=== PATIENT | male | born 1955 | race Caucasian/White ===

== ENCOUNTER → 2019-11-24 11:14 | Outpatient (BNVA) | payer OTHER, SELFPAY | PROVIDERS: Family Provider Internal Medicine; PCP Internal Medicine; Visit Provider Orthopaedic Surgery | DX: M79.642 Pain in left hand (principal) | CPT/HCPCS: 73130 ==

== ENCOUNTER 2020-01-13 08:49 | Day surgery (SDC) | payer OTHER, SELFPAY ==
[2020-01-12 14:37] VITALS: BMI 30.6
[2020-01-13] VITALS (7 sets, daily range): BP systolic 116–157; BP diastolic 68–107; PULSE 50–82; RESP 16–20; TEMP 36.4–36.7; O2SAT 92–99
--- NOTE | 2020-01-13 08:34 | W.PM.OPSUD ---
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
--- NOTE | 2020-01-13 09:10 | W.PM.OPSUD ---
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
[2020-01-13] MEDS: sodium chloride 0.9% 1,000 ML 30 ML IV (10:37)
--- NOTE | 2020-01-13 10:59 | ANES.PREANE2 ---
Pre-Anesthetic Assessment Pre-Anesthetic Assessment: Height/Weight: Height 1.83 m Weight 102.512 kg Temp Pulse Resp BP Pulse Ox 97.6 F 53 L 18 157/107 97 01/13/20 10:17 01/13/20 10:17 01/13/20 10:17 01/13/20 10:17 01/13/20 10:17 Preop Diagnosis: failed left thumb CMC joint ligament reconstruction Proposed Procedure: Operation Date: 12/10/19 08:10 Proposed Procedures p Left thumb ligament reconstruction and tendon interposition 91516 05073 S63.042S(Left) - Jason Schmitt DO Operation Date: 01/13/20 12:40 Proposed Procedures p left thumb ligament reconstruction and tendon interposition, 17563 33176 S63.042S(Left) - Jason Schmitt DO Last intake: Intake Last Liquid Date 01/12/20 Last Liquid Time 20:30 Last Solid Date 01/12/20 Last Solid Time 20:30 Social: Social History: No alcohol and No tobacco Exam: Pre-Anes Outpt Exam: alert, oriented x 3, clear to auscultation bilaterally and regular rate & rhythm Airway: Submandibular: WNL Cervical ROM: WNL MP: 2 Dentition: Other (teeth ok) History/ROS: No significant history except as noted Pulmonary: Pulmonary: Sleep apnea CV/HEM: CV/HEM: HTN : : None reported Hepatic: Hepatic: None reported GI: GI: None reported Metabolic: Metabolic: None reported Musc/skel: Musc/skel: OA/DJD Neuropsych: Neuropsych: None reported Anesthetic Plan: ASA status: 2 Anesthesia: Anesthesia Evaluation and General Risk of > 500 ml blood loss (7ml/kg in children): No Meds/Allergies Current Medications: Current Medications Generic Name Dose Route Start Last Admin Trade Name Freq PRN Reason Stop Dose Admin Sodium Chloride 1,000 mls @ 30 ml s/hr 01/13/20 10:15 01/13/20 10:37 Sodium Chloride 0.9% IV 01/14/20 10:14 30 mls/hr .Q24H TAMIA Administration PFSH Anesthesia PFSH: Social History Smoking and tobacco status: never smoked Alcohol intake: never Data Anesthesia Cardiac Studies: No Data to Display
[2020-01-13] MEDS: cefUROXime 1,500 MG in sodium chloride 0.9% (plus) 50 ML 100 MG IV (11:28)
[2020-01-13] MEDS: lidocaine 1% INJ 20 mL SUBCUT (13:16)
[2020-01-13] MEDS: neomycin-poly-bacitracin oint 28 gm 1 APPLIC TOPICAL (13:17)
--- NOTE | 2020-01-13 13:40 | P.OP_ITS ---
Operative Report Date of procedure: January 13, 2020 Pre-op Diagnosis: failed left thumb CMC joint ligament reconstruction Post-op diagnosis: same Post-op Findings: Extreme laxity of thumb metacarpal allowing it to piston proximally and distally. Displaced semitendinosus graft previously used into soft tissues dorsal radial aspect of left thumb. No evidence of infection Procedure Done: Left thumb carpometacarpal joint ligament reconstruction and tendon interposition using semitendinosus allograft tendon interposition and ligament reconstruction using autologous flexor carpi radialis tendon graft Implants: 4 x 10 mm Arthrex bio composite screw Specimens removed/disposition: displaced allograft resected and disposed of in OR Pathology: none sent Surgeon: Jason Schmitt Anesthesia: General Estimated blood loss (mL): 10 Tourniquet time (min): 95 Tourniquet time: 250 mmHg pressure Complications: no apparent complicationsrgery Findings: at conclusion of procedure ligament reconstruction secure with marked improved stability of thumb metacarpal Condition: stable Disposition: PACU Brief History: 64-year-old white male who previously undergone left thumb trapeziectomy with ligament reconstruction tendon interposition using internal brace developed proximal migration postoperatively of his thumb metacarpal with extreme instability of the thumb metacarpal. The thumb metacarpal base migrated to the distal pole of the scaphoid. The patient had pain with the soft tissue prominence is felt to be displaced interposition allograft. Due to his complaints of pain and radiographically failed when clinically failed surgical procedure we discussed treatment options. Patient was willing to proceed with revision ligament reconstruction tendon interposition of his left thumb.. Risks of surgery include aren't limited to potential recurrence of the failed stability of the thumb. Nerve/blood vessel/tendon injury, wound healing complications, blood clots, heart attack, stroke risk up to including . All questions were answered patient was agreeable to proceed with surgery. Procedure: Patient identified. Surgical site was signed. Surgical permit was signed. The patient received 1.5 g of Zinacef intravenously for surgical prophylaxis. The patient was taken to the operating room. His placed supine on the operating room table. He was placed under general anesthesia without difficulty. A tourniquet was placed but the upper aspect of left upper extremity. The left upper extremity was then sterilely prepped and draped usual fashion. A timeout was performed. The operative limb was exsanguinated using Esmarch bandage tourniquet inflated to 250 mmHg pressure. With a #15 blade we made an incision over the patient's previous area of surgery at the base of the left thumb metacarpal. Full-thickness skin flaps were made. We encountered the displaced semitendinosus interposition allograft. It was started the local soft tissues. Using careful dissection the interposition arthroplasty was dislodged from the soft tissues. We could identify the depths of the area of the trapezium ectomy. The flexor carpi radialis tendon was found to be intact. We then made a 8 cm incision overlying the flexor carpi radialis tendon. Full- thickness skin flaps were made the flexor carpi radialis tendon was dissected from the surrounding soft tissues. The tendon was then incised. Then using a right angle forceps were able to place this underneath the flexor carpi radialis tendon near the base of the index metacarpal and with traction were able to tendon into the surgical wound to the base of the thumb. We then take a guidewire and then drilled over this using a 4 mm cannulated drill going from the dorsum of the left thumb metacarpal to the base of the thumb metacarpal. We then passed a tendon through the thumb metacarpal and with traction on the thumb taken the basis of metacarpal to the area of the index finger metacarpal we inserted a 4 x 10 mm bio composite interference screw. Excess tendon was cut off. We then made an Hank knee and show the interposition allograft out of the semitendinosus tendon. It was now placed in the space between the distal pole of scaphoid and the proximal aspect of the thumb metacarpal. Joint capsule was closed with interrupted sutures of 4-0 FiberWire. We then sutured and amnion patch over the area of the capsular reconstruction to further reinforce this area and this patch was held in place using interrupted sutures of 4 of hardware. Incision was then closed in layers of the volar wrist and at the base of the thumb using 3-0 undyed Vicryl for nylon on skin. Surgical sites were injected with 10 mL of a one-to-one mixture 1% lidocaine half percent Marcaine. Antibiotic ointment was applied followed by sterile dressings and then a plaster thumb spica splint was applied. Tourniquet was deflated during application of dressings. The patient was aroused from general anesthesia. He was taken to recovery room. He tolerated surgery well. All counts are correct.
== END 2020-01-13 15:10 | disposition home or self-care (01) ==
PROVIDERS: Family Provider Internal Medicine; PCP Internal Medicine; Visit Provider Orthopaedic Surgery
PROC: (CPT 25447; principal; 2020-01-13 12:20)
DX: S63.04 Subluxation and dislocation of carpometacarpal joint of thumb (principal); X58.XXXS Exposure to other specified factors, sequela; G47.30 Sleep apnea, unspecified; I10 Essential (primary) hypertension; M19.90 Unspecified osteoarthritis, unspecified site
CPT/HCPCS: 25447; 12345; C1762; J0697; J1580; J2001; J2250; J2405; J2704; J3010; J3490; J7030

== ENCOUNTER 2020-02-24 15:08 | Outpatient (CLI) | payer OTHER, SELFPAY | END 2020-02-24 15:09 | disposition home or self-care (01) | LOC: SPT 15:10 | PROVIDERS: Family Provider Internal Medicine; PCP Internal Medicine; Visit Provider Orthopaedic Surgery | DX: Z46.89 Encounter for fitting and adjustment of other specified devices (principal); S63.042D Subluxation of carpometacarpal joint of left thumb, subsequent encounter; X58.XXXD Exposure to other specified factors, subsequent encounter | CPT/HCPCS: 97760; L3809 ==

== ENCOUNTER → 2020-03-30 10:37 | Outpatient (BNVA) | payer OTHER, SELFPAY | PROVIDERS: Family Provider Internal Medicine; PCP Internal Medicine; Visit Provider Orthopaedic Surgery | DX: S63.042D Subluxation of carpometacarpal joint of left thumb, subsequent encounter (principal); X58.XXXD Exposure to other specified factors, subsequent encounter | CPT/HCPCS: 73140 ==

== ENCOUNTER → 2020-06-22 14:48 | Outpatient (BNVA) | payer OTHER, SELFPAY | PROVIDERS: Family Provider Internal Medicine; PCP Internal Medicine; Visit Provider Specialist | DX: M17.0 Bilateral primary osteoarthritis of knee (principal) | CPT/HCPCS: 73560; 73565 ==

== ENCOUNTER 2020-08-21 14:26 | Emergency (ER) | payer OTHER, SELFPAY ==
[2020-08-21 14:56] VITALS: BP 150/93; PULSE 60; RESP 14; TEMP 36.5; O2SAT 96
[2020-08-21 15:01] VITALS: BMI 32.1
[2020-08-21 15:47] VITALS: BP 146/92; PULSE 64; RESP 16; TEMP 36.5; O2SAT 98
--- NOTE | 2020-08-21 15:47 | ED_ITS ---
HPI - Wound/Laceration General: Chief Complaint: Wound/Laceration Stated Complaint: FINGER INJURY Time Seen by Provider: 08/21/20 15:09 Source: patient Mode of arrival: ambulatory Limitations: no limitations History of Present Illness: HPI narrative: 64-year-old male patient presents to the emergency department with a laceration to the distal portion of the right index finger. Patient states he was digging around in his toolbox and cut it on something. Patient denies any numbness or tingling. Patient presents with bleeding controlled. Patient denies any other injury or trauma. Patient states his tetanus shot is up-to-date. This injury happened prior to arrival Associated symptoms: Denies chills or fever(s) Review of Systems Const: Denies: fever(s) or chills Card: Denies: chest pain Resp: Denies: dyspnea Skin/Breast: Reports: other (1.5 cm laceration to the distal portion of the right index finger); Denies: rash, pruritus or erythema Neuro: Denies: numbness in extremities or weakness in extremities Psych: Denies: suicidal ideation or homicidal ideation [facility] ED PFSH: Medical History Osteoarthritis of carpometacarpal (CMC) joint of left thumb Surgical History Hx of thumb surgery Social History Smoking and tobacco status: never smoked Alcohol intake: never Physical Exam Const: COMMON NORMALS: no acute distress, patient oriented x3, no limitations, healthy appearing, alert and well nourished Resp: COMMON NORMALS: normal respiratory effort Extremity: NARRATIVE EXTREMITY EXAM: Patient has a 1.5 cm linear laceration noted to the distal portion of the right index finger patient is neurovascularly intact distally. Bleeding is controlled. Tendon is intact there is no finger nail involvement Neuro: COMMON NORMALS: patient oriented x3 SENSORIUM/ORIENTATION: Yes alert Procedures Laceration Laceration 1: Site: hand (Right distal portion of index finger) Size (cm): 1.5 Description: linear Depth: simple, single layer Local Anesthetic: lidocaine 1% Pre-repair: wound explored and irrigated extensively Skin layer closed with: nylon Size (cm): 5-0 Number of sutures: 4 Technique: simple, interrupted Course Vital Signs: Vital signs: Vital Signs Temperature 97.7 F 08/21/20 14:56 Pulse Rate 60 08/21/20 14:56 Respiratory Rate 14 08/21/20 14:56 Blood Pressure 150/93 08/21/20 14:56 Pulse Oximetry 96 08/21/20 14:56 MDM - Wound/Laceration MDM Narrative: Medical decision making narrative: Patient is well-appearing nontoxic and in no acute distress. Patient's laceration did require sutures please see procedure note for details. Patient is neurovascularly intact distally this was a superficial laceration there is no tendon involvement patient has full range of motion. Patient's tetanus shot is up-to-date. Wound care instructions have been advised home care instructions have been reviewed patient is medically cleared and appropriate for discharge Discharge Plan Discharge Condition: Stable Prescriptions: No Action lisinopril 20 mg tablet 20 mg PO DAILY RF: 0 duloxetine [Cymbalta] 60 mg capsule,delayed release(DR/EC) 60 mg PO DAILY RF: 0 (DME) Thumb spica splint See Rx Instructions .Route .MEDSUPPLY Qty: 1 RF: 0 oxycodone-acetaminophen 5-325 mg tablet 1 tab PO Q4H PRN (Reason: pain) Qty: 40 RF: 0 Discharge Orders: Discharge Order (Routine); Ordered 08/21/20 Ordered By: Varsha Hammer Referrals: Ramon Oneil [Primary Care Provider] - Discharge Diet: Advance as tolerated Discharge Activity: Resume usual activity Activity Restrictions/Additional Instructions: Please return to the emergency department in 8 to 10 days for suture removal Please follow wound care instructions Please return to the emergency department with any signs of infection such as drainage fever increased pain to the area or any other concerning symptoms Coding Level of Care Code ED [employer] for Azar Bashir
== END 2020-08-21 15:56 | disposition home or self-care (01) ==
PROVIDERS: Emergency Provider Registered Nurse; PCP Internal Medicine
DX: S61.210A Laceration without foreign body of right index finger without damage to nail, initial encounter (principal); W26.9XXA Contact with unspecified sharp object(s), initial encounter
CPT/HCPCS: 12001; 12345; 99281; 99282

== ENCOUNTER 2020-09-11 13:31 | Outpatient (CLI) | payer OTHER, SELFPAY ==
--- NOTE | 2020-09-11 13:40 | US_ITS ---
WS: [id number] THYROID ULTRASOUND HISTORY: FOLLOW UP MULTINODULAR GOITER COMPARISON: 12/04/2015 Right lobe: 5.9 cm x 2.9 cm x 2.3 cm. Volume: 20.8 cm3. Moderately enlarged thyroid. There are multiple ill-defined nodules throughout the gland. Majority of these nodules are either isoechoic or hyperechoic to the adjacent strap muscles and thyroid. Very li ttle normal thyroid tissue is identified. There is no discrete nodule that stands out as being differ ent a more concerning the remaining nodules. Left lobe: 5.7 cm x 1.9 cm x 2.0 cm. Volume: 11.4 cm3. Enlarged thyroid double ill-defined nodules. There is a slightly thick wall cyst from the inferior po le but no nodule within the cyst. There is no mural nodular component. Cyst measures 1.0 x 1.4 x 1.3 cm. Isthmus: 1.0 cm. US/US thyroid 60618 IMPRESSION: Multinodular thyroid. Although there are multiple nodules none of the nodules s tand out as being more concerning than another. At this time there is no nodule for which biopsy will be recommended.
== END 2020-09-11 13:32 | disposition home or self-care (01) ==
LOC: RAD 13:34
PROVIDERS: PCP Family Medicine; Visit Provider Family Medicine
DX: E04.2 Nontoxic multinodular goiter (principal)
CPT/HCPCS: 76536

== ENCOUNTER → 2020-10-12 09:46 | Outpatient (BNVA) | payer OTHER, SELFPAY | PROVIDERS: PCP Family Medicine; Visit Provider Specialist | DX: Z11.59 Encounter for screening for other viral diseases (principal) | CPT/HCPCS: 87635 ==

== ENCOUNTER 2020-10-17 10:05 | Observation (INO) | payer OTHER, SELFPAY ==
[2020-10-06 10:53] VITALS: BMI 33.5
[2020-10-06 11:39] LABS: Add Urine Microscopic? NO
[2020-10-06 11:47] LABS: Basophils # 0.1 10^3/uL (0.0-0.1); Basophils % 1.3 %; Eosinophils # 0.3 10^3/uL (0.0-0.8); Hemoglobin 15.7 g/dL (11.7-16.6); Lymphocytes # 1.4 10^3/uL (0.8-4.8); Mean Corpuscular HGB Conc 33.4 g/dL (30.0-36.0); Mean Corpuscular Hemoglobin 31.4 pg (28.0-34.0); Mean Platelet Volume 9.9 fL (7.4-10.4); Monocytes # 0.7 10^3/uL (0.2-0.9); Monocytes % 11.6 %; Neutrophils # 3.66 10^3/uL (1.8-7.7); Neutrophils % 58.9 %; Nucleated Red Blood Cells % 0 %; Platelet Count 278 10^3/cmm (130-400); Red Cell Distribution Width 12.2 % (12.1-15.1); White Blood Count 6.2 10^3/uL (4.0-10.0)
[2020-10-06 11:52] LABS: Bilirubin Urine Neg (Negative); Blood Urine Neg (Negative); Glucose Urine UA Norm (Normal); Ketones Urine Negative (Negative); Leukocyte Esterase Urine Negative (Negative); Nitrate Urine Negative (Negative); Protein Urine Neg (Negative); Urine Appearance Clear (CLEAR); Urine Color Yellow (Yellow); Urobilinogen Urine Norm (Negative)
[2020-10-06 12:14] LABS: Alanine Aminotransferase 18 U/L (0-41); Albumin Level 4.1 g/dL (3.5-5.2); Alkaline Phosphatase 105 IU/L (40-130); Aspartate Amino Transferase 18 U/L (0-40); Blood Urea Nitrogen 17 mg/dL (8-23); Calcium 8.6 mg/dL (8.5-10.5); Carbon Dioxide 27 mmol/L (22-29); Chloride 104 mmol/L (98-107); Globulin 3.1 g/dL (1.3-4.6); Glomerular Filtration Rate 75.2 mL/min (90-130); Glucose 126 mg/dL (65-115); Osmolality Calculated 291 mOsm/kg (285-295); Sodium 139 mmol/L (136-145); Total Bilirubin 0.5 mg/dL (0.15-1.2); Total Protein 7.2 g/dL (6.6-8.7)
--- NOTE | 2020-10-06 13:07 | ANES.PREANE2 ---
Pre-Anesthetic Assessment Pre-Anesthetic Assessment: Height/Weight: Height 1.8 m Weight 108.862 kg Preop Diagnosis: DJD left knee Proposed Procedure: Operation Date: 10/17/20 10:35 Proposed Procedures p Left total knee arthropasty 18113 m17.0(Left) - Concepcion Ron MD Was Beta Amadeo taken within 24 hours: N/A Social: Social History: No alcohol and No tobacco Exam: Pre-Anes Outpt Exam: alert, oriented x 3, clear to auscultation bilaterally and regular rate & rhythm Airway: Submandibular: WNL Cervical ROM: WNL MP: 2 Dentition: Full Additional comments: Heavy willis CV/HEM: CV/HEM: HTN Musc/skel: Musc/skel: OA/DJD Anesthetic Plan: ASA status: 2 Anesthesia: Regional (specify below) Other: SAB with adductor canal blk Risk of > 500 ml blood loss (7ml/kg in children): No PFSH Anesthesia PFSH: Medical History Cardiac dysrhythmia Cervical disc disease Fibromyalgia Hypothyroidism Osteoarthritis of carpometacarpal (CMC) joint of left thumb Surgical History History of carpal tunnel release 2001 Hx of hernia repair Hx of spinal surgery Hx of thumb surgery Social History Smoking and tobacco status: never smoked Alcohol intake: never Data Anesthesia CBC & Chem 7: 10/06/20 10:35 10/06/20 10:35 Other Labs: Laboratory Results - last 48 hr 10/06/20 10/06/20 10/06/20 10:35 10:35 10:35 WBC 6.2 RBC 5.00 Hgb 15.7 Hct 47.0 MCV 94.0 MCH 31.4 MCHC 33.4 RDW 12.2 Plt Count 278 MPV 9.9 Neut % (Auto) 58.9 Lymph % (Auto) 23.0 [place] % (Auto) 11.6 Eos % (Auto) 5.0 Baso % (Auto) 1.3 Neut # (Auto) 3.66 Lymph # (Auto) 1.4 [place] # (Auto) 0.7 Eos # (Auto) 0.3 Baso # (Auto) 0.1 Nucleated RBC % (auto) 0 Nucleated RBCs # 0.0 Sodium 139 Potassium 4.0 Chloride 104 Carbon Dioxide 27 Anion Gap 12.0 BUN 17 Creatinine 1.0 GFR Calculation 75.2 L Glucose 126 H Calculated Osmolality 291 Calcium 8.6 Total Bilirubin 0.5 AST 18 ALT 18 Alkaline Phosphatase 105 Total Protein 7.2 Albumin 4.1 Globulin 3.1 Urine Color Yellow Urine Appearance Clear Urine pH 5.0 Ur Specific [place] 1.020 Urine Protein Neg Urine Glucose (UA) Norm Urine Ketones Negative Urine Blood Neg Urine Nitrate Negative Urine Bilirubin Neg Urine Urobilinogen Norm Ur Leukocyte Esterase Negative Cardiac Studies: No Data to Display
[2020-10-17] VITALS (21 sets, daily range): BP systolic 112–150; BP diastolic 71–95; PULSE 42–84; RESP 14–20; TEMP 36.3–37.1; O2SAT 90–96
[2020-10-17] MEDS: CELEcoxib 200 mg Capsule 400 MG PO (06:00)
[2020-10-17] MEDS: sodium chloride 0.9% 1,000 ML 30 ML IV (06:08)
[2020-10-17] MEDS: vancomycin 1,000 MG in sodium chloride 0.9% 250 ML 167 MG IV (06:25)
--- NOTE | 2020-10-17 06:55 | W.PM.OPSUD ---
Surgery/Procedure H&P Update DATE OF PROCEDURE: October 17, 2020 DATE H&P PERFORMED: 09/25/20 H&P UPDATE INFORMATION: I have reviewed H&P completed within last 30 days, I have examined patient prior to procedure, No changes to prior documentation and H&P is in [facility] EMR on date indicated PREOP DIAGNOSIS: DJD left knee PLANNED PROCEDURE: Operation Date: 10/17/20 07:00 Proposed Procedures p Left total knee arthropasty 82729 m17.0(Left) - Concepcion Ron MD Related Problem List Diagnoses (1) Primary osteoarthritis of left knee:
--- NOTE | 2020-10-17 07:09 | P.ANESUD_ITS ---
Pre-Anesthetic Update Pre-Anesthetic Assessment: Date of Surgery/Procedure: 10/17/20 Preop Mallika gnosis: DJD left knee Proposed Procedure: Operation Date: 10/17/20 07:00 Proposed Procedures p Left total knee arthropasty 26481 m17.0(Left) - Concepcion Ron MD Any changes to Pre-Anesthetic Assessment?: No Last Intake: Intake Last Liquid Date 10/16/20 Last Liquid Time 18:00 Last Solid Date 10/16/20 Last Solid Time 18:00 Last Intake: 00:00 Vitals: Temperature 97.3 F L 10/17/20 05:50 Temperature Source Temporal Artery S can 10/17/20 05:50 Pulse Rate 51 L 10/17/20 05:50 Pulse Rhythm 10/17/20 05:50 Pulse Strength 3+ Normal 10/17/20 05:50 Respiratory Rate 18 10/17/20 05:50 Blood Pressure 150/95 10/17/20 05:50 Blood Pressure Yudith n 113 10/17/20 05:50 Pulse Oximetry 96 10/17/20 05:50 Oxygen Delivery Me thod 10/17/20 05:50 Exam: Pre-Anes Outpt Exam: alert, oriented x 3, clear to auscultation bilaterally and regular rate & rhythm Cardiac Studies: No Data to Display
[2020-10-17] MEDS: ceFAZolin 1,000 mg SDV 1000 MG IRRIGATION (08:09)
[2020-10-17] MEDS: vancomycin 1,000 MG SDV 1000 MG XX (08:12)
--- NOTE | 2020-10-17 08:28 | ANES.PROC ---
Anesthesia Procedures Procedure/Date: 10/17/20 Nerve Block ^: Nerve Block 1: Main Anesthesia: spinal anesthesia block Time Out Performed: Yes Consent: requested by attending/covering physician, from patient, risks and benefits reviewed and patient agrees to proceed Nerve block location: adductor canal (left) Anesthesia monitors applied: pulse oximetry, EKG, BP cuff and oxygen Anesthetic Used: ropivicaine 0.5% Amount of anesthesia used (mL): 20 Ultrasound used to: recognize landmarks Nerve Stimulator Used?: No Interscalene/Femoral BLK: 4 stimuplex 21 g needle used for position and inplane approach Injection: neg aspiration of heme Patient Tolerated Procedure: well Complications: none
--- NOTE | 2020-10-17 09:50 | SUR.PHASEI ---
PT TO PACU SLEEPY WITH GOOD RESP EFFORT PT AWAKES TO VOICE, MURMERS YES AND NO APPROPRIATELY TO PAIN AND COLD QUESTIONS BUT QUICKLY BACK TO SLEEP , SPINAL LEVEL OF NORMAL SENSATION ASSESSED AT T-11 AREA, PT STILL UNABLE TO MOVE BILAT FEET OR LEGS, HOB FLAT , RAISED TO 10 DEGREES VSS. JAY TO DD WITH BLOOD COLORED URINE NOTED TO TUBING STATLOCK PLACED TO RT THIGH, BILAT FOOT PUMPS ON AND FIRST ICE TO LT KNEE DRESSING THAT IS D/I DISTAL LT FOOT PINK WARM WITH PULSE MARKED BILAT FOOT PUMPS ON 955 XRAY HERE PT AWAKES EASILY TO VOICE ORIENTED TO PLACE AND NAME
--- NOTE | 2020-10-17 09:56 | XR_ITS ---
WS: [id number] Exam: XR knee LT 1-2V [id number] Date/Time of Exam: 10/17/2020 10:00 AM Reason For Exam: Status post left total knee arthroplasty Comparison 06/22/2020. Total left knee prosthesis is in place in excellent position. Postoperative changes in the adjacent s oft tissues. Anterior surgical skin clips. XR/XR knee LT 1-2V [id number] IMPRESSION: 1. Total knee replacement in excellent position.
--- NOTE | 2020-10-17 09:59 | P.OP_ITS ---
Operative Report Date of procedure: October 17, 2020 Pre-op Diagnosis: DJD left knee Post-op diagnosis: same Post-op Findings: Severe degenerative osteoarthritis left knee Procedure Done: Left total knee arthroplasty Implants: The [place] total knee system with a size 6 triathlon beaded posterior stabilized femur left, a triathlon titanium tibial component size 6 beaded, a triathlon X3 posterior stabilized tibial bearing insert size 6 X 11 mm and a beaded triathlon titanium asymmetric patella size 35 x 10 mm Specimens removed/disposition: Bone, disposed of Pathology: none sent Surgeon: Concepcion Ron Sterilization Tech: [employer] OR technicians Anesthesia: MAC (With spinal) Estimated blood loss (mL): 5 Tourniquet time (min): 93 Tourniquet time: At 250 mmHg IV fluids (mL): 1,300 Urine output (mL): 150 Complications: None Findings: Severe degenerative osteoarthritis with slight varus deformity Condition: stable Disposition: PACU (Then floor for postoperative rehabilitation) Brief History: This 64-year-old man presented with complaints of severe left knee pain. He was unable to perform activities of daily living comfortably. He was unresponsive to conservative measures and wished to proceed with left total knee arthroplasty . Risks and complications were discussed with him. Consents were signed preoperatively and questions were answered. The patient wished to proceed understanding the above. Procedure: The patient was brought to the operating theater, and after undergoing adequate spinal anesthesia with MAC, ASA 2, the left lower extremity was prepped with Dura-Prep and draped in usual fashion following placement of a tourniquet high on the leg. The leg was then draped free. Following prepping and draping, the leg was exsanguinated, and the tourniquet was elevated to 250 mm Hg for a total tourniquet time of 93 minutes. Prior to elevation of the tourniquet, but following exposure of the site of surgery, a surgical pause was performed. At the time of the surgical pause, we confirmed the site and side of surgery. Additionally, we confirmed the appropriate and timely administration of preoperative antibiotics, vancomycin 1 g. and Transexemic acid 1 g. An additional dose of Transexemic acid 1 g was given at the conclusion of the procedure IV. The availability of equipment was confirmed, and the patient's identity was verbalized as well. Following the surgical pause, an incision was made centering over the patella continuing proximally and distally as necessary to allow access to the knee joint. Dissection continued through skin and soft tissues using a scalpel. Hemostasis was obtained using electrocautery. The skin incision was followed by a median parapatellar arthrotomy. The leg was extended and the patella was everted. Following this, the leg was returned to flexed position. The distal femur was exposed and a drill hole was made in this for placement of the distal femoral jig. The distal femoral jig was set at 5? of valgus. The distal femoral cutting block was then placed in appropriate position, and an wanda wing was used to confirm an appropriate amount of distal femur would be resected. The distal femoral resection was accomplished with 8 mm of bone being resected distally. After the distal femoral resection had been accomplished, the femur was measured and it measured a size 6. Medial lateral dimension also measured a size 6. A size 6 femoral cutting block was placed in position, and we were then able to accomplish the anterior, posterior and chamfer cuts. This jig was then removed and the notch guide was placed in position. With the notch guide in appropriate position, the notch was excised including resection of the anterior and posterior cruciate ligaments. This notch was to allow for the posterior stabilized femoral component. At this point, the femur was prepared and attention was directed to the proximal tibia. The posterior knee retractor was placed along with medial and lateral retractors. Further resection of the menisci was accomplished as we had better visualization. A complete meniscectomy was performed both medially and laterally with care being taken to protect the popliteus. Retractors were then placed so that the proximal tibia was well visualized. A drill hole was then made in the tibia for placement of the intramedullary guide. This guide was placed so that approximately 2 mm of bone would be resected from the deficient medial tibial plateau. The intramedullary guide was utilized supplemented with an extramedullary guide to assure appropriate alignment for the proximal tibial resection. The proximal tibial jig was then evaluated, pinned in position, and the proximal tibial resection was accomplished without difficulty. The jig was removed, and the proximal tibia was measured. It measured a size 6. We then attempted a trial reduction with a size 6 by 11 mm insert. The femoral component was placed in position for the trial reduction, and the knee was placed through range of motion. With this, there was excellent stability with excellent varus-valgus alignment with appropriate patellar tracking. Extension was noted to be full as well. This was felt to be the appropriate size insert. There was full extension and flexion without lift off and the rotation of the tibia was marked. Alignment was checked from the hip to the ankle, and this was noted to be appropriate as well. Attention was then directed to the patella. The patella was measured with a caliper. We resected sufficient patella to leave approximately 14 mm of patella remaining. Measurements of the patella then indicated that a size asymmetric 35 mm x 10 mm was the appropriate patellar size. We then placed the jig to drill for the 3 pegs of the press-fit patella, and these drill holes were made without incident. A trial patella was then placed, and the knee was placed through range of motion. The patella was noted to track nicely without evidence of subluxation. The femur was prepared for a press-fit femur by drilling 2 holes for the femoral pegs. All trial components were subsequently removed. The tibial tray was then pinned into position, and we broached the tibia for the stem of the tibial component. Subsequently, 4 drill holes were made for placement of the press-fit tibia. This was accomplished without difficulty. Care was taken to assure appropriate rotation of the tibia as well as appropriate position on the proximal tibia. The tibial tray was completely seated on the proximal tibia. Following broaching, the tibial guide was removed, and all surfaces were copiously irrigated. The surfaces were then dried and a bone plug was placed into the distal femur. Exparel was also injected at this point. The Tritanium tibia was impacted into position. The beaded femur was then impacted into position in a cementless fashion. The tibial insert was placed. The patella was pressed into position with a patellar clamp. The knee was irrigated with 20 mL of Betadine and 500 mL of normal saline, and this was allowed to remain in the knee for 3-4 minutes. The knee was then copiously irrigated and suctioned dry. Attention was then directed to closure. Closure was accomplished with 0 Vicryl in the fascial tissues. Following this, a 2-0 Monocryl was used in the subcutaneous tissues, and the skin was closed with skin day. A sterile dressing was then placed consisting of Exofin, telfa, 4x4's, ABD, sterile soft roll, and an Hank wrap. The patient was returned the Recovery Room in a satisfactory condition. X-rays were obtained there. The patient will be discharged to the floor for postoperative rehabilitation and pain management. Associated Problem List Diagnoses (1) Primary osteoarthritis of left knee:
--- NOTE | 2020-10-17 10:04 | SUR.PHASEI ---
PT AWAKES EASILY, ORIENTED PT URINE NOW MORE CLEAR BUT STILL RED SEE IV FLUIDS 300ML IN PACU TO CLEAR UP URINE. SPINAL LEVEL NOW AT T-12 PT HIWOT TO MOVE RT THIGH.
[2020-10-17] MEDS: oxyCODONE 5 mg IR Tab/Cap PO ×3 (11:40→22:00)
[2020-10-17] MEDS: chlorhexidine gluconate 0.12% Btl 473 mL 30 ML MUCOUS MEM ×3 (13:33→20:37)
[2020-10-17] MEDS: TRAMadol 50 mg Tablet PO ×2 (13:33→18:49)
--- NOTE | 2020-10-17 13:34 | ANE.PACU2 ---
Inpatient post-anesthesia follow up: Airway intact: Yes Vital signs: Temperature 97.4 F Pulse Rate 58 Respiratory Rate 17 Blood Pressure 150/92 Pulse Oximetry 94 Oxygen Delivery Me thod Room Air Oxygen Flow Rate Fraction of Inspir ed Oxygen Hydration adequate: Yes Nausea and vomiting: No Pain level: 1 Mental status: Baseline
[2020-10-17] MEDS: calcium carbonate 500 mg Chew Tablet 1000 MG PO (17:52)
[2020-10-17] MEDS: CELEcoxib 200 mg Capsule PO (17:52)
[2020-10-17] MEDS: iron polysaccharide complex 150 mg Capsule PO (17:53)
[2020-10-17] MEDS: sennosides-docusate Tablet 2 TAB PO (17:53)
--- NOTE | 2020-10-17 18:39 | PC.NURSE ---
SHIFT SUMMARY PATIENT HAS DONE WELL TODAY. PAIN WELL CONTROLLED. DID WELL WITH THERAPY. TOLERATING DIET. GOOD URINE OUTPUT IN THE JAY CATHETER. GOOD NEUROVASCULAR CHECKS. SURGICAL DRESSING IS C/D/I. FP AND TEDS IN PLACE. NO COMPLAINTS AT THIS TIME.
[2020-10-18] VITALS (8 sets, daily range): BP systolic 127–176; BP diastolic 78–95; PULSE 61–68; RESP 17–18; TEMP 35.9–37; O2SAT 92–95
[2020-10-18 03:04] LABS: Basophils # 0.1 10^3/uL (0.0-0.1); Basophils % 0.6 %; Eosinophils # 0.2 10^3/uL (0.0-0.8); Eosinophils % 1.6 %; Hematocrit 39.6 % (42.0-52.0); Lymphocytes % 9.8 %; Mean Corpuscular HGB Conc 32.8 g/dL (30.0-36.0); Mean Corpuscular Hemoglobin 31.4 pg (28.0-34.0); Mean Corpuscular Volume 95.7 fL (80-94); Mean Platelet Volume 9.9 fL (7.4-10.4); Monocytes # 1.1 10^3/uL (0.2-0.9); Monocytes % 11.4 %; Neutrophils # 7.55 10^3/uL (1.8-7.7); Neutrophils % 76.4 %; Nucleated Red Blood Cells % 0 %; Platelet Count 233 10^3/cmm (130-400); Red Blood Count 4.14 10^6/uL (4.1-5.3); Red Cell Distribution Width 12.2 % (12.1-15.1); White Blood Count 9.9 10^3/uL (4.0-10.0)
[2020-10-18 03:29] LABS: Anion Gap 11.2 (5-19); Blood Urea Nitrogen 17 mg/dL (8-23); Calcium 8.5 mg/dL (8.5-10.5); Carbon Dioxide 27 mmol/L (22-29); Chloride 102 mmol/L (98-107); Glomerular Filtration Rate 67.4 mL/min (90-130); Glucose 142 mg/dL (65-115); Osmolality Calculated 286 mOsm/kg (285-295); Potassium 4.2 mmol/L (3.5-5.1); Sodium 136 mmol/L (136-145)
[2020-10-18] MEDS: oxyCODONE 5 mg IR Tab/Cap PO ×3 (04:18→16:50)
[2020-10-18] MEDS: CELEcoxib 200 mg Capsule PO ×2 (05:51→16:51)
[2020-10-18] MEDS: vancomycin 1,000 MG in sodium chloride 0.9% 250 ML 250 MG IV (06:45)
[2020-10-18] MEDS: lisinopril 20 mg Tablet PO (07:58)
[2020-10-18] MEDS: iron polysaccharide complex 150 mg Capsule PO ×2 (07:59→16:51)
[2020-10-18] MEDS: sennosides-docusate Tablet 2 TAB PO ×2 (07:59→16:51)
[2020-10-18] MEDS: cholecalciferol (vitamin D3) 1,000 unit Tablet 1000 UNIT PO (07:59)
[2020-10-18] MEDS: chlorhexidine gluconate 0.12% Btl 473 mL 30 ML MUCOUS MEM ×4 (07:59→21:30)
[2020-10-18] MEDS: calcium carbonate 500 mg Chew Tablet 1000 MG PO ×2 (07:59→16:51)
[2020-10-18] MEDS: duloxetine 60 mg Capsule PO (07:59)
[2020-10-18] MEDS: multivitamin therapeutic Tablet 1 TAB PO (07:59)
[2020-10-18] MEDS: aspirin 325 mg EC Tablet PO (07:59)
[2020-10-18] MEDS: TRAMadol 50 mg Tablet PO ×2 (09:50→21:29)
--- NOTE | 2020-10-18 10:07 | PC.NURSE ---
AM NOTE PTS BED LOCKED OUT AT KNEES TO FLAT POSITION
--- NOTE | 2020-10-18 10:13 | PC.CHAP ---
Pastoral Care Encounter/Spiritual Assessment Type of Contact [] Declined residential roofer visit [] Patient/Family/Request visit [] Outpatient visit [] Follow-up visit [] Physician referral [] Code/Alert [x] Routine visit [] Staff referral [] Actively dying [] Patient sleeping [] Family support [] [] Out of room [] Palliative care [] [] Receiving care in room [] Pre-surgical visit [] Trauma [] Long length of stay [] ICU visit [] Other: Relational/Emotional Strength [x] Patient feels connected with others/family/visitors/staff [] Distress [] Loneliness/isolation [] Abandonment Spirituality of Patient [x] Person of Alice [] Attends Pentecostalism of their Alice [] Believes in Prayer [] Reads Bible or Mormonism materials [] There are Spiritual issues to be addressed Cigarette Inspector Interventions [x] Prayer [] Active listening [] Non-anxious presence [] Spiritual/emotional support [] Crisis/trauma care [] Spiritual counseling [] Bereavement support [] Provided bereavement packet [x] Provided Bible/devotional materials [] Provided toy/stuffed animal, coloring book to patient or family member [] Provided Communion [] Anointing/[place] [] Salvation [x] Completed spiritual assessment [] Other: Impact on Illness or Injury [] Angry [] Fearful [] Anxious [] Often cries [] Exhaustion [] Unable to work [] Unable to attend mandaen [] Unable to walk/stand [] Unable to read [] Unable to drive [] Unable to eat/drink [] Unable to sleep [] Unable to be with family [] Patient intubated [] Other: Summary patient up n walking feel ready to go home Time spent with patient 10 min
[2020-10-18] MEDS: acetaminophen 500 mg Tablet 1000 MG PO ×2 (13:07→21:28)
--- NOTE | 2020-10-18 15:43 | PM.PN ---
Subjective Subjective: Interval history: Priyanka is seen in the room. His dressing is removed. Although he is working with physical therapy and did very well on the stairs, he is still not independent in getting up and down from his bed. He will require further inpatient physical therapy to obtain a status which would allow him to safely function at home. Medications: Reviewed: Yes Vitals/I&O/Wt Last Vital Signs Temp 97.5 F L 10/18/20 15:17 Pulse 68 10/18/20 15:17 Resp 18 10/18/20 15:17 BP 176/95 10/18/20 15:17 Pulse Ox 95 10/18/20 15:17 10/18/20 10/18/20 10/18/20 06:59 14:59 22:59 Intake Total 580 / 580 Output Total 600 / 1755 100 / 100 Balance -600 / 1475 480 / 480 Physical Exam Const: COMMON NORMALS: no acute distress, average body habitus, patient oriented x3 and alert GENERAL APPEARANCE: cooperative and comfortable ORIENTATION/CONSCIOUSNESS: Yes awake HENMT: COMMON NORMALS: normocephalic and atraumatic HEAD & SCALP: normocephalic and atraumatic Eye: GENERAL EYE: appearance normal, both eyes and all related structures Chest: COMMONS NORMALS: normal inspection of the chest Resp: COMMON NORMALS: normal respiratory effort EFFORT & INSPECTION: Yes able to speak in complete sentences and Yes symmetric chest movement Extremity: LEFT LOWER EXTREMITY: Yes knee joint (Dressing is removed. The wound is benign. There is no drainage.) Left knee: Yes inspection (There is some bruising and slight swelling.), Yes palpation (Tender to palpation about the knee.), Yes ROM (Not evaluated.) and Yes neurovascular exam (Intact, no evidence of DVT.) Neuro: COMMON NORMALS: patient oriented x3 SENSORIUM/ORIENTATION: Yes alert Psych: COMMON NORMALS: mental status grossly normal APPEARANCE: Yes grossly normal ATTITUDE: Yes calm and Yes engaged ATTENTION/CONCENTRATION: Yes attention grossly intact Skin: COMMON NORMALS: no rashes or lesions noted GENERAL SKIN EXAM: no rashes or lesions noted Urinary Catheter Management^: Moon: Cath Placed During This Visit: yes Reason for Continuing Indwelling Catheter: Perioperative Use in Selected Surgeries Urinary Catheter Date of Insertion: 10/17/20 Urinary Catheter Time of Insertion: 07:40 Data : 10/18/20 02:18 10/18/20 02:18 A&P Assessment and plan (1) Primary osteoarthritis of right knee: Patient is doing well following left total knee arthroplasty, but he is having significant difficulty with independent activity. He did well on the stairs today, but he has not been able to get in and out of bed on his own. He will require further hospitalization for further physical therapy to allow him to function safely at home. Plan would be that he would be discharged home tomorrow. Status: Acute (2) History of total knee arthroplasty: Status: Acute Qualifiers: Laterality: left Qualified Code(s): Z96.652 - Presence of left artificial knee joint Attestations Medical Necessity Statement*: Patient requires ongoing inpatient physical therapy to allow a safe return to home. Coding Level of Care Code Acute Pest Control Operator for Azar Bashir Diagnoses Primary osteoarthritis of right knee M17.11 History of total knee arthroplasty Z96.652 Laterality: left
--- NOTE | 2020-10-18 18:34 | PC.NURSE ---
SHIFT NOTE UP THROUGHOUT SHIFT WITH PT - TOLERATED WELL - PER PT - PATIENT ABLE TO ACCOMPLISH GOING UP AND DOWN STEPS WITHOUT DIFFICULTY - DR WALLER PREVIOUSLY AT PTS SIDE FOR DRESSING CHANGE - ISLAND REMAINS C/D/I WITH SCATTERED AREAS OF BRUISING TO LEFT KNEE - BILATERAL FOOT PUMPS ON AND WORKING THROUGHOUT SHIFT WHEN IN BED - PAIN WELL CONTROLLED WITH PO PAIN MEDS
[2020-10-19] VITALS (7 sets, daily range): BP systolic 145–167; BP diastolic 81–95; PULSE 64–89; RESP 15–18; TEMP 36.6–37; O2SAT 93–96
[2020-10-19 05:30] LABS: Basophils # 0.1 10^3/uL (0.0-0.1); Basophils % 0.5 %; Eosinophils # 0.3 10^3/uL (0.0-0.8); Eosinophils % 2.6 %; Hemoglobin 12.8 g/dL (11.7-16.6); Lymphocytes # 1.2 10^3/uL (0.8-4.8); Lymphocytes % 11.3 %; Mean Corpuscular HGB Conc 32.8 g/dL (30.0-36.0); Mean Corpuscular Hemoglobin 31.1 pg (28.0-34.0); Mean Corpuscular Volume 94.7 fL (80-94); Monocytes # 1.7 10^3/uL (0.2-0.9); Monocytes % 15.3 %; Neutrophils # 7.68 10^3/uL (1.8-7.7); Neutrophils % 69.8 %; Nucleated Red Blood Cells % 0 %; Platelet Count 227 10^3/cmm (130-400); Red Blood Count 4.12 10^6/uL (4.1-5.3); Red Cell Distribution Width 12.2 % (12.1-15.1)
[2020-10-19] MEDS: CELEcoxib 200 mg Capsule PO (05:46)
[2020-10-19] MEDS: acetaminophen 500 mg Tablet 1000 MG PO ×2 (05:47→14:33)
[2020-10-19] MEDS: oxyCODONE 5 mg IR Tab/Cap PO (05:47)
[2020-10-19] MEDS: calcium carbonate 500 mg Chew Tablet 1000 MG PO (09:09)
[2020-10-19] MEDS: chlorhexidine gluconate 0.12% Btl 473 mL 30 ML MUCOUS MEM ×2 (09:09→14:33)
[2020-10-19] MEDS: cholecalciferol (vitamin D3) 1,000 unit Tablet 1000 UNIT PO (09:10)
[2020-10-19] MEDS: multivitamin therapeutic Tablet 1 TAB PO (09:10)
[2020-10-19] MEDS: iron polysaccharide complex 150 mg Capsule PO (09:10)
[2020-10-19] MEDS: aspirin 325 mg EC Tablet PO (09:10)
[2020-10-19] MEDS: lisinopril 20 mg Tablet PO (09:10)
[2020-10-19] MEDS: sennosides-docusate Tablet 2 TAB PO (09:10)
[2020-10-19] MEDS: duloxetine 60 mg Capsule PO (09:10)
--- NOTE | 2020-10-19 15:44 | PM.DCS ---
Discharge Providers Date of Admission: 10/17/20 10:05 Date of Discharge: October 19, 2020 Attending Provider at Admission: Concepcion Ron MD Attending Provider at Discharge: Concepcion Ron MD Primary Care Provider: Ashley Mac MD Diagnoses at Discharge Discharge Diagnosis (1) History of total knee arthroplasty: Status: Acute Permanent problem details: Left [place] total knee system with a size 6 triathlon beaded posterior stabilized femur left, a triathlon titanium tibial component size 6 beaded, a triathlon X3 posterior stabilized tibial bearing insert size 6 X 11 mm and a beaded triathlon titanium asymmetric patella size 35 x 10 mm Qualifiers: Laterality: left Qualified Code(s): Z96.652 - Presence of left artificial knee joint (2) Primary osteoarthritis of right knee: Status: Acute (3) Primary osteoarthritis of left knee: Status: Resolved Reason for Visit Reason for Visit: Left total knee arthropasty [id number] Hospital Course Hospital Course Patient was brought to the hospital on October 17, 2020 for same-day surgery. He underwent left total knee arthroplasty uneventfully. He tolerated this well. On the first postoperative day, the patient was requiring assistance with getting in and out of bed. He was able to ambulate, but he was not competent enough to be discharged to home. Physical therapy continue to work with him. His wound was benign. There was no evidence of DVT. There was no evidence of complication or wound drainage. Plans were made for the patient to stay 1 more day to work with physical therapy so that he had the ability to gain his confidence and be discharged safely to home. This was accomplished and the patient is discharged on the second postoperative day. Physical Exam Const: COMMON NORMALS: no acute distress, average body habitus, patient oriented x3 and alert GENERAL APPEARANCE: cooperative and comfortable ORIENTATION/CONSCIOUSNESS: Yes awake HENMT: COMMON NORMALS: normocephalic and atraumatic HEAD & SCALP: normocephalic and atraumatic Eye: GENERAL EYE: appearance normal, both eyes and all related structures Chest: COMMONS NORMALS: normal inspection of the chest Resp: COMMON NORMALS: normal respiratory effort EFFORT & INSPECTION: Yes able to speak in complete sentences and Yes symmetric chest movement Extremity: LEFT LOWER EXTREMITY: Yes knee joint Left knee: Yes inspection (There is no drainage or evidence of infection.), Yes palpation (Minimal tenderness.), Yes ROM (Not evaluated.) and Yes neurovascular exam (Intact with no evidence of DVT.) Neuro: COMMON NORMALS: patient oriented x3 SENSORIUM/ORIENTATION: Yes alert Psych: COMMON NORMALS: mental status grossly normal APPEARANCE: Yes grossly normal ATTITUDE: Yes calm and Yes engaged ATTENTION/CONCENTRATION: Yes attention grossly intact Skin: COMMON NORMALS: no rashes or lesions noted GENERAL SKIN EXAM: no rashes or lesions noted Urinary Catheter Management^: Moon: Cath Placed During This Visit: yes Reason for Continuing Indwelling Catheter: Perioperative Use in Selected Surgeries Urinary Catheter Date of Insertion: 10/17/20 Urinary Catheter Time of Insertion: 07:40 Discharge Data Data Completed and Pending: Completed Studies During Hospitalization Category Date Time Status XR knee LT 1-2V 7 [id number] Urgent Exams 10/17/20 09:56 Completed Pending at discharge Category Date Time Status Complete Blood Co unt w/Auto AM LABS Lab 10/20/20 04:00 Ordered Labs from last 24 hours 10/19/20 05:10 WBC 11.0 H RBC 4.12 Hgb 12.8 Hct 39.0 L MCV 94.7 H MCH 31.1 MCHC 32.8 RDW 12.2 Plt Count 227 MPV 10.0 Neut % (Auto) 69.8 Lymph % (Auto) 11.3 Lamar % (Auto) 15.3 Eos % (Auto) 2.6 Baso % (Auto) 0.5 Neut # (Auto) 7.68 Lymph # (Auto) 1.2 [place] # (Auto) 1.7 H Eos # (Auto) 0.3 Baso # (Auto) 0.1 Nucleated RBC % (a uto) 0 Nucleated RBCs # 0.0 Vitals: Last Vital Signs Temp 98.6 F 10/19/20 15:08 Pulse 89 10/19/20 15:08 Resp 17 10/19/20 15:08 BP 167/90 10/19/20 15:08 Pulse Ox 96 10/19/20 15:08 Discharge Plan Discharge Patient Disposition: Home Health Service Condition: Stable Prescriptions: New celecoxib 200 mg Capsule 200 mg PO Q12H Qty: 60 RF: 0 acetaminophen 500 mg Tablet 1,000 mg PO Q8H 15 Days Qty: 0 RF: 0 aspirin 325 mg Tablet,Delayed Release (Dr/Ec) 325 mg PO DAILY 30 Days Qty: 0 RF: 0 oxycodone 5 mg Tablet 5 mg PO Q4H PRN (Reason: Moderate Pain) Qty: 30 RF: 0 Continued lisinopril 20 mg tablet 20 mg PO DAILY RF: 0 duloxetine [Cymbalta] 60 mg capsule,delayed release(DR/EC) 60 mg PO DAILY RF: 0 (DME) Thumb spica splint See Rx Instructions .Route .MEDSUPPLY Qty: 1 RF: 0 vitamin E 200 unit Capsule 200 unit PO DAILY RF: 0 aspirin 81 mg Tablet 81 mg PO DAILY RF: 0 ascorbic acid (vitamin C) 1,000 mg Capsule, Extended Release 1 cap PO DAILY RF: 0 zinc 50 mg Capsule 50 mg PO DAILY RF: 0 cholecalciferol (vitamin D3) [Vitamin D3] 50 mcg (2,000 unit) Capsule 50 mcg PO DAILY RF: 0 Held oxycodone-acetaminophen 5-325 mg tablet 1 tab PO Q4H PRN (Reason: pain) Qty: 40 RF: 0 Hold Instructions: Resume on 10/27/20. Please use Oxycodone with separate Tylenol dosing until this date Discharge Orders: Discharge Order (Routine); Ordered 10/19/20 Ordered By: Concepcion Ron Other Ambulatory Orders: DME: Commode (Order) Location: None Selected Ordered By: Concepcion Ron DME: [employer] (Order) Location: None Selected Ordered By: Davina Roy DME: Shower Chair (Order) Location: None Selected Ordered By: Concepcion Ron DME: Shower Chair (Order) Location: None Selected Ordered By: Davina Roy Referrals: Concepcion Ron MD [Physician] - 10/30/20 9:15 am Discharge Diet: Advance as tolerated and Usual diet Discharge Activity: Resume usual activity, Increase activity as tolerated, Use walker/crutches as instructed and As per PT/OT instructions Patient Instructions: Oxycodone, Rapid Release (By mouth), Celecoxib (By mouth), Total Knee Replacement (DC) Activity Restrictions/Additional Instructions: Ice and elevation to left lower extremity. Maintain a clean dressing. Ambulate with physical therapy. Strengthening and range of motion as per PT. Discharge Attestations Time Spent in Discharge Care*: greater than 30 min Specific Discharge Activities: educating patient and documenting/other paperwork Quality Metrics Clinical Quality Measures During this hospital stay, did patient experience: None Coding Level of Care Code Acute Screen Printing Machine Operator Helper for Azar Fwd Diagnoses History of total knee arthroplasty Z96.652 Laterality: left Primary osteoarthritis of right knee M17.11 Primary osteoarthritis of left knee M17.12
--- NOTE | 2020-10-19 16:45 | PC.NURSE ---
discharge instructions given to patient voiced full understanding, iv dc'd cath intact bleeding controlled with 2x2 and coban. Patient to main entrance via wheelchair to private vehicle with zero difficulties.
== END 2020-10-19 16:45 | disposition home health service (06) ==
LOC: MEDSURG 10:05
PROVIDERS: Admitting Provider Specialist; PCP Family Medicine; Visit Provider Specialist
PROC: (CPT 27447; principal; 2020-10-17 07:00)
DX: M17.12 Unilateral primary osteoarthritis, left knee (principal); M17.11 Unilateral primary osteoarthritis, right knee; I10 Essential (primary) hypertension; M79.7 Fibromyalgia; E03.9 Hypothyroidism, unspecified
CPT/HCPCS: 27447; 12345; 36415; 51702; 64447; 73560; 80048; 80053; 81003; 85025; 96365; 97110; 97116; 97161; 97165; 97535; C1776; C9290; G0378; J0131; J0690; J2250; J2704; J2795; J3370; J3490; J7030; J7050

== ENCOUNTER → 2020-11-01 09:11 | Outpatient (BNVA) | payer OTHER, SELFPAY | PROVIDERS: PCP Family Medicine; Visit Provider Specialist | DX: Z96.652 Presence of left artificial knee joint (principal) | CPT/HCPCS: 73560; 73565 ==

== ENCOUNTER 2020-11-12 16:49 | Emergency (ER) | payer OTHER, SELFPAY ==
--- NOTE | 2020-11-12 16:51 | XRR_ITS ---
PROCEDURE INFORMATION: Exam: XR Left Knee Exam date and time: 11/12/2020 4:52 PM Age: 64 years old Clinical indication: Injury or trauma; Fall; Blunt trauma; Knee; Left TECHNIQUE: Imaging protocol: XR Left knee. Views: 3 views. COMPARISON: CR XR knees AP WB w LT lmt ORTH 11/01/2020 9:17 AM FINDINGS: Bones/joints: Status post total knee replacement. Distal femoral and proximal tibial components appear intact without obvious complication. Soft tissues: There is edema in the soft tissues surrounding the knee. XR/XR knee LT 3V* [id number] IMPRESSION: 1. There is edema in the soft tissues surrounding the knee. 2. Status post total knee replacement with no obvious complication.
[2020-11-12 16:54] VITALS: BP 168/99; PULSE 68; RESP 18; TEMP 36.6; O2SAT 97; BMI 32.8
--- NOTE | 2020-11-12 17:05 | XRR_ITS ---
PROCEDURE INFORMATION: Exam: XR Left Hip with Pelvis when Performed Exam date and time: 11/12/2020 5:06 PM Age: 64 years old Clinical indication: Injury or trauma; Fall; Blunt trauma (contusions or hematomas); Left; Hip; Additional info: Fall, left hip pain TECHNIQUE: Imaging protocol: XR Left hip with pelvis when performed. Views: 2 or 3 views. COMPARISON: CR XR knees AP WB w LT lmt ORTH 11/01/2020 9:17 AM FINDINGS: Bones/joints: There is a small benign bone island in the proximal femur. Tyox-[id number] narrowing of the left hip joint space. There are small marginal osteophytes across the left hip joint. Soft tissues: Unremarkable. XR/XR hip LT 2-3V wo/w pel* [id number] IMPRESSION: There are degenerative changes across the left hip joint. No evidence for acute fracture.
[2020-11-12] MEDS: oxyCODONE-APAP 5-325 mg Tablet 1 TAB PO (17:24)
[2020-11-12 17:27] VITALS: BP 139/88; PULSE 62; RESP 14; O2SAT 96
--- NOTE | 2020-11-12 17:38 | ED_ITS ---
HPI - Fall General: Chief Complaint: Fall Stated Complaint: L KNEE REPLACEMENT 10.17.20/FELL ON IT TODAY Time Seen by Provider: 11/12/20 16:58 History of Present Illness: HPI Narrative: Pleasant 64-year-old male patient presents to the emergency department with left hip pain and left knee pain status post fall. He reports slipped on the ice at noon today sustaining fall/injury to the left knee and left hip. He reports continued pain in the left knee, reports concern due to left knee replacement September 2020. He reports was able to stand but not apply full weight to the left hip or left knee due to pain. States took oxycodone for pain with slight improvement. States had ice on it at home. Comes to the ER to ensure left knee is okay. He is also requesting left hip x-ray. He denies further complaints such as head or neck pain. MD complaint: fall Onset (ago): hour(s) Fall from: standing Fall witnessed: no Place fall occurred: home Loss of consciousness: None Prolonged down time: no Symptoms prior to fall: none Context: tripped/slipped Location of injury - extremities: Left: knee Severity: moderate Quality: sharp and aching Associated symptoms-after fall: Reports no associated symptoms; Denies abdominal pain, chest pain, headache(s), hematuria or neck pain Review of Systems General: Reports: 10 or more systems reviewed and unremarkable except in HPI and below Const: Denies: fever(s), chills or diaphoresis Eyes: Denies: blurry vision or eye redness ENMT: Denies: throat pain, dental pain or disequilibrium Card: Denies: chest pain, palpitations or irregular heart rhythm Resp: Denies: dyspnea, productive cough, non-productive cough or wheezing GI: Denies: abdominal pain, nausea or vomiting : Denies: dysuria, change in urine stream or hematuria Musc: Reports: joint pain, joint swelling and joint stiffness; Denies: neck pain or back pain Skin/Breast: Denies: rash or pruritus Neuro: Denies: headache(s), weakness in extremities or behavioral changes Psych: Denies: anxiety or depression Tutu/Lymph: Denies: easy bruising PFSH ED PFSH: Medical History Cardiac dysrhythmia Cervical disc disease Fibromyalgia Hypothyroidism Osteoarthritis of carpometacarpal (CMC) joint of left thumb Surgical History History of carpal tunnel release 2001 Hx of hernia repair Hx of spinal surgery Hx of thumb surgery Social History Smoking and tobacco status: never smoked Alcohol intake: never Physical Exam Const: COMMON NORMALS: no acute distress, patient oriented x3, healthy appearing and alert GENERAL APPEARANCE: cooperative, comfortable and well hydrated HENMT: COMMON NORMALS: normocephalic, Normal external nose present and moist oral mucous membranes HEAD & SCALP: normocephalic NOSE: Normal external nose present Eye: COMMON NORMALS: Equal, round and reactive pupils present and EOMs intact bilaterally GENERAL EYE: appearance normal, both eyes and all related structures PUPIL: Yes Equal, round and reactive pupils present Neck/C-Spine: COMMON NORMALS: full ROM and no lymphadenopathy GENERAL: Yes normal visual inspection and Yes trachea midline CERVICAL SPINE: Yes cervical ROM normal Lymph: LYMPHATIC: no lymphadenopathy noted Chest: COMMONS NORMALS: normal inspection of the chest Resp: COMMON NORMALS: normal respiratory effort and clear to auscultation bilaterally AUSCULTATION: clear to auscultation bilaterally Cardio: COMMON NORMALS: regular rhythm, S1 normal heart sound present and S2 normal heart sound present RHYTHM: regular rhythm HEART SOUNDS: S1 normal heart sound present and S2 normal heart sound present GI: COMMON NORMALS: Soft to palpation and non-tender INSPECTION: Yes normal to inspection PALPATION: Yes Soft to palpation : COMMON NORMALS: Yes no CVA tenderness BLADDER/KIDNEY EXAM: Yes no CVA tenderness Back/Pelvis: COMMON NORMALS: no CVA tenderness and thoracic and lumbar spine normal to inspection Extremity: COMMON NORMALS: normal to inspection, capillary refill normal, no clubbing, cyanosis or edema, no calf tenderness and no pedal edema GENERAL: Yes normal exam except as noted LEFT LOWER EXTREMITY: Yes hip joint Left hip: Yes inspection (normal), Yes palpation (pain reproduced lateral), Yes ROM (full noted with pain, extension and with weight bearing) and Yes neurovascular exam (distally intact) and Yes knee joint Left knee: Yes inspection (central incision healed and intact without bleeding/slight erythema noted), Yes palpation (pain anterior), Yes ROM (full flexion/extension noted with pain) and Yes neurovascular exam (distally intact) Neuro: COMMON NORMALS: patient oriented x3 and no focal motor deficits SENSORIUM/ORIENTATION: Yes alert Psych: COMMON NORMALS: mental status grossly normal, Normal thought process present and cooperative APPEARANCE: Yes grossly normal ATTITUDE: Yes calm ACTIVITY/MOTOR BEHAVIOR: Yes appropriate eye contact THOUGHT PROCESS: Normal thought process present Skin: COMMON NORMALS: no rashes or lesions noted and turgor normal GENERAL SKIN EXAM: no rashes or lesions noted and turgor normal Course Vital Signs: Vital signs: Vital Signs Temperature 97.8 F 11/12/20 16:54 Pulse Rate 62 11/12/20 17:27 Respiratory Rate 14 11/12/20 17:27 Blood Pressure 139/88 11/12/20 17:27 Pulse Oximetry 96 11/12/20 17:27 MDM - Fall MDM Narrative: Medical decision making narrative: 64-year-old male patient presents to the emergency room with left hip pain and left knee pain status post fall today at noon. Experience left knee replacement September 2020. X-ray series of left knee and left hip/pelvis without acute abnormality/fracture a ppreciated, formal radiology interpretation pending. States has a walker at home he can utilize along with prescribed pain medication. Advised to continue follow-up with Dr. Reyes as scheduled. Discharge Plan Discharge Patient Disposition: Home Clinical Impression: Fall against object Contusion of knee, left Qualifiers: Encounter type: initial encounter Qualified Code(s): S80.02XA - Contusion of left knee, initial encounter Contusion of hip, left Qualifiers: Encounter type: initial encounter Qualified Code(s): S70.02XA - Contusion of left hip, initial encounter Condition: Stable Prescriptions: No Action lisinopril 20 mg tablet 20 mg PO DAILY RF: 0 duloxetine [Cymbalta] 60 mg capsule,delayed release(DR/EC) 60 mg PO DAILY RF: 0 (DME) Thumb spica splint See Rx Instructions .Route .MEDSUPPLY Qty: 1 RF: 0 oxycodone 5 mg tablet 5 mg PO Q4H PRN (Reason: Moderate Pain) 7 Days Qty: 30 RF: 0 oxycodone-acetaminophen 5-325 mg tablet 1 tab PO Q4H PRN (Reason: pain) Qty: 40 RF: 0 Hold Instructions: Resume on 10/27/20. Please use Oxycodone with separate Tylenol dosing until this date vitamin E 200 unit Capsule 200 unit PO DAILY RF: 0 aspirin 81 mg Tablet 81 mg PO DAILY RF: 0 ascorbic acid (vitamin C) 1,000 mg Capsule, Extended Release 1 cap PO DAILY RF: 0 zinc 50 mg Capsule 50 mg PO DAILY RF: 0 cholecalciferol (vitamin D3) [Vitamin D3] 50 mcg (2,000 unit) Capsule 50 mcg PO DAILY RF: 0 celecoxib 200 mg Capsule 200 mg PO Q12H Qty: 60 RF: 0 aspirin 325 mg Tablet,Delayed Release (Dr/Ec) 325 mg PO DAILY 30 Days Qty: 0 RF: 0 Discharge Orders: Discharge ED (Routine); Ordered 11/12/20 Ordered By: Gali Case Referrals: Ashley Mac MD [Primary Care Provider] - Discharge Diet: Usual diet Discharge Activity: Resume usual activity Patient Instructions: Contusion in Adults (ED), Knee Pain (ED), Opioid Safety Activity Restrictions/Additional Instructions: Continue follow-up with orthopedic specialty as scheduled Keep left knee elevated, keep ice applied to help with pain, never directly apply ice to the skin Continue prescribed medication as needed for pain Utilize walker at home to help with mobility Return to the emergency department if you develop concerning symptoms Coding Level of Care Code ED Grease Renderer for Azar Bashir Exam Comprehensive
[2020-11-12 18:05] VITALS: BP 126/90; PULSE 63; RESP 14; O2SAT 95
== END 2020-11-12 18:06 | disposition home or self-care (01) ==
PROVIDERS: Emergency Provider Nurse Practitioner Family; PCP Family Medicine
DX: S70.02XA Contusion of left hip, initial encounter (principal); S80.02XA Contusion of left knee, initial encounter; Z79.82 Long term (current) use of aspirin; W00.0XXA Fall on same level due to ice and snow, initial encounter
CPT/HCPCS: 73502; 73562; 99283

== ENCOUNTER → 2020-11-20 14:33 | Outpatient (BNVA) | payer OTHER, SELFPAY | PROVIDERS: PCP Family Medicine; Visit Provider Specialist | DX: M25.562 Pain in left knee (principal) | CPT/HCPCS: 73560; 73565; 87635 ==

== ENCOUNTER 2020-11-23 15:43 | Inpatient (IN) | payer OTHER, SELFPAY ==
[2020-11-22 15:37] VITALS: BMI 33.5
[2020-11-23] VITALS (19 sets, daily range): BP systolic 98–145; BP diastolic 51–80; PULSE 61–87; RESP 14–24; TEMP 36.6; O2SAT 90–98
--- NOTE | 2020-11-23 12:37 | P.HPUD_ITS ---
Surgery/Procedure H&P Update DATE OF PROCEDURE: November 23, 2020 DATE H&P PERFORMED: 11/20/20 H&P UPDATE INFORMATION: I have reviewed H&P completed within last 30 days, I have examined patient prior to procedure, No changes to prior documentation and H&P is in [facility] EMR on date indicated PREOP DIAGNOSIS: Left Knee quadriceps tear PLANNED PROCEDURE: Operation Date: 11/23/20 13:40 Proposed Procedures p left Tendon Repair Quadriceps [facility] PR[facility] 21780 S78.119A(Left) - Concepcion Ron MD Related Problem List Diagnoses (1) Quadriceps tendon rupture: Qualifiers: Encounter type: initial encounter Laterality: left Qualified Code(s): S76.112A - Strain of left quadriceps muscle, fascia and tendon, initial encounter
[2020-11-23] MEDS: CELEcoxib 200 mg Capsule 400 MG PO (12:55)
[2020-11-23] MEDS: sodium chloride 0.9% 1,000 ML 30 ML IV (12:58)
--- NOTE | 2020-11-23 13:03 | ANES.PREANE2 ---
Pre-Anesthetic Assessment Pre-Anesthetic Assessment: Height/Weight: Height 1.8 m Weight 108.862 kg Temp Pulse Resp BP Pulse Ox 97.8 F 63 18 145/80 96 11/23/20 13:01 11/23/20 13:01 11/23/20 13:01 11/23/20 13:01 11/23/20 13:01 Preop Diagnosis: Left Knee quadriceps tear Proposed Procedure: Operation Date: 11/23/20 13:40 Proposed Procedures p left Tendon Repair Quadriceps [facility] PR[facility] 33547 S78.119A(Left) - Concepcion Ron MD Familial anesthetic complications: None Was Beta Amadeo taken within 24 hours: N/A Last intake: Intake Last Liquid Date 11/22/20 Last Liquid Time 23:30 Last Solid Date 11/22/20 Last Solid Time 23:30 Social: Social History: No alcohol and No tobacco Exam: Pre-Anes Outpt Exam: alert, oriented x 3, clear to auscultation bilaterally and regular rate & rhythm Airway: Cervical ROM: WNL MP: 2 Dentition: Full Additional comments: willis CV/HEM: CV/HEM: HTN Anesthetic Plan: ASA status: 2 Anesthesia: General Risk of > 500 ml blood loss (7ml/kg in children): No Meds/Allergies Current Medications: Current Medications Generic Name Dose Route Start Last Admin Trade Name Freq PRN Reason Stop Dose Admin Sodium Chloride 1,000 mls @ 30 ml s/hr 11/23/20 13:00 11/23/20 12:58 Sodium Chloride 0.9% IV 11/24/20 12:59 30 mls/hr .Q24H TAMIA Administration PFSH Anesthesia PFSH: Medical History Cardiac dysrhythmia Cervical disc disease Fibromyalgia Hypothyroidism Osteoarthritis of carpometacarpal (CMC) joint of left thumb Surgical History History of carpal tunnel release 2001 Hx of hernia repair Hx of spinal surgery Hx of thumb surgery Social History Smoking and tobacco status: never smoked Alcohol intake: never Data Anesthesia Cardiac Studies: No Data to Display
[2020-11-23 13:08] LABS: Basophils # 0.1 10^3/uL (0.0-0.1); Basophils % 1.1 %; Eosinophils # 0.3 10^3/uL (0.0-0.8); Eosinophils % 4.4 %; Hematocrit 41.3 % (42.0-52.0); Hemoglobin 13.7 g/dL (11.7-16.6); Lymphocytes # 1.4 10^3/uL (0.8-4.8); Lymphocytes % 19.3 %; Mean Corpuscular HGB Conc 33.2 g/dL (30.0-36.0); Mean Corpuscular Hemoglobin 31.1 pg (28.0-34.0); Mean Corpuscular Volume 93.9 fL (80-94); Mean Platelet Volume 9.6 fL (7.4-10.4); Monocytes # 0.9 10^3/uL (0.2-0.9); Monocytes % 12.3 %; Neutrophils # 4.51 10^3/uL (1.8-7.7); Neutrophils % 62.6 %; Nucleated Red Blood Cells % 0 %; Platelet Count 303 10^3/cmm (130-400); Red Cell Distribution Width 12.8 % (12.1-15.1); White Blood Count 7.2 10^3/uL (4.0-10.0)
[2020-11-23] MEDS: vancomycin 1,000 MG in sodium chloride 0.9% 250 ML 250 MG IV (14:31)
--- NOTE | 2020-11-23 15:44 | ECG_ITS ---
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 Measurements Intervals [place] Rate: 73 P: 27 ME: 167 QRS: -11 QRSD: 98 T: 8 QT: 376 QTc: 415 Interpretive Statements SINUS RHYTHM POSSIBLE ANTERIOR MYOCARDIAL INFARCTION [30 ms Q WAVE IN V3/V4, OR R < 0.2 mV IN V4], OF INDETERMINATE AGE No previous ECG available for comparison Electronically Signed On 11-23-2020 21:47:55 SENIOR HARDWARE ENGINEER by Olivia Harrell M.D. [id number]
--- NOTE | 2020-11-23 15:44 | USCV_ITS ---
Kristen Youngblood Age: 64 Gender: M : 1955 Exam Date: 11/23/2020 16:33 Ordering Phys: Werner Naik MD Technologist: Marnie Jimenes [place] [facility] [place]ication: HYPOTENSION BP: 117 / 74 HR: 73 Rhythm: Sinus Technical Quality: Suboptimal MEASUREMENTS (Male / Female) Normal Values 2D ECHO LV Diastolic Diameter PLAX 4.4 cm 4.2 - 5.9 / 3.9 - 5.3 cm LV Systolic Diameter PLAX 2.9 cm LV Chamber Size 3.7 cm IVS Diastolic Thickness 1.3 cm 0.6 - 1.0 / 0.6 - 0.9 cm IVS Systolic Thickness 2.0 cm LVPW Diastolic Thickness 2.3 cm 0.6 - 1.0 / 0.6 - 0.9 cm LVPW Systolic Thickness 2.5 cm RV Chamber Size 3.3 cm LVOT Diameter 2.0 cm LV Ejection Fraction 2D Teich 63.0 % LV Ejection Fraction MOD 2C 13.1 % LV Ejection Fraction 2C AL 11.9 % LA Diameter 3.7 cm LA Width 3.2 cm LA Height 4.3 cm RA Width 2.9 cm RA Height 4.1 cm Aorta at Sinotubular Diameter 2.9 cm M-MODE LV Diastolic Diameter MM 5.9 cm 4.2 - 5.9 / 3.9 - 5.3 cm LV Systolic Diameter MM 3.9 cm LV Ejection Fraction MM Teich 62.0 % IVS Diastolic Thickness MM 0.9 cm 0.6 - 1.0 / 0.6 - 0.9 cm IVS Systolic Thickness MM 1.3 cm LVPW Diastolic Thickness MM 0.8 cm 0.6 - 1.0 / 0.6 - 0.9 cm LVPW Systolic Thickness MM 1.4 cm Aortic Annulus Diameter 3.2 cm LA Ao Ratio MM 1.4 MV E Point Septal Separation 0.7 cm DOPPLER AV Peak Velocity 157.0 cm/s LVOT Peak Velocity 117.0 cm/s AV Area Cont Eq vti 2.5 cm squared AV Area Cont Eq pk 2.4 cm squared MV Area PHT 3.5 cm squared Mitral E to A Ratio 0.7 MV E' Velocity 35.5 cm/s Mitral E to MV E' Ratio 6.4 Mitral E to LV E' Lateral Ratio 7.1 Mitral E to LV E' Septal Ratio 5.9 TR Peak Velocity 245.3 cm/s TR Peak Gradient 24.1 mmHg TV Peak E Velocity 53.0 cm/s Right Atrial Pressure 3.0 mmHg Pulmonary Artery Systolic Pressu 27.1 mmHg PV Peak Velocity 84.0 cm/s RV Acceleration Time 0.2 s RV Ejection Time 0.3 s RV AcT/ET 0.6 FINDINGS Left Ventricle Normal left ventricular size.LV systolic function is borderline normal with EF of 50%. No regional wall motion abnormalities are seen. Grade 1 diastolic dysfunction is seen. Right Ventricle Not well-visualized however grossly is mildly enlarged. Right Atrium Not well-visualized. Left Atrium The left atrium is normal in size. Mitral Valve Structurally normal mitral valve without significant stenosis or prolapse. There is no mitral regurgitation. Aortic Valve Grossly normal. No significant aortic stenosis. There is no aortic regurgitation. Tricuspid Valve Structurally normal tricuspid valve without significant stenosis or regurgitation. Insufficient TR jet to calculate RVSP. Pulmonic Valve Structurally normal pulmonic valve without significant stenosis. There is no pulmonic regurgitation. Pericardium Normal pericardium without effusion. Aorta Normal ascending aorta dimension. CONCLUSIONS This is a limited quality echocardiogram because of poor ultrasonic windows. Next borderline normal LV systolic function with EF of 50%. Grade 1 diastolic dysfunction is seen. RV is not well visualized however grossly is mildly enlarged. No significant valvular heart disease is seen. . Elan Fowler MD (Electronically Signed) Final Date: 23 November 2020 21:04 S
--- NOTE | 2020-11-23 15:44 | XR_ITS ---
WS: [id number] Portable AP upright chest, 11/23/2020, 1610 hours. Clinical Data: hypotension Comparison: PA and lateral chest, 06/13/2014. Findings: The patient has a poor inspiratory effort and the diaphragms are elevated. There is midlung atelectasis bilaterally which is minimal. The heart is enlarged. The aortic arch and descending aort a are tortuous. There is blunting of the left costophrenic angle which may be atelectasis. The pulmon cara vascularity is not remarkable. No nodules, masses or effusions are seen. There is an epidural sti mulator overlying the mid thoracic space. XR/XR chest 1V portable [id number] Impression: 1. Poor inspiratory effort. 2. Cardiomegaly and atherosclerosis.
--- NOTE | 2020-11-23 16:05 | PM.MISC ---
Miscellaneous Note Purpose of Documentation: of surgical procedure Note: This 64-year-old gentleman was scheduled for operative intervention to his left knee. The patient had a left total knee arthroplasty near the end of September of this year. He fell on the ice and hyperflexed his knee significantly. He had a rupture of the medial portion of the quadriceps tendon. He was seen in the office and evaluated in plans were made for surgical intervention to repair his ruptured quadriceps tendon. The patient came to the hospital where anesthesia was induced. The patient's leg was prepped in the normal fashion. The patient then had significant hypotension and the procedure was aborted. The situation was managed by the anesthesia team until the patient was stabilized and transferred to the intensive care unit where he will be admitted to the medical team. We will reschedule his surgery when he is deemed stable.
--- NOTE | 2020-11-23 16:31 | PM.MISC ---
Miscellaneous Note Purpose of Documentation: Event Note: Called to OR urgently for assitance. Patient's HR was 37 with wide complex morphology (lead II was only lead at that time) and what appeared to be ST elevation, Systolics < 60. Report given that patient tolerated induction w/ propofol well, but he became very red, diaphoretic, and hypotensive shortly after approximately 50 cc of vancomycin and rocuronium was administered. Vancomycin was stopped. Patient's CO2 was noted to decline slightly, with some increased airway pressure, ephedrine and phenylephrine boluses and gtt produced no response and sevo was decreased. Epi 100 mcg was given with little response. At that point several urgent interventions occurred. Sevo stopped, 5-lead EKG placed, IV obtained under US, Levo boluses were administered while levo drip was set up and ran at 12 mcg/min, L radial A line emergently placed under ultrasound, fluids kept wide open, Defibrillator pads were placed, cardiology consult urgently obtained d/t to suspicion for cardiac event, also methylprednisonole, famotidine, and benadryl given in case etiology was allergic reaction. Patient's BP settled out to 130s to 140s, started titrating levo down. 12-lead EKG was obtained and read by Dr. Fowler. no ischemic changes noted. Patient then reversed with sugamadex, placed on PSV, tolerated well. Patient started moving, trying to remove ETT. Patient successfully extubated in OR and marcos to ICU, stable and following commands, but on levo 12 mcg/min.
--- NOTE | 2020-11-23 16:47 | SUR.OPER ---
Patient was intubated and prepped, surgeon in room draping patient. 1515 - Patient became unstable, draping was stopped. Anesthesia Dr was called to the room, crash cart was retrieved and patient was connected. Cardiology was called and asked to come see patient in OR. 1524-patient was given reversal 1530- cardiology came to evaluate patient in OR, RT performed EKG in OR 1540 - patient was extubated, ICU bed was obtained 1555- patient was stablized, moved to bed and transferred to ICU on monitors 1604- final report was given to receiving nurse in ICU
--- NOTE | 2020-11-23 16:59 | SUR.OPER ---
Vancomycin was started in room, when patient began having difficulties Vanc was stopped.
--- NOTE | 2020-11-23 17:11 | XRR_ITS ---
PROCEDURE INFORMATION: Exam: XR Chest Exam date and time: 11/23/2020 5:13 PM Age: 64 years old Clinical indication: Other: Post code; Additional info: Pls remove pads for img TECHNIQUE: Imaging protocol: XR of the chest Views: 1 view. COMPARISON: CR XR chest 1V portable [id number] 11/23/2020 4:07 PM FINDINGS: Limitations: The study is made with less than full inspiration. Patient is rotated towards the left. Tubes, catheters and devices: There are electrodes overlying the midthoracic spine. Lungs: No focal infiltrate is identified. Pleural spaces: Unremarkable. No pleural effusion. No pneumothorax. Heart/Mediastinum: The heart is mildly enlarged. Bones/joints: Unremarkable. XR/XR chest 1V portable [id number] IMPRESSION: No acute infiltrate.
--- NOTE | 2020-11-23 17:44 | ECG_ITS ---
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 Measurements Intervals [place] Rate: 99 P: 58 CO: 152 QRS: -11 QRSD: 98 T: 31 QT: 364 QTc: 467 Interpretive Statements SINUS RHYTHM No previous ECG available for comparison Electronically Signed On 11-23-2020 22:07:02 GLOBAL ANALYTICS HEAD by Olivia Harrell M.D. [id number]
[2020-11-23 17:55] LABS: Basophils # 0.1 10^3/uL (0.0-0.1); Basophils % 0.4 %; Eosinophils # 0.1 10^3/uL (0.0-0.8); Eosinophils % 0.2 %; Hematocrit 48.2 % (42.0-52.0); Hemoglobin 15.8 g/dL (11.7-16.6); Lymphocytes % 3.8 %; Mean Corpuscular HGB Conc 32.8 g/dL (30.0-36.0); Mean Corpuscular Volume 94.5 fL (80-94); Mean Platelet Volume 9.5 fL (7.4-10.4); Monocytes # 2.4 10^3/uL (0.2-0.9); Monocytes % 8.6 %; Neutrophils # 23.77 10^3/uL (1.8-7.7); Nucleated Red Blood Cells % 0 %; Platelet Count 452 10^3/cmm (130-400); Red Cell Distribution Width 12.7 % (12.1-15.1); White Blood Count 27.6 10^3/uL (4.0-10.0)
[2020-11-23 18:17] LABS: Alanine Aminotransferase 12 U/L (0-41); Albumin Level 3.4 g/dL (3.5-5.2); Alkaline Phosphatase 103 IU/L (40-130); Anion Gap 14.8 (5-19); Aspartate Amino Transferase 16 U/L (0-40); Blood Urea Nitrogen 15 mg/dL (8-23); Carbon Dioxide 22 mmol/L (22-29); Chloride 105 mmol/L (98-107); Globulin 2.8 g/dL (1.3-4.6); Glomerular Filtration Rate 55.6 mL/min (90-130); Glucose 144 mg/dL (65-115); Osmolality Calculated 287 mOsm/kg (285-295); Potassium 4.8 mmol/L (3.5-5.1); Sodium 137 mmol/L (136-145); Total Bilirubin 0.5 mg/dL (0.15-1.2); Total Protein 6.2 g/dL (6.6-8.7)
[2020-11-23 19:00] LABS: Troponin(5th) Baseline 187 ng/L (0-15)
[2020-11-23] MEDS: enoxaparin 120 mg/0.8 mL Syringe 110 MG SUBCUT (19:28)
[2020-11-23] MEDS: famotidine 20 mg/2 mL INJ IVP (19:50)
[2020-11-23] MEDS: aspirin 325 mg Tablet PO (19:51)
[2020-11-23 19:56] LABS: Estmated Average Glucose 88; Hemoglobin A1C 4.7 % (4.0-6.0)
[2020-11-23] MEDS: atorvastatin 40 mg Tablet PO (20:05)
--- NOTE | 2020-11-23 20:05 | P.CONIM_ITS ---
Providers/Reason For Consult Consulting Physican/Specialty*: Elan Fowler MD/Cardiology Reason for Consult*: Bradycardia/hypotension Requesting Physcian: Werner Naik Attending Physician: Werner Naik Primary Care Provider: Ashley Mac MD History of Present Illness History of Present Illness 64-year-old gentleman with PMH of hypertension who recently underwent right TKA in September subsequently with a mechanical fall resulting in hyperflexion of the right knee with finding of rupture of the quadriceps tendon was being prepared for surgical repair at which point after induction of anesthesia suddenly became hypotensive, flushed, red in appearance, subsequently with noted bradycardia, appearance of change of QRS complex on alarm security or surveillance monitor with concern for either possible allergic reaction and anaphylactic shock vs myocardial infarction. Soon after induction and initiation of vancomycin he was noted red and flushed, diaphoretic. Vancomycin was promptly discontinued. He also had bradycardia. Desaturation. He was given Justin-Synephrine, ephedrine, epinephrine, and subsequently started on Levophed drip. Heart rates improved to 60s-70s. EKG was reviewed and did not show acute ischemia. Patient brought subsequently to ICU. He is still drowsy. Denies chest pain. Troponins went up with a significant delta. Review of Systems Narrative: He is somnolent, provides minimal review of systems. Const: Denies: fever(s) or chills ENMT: Denies: throat pain Card: Denies: chest pain, edema, pre-syncope or dyspnea on exertion Resp: Reports: dyspnea; Denies: productive cough, change in phlegm color or hemoptysis GI: Denies: abdominal pain, nausea, vomiting or diarrhea : Denies: flank pain or urinary frequency Musc: Reports: extremity pain (Right arm over bicep at the site of infiltrated IV); Denies: back pain, joint swelling or joint redness Skin/Breast: Denies: rash Neuro: Denies: headache(s), numbness in extremities, weakness in extremities, dizziness, confusion or seizure-like activity Endo: Denies: polyuria Tutu/Lymph: Denies: easy bleeding All/Imm: Denies: urticaria, throat swelling or tongue swelling Meds/Allergies Home Medications and Allergies Home Medications Medication Instructions Recorded Confirmed Last Taken Type duloxetine 60 mg capsule,delayed 60 mg PO DAILY 11/24/19 11/23/20 11/22/20 History release lisinopril 20 mg tablet 20 mg PO DAILY 11/24/19 11/23/20 11/23/20 History Thumb spica splint #1 ea 02/24/20 11/23/20 Unknown Rx ascorbic acid (vitamin C) 1 cap PO DAILY 10/06/20 11/23/20 11/22/20 History aspirin 81 mg PO DAILY 10/06/20 11/22/20 11/19/20 History cholecalciferol (vitamin D3) 50 mcg PO DAILY 10/06/20 11/23/20 11/22/20 History [Vitamin D3] vitamin E 200 unit PO DAILY 10/06/20 11/23/20 11/22/20 History zinc 50 mg PO DAILY 10/06/20 11/23/20 11/22/20 History celecoxib 200 mg PO Q12H #60 cap 10/19/20 11/23/20 11/22/20 Rx oxycodone 5 mg PO Q4H PRN 7 Days #40 tab 11/23/20 Unknown Rx Allergies Allergy/AdvReac Type Severity Reaction Status Date / Time rocuronium Allergy Severe ADR/ALGY-Hy Unverified 11/23/20 17:06 potension vancomycin Allergy Severe ADR/ALGY-Hy Unverified 11/23/20 17:07 potension latex Allergy Unknown Verified 11/20/20 14:24 bumble bee Allergy ALGY-Anaphy Uncoded 11/20/20 14:24 laxis Current Medications Current Medications Generic Name Dose Route Start Last Admin Trade Name Freq PRN Reason Stop Dose Admin Enoxaparin Sodium 110 mg 11/23/20 19:15 11/23/20 19:28 Enoxaparin 120 Mg/0.8 Ml Syringe SUBCUT 110 mg Q12H TAMIA Administration Famotidine 20 mg 11/23/20 19:30 11/23/20 19:50 Famotidine 20 Mg/2 Ml Inj IVP 20 mg Q12H TAMIA Administration PFSH Acute PFSH: Medical History Cardiac dysrhythmia Cervical disc disease Fibromyalgia Hypothyroidism Osteoarthritis of carpometacarpal (CMC) joint of left thumb Surgical History History of carpal tunnel release 2001 Hx of hernia repair Hx of spinal surgery Hx of thumb surgery Social History Smoking and tobacco status: never smoked Alcohol intake: never Vitals/I&O/Wt Last Vital Signs Temp 97.9 F 11/23/20 16:15 Pulse 71 11/23/20 18:00 Resp 24 H 11/23/20 18:00 BP 138/72 11/23/20 18:00 Pulse Ox 96 11/23/20 18:00 11/23/20 11/23/20 11/23/20 06:59 14:59 22:59 Intake Total 100 / 100 50 / 150 Balance 100 / 100 50 / 150 Weight last 48 hrs Weight 240 lb Physical Exam Const: COMMON NORMALS: no acute distress and patient oriented x3 GENERAL APPEARANCE: cooperative and lethargic NUTRITIONAL APPEARANCE: overweight ORIENTATION/CONSCIOUSNESS: Yes lethargic HENMT: COMMON NORMALS: oropharynx normal Neck/C-Spine: COMMON NORMALS: no JVD Resp: COMMON NORMALS: normal respiratory effort and clear to auscultation bilaterally AUSCULTATION: clear to auscultation bilaterally Cardio: COMMON NORMALS: no JVD, regular rhythm, S1 normal heart sound present, S2 normal heart sound present and No murmurs present (Cardio) RHYTHM: regular rhythm HEART SOUNDS: S1 normal heart sound present and S2 normal heart sound present GI: COMMON NORMALS: Normal to inspection, nondistended, normoactive bowel sounds present, Soft to palpation and non-tender PALPATION: Yes Soft to palpation Extremity: COMMON NORMALS: no joint enlargement and no pedal edema Neuro: COMMON NORMALS: patient oriented x3 and moves all extremities SENSORIUM/ORIENTATION: Yes lethargic OTHER: He is lethargic, but waking up from anesthesia. Pupils symmetrical. No difficulty tracking. Sensation symmetrical. No sensory neglect. No sensory levels. Skin: COMMON NORMALS: no rashes or lesions noted GENERAL SKIN EXAM: no rashes or lesions noted A&P Assessment and plan (1) NSTEMI (non-ST elevated myocardial infarction): Status: Acute (2) Hypotension: Status: Acute (3) Bradycardia: Status: Acute Patient became bradycardic and hypotensive right after induction of anesthesia and vancomycin infusion. Per anesthesia his QRS complexes widened while he was bradycardic but no strips available. EKG didnot have acute ischemic changes. He subsequently had troponin elevation with significant delta. No chest pain Order Echo Aspirin and anticoagulation Patient will need ischemic workup during the hospitalization. Renal function is not normal at this time. Tele monitoring Thank you for involving us with care of this patient. We will continue to follow. 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
[2020-11-23 20:48] LABS: Troponin 5 2HR 275.9 ng/L (0-15); Troponin 5 2HR Delta 88.9 ABS# (0-10)
--- NOTE | 2020-11-23 20:57 | P.HP_ITS ---
Providers/Chief Complaint Admitting Physician: Concepcion Ron MD Primary Care Provider: Ashley Mac MD Chief Complaint: LEFT QUADRICEPS TENDON REPAIR,MONCHO PROSTHETIC History of Present Illness 64-year-old gentleman who recently underwent right TKA in September subsequently with a mechanical fall resulting in hyperflexion of the right knee with finding of rupture of the quadriceps tendon was being prepared for surgical repair at which point after induction of anesthesia suddenly became hypotensive, flushed, red in appearance, subsequently with noted bradycardia, appearance of change of QRS complex on equipment monitor phototypesetting with concern for either possible allergic reaction and anaphylactic shock, as opposed to possible cardiogenic shock with myocardial infarction. It appears that shortly after initial induction with fentanyl, propofol, succinylcholine, started on anesthetic gas, appears to have sedation was not satisfactory, anesthetic gas flow rate was increased lately, and he also received a dose of rocuronium. Up until that point blood pressure appears reportedly was good. Shortly after he was also started on infusion of vancomycin and received about 50 mL of that. Additional IV access was going to be obtained, and shortly after returning to obtain a catheter blood pressure noted very low, as low as 50/20, he was noted red/flushed, diaphoretic. Vancomycin was promptly discontinued. He received a bolus of fluid initially in the IV over the right bicep, although the IV was found infiltrated. Also with noted bradycardia. Desaturation. Subsequently through the left wrist IV received a number of pushes of Justin-Synephrine, ephedrine, epinephrine, and subsequently started on Levophed drip. Left radial A-line was obtained. With concern for possible allergic reaction, with noted perhaps slightly increased resistance on manual bagging as if to indicate bronchospasm, with possible anaphylaxis secondary to recurrent pneumonia recommendation was given Decadron, Benadryl, famotidine. Initially he required 12 mcg Levophed infusion. Heart rates improved to 60s-70s. EKG was assessed by cardiology without convincing markers of acute ischemia at the time. As anesthesia wore off, he was becoming more awake, eventually was extubated and brought to the ICU. Review of Systems Narrative: He is somnolent, generally weak waking up from anesthesia, provides minimal review of systems. Const: Denies: fever(s) or chills ENMT: Denies: throat pain Card: Denies: chest pain, edema, pre-syncope or dyspnea on exertion Resp: Reports: dyspnea; Denies: productive cough, change in phlegm color or hemoptysis GI: Denies: abdominal pain, nausea, vomiting or diarrhea : Denies: flank pain or urinary frequency Musc: Reports: extremity pain (Right arm over bicep at the site of infiltrated IV); Denies: back pain, joint swelling or joint redness Skin/Breast: Denies: rash Neuro: Denies: headache(s), numbness in extremities, weakness in extremities, dizziness, confusion or seizure-like activity Endo: Denies: polyuria Tutu/Lymph: Denies: easy bleeding All/Imm: Denies: urticaria, throat swelling or tongue swelling Medications/Allergies Home Medications Medication Instructions Recorded Confirmed Last Taken Type duloxetine 60 mg capsule,delayed 60 mg PO DAILY 11/24/19 11/23/20 11/22/20 His tory release lisinopril 20 mg tablet 20 mg PO DAILY 11/24/19 11/23/20 11/23/20 History Thumb spica splint #1 ea 02/24/20 11/23/20 Unknown Rx ascorbic acid (vitamin C) 1 cap PO DAILY 10/06/20 11/23/20 11/22/20 History aspirin 81 mg PO DAILY 10/06/20 11/22/20 11/19/20 History cholecalciferol (vitamin D3) 50 mcg PO DAILY 10/06/20 11/23/20 11/22/20 History [Vitamin D3] vitamin E 200 unit PO DAILY 10/06/20 11/23/20 11/22/20 History zinc 50 mg PO DAILY 10/06/20 11/23/20 11/22/20 History celecoxib 200 mg PO Q12H #60 cap 10/19/20 11/23/20 11/22/20 Rx oxycodone 5 mg PO Q4H PRN 7 Days #40 tab 11/23/20 Unknown Rx Allergies Allergy/AdvReac Type Severity Reaction Status Date / Time rocuronium Allergy Severe ADR/ALGY-Hy Unverified 11/23/20 17:06 potension vancomycin Allergy Severe ADR/ALGY-Hy Unverified 11/23/20 17:07 potension latex Allergy Unknown Verified 11/20/20 14:24 bumble bee Allergy ALGY-Anaphy Uncoded 11/20/20 14:24 laxis PFSH Acute PFSH: Medical History Cardiac dysrhythmia Cervical disc disease Fibromyalgia Hypothyroidism Osteoarthritis of carpometacarpal (CMC) joint of left thumb Surgical History History of carpal tunnel release 2001 Hx of hernia repair Hx of spinal surgery Hx of thumb surgery Social History Smoking and tobacco status: never smoked Alcohol intake: never Vitals/I&O/Wt Last Vital Signs Temp 97.9 F 11/23/20 16:15 Pulse 71 11/23/20 18:00 Resp 24 H 11/23/20 18:00 BP 138/72 11/23/20 18:00 Pulse Ox 93 11/23/20 20:50 11/23/20 11/23/20 11/23/20 06:59 14:59 22:59 Intake Total 100 / 100 50 / 150 Balance 100 / 100 50 / 150 Weight last 48 hrs Weight 108.862 kg Physical Exam Const: COMMON NORMALS: no acute distress and patient oriented x3 GENERAL APPEARANCE: cooperative NUTRITIONAL APPEARANCE: overweight ORIENTATION/CONSCIOUSNESS: Yes lethargic HENMT: COMMON NORMALS: oropharynx normal Neck/C-Spine: COMMON NORMALS: no JVD Resp: COMMON NORMALS: normal respiratory effort and clear to auscultation bilaterally AUSCULTATION: clear to auscultation bilaterally Cardio: COMMON NORMALS: no JVD, regular rhythm, S1 normal heart sound present, S2 normal heart sound present and No murmurs present (Cardio) RHYTHM: regular rhythm HEART SOUNDS: S1 normal heart sound present and S2 normal heart sound present GI: COMMON NORMALS: Normal to inspection, nondistended, normoactive bowel sounds present, Soft to palpation and non-tender PALPATION: Yes Soft to palpation Extremity: COMMON NORMALS: no joint enlargement and no pedal edema OTHER: Distal right bicep swelling at the site of infiltrated IV. Neuro: COMMON NORMALS: patient oriented x3 and moves all extremities OTHER: He is lethargic, but waking up from anesthesia. Pupils symmetrical. No difficulty tracking. Sensation symmetrical. No sensory neglect. No sensory levels. Skin: COMMON NORMALS: no rashes or lesions noted GENERAL SKIN EXAM: no rashes or lesions noted Data : 11/23/20 17:45 11/23/20 17:45 A&P Assessment and plan (1) Hypotension: Transient severe hypotension down as low as 50/2 for 10-15 minutes after induction for anesthesia before surgery began. Etiology not entirely clear as discussed with his possibility of reaction to medication, possible anaphylactic shock following rocuronium versus at the beginning of vancomycin infusion. He did receive vancomycin during last admission, and so suspicion for this is rather less. He appears to also have received other induction medications apart from recurring, so this medication may be considered the culprit. For now both added as possible index drug. As also discussed with his alternatively possible NSTEMI. Did not appear to have acute ischemia on EKG reviewed shortly after the acute event, although initially with appearance of some possible QRS complex changes on the monitor, bradycardia. The same time was hypotensive as well. He does take celecoxib, appears also receive celecoxib today. Did not receive tranexamic acid today per report. His denies prior history of CAD or CHF. I understand he is not a smoker. Troponin subsequently noted elevated on troponin series, 187 with positive delta-275.9. He was started on aspirin, anticoagulation with Lovenox, statin. Beta-kelin held due to hypotension. Plavix added by cardiology. Hypotension so far has resolved. He weaned off Levophed. Echocardiogram obtained, appears to show perhaps low normal ejection fraction, although technically difficult study. Possibly grade 1 diastolic dysfunction. Further recommendations to come from cardiology depending on additional work-up and condition. He is currently waking up. Requiring 2 L nasal cannula. Chest x-ray is unremarkable. PE suspected less likely as he has had no symptoms preoperatively. No unilateral swelling, no hypoxia, shortness of breath, no tachycardia, no reported chest pain, no cough, hemoptysis or other symptoms. At this time empirically anticoagulated with Lovenox for NSTEMI as above. In case of any suspicious symptoms consider additional assessment if needed. Status: Acute (2) NSTEMI (non-ST elevated myocardial infarction): As above. Would discontinue celecoxib. Status: Acute (3) Medication reaction: Possible anaphylactic reaction. Unclear culprit. Possible reaction to rocuronium as he received other induction medications during prior surgery without issue. Possible reaction to vancomycin. On the other hand perhaps symptoms secondary to myocardial event and not related to an allergic reaction. Status: Acute (4) Acute kidney injury: Creatinine 1.3 at baseline appears running around 1-1.1 as discussed with his . Has been taking celecoxib. Also transiently severely hypotensive. Would discontinue NSAIDs. Status: Acute (5) Leukocytosis: Possibly stress related. Does not appear to be in sepsis. No signs of sepsis preoperatively. He is afebrile. For now we will monitor. In case of any reversible or worsening condition low threshold to initiate antibiotics. Status: Acute (6) Quadriceps tendon rupture: After mechanical fall with planned surgical repair today which had to be aborted. Status: Acute Qualifiers: Encounter type: initial encounter Laterality: left Qualified Code(s): S76.112A - Strain of left quadriceps muscle, fascia and tendon, initial encounter (7) History of total knee arthroplasty: In September Status: Acute Qualifiers: Laterality: left Qualified Code(s): Z96.652 - Presence of left artificial knee joint (8) Hypothyroidism: Elevated TSH, 8.1, check free T4, free T3. I do not see that he takes levothyroxine although has hypothyroidism listed. Status: Inactive Attestations Medical Necessity Statement*: Admission of over 2 midnights is going to be needed for assessment of management of episodes of severe hypotension, possible anaphylactic reaction, NSTEMI, acute kidney injury following induction of anesthesia for surgical procedure which had to be aborted. Critical Care Time: In addition to known critical issues 55 minutes critical care time spent on assessment management of episode of severe hypotension, etiology assessment, possible anaphylactic reaction, NSTEMI, with resultant acute kidney injury, hemodynamic assessment of volume status, adjustment of pressor support, interpretation of imaging. Case discussed with all consultants including orthopedics, anesthesia, cardiology, discussed with nursing staff. Discussed with his . 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
[2020-11-23] MEDS: clopidogrel 300 mg Tablet 600 MG PO (21:03)
[2020-11-23 21:40] LABS: Free T4 Free Thyroxine 0.94 ng/dL (0.82-1.77); T3 Free 3.7 PG/ML (2.0-4.4)
[2020-11-24] VITALS (24 sets, daily range): BP systolic 91–157; BP diastolic 47–88; PULSE 60–97; RESP 11–20; TEMP 36.6–37; O2SAT 89–100
[2020-11-24 01:52] LABS: Troponin T (5th) Once 137 ng/L (0-15)
[2020-11-24 03:57] LABS: Basophils % 0.2 %; Hemoglobin 13.6 g/dL (11.7-16.6); Lymphocytes # 0.7 10^3/uL (0.8-4.8); Lymphocytes % 4.4 %; Mean Corpuscular HGB Conc 32.4 g/dL (30.0-36.0); Mean Corpuscular Hemoglobin 31.3 pg (28.0-34.0); Mean Corpuscular Volume 96.8 fL (80-94); Mean Platelet Volume 9.7 fL (7.4-10.4); Monocytes # 0.3 10^3/uL (0.2-0.9); Monocytes % 2.2 %; Neutrophils # 13.99 10^3/uL (1.8-7.7); Neutrophils % 92.8 %; Nucleated Red Blood Cells % 0 %; Platelet Count 307 10^3/cmm (130-400); Red Blood Count 4.34 10^6/uL (4.1-5.3); Red Cell Distribution Width 12.9 % (12.1-15.1); White Blood Count 15.1 10^3/uL (4.0-10.0)
[2020-11-24 04:21] LABS: Chol HDL Ratio 4.75 mg/dL (1.0-5.00); Cholesterol 133 mg/dL (0-200); HDL Cholesterol 28 mg/dL (60-100); LDL Cholesterol Calculated 84 mg/dL (50-129); Triglycerides 104 mg/dL (0-150)
[2020-11-24 04:22] LABS: Alanine Aminotransferase 10 U/L (0-41); Albumin Level 3.3 g/dL (3.5-5.2); Alkaline Phosphatase 88 IU/L (40-130); Anion Gap 11.8 (5-19); Aspartate Amino Transferase 13 U/L (0-40); Blood Urea Nitrogen 23 mg/dL (8-23); Calcium 8.2 mg/dL (8.5-10.5); Carbon Dioxide 25 mmol/L (22-29); Chloride 104 mmol/L (98-107); Glomerular Filtration Rate 47.1 mL/min (90-130); Glucose 147 mg/dL (65-115); Osmolality Calculated 288 mOsm/kg (285-295); Potassium 4.8 mmol/L (3.5-5.1); Sodium 136 mmol/L (136-145); Total Bilirubin 0.5 mg/dL (0.15-1.2); Total Protein 6.3 g/dL (6.6-8.7)
[2020-11-24] MEDS: famotidine 20 mg/2 mL INJ IVP ×2 (06:35→18:29)
[2020-11-24] MEDS: enoxaparin 120 mg/0.8 mL Syringe 110 MG SUBCUT ×2 (06:35→18:29)
--- NOTE | 2020-11-24 07:55 | XR_ITS ---
WS: [id number] Portable AP upright chest, 11/24/2020 Clinical Data: hypoxia Comparison: Portable chest, 11/23/2020 Findings: No nodules, masses or effusions are seen. The heart is slightly enlarged. The pulmonary vas cularity is not increased. No pneumonia or pneumothorax is seen. The aortic arch and descending aorta are tortuous. Epidural stimulator leads are overlying the mid epidural thoracic space. There are mon itor leads on the chest wall. XR/XR chest 1V portable [id number] Impression: Atherosclerosis and cardiomegaly.
--- NOTE | 2020-11-24 09:04 | P.PN_ITS ---
Subjective Subjective: Interval history: He says that he is breathing all right this morning, he was wearing CPAP at night to sleep for sleep apnea. Asks to take CPAP off and position to nasal cannula. Denies chest pain. He is having little bit of discomfort in the left lower quadrant. Denies nausea or vomiting. No diarrhea. Pain/swelling over the right bicep resolving. Vitals/I&O/Wt Last Vital Signs Temp 98.5 F 11/24/20 07:00 Pulse 65 11/24/20 08:00 Resp 15 11/24/20 08:00 BP 117/57 11/24/20 08:00 Pulse Ox 93 11/24/20 08:00 11/23/20 11/24/20 11/24/20 22:59 06:59 14:59 Intake Total 50 / 150 Output Total 420 / 420 Balance 50 / 150 -420 / -270 Weight last 48 hrs Weight 108.862 kg Weight 108.862 kg Physical Exam Const: COMMON NORMALS: no acute distress and patient oriented x3 GENERAL APPEARANCE: cooperative and lethargic NUTRITIONAL APPEARANCE: overweight ORIENTATION/CONSCIOUSNESS: Yes lethargic HENMT: COMMON NORMALS: oropharynx normal Neck/C-Spine: COMMON NORMALS: no JVD Resp: COMMON NORMALS: normal respiratory effort and clear to auscultation bilaterally AUSCULTATION: clear to auscultation bilaterally Cardio: COMMON NORMALS: no JVD, regular rhythm, S1 normal heart sound present, S2 normal heart sound present and No murmurs present (Cardio) RHYTHM: regular rhythm HEART SOUNDS: S1 normal heart sound present and S2 normal heart sound present GI: COMMON NORMALS: Normal to inspection, nondistended, normoactive bowel sounds present, Soft to palpation and non-tender PALPATION: Yes Soft to palpation Extremity: COMMON NORMALS: no joint enlargement and no pedal edema OTHER: Distal right bicep swelling improving at the site of infiltrated IV. Neuro: COMMON NORMALS: patient oriented x3 and moves all extremities SENSORIUM/ORIENTATION: Yes lethargic OTHER: He is lethargic, but waking up from anesthesia. Pupils symmetrical. No difficulty tracking. Sensation symmetrical. No sensory neglect. No sensory levels. Skin: COMMON NORMALS: no rashes or lesions noted GENERAL SKIN EXAM: no rashes or lesions noted Data : 11/24/20 03:32 11/24/20 03:32 A&P Assessment and plan (1) Hypotension: Hypotension has improved. Weaned off pressor yesterday evening. Blood pressure on the soft side. This morning A-line reading very low blood pressures, although appears needed to be flushed, adjusted, subsequently systolic noted in low 100s. VQ scan to rule out PE. Discussed with him possible NSTEMI with rising troponin. Reviewed discussed with him possibilities of additional assessments. Would likely benefit from additional assessment for CAD, risk stratification with coronary angiography, although renal function at this time is not uncommon, worsening. Will watch his renal function, support his blood pressures. Once renal function is improving, consideration will be given to proceeding with coronary angiography. Transient severe hypotension down as low as 50/20 for 10-15 minutes after induction for anesthesia before surgery began 11/23. Etiology not entirely clear as discussed with him today, possibility of reaction to medication, possible anaphylactic shock following rocuronium versus at the beginning of vancomycin infusion. He did receive vancomycin during last admission, and so suspicion for this is rather less. He appears to also have received other induction medications apart from recurring, so this medication may be considered the culprit. For now both added as possible index drug. Supportive care. Status: Acute (2) NSTEMI (non-ST elevated myocardial infarction): As above. Would discontinue celecoxib. Status: Acute (3) Acute kidney injury: Worsening acute kidney injury. Concern also for concomitant fluid overload. For now hold off on additional fluid challenge. Will rule out PE as above. Subsequently cautious diuresis with albumin infusions. Monitor blood pressures in ICU still soft. Would avoid NSAIDs. Hold lisinopril. Status: Acute (4) Medication reaction: Possible anaphylactic reaction. Unclear culprit. Possible reaction to rocuronium as he received other induction medications during prior surgery without issue. Possible reaction to vancomycin. On the other hand perhaps symptoms secondary to myocardial event and not related to an allergic reaction. Status: Acute (5) Leukocytosis: Improving. Possibly stress related. Does not appear to be in sepsis. No signs of sepsis preoperatively. He is afebrile. For now we will monitor. In case of any reversible or worsening condition low threshold to initiate antibiotics. Status: Acute (6) Quadriceps tendon rupture: RLE. After mechanical fall with planned surgical repair today which had to be aborted 11/23. Will need to be reassessed by Ortho once acute medical issues stabilized. Status: Acute Qualifiers: Encounter type: initial encounter Laterality: left Qualified Code(s): S76.112A - Strain of left quadriceps muscle, fascia and tendon, initial en counter (7) History of total knee arthroplasty: In September Status: Acute Qualifiers: Laterality: left Qualified Code(s): Z96.652 - Presence of left artificial knee joint (8) Hypothyroidism: Discussed with him. He has history of hypothyroidism, but is not on any medications. So she previously had a thyroid ultrasound which was assessed. We checked free T3 and free T4, both are normal. Appears this is subclinical hypothyroidism at this stage. Continue to monitor, follow-up with PCP. Status: Inactive Attestations Medical Necessity Statement*: Continue admission for assessment management of hypotension, hypoxia, acute kidney injury, NSTEMI. Coding Level of Care Code Acute Inverform Machine Operator for g Fwd Exam Comprehensive Diagnoses Hypotension I95.9 NSTEMI (non-ST elevated myocardial infarction) I21.4 Acute kidney injury N17.9 Medication reaction T50.905A Leukocytosis D72.829 Quadriceps tendon rupture S76.112A Encounter type: initial encounter Laterality: left History of total knee arthroplasty Z96.652 Laterality: left Hypothyroidism E03.9
--- NOTE | 2020-11-24 09:15 | NM_ITS ---
WS: [id number] NUCLEAR MEDICINE VENTILATION/PERFUSION LUNG SCAN HISTORY: hypoxia, low BP COMPARISON: Chest radiograph 11/24/2020 TECHNIQUE: Ventilation: 31.8 mCi of Technetium 99 DTPA aerosol inhaled. Perfusion: 4.7 mCi of technetium 99m MAA IV. Heterogeneous ventilatory portion of the lung scan due to lung disease. Mild deposition of radionucli de centrally. There is also ingestion of some of the radionuclide into the stomach. Perfusion portion of the examination is near normal. There is slight blunting of the diaphragms which is matched. Due to patient's known hyperexpansion. NM/NM pul vent and perfus* 20025 IMPRESSION: Low probability pulmonary VQ scan.
[2020-11-24] MEDS: aspirin 325 mg Tablet PO (09:54)
--- NOTE | 2020-11-24 13:00 | PC.CHAP ---
Pastoral Care Encounter/Spiritual Assessment Type of Contact [] Declined missile pad mechanic visit [xx] Patient/Family/Request visit [] Outpatient visit [] Follow-up visit [] Physician referral [] Code/Alert [xx] Routine visit [] Staff referral [] Actively dying [] Patient sleeping [] Family support [] [] Out of room [] Palliative care [] [] Receiving care in room [] Pre-surgical visit [] Trauma [] Long length of stay [xx] ICU visit [xx] Other: Patient requested missile pad mechanic visit toyin. Relational/Emotional Strength [xx] Patient feels connected with others/family/visitors/staff [] Distress [] Loneliness/isolation [] Abandonment Spirituality of Patient [xx] Person of Alice [xx] Attends Denominational of their Alice [xx] Believes in Prayer [xx] Reads Bible or Samaritan materials [] There are Spiritual issues to be addressed Secret Code Expert Interventions [xx] Prayer [xx] Active listening [xx] Non-anxious presence [xx] Spiritual/emotional support [] Crisis/trauma care [xx] Spiritual counseling [] Bereavement support [] Provided bereavement packet [] Provided Bible/devotional materials [] Provided toy/stuffed animal, coloring book to patient or family member [] Provided Communion [] Anointing/[place] [] Salvation [xx] Completed spiritual assessment [] Other: Impact on Illness or Injury [] Angry [xx] Fearful [xx] Anxious [] Often cries [] Exhaustion [] Unable to work [] Unable to attend nondenominational [] Unable to walk/stand [] Unable to read [] Unable to drive [] Unable to eat/drink [] Unable to sleep [] Unable to be with family [] Patient intubated [] Other: Summary Patient state he received bad news from the Dr and is very concerned about his prognosis. He wanted prayer as soon as possible and a visit with a missile pad mechanic to give him encouragement and relieve his immediate fears. Secret Code Expert complied. Secret Code Expert visited with him and counseled him on spiritual needs. 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 His was to arrive soon and he wanted to be better composed when she did so she would not be so upset and fearful for him. Time spent with patient 15 minutes
[2020-11-24] MEDS: acetaminophen 325 mg Tablet 650 MG PO (15:00)
[2020-11-24] MEDS: FUROsemide 10 mg/mL SDV 4mL 40 MG IVP (18:28)
--- NOTE | 2020-11-24 19:23 | PM.PN ---
Subjective Subjective: Interval history: Patient is awake and alert. He has some shortness of breath. ECHO was of limited quality but grossly normal LV function and RV has mild dilation. VQ scan ordered. Vitals/I&O/Wt Last Vital Signs Temp 98.6 F 11/24/20 15:07 Pulse 97 11/24/20 16:00 Resp 19 H 11/24/20 16:00 BP 136/86 11/24/20 16:00 Pulse Ox 98 11/24/20 16:00 11/24/20 11/24/20 11/24/20 06:59 14:59 22:59 Intake Total 300 / 300 400 / 700 Output Total 420 / 420 300 / 300 400 / 700 Balance -420 / -270 0 / 0 0 / 0 Weight last 48 hrs Weight 240 lb Physical Exam Const: COMMON NORMALS: no acute distress and patient oriented x3 GENERAL APPEARANCE: cooperative and lethargic NUTRITIONAL APPEARANCE: overweight ORIENTATION/CONSCIOUSNESS: Yes lethargic HENMT: COMMON NORMALS: oropharynx normal Neck/C-Spine: COMMON NORMALS: no JVD Resp: COMMON NORMALS: normal respiratory effort and clear to auscultation bilaterally AUSCULTATION: clear to auscultation bilaterally Cardio: COMMON NORMALS: no JVD, regular rhythm, S1 normal heart sound present, S2 normal heart sound present and No murmurs present (Cardio) RHYTHM: regular rhythm HEART SOUNDS: S1 normal heart sound present and S2 normal heart sound present GI: COMMON NORMALS: Normal to inspection, nondistended, normoactive bowel sounds present, Soft to palpation and non-tender PALPATION: Yes Soft to palpation Extremity: COMMON NORMALS: no joint enlargement and no pedal edema Neuro: COMMON NORMALS: patient oriented x3 and moves all extremities SENSORIUM/ORIENTATION: Yes lethargic Skin: COMMON NORMALS: no rashes or lesions noted GENERAL SKIN EXAM: no rashes or lesions noted Data : 11/25/20 03:44 11/25/20 03:44 A&P Assessment and plan (1) NSTEMI (non-ST elevated myocardial infarction): Status: Acute (2) Hypotension: Status: Acute (3) Bradycardia: Status: Acute Patient became bradycardic and hypotensive right after induction of anesthesia and vancomycin infusion. Per anesthesia his QRS complexes widened while he was bradycardic but no strips available. EKG didnot have acute ischemic changes. He subsequently had troponin elevation with significant delta. No chest pain. Event likely allergic reaction to induction agents vs vancomycin but with rising troponins and trasnsient EKG changes that could not be printed but mentioned by anesthesia, can not rule out NSTEMI ECHO showed grossly normal LV function with mild dilation of RV. Will recommend VQ scan to rule out PE Aspirin, plavix and anticoagulation Patient will need ischemic workup during the hospitalization.Renal function worsening. Will likely proceed with coronary angiography on Friday, once renal function normalizes. Tele monitoring Thank you for involving us with care of this patient. We will continue to follow. Please call with questions Attestations Medical Necessity Statement*: Care expected to cross 2 midnights. Coding Level of Care Code Acute Child Care Counselor for Azar Bashir Diagnoses NSTEMI (non-ST elevated myocardial infarction) I21.4 Hypotension I95.9 Bradycardia R00.1
[2020-11-24] MEDS: atorvastatin 40 mg Tablet PO (19:45)
--- NOTE | 2020-11-24 19:45 | PC.NURSE ---
Lipitor given early per patient request.
[2020-11-25] VITALS (25 sets, daily range): BP systolic 148–165; BP diastolic 76–100; PULSE 49–77; RESP 13–33; TEMP 36.4–37.2; O2SAT 90–97
[2020-11-25 05:50] LABS: Basophils # 0.1 10^3/uL (0.0-0.1); Basophils % 0.5 %; Eosinophils # 0.1 10^3/uL (0.0-0.8); Eosinophils % 0.5 %; Hematocrit 38.7 % (42.0-52.0); Hemoglobin 12.4 g/dL (11.7-16.6); Lymphocytes # 2.5 10^3/uL (0.8-4.8); Lymphocytes % 19.2 %; Mean Corpuscular Hemoglobin 30.7 pg (28.0-34.0); Mean Corpuscular Volume 95.8 fL (80-94); Mean Platelet Volume 10.4 fL (7.4-10.4); Monocytes % 7.9 %; Neutrophils # 9.22 10^3/uL (1.8-7.7); Neutrophils % 71.6 %; Nucleated Red Blood Cells % 0 %; Platelet Count 280 10^3/cmm (130-400); Red Blood Count 4.04 10^6/uL (4.1-5.3); Red Cell Distribution Width 12.9 % (12.1-15.1); White Blood Count 12.9 10^3/uL (4.0-10.0)
[2020-11-25 06:18] LABS: Alanine Aminotransferase 11 U/L (0-41); Albumin Level 3.8 g/dL (3.5-5.2); Alkaline Phosphatase 90 IU/L (40-130); Anion Gap 14.6 (5-19); Aspartate Amino Transferase 13 U/L (0-40); Blood Urea Nitrogen 28 mg/dL (8-23); Calcium 8.4 mg/dL (8.5-10.5); Carbon Dioxide 27 mmol/L (22-29); Chloride 102 mmol/L (98-107); Glomerular Filtration Rate 55.6 mL/min (90-130); Glucose 95 mg/dL (65-115); Osmolality Calculated 295 mOsm/kg (285-295); Potassium 3.6 mmol/L (3.5-5.1); Sodium 140 mmol/L (136-145); Total Bilirubin 0.2 mg/dL (0.15-1.2); Total Protein 6.8 g/dL (6.6-8.7)
[2020-11-25] MEDS: famotidine 20 mg/2 mL INJ IVP (06:37)
[2020-11-25] MEDS: enoxaparin 120 mg/0.8 mL Syringe 110 MG SUBCUT ×2 (06:37→18:11)
[2020-11-25] MEDS: aspirin 325 mg Tablet PO (08:51)
--- NOTE | 2020-11-25 09:14 | P.PN_ITS ---
Subjective Subjective: Interval history: Reports he is feeling very well. Denies any chest pain pressure. Denies shortness of breath. Weaned off of oxygen this morning. Right arm swelling is resolving. He is getting some bruising from blood pressure cuff. Vitals/I&O/Wt Last Vital Signs Temp 98.3 F 11/25/20 07:00 Pulse 61 11/25/20 08:22 Resp 26 H 11/25/20 08:00 BP 165/98 11/25/20 08:00 Pulse Ox 94 11/25/20 08:22 11/24/20 11/25/20 11/25/20 22:59 06:59 14:59 Intake Total 750 / 1050 120 / 1170 400 / 400 Output Total 2650 / 2950 1250 / 4200 Balance -1900 / -1900 -1130 / -3030 400 / 400 Weight last 48 hrs Weight 112.173 kg Weight 108.862 kg Physical Exam Const: COMMON NORMALS: no acute distress, patient oriented x3 and alert GENERAL APPEARANCE: cooperative and comfortable NUTRITIONAL APPEARANCE: overweight ORIENTATION/CONSCIOUSNESS: Yes awake HENMT: COMMON NORMALS: oropharynx normal Neck/C-Spine: COMMON NORMALS: no JVD Resp: COMMON NORMALS: normal respiratory effort and clear to auscultation bilaterally AUSCULTATION: clear to auscultation bilaterally Cardio: COMMON NORMALS: no JVD, regular rhythm, S1 normal heart sound present, S2 normal heart sound present and No murmurs present (Cardio) RHYTHM: regular rhythm HEART SOUNDS: S1 normal heart sound present and S2 normal heart sound present GI: COMMON NORMALS: Normal to inspection, nondistended, normoactive bowel sounds present, Soft to palpation and non-tender PALPATION: Yes Soft to palpation Extremity: COMMON NORMALS: no joint enlargement and no pedal edema OTHER: Distal right bicep swelling resolving at the site of infiltrated IV. Neuro: COMMON NORMALS: patient oriented x3 and moves all extremities SENSORIUM/ORIENTATION: Yes alert Skin: COMMON NORMALS: no rashes or lesions noted GENERAL SKIN EXAM: no rashes or lesions noted Data : 11/25/20 03:44 11/25/20 03:44 A&P Assessment and plan (1) NSTEMI (non-ST elevated myocardial infarction): He is doing well. Denies any chest pain. Hypotension has resolved. Yesterday received albumin, Lasix, diuresed well. Hypoxia currently appears resolved. Renal function improving, creatinine down to 1.3. Appreciate cardiology recommendations with regards to additional assessment. Currently continues on Lovenox, aspirin, will add metoprolol now that blood pressure is better. Continue statin. Would discontinue celecoxib. Status: Acute (2) Hypotension: Resolved. Remove A-line. VQ scan to rule out PE. Transient severe hypotension down as low as 50/20 for 10-15 minutes after induction for anesthesia before surgery began 11/23. Etiology not entirely clear as discussed with him today, possibility of reaction to medication, possible anaphylactic shock following rocuronium versus at the beginning of vancomycin infusion. He did receive vancomycin during last admission, and so suspicion for this is rather less. He appears to also have received other induction medications apart from recurring, so this medication may be considered the culprit. For now both added as possible index drug. Supportive care. Status: Acute (3) Acute kidney injury: Stabilized, and appears to be improving. Secondary to transient hypotension. Would avoid NSAIDs. Will discontinue celecoxib. Hold lisinopril. Status: Acute (4) Medication reaction: Possible anaphylactic reaction. Unclear culprit. Possible reaction to rocuronium as he received other induction medications during prior surgery without issue. Possible reaction to vancomycin. On the other hand perhaps symptoms secondary to myocardial event and not related to an allergic reaction. Status: Acute (5) Leukocytosis: Improving. Possibly stress related. Does not appear to be in sepsis. No signs of sepsis preoperatively. He is afebrile. For now we will monitor. In case of any reversible or worsening condition low threshold to initiate antibiotics. Status: Acute (6) Quadriceps tendon rupture: RLE. After mechanical fall with planned surgical repair today which had to be aborted 11/23. Will need to be reassessed by Ortho once acute medical issues stabilized. Status: Acute Qualifiers: Encounter type: initial encounter Laterality: left Qualified Code(s): S76.112A - Strain of left quadriceps muscle, fascia and tendon, initial encounter (7) History of total knee arthroplasty: In September Status: Acute Qualifiers: Laterality: left Qualified Code(s): Z96.652 - Presence of left artificial knee joint (8) Hypothyroidism: Discussed with him. He has history of hypothyroidism, but is not on any medications. So she previously had a thyroid ultrasound which was assessed. We checked free T3 and free T4, both are normal. Appears this is subclinical hypothyroidism at this stage. Continue to monitor, follow-up with PCP. Status: Inactive Attestations Medical Necessity Statement*: Continue admission for cyst management following episode of severe hypotension, NSTEMI, acute kidney injury, fluid overload. Coding Level of Care Code Acute Operator Helper for Chg Fwd Diagnoses NSTEMI (non-ST elevated myocardial infarction) I21.4 Hypotension I95.9 Acute kidney injury N17.9 Medication reaction T50.905A Leukocytosis D72.829 Quadriceps tendon rupture S76.112A Encounter type: initial encounter Laterality: left History of total knee arthroplasty Z96.652 Laterality: left Hypothyroidism E03.9
[2020-11-25] MEDS: clopidogrel 300 mg Tablet PO (14:32)
--- NOTE | 2020-11-25 14:41 | P.PN_ITS ---
Subjective Subjective: Interval history: Stable denies any chest pain creatinine is improving however patient would like to go home he would not like to stay until Friday for the angiogram. I have discussed with the patient to see whether if creatinine improved by tomorrow we may will proceed with left heart cath tomorrow. Medications: Reviewed: Yes Vitals/I&O/Wt Last Vital Signs Temp 98.7 F 11/25/20 12:55 Pulse 58 L 11/25/20 12:00 Resp 23 H 11/25/20 12:00 BP 153/93 11/25/20 12:00 Pulse Ox 96 11/25/20 12:00 11/24/20 11/25/20 11/25/20 22:59 06:59 14:59 Intake Total 750 / 1050 120 / 1170 700 / 700 Output Total 2650 / 2950 1250 / 4200 1300 / 1300 Balance -1900 / -1900 -1130 / -3030 -600 / -600 Weight last 48 hrs Weight 247 lb 4.8 oz Weight 240 lb Physical Exam Narrative: EXAM NARRATIVE: GENERAL: Patient is alert, awake and oriented x3. NECK: No jugular vein distension. HEENT: No cyanosis. No icterus. No pallor. HEART: Regular S1 and S2. No murmur, rub or gallop. LUNGS: Clear to auscultate bilaterally. ABDOMEN: Soft, nontender and nondistended. Positive bowel sounds. No guarding, rebound or tenderness. CENTRAL NERVOUS SYSTEM: Grossly nonfocal. EXTREMITIES: Lower extremities without edema bilaterally. Data : 11/25/20 03:44 11/25/20 03:44 A&P Assessment and plan (1) NSTEMI (non-ST elevated myocardial infarction): Status: Acute (2) Hypotension: Status: Acute (3) Bradycardia: Status: Acute (4) Quadriceps tendon rupture: Status: Acute Qualifiers: Encounter type: initial encounter Laterality: left Qualified Code(s): S76.112A - Strain of left quadriceps muscle, fascia and tendon, initial encounter (5) Acute kidney injury: Status: Acute After induction of anesthesia patient had episode of hypotension and bradycardia subsequent cardiac markers elevated suggestive of non-ST elevation [place]. Echocard iogram showed normal ejection fraction, patient was suggestive for coronary work-up. He was scheduled to undergo left heart cath on Friday but patient would like to go home. Today creatinine is 1.3 I would like to improve creatinine lipid more and will proceed with left heart cath tomorrow.. I have explained all risk benefit and alternative for the procedure including urgent emergent bypass, arrhythmia, major minor bleed, CVA. Patient will like to proceed with it. Bradycardia has improved. Blood pressure is also stable. Attestations Medical Necessity Statement*: Will continue to stabilize renal function Coding Level of Care Code Established Pt Acute Licensed Journeyman Electrician for Chg Fwd Patient Type Established History Detailed Exam Detailed Medical Decision Making Moderate Complexity Diagnoses NSTEMI (non-ST elevated myocardial infarction) I21.4 Hypotension I95.9 Bradycardia R00.1 Quadriceps tendon rupture S76.112A Encounter type: initial encounter Laterality: left Acute kidney injury N17.9
--- NOTE | 2020-11-25 15:57 | PC.NURSE ---
PER DR. LAWRENCE, PLEASE START NS AT 100ML/HR AT 2300 THIS EVENING. LET FLUIDS RUN UNTIL 0730 WHEN IT IS TIME FOR THE BEDSPREAD CUTTER NS DOSE OF 50 ML/HR IS TO START AND THE CHANGE RATE
--- NOTE | 2020-11-25 16:22 | PC.NURSE ---
[address] Naik. Orders to DC art line and transfer patient to [facility]. [address] Alvarado. Discussed plan for cardiac cath. Orders to load with 300 mg Plavix. Reported patient on Loveonx, states that is okay. [address] Alvarado that per pharmacy patient had received Plavix 600 mg on 11/23 at 2103, is another loading dose indicated? Orders to give 300 mg Plavix now and 75 mg daily starting tomorrow.
[2020-11-25] MEDS: famotidine 20 mg Tablet PO (18:08)
[2020-11-25] MEDS: metoprolol tartrate 25 mg Tablet PO (20:33)
[2020-11-25] MEDS: atorvastatin 40 mg Tablet PO (20:33)
[2020-11-25] MEDS: sodium chloride 0.9% 1,000 ML 100 ML IV (22:46)
--- NOTE | 2020-11-25 22:48 | PC.NURSE ---
PT IS RESTING IN BED. PT DENIES PAIN AT THIS TIME. WILL CONTINUE TO MONITOR.
--- NOTE | 2020-11-25 23:48 | PC.NURSE ---
PT PULLED OUT IV. NEW 20G IN LEFT AC X1 STICK. GOOD BLOOD RETURN. PT TOLERATED WELL. WILL CONTINUE TO MONITOR.
[2020-11-26] VITALS (36 sets, daily range): BP systolic 121–164; BP diastolic 68–103; PULSE 45–63; RESP 12–23; TEMP 36.6–37; O2SAT 87–98
[2020-11-26 05:32] LABS: Basophils # 0.1 10^3/uL (0.0-0.1); Basophils % 1.2 %; Eosinophils # 0.3 10^3/uL (0.0-0.8); Eosinophils % 3.7 %; Hematocrit 41.8 % (42.0-52.0); Hemoglobin 13.5 g/dL (11.7-16.6); Lymphocytes # 1.8 10^3/uL (0.8-4.8); Lymphocytes % 25.1 %; Mean Corpuscular HGB Conc 32.3 g/dL (30.0-36.0); Mean Corpuscular Volume 96.1 fL (80-94); Monocytes # 0.9 10^3/uL (0.2-0.9); Monocytes % 12.3 %; Neutrophils # 4.19 10^3/uL (1.8-7.7); Neutrophils % 57.3 %; Nucleated Red Blood Cells % 0 %; Platelet Count 273 10^3/cmm (130-400); Red Blood Count 4.35 10^6/uL (4.1-5.3); Red Cell Distribution Width 12.8 % (12.1-15.1); White Blood Count 7.3 10^3/uL (4.0-10.0)
[2020-11-26 05:54] LABS: Alanine Aminotransferase 13 U/L (0-41); Albumin Level 3.7 g/dL (3.5-5.2); Alkaline Phosphatase 91 IU/L (40-130); Anion Gap 12.4 (5-19); Aspartate Amino Transferase 14 U/L (0-40); Blood Urea Nitrogen 20 mg/dL (8-23); Calcium 8.8 mg/dL (8.5-10.5); Carbon Dioxide 27 mmol/L (22-29); Chloride 104 mmol/L (98-107); Creatinine Clr Calc Pharmacy 71.5849; Globulin 3.1 g/dL (1.3-4.6); Glomerular Filtration Rate 55.6 mL/min (90-130); Glucose 89 mg/dL (65-115); Osmolality Calculated 290 mOsm/kg (285-295); Potassium 4.4 mmol/L (3.5-5.1); Sodium 139 mmol/L (136-145); Total Bilirubin 0.4 mg/dL (0.15-1.2); Total Protein 6.8 g/dL (6.6-8.7)
--- NOTE | 2020-11-26 05:55 | PC.NURSE ---
PT IS RESTING IN BED. PT DENIES PAIN AT THIS TIME. WILL CONTINUE TO MONITOR.
[2020-11-26] MEDS: famotidine 20 mg Tablet PO (05:59)
[2020-11-26] MEDS: enoxaparin 120 mg/0.8 mL Syringe 110 MG SUBCUT (05:59)
[2020-11-26] MEDS: metoprolol tartrate 25 mg Tablet PO (08:06)
[2020-11-26] MEDS: sodium chloride 0.9% 1,000 ML 50 ML IV (08:06)
[2020-11-26] MEDS: aspirin 325 mg Tablet PO (08:06)
[2020-11-26] MEDS: diphenhydrAMINE 50 mg Capsule PO (08:06)
[2020-11-26] MEDS: clopidogrel 75 mg Tablet PO (08:06)
--- NOTE | 2020-11-26 08:57 | P.PN_ITS ---
Subjective Subjective: Interval history: This morning he is doing well. Denies chest pain. Denies shortness of breath. Vitals/I&O/Wt Last Vital Signs Temp 97.8 F 11/26/20 07:26 Pulse 54 L 11/26/20 07:26 Resp 15 11/26/20 07:26 BP 162/99 11/26/20 07:26 Pulse Ox 94 11/26/20 07:26 11/25/20 11/26/20 11/26/20 22:59 06:59 14:59 Intake Total 240 / 940 Output Total 600 / 1900 700 / 2600 375 / 375 Balance -360 / -960 -700 / -1660 -375 / -375 Weight last 48 hrs Weight 107.456 kg Weight 112.173 kg Physical Exam Const: COMMON NORMALS: no acute distress, patient oriented x3 and alert GENERAL APPEARANCE: cooperative and comfortable NUTRITIONAL APPEARANCE: overweight ORIENTATION/CONSCIOUSNESS: Yes awake HENMT: COMMON NORMALS: oropharynx normal Neck/C-Spine: COMMON NORMALS: no JVD Resp: COMMON NORMALS: normal respiratory effort and clear to auscultation bilaterally AUSCULTATION: clear to auscultation bilaterally Cardio: COMMON NORMALS: no JVD, regular rhythm, S1 normal heart sound present, S2 normal heart sound present and No murmurs present (Cardio) RHYTHM: regular rhythm HEART SOUNDS: S1 normal heart sound present and S2 normal heart sound present GI: COMMON NORMALS: Normal to inspection, nondistended, normoactive bowel sounds present, Soft to palpation and non-tender PALPATION: Yes Soft to palpation Extremity: COMMON NORMALS: no joint enlargement and no pedal edema OTHER: Distal right bicep swelling resolving at the site of infiltrated IV. L knee healed TKA scar Neuro: COMMON NORMALS: patient oriented x3 and moves all extremities SENSORIUM/ORIENTATION: Yes alert Skin: COMMON NORMALS: no rashes or lesions noted GENERAL SKIN EXAM: no rashes or lesions noted Data : 11/26/20 04:34 11/26/20 04:34 A&P Assessment and plan (1) NSTEMI (non-ST elevated myocardial infarction): Plan for coronary angiography assessment today. We are having to discontinue his metoprolol as his heart rates have gradually trended down and now are in the 50s. On discussion with him, even the heart rates earlier were in the 60s and 70s, he says that at home this is not uncommon for him to be in the 50s. Thus would not continue metoprolol at this time. He is subjectively doing well. Denies any chest pain. Hypotension has resolved. Yesterday received albumin, Lasix, diuresed well. Hypoxia currently appears resolved. Renal function improving, creatinine down to 1.3. Appreciate cardiology recommendations with regards to additional assessment. Currently continues on Lovenox, aspirin, will add metoprolol now that blood pressure is better. Continue statin. Discontinue celecoxib on DC. Status: Acute (2) Hypotension: Resolved. Remove A-line. VQ scan low probability of PE. Transient severe hypotension down as low as 50/20 for 10-15 minutes after induction for anesthesia before surgery began 11/23. Etiology not entirely clear as discussed with him today, possibility of reaction to medication, possible anaphylactic shock following rocuronium versus at the beginning of vancomycin infusion. He did receive vancomycin during last admission, and so suspicion for this is rather less. He appears to also have received other induction medications apart from recurring, so this medication may be considered the culprit. For now both added as possible index drug. Status: Acute (3) Acute kidney injury: Creatinine has improved and currently stabilized at 1.3. Secondary to tra nsient hypotension. Would avoid NSAIDs. Discontinue celecoxib. Hold lisinopril. Status: Acute (4) Medication reaction: Possible anaphylactic reaction. Unclear culprit. Possible reaction to rocuronium as he received other induction medications during prior surgery without issue. Possible reaction to vancomycin. On the other hand perhaps symptoms secondary to myocardial event and not related to an allergic reaction. Status: Acute (5) Leukocytosis: Improving. Possibly stress related. Does not appear to be in sepsis. No signs of sepsis preoperatively. He is afebrile. For now we will monitor. In case of any reversible or worsening condition low threshold to initiate antibiotics. Status: Acute (6) Quadriceps tendon rupture: LLE. After mechanical fall with planned surgical repair today which had to be aborted 11/23. Will need to be reassessed by Ortho once acute medical issues stabilized. No special weightbearing recommendations per discussion with orthopedics. Follow-up with orthopedics after discharge. Status: Acute Qualifiers: Encounter type: initial encounter Laterality: left Qualified Code(s): S76.112A - Strain of left quadriceps muscle, fascia and tendon, initial encounter (7) History of total knee arthroplasty: In September Status: Acute Qualifiers: Laterality: left Qualified Code(s): Z96.652 - Presence of left artificial knee joint (8) Hypothyroidism: Discussed with him. He has history of hypothyroidism, but is not on any medications. So she previously had a thyroid ultrasound which was assessed. We checked free T3 and free T4, both are normal. Appears this is subclinical hypothyroidism at this stage. Continue to monitor, follow-up with PCP. Status: Inactive Attestations Medical Necessity Statement*: Continue admission for assessment management of non-STEMI. Coding Level of Care Code Acute Crusher Operator for Chg Fwd Exam Comprehensive Diagnoses NSTEMI (non-ST elevated myocardial infarction) I21.4 Hypotension I95.9 Acute kidney injury N17.9 Medication reaction T50.905A Leukocytosis D72.829 Quadriceps tendon rupture S76.112A Encounter type: initial encounter Laterality: left History of total knee arthroplasty Z96.652 Laterality: left Hypothyroidism E03.9
--- NOTE | 2020-11-26 09:17 | XACV_ITS ---
Exam Room: [facility] Ht: 180 cm Wt: 107 kg BSA: 2.35 m2 Gender: Male : 1955 Any Known Allergies: Other Exam Priority: Routine Indication(s): - NSTEMI Procedure(s): Procedure Description: Diagnostic procedure Procedure Description: Left Heart Catheterization Procedure Description: Coronary Angiography Diagnostic Cath Status: Urgent Diagnostic Findings * LM has 0% stenosis. * LAD has 0% stenosis. * CX has 0% stenosis. * mRCA: Moderate 60% stenosis, JORGE: 3 flow. * Coronary angiography shows right dominance. Conclusions 1. There is moderate coronary artery disease with one vessel disease. Recommendations * Continue current medical management and risk factor modification. Diagnostic RX Recommendation: medical therapy and/or counseling Pressures Phase:Rest AO : 126 / 74 ( 90 ) @ 4:35:00 AM 123 / 75 ( 97 ) @ 4:38:00 AM LV : 147 / -1 / @ 4:34:00 AM Clinical Evaluation EBL: 5mL-10mL Procedural Details Procedure Consent Obtained. Admit Source: In Patient. Current Diagnosis : NSTEMI. Pre-Procedure Time Out. Identified patient by full name and date of as verbalized by the patient/guarantor. Does the consent match the physician's order: Yes. Accurate & Complete Informed Consent: Yes. Inpatient/Outpatient History & Physical on Chart: Yes. If H&P is completed, is and addenduem needed: No; If yes, is the addendum complete: N/A. Visualize and Verify Site with Patient/Guarantor: N/A. Relevant Radiology Images available: N/A. The risks, benefits, and alternatives of sedation and/or procedure were discussed by physician. The patient agrees to continue. Procedure started. [facility] Clinical Fraility Score: 3: Managing Well. 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 Chest Pain Symptom Assessment: Atypical Angina. Cardiovascular Instability: N/A, if yes, Persistant Ischemic Symptoms; STABLE. Correct patient, site and procedure confirmed by cath team. Current diagnosis: NSTEMI. PERRLA. Strong, equal hand aquatic performer bilaterally. Lungs clear x 5 lobes. IV Site on Arrival: 20 gauge in the left anticubital. IV Fluids: 0.9% NaCl at KVO. 100 mL infused prior to floating labor gang supervisor. Pre Procedural Pulses: bilateral radial was 3+. Pre Procedural Pulses: bilateral dorsalis pedis was 3+. Pre Procedural Pulses: bilateral posterior tibial was 3+. Oxygen started at 3liters/min via nasal canula. right groin was prepped with chloroprep then draped in the usual sterile fashion. right radial was prepped with chloroprep then draped in the usual sterile fashion. Physician notified. Baseline sample Acquired. HR: 47 BPM. Physician arrived. Equipment: 6F - Radial. Cardiac Cath Pack. ACIST Manifold Kit Model BT 2000. Heparinized Saline (2 units/mL), 1000 mL bag. Physician scrubbed in. Immediate Pre-Procedure Time Out. Correct Patient: Yes; Correct Procedure: Yes; Correct Site: Yes; Correct Patient Position: Yes; Correct Supplies: Yes; Dried Flammable Prep: Yes; Blood Products Available: N/A;. Lidocaine 1% infiltrated to the right radial. Arterial access obtained. Patient had theraputic lovenox injections 12 hours apart. Last admin noted at 0600 11/26/20. A TR 6FR Radial TIG 4.0 110cm was advanced over the wire and used for left coronary angiography. EDP Sample taken: LV 147/-2,14; HR: 59 BPM; SpO2: 96%. Pullback taken: LV Off; AO Off; Mean: , Peak to Peak: , SEP: ; HR: 63 BPM; SpO2: 96%. Multiple views taken of left coronary artery. Catheter removed over the exchange wire. A CRD 5F JR4 Diagnostic Catheter was advanced over the wire and used for right coronary angiography. Multiple views taken of right coronary artery. Catheter redirected to the RCA. Catheter removed over the exchange wire. Physician review of films. Physician scrubbed out. A TR Band was successful obtaining hemostatsis at the Right Radial artery insertion site. TR band placed. Hemostasis obtained. Post Procedure: Pulses reassessed and unchanged. PERRLA. Strong, equal hand aquatic performer bilaterally. No VTE prophylaxis required. Medication's Wasted: Lidocaine 1% = 12 mL. Medication's Wasted: Nitro = 49.8 mg. Medication's Wasted: Heparin = 1000 units. Medication's Wasted: Fentanyl = 50 mcg. Total IV fluids: 75 mL. Fluoro: 4:07. Contrast type used: Omnipaque 300 mgI/mL, 500 mL bottle. Omnipaque 93 ml. Post-op diagnosis: Non Obstuctive Coronary Artery Disease. Complications: None. Estimated blood loss: 5mL-10mL. Procedure completed. Patient transferred by wheelchair to 1st floor. Access Site Site: Right Radial artery Sheath Size: 6 Fr Hemostasis Method: TR Band Hemostasis Success: Successful Procedure Medications Start: 10:20 AM Stop: 10:20 AM Medication: Versed 1 mg and Fentanyl 25 mcg Amount: 1 Route: I.V. Start: 10:28 AM Stop: 10:28 AM Medication: Versed Amount: 1 mg Route: I.V. Start: 10:33 AM Stop: 10:33 AM Medication: Nitrogylcerin Amount: 200 mcg Route: I.A. Start: 10:39 AM Stop: 10:39 AM Medication: Fentanyl Amount: 25 mcg Route: I.V. I, the attending physician, have reviewed and verified all procedure medications. Yes, all medications given per verbal order History/Risk Factors Hypertension: Yes Dyslipidemia: No Peripheral Arterial Disease (PAD): No Myocardial Infarction (CA): No Obesity: No Renal Disease: No Prior Interventions PCI: No CABG: No Valve Surgery: No Report Signatures Finalized by Ron Alvarado MD on 12/04/2020 06:57 PM
--- NOTE | 2020-11-26 10:21 | W.PM.OPSUD ---
Surgery/Procedure H&P Update DATE OF PROCEDURE: November 26, 2020 DATE H&P PERFORMED: 11/23/20 H&P UPDATE INFORMATION: I have reviewed H&P completed within last 30 days, I have examined patient prior to procedure and No changes to prior documentation PREOP DIAGNOSIS: Non-ST elevation HI PLANNED PROCEDURE: Operation Date: 11/23/20 13:40 Proposed Procedures p left Tendon Repair Quadriceps [facility] PROSTHETIC 37537 S78.119A(Left) - Concepcion Ron MD PATIENT REASSESSED PRIOR TO SEDATION, WITH NO CHANGE NOTED: Yes PHYSICAL EXAM: alert, oriented x 3 and clear to auscultation bilaterally AIRWAY EVAL/ANESTHESIA PLAN: ASA II, Risks, benefits & alternatives of sedation and/or procedure discussed and Patient agrees to continue as planned
[2020-11-26] MEDS: sodium chloride 0.9% 1,000 ML 100 ML IV (11:20)
--- NOTE | 2020-11-26 14:40 | PC.NURSE ---
Started deflating TR band at 1215, deflated per protocol, no adverse reactions. Total deflation at 1315. Site intact, no bleeding or hematoma. Band itself left on in order to remind pt not to move it, not inflated at all.
--- NOTE | 2020-11-26 16:59 | P.PN_ITS ---
Subjective Subjective: Interval history: Underwent left heart cath noted to have nonobstructive coronary artery disease with 20% mid RCA. Medications: Reviewed: Yes Vitals/I&O/Wt Last Vital Signs Temp 98.0 F 11/26/20 15:06 Pulse 49 L 11/26/20 15:06 Resp 15 11/26/20 15:06 BP 146/89 11/26/20 15:06 Pulse Ox 97 11/26/20 15:06 11/26/20 11/26/20 11/26/20 06:59 14:59 22:59 Intake Total 1521.667 / 1521.667 Output Total 700 / 2600 375 / 375 600 / 975 Balance -700 / -1660 1146.667 / 1146.667 -600 / 546.667 Weight last 48 hrs Weight 236 lb 14.4 oz Weight 247 lb 4.8 oz Physical Exam Narrative: EXAM NARRATIVE: ] GENERAL: Patient is alert, awake and oriented x3. NECK: No jugular vein distension. HEENT: No cyanosis. No icterus. No pallor. HEART: Regular S1 and S2. No murmur, rub or gallop. LUNGS: Clear to auscultate bilaterally. ABDOMEN: Soft, nontender and nondistended. Positive bowel sounds. No guarding, rebound or tenderness. CENTRAL NERVOUS SYSTEM: Grossly nonfocal. EXTREMITIES: Lower extremities without edema bilaterally. Const: COMMON NORMALS: alert Resp: COMMON NORMALS: clear to auscultation bilaterally AUSCULTATION: clear to auscultation bilaterally Neuro: SENSORIUM/ORIENTATION: Yes alert Data : 11/26/20 04:34 11/26/20 04:34 A&P Assessment and plan (1) NSTEMI (non-ST elevated myocardial infarction): Status: Acute (2) Hypotension: Status: Acute (3) Bradycardia: Status: Acute (4) Quadriceps tendon rupture: Status: Acute Qualifiers: Encounter type: initial encounter Laterality: left Qualified Code(s): S76.112A - Strain of left quadriceps muscle, fascia and tendon, initial encounter (5) Acute kidney injury: Status: Acute Patient underwent left heart cath noted to have nonobstructive coronary a rtery disease with 20% mid RCA otherwise no significant stenosis noted. Advised statin. Patient from a cardiovascular perspective can be discharged home. Discontinue Plavix continue aspirin and statin. Patient can follow-up with surgery after 5 to 7 days once Plavix will wear out of the system. Attestations Medical Necessity Statement*: From a cardiovascular perspective patient can be discharged home once complete bedrest Coding Level of Care Code Established Pt Acute Customs Compliance Director for Chg Fwd Patient Type Established History Expanded Problem Focused Exam Expanded Problem Focused Medical Decision Making Moderate Complexity Diagnoses NSTEMI (non-ST elevated myocardial infarction) I21.4 Hypotension I95.9 Bradycardia R00.1 Quadriceps tendon rupture S76.112A Encounter type: initial encounter Laterality: left Acute kidney injury N17.9
--- NOTE | 2020-11-26 17:24 | P.DS_ITS ---
Discharge Providers Date of Admission: 11/23/20 15:43 Date of Discharge: November 26, 2020 Attending Provider at Admission: Concepcion Ron MD Attending Provider at Discharge: Werner Naik Primary Care Provider: Ashley Mac MD Diagnoses at Discharge Discharge Diagnosis (1) NSTEMI (non-ST elevated myocardial infarction): Status: Acute (2) Hypotension: Status: Acute (3) Bradycardia: Status: Acute (4) Quadriceps tendon rupture: Status: Acute Permanent problem details: As per orthopedics. Qualifiers: Encounter type: initial encounter Laterality: left Qualified Code(s): S76.112A - Strain of left quadriceps muscle, fascia and tendon, initial encounter (5) Acute kidney injury: Status: Acute Permanent problem details: Improving. Continue monitor. May will give IV fluid in the night Reason for Visit Reason for Visit: LEFT QUADRICEPS TENDON REPAIR,MONCHO PROSTHETIC Hospital Course Hospital Course Very pleasant 64-year-old gentleman, with history of left TKA in September, subsequent with history of mechanical fall on ice and left quadriceps tendon injury was scheduled for elective repair on 11/23 which initially progressed uneventfully until after induction with anesthesia. Initially normotensive after induction, without issues, subsequently sometime after receiving either rocuronium, or initiation of vancomycin appears was noted severely hypotensive, bradycardic, flushed/red, sweating, with decreasing end-tidal CO2. Blood pressure was stabilized, bradycardia resolved, he successfully extubated, woke up, and eventually weaned off Levophed drip, with noted troponin elevation and suspected non-STEMI, and acute kidney injury following the hypotensive episode. Due to change in QRS, bradycardia, during episode NSTEMI was also on differential. After resuscitation noted transiently fluid overloaded and hypoxic which resolved with Lasix challenge. Renal function improved with creatinine decreasing from 1.5-1.3. Condition overall improved, he was feeling much better, remained awake and alert, neurologically intact. With possible NSTEMI, renal injury celecoxib discontinued. Would not continue to discharge. He was additionally assessed by TTE with finding of probably low normal ejection fraction, 50%, grade 1 diastolic dysfunction, no significant valvular heart disease. PE noted to be low probability on VQ scan. 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 His metoprolol was discontinued due to noted bradycardia, and on discussion he states that at home his heart rates not infrequently run in the 50s. At this time beta-kelin is not continued. He is asked to monitor his heart rates, blood pressures. For now lisinopril is held until renal function returns to baseline. His TSH was noted elevated at 8.1, but with normal T4 and T3, likely in subclinical hypothyroidism. Discussed all these concerns with him with request to follow-up with his primary provider. He will follow up with orthopedics in office in 5-7 days (to allow Plavix to wear out) for consideration of rescheduling of any procedure in relation to the quadricep tendon rupture. He will maintain strictest fall precautions. Please see cardiology and other subspecialist notes, full diagnostic studies for details. Do not hesitate to return with questions. Physical Exam Const: COMMON NORMALS: no acute distress, patient oriented x3 and alert GENERAL APPEARANCE: cooperative and comfortable NUTRITIONAL APPEARANCE: overweight ORIENTATION/CONSCIOUSNESS: Yes awake OTHER: He is awake, alert, in good spirits. He request to return home. He is feeling well. HENMT: COMMON NORMALS: oropharynx normal Neck/C-Spine: COMMON NORMALS: no JVD Resp: COMMON NORMALS: normal respiratory effort and clear to auscultation bilaterally AUSCULTATION: clear to auscultation bilaterally Cardio: COMMON NORMALS: no JVD, regular rhythm, S1 normal heart sound present, S2 normal heart sound present and No murmurs present (Cardio) RHYTHM: regular rhythm HEART SOUNDS: S1 normal heart sound present and S2 normal heart sound present GI: COMMON NORMALS: Normal to inspection, nondistended, normoactive bowel sounds present, Soft to palpation and non-tender PALPATION: Yes Soft to palpation Extremity: COMMON NORMALS: no joint enlargement and no pedal edema OTHER: Distal right bicep swelling resolving at the site of infiltrated IV. L knee healed TKA scar Neuro: COMMON NORMALS: patient oriented x3 and moves all extremities SENSORIUM/ORIENTATION: Yes alert Skin: COMMON NORMALS: no rashes or lesions noted GENERAL SKIN EXAM: no rashes or lesions noted Discharge Data Data Completed and Pending: Completed Studies During Hospitalization Category Date Time Status XR chest 1V starr ble [id number] Routine Exams 11/23/20 15:44 Completed XR chest 1V starr ble [id number] Routine Exams 11/24/20 07:55 Completed XR chest 1V starr ble [id number] Stat Exams 11/23/20 17:11 Completed NM pul vent and p erfus* [id number] Urgen t Nuc Med 11/24/20 09:15 Completed CV echo complete* [id number] Stat Ultrasound 11/23/20 15:44 Completed Pending at discharge Category Date Time 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 Timed Lab 11/23/20 21:44 Uncollected Labs from last 24 hours 11/26/20 11/26/20 04:34 04:34 WBC 7.3 RBC 4.35 Hgb 13.5 Hct 41.8 L MCV 96.1 H MCH 31.0 MCHC 32.3 RDW 12.8 Plt Count 273 MPV 10.0 Neut % (Auto) 57.3 Lymph % (Auto) 25.1 [place] % (Auto) 12.3 Eos % (Auto) 3.7 Baso % (Auto) 1.2 Neut # (Auto) 4.19 Lymph # (Auto) 1.8 [place] # (Auto) 0.9 Eos # (Auto) 0.3 Baso # (Auto) 0.1 Nucleated RBC % (a uto) 0 Nucleated RBCs # 0.0 Sodium 139 Potassium 4.4 Chloride 104 Carbon Dioxide 27 Anion Gap 12.4 BUN 20 Creatinine 1.3 H GFR Calculation 55.6 L Glucose 89 Calculated Osmolal ity 290 Calcium 8.8 Total Bilirubin 0.4 AST 14 ALT 13 Alkaline Phosphata se 91 Total Protein 6.8 Albumin 3.7 Globulin 3.1 Vitals: Last Vital Signs Temp 98.0 F 11/26/20 15:06 Pulse 49 L 11/26/20 15:06 Resp 15 11/26/20 15:06 BP 146/89 11/26/20 15:06 Pulse Ox 97 11/26/20 15:06 Discharge Plan Discharge Patient Disposition: Home Condition: Stable Prescriptions: New atorvastatin 40 mg Tablet 40 mg PO BEDTIME Qty: 30 RF: 0 Continued duloxetine [Cymbalta] 60 mg capsule,delayed release(DR/EC) 60 mg PO DAILY RF: 0 (DME) Thumb spica splint See Rx Instructions .Route .MEDSUPPLY Qty: 1 RF: 0 vitamin E 200 unit Capsule 200 unit PO DAILY RF: 0 aspirin 81 mg Tablet 81 mg PO DAILY RF: 0 Hold Instructions: Resume on 12/21/20. ascorbic acid (vitamin C) 1,000 mg Capsule, Extended Release 1 cap PO DAILY RF: 0 zinc 50 mg Capsule 50 mg PO DAILY RF: 0 cholecalciferol (vitamin D3) [Vitamin D3] 50 mcg (2,000 unit) Capsule 50 mcg PO DAILY RF: 0 oxycodone 5 mg tablet 5 mg PO Q4H PRN (Reason: Moderate Pain) 7 Days Qty: 40 RF: 0 Held lisinopril 20 mg tablet 20 mg PO DAILY RF: 0 Hold Instructions: Resume on 12/03/20. Discontinued celecoxib 200 mg Capsule 200 mg PO Q12H Qty: 60 RF: 0 Discharge Orders: Discharge Order (Routine); Ordered 11/26/20 Ordered By: Werner Naik Referrals: Elan Fowler M.D [Physician] - 1 month ([facility] will contact you to schedule an follow-up appointment in 1 month. If you haven't heard from them by Friday. Please call ) Ashley Mac MD [Primary Care Provider] - 4-7 days (Please call the [facility] clinic to schedule an follow-up appointment in 4 to 7 days. ) Katrin Bar FNP [Nurse Practitioner] - 1 week ([facility] contact [facility] to schedule an follow-up appointment in 1 week. If you haven't heard from them by Friday. Please call ) Discharge Diet: Cardiac Discharge Activity: As per PT/OT instructions Patient Instructions: Post Angiogram Home Care Instructions Activity Restrictions/Additional Instructions: Please follow-up with your primary care doctor in office. Monitor blood pressures at home twice daily, write down values to bring to your appointment. If you notice very low blood pressures, or very low heart rates, that are persistent at 40 bpm or below, or if you feel dizzy, lightheaded, faint, or d evelop other concerning symptoms like chest pain, seek medical attention without delay. Please discuss with your primary care doctor regarding low blood pressure and possible medication reaction that you have had during initiation of anesthesia. Possibly due to rocuronium or possibly antibiotic vancomycin. Follow-up with Dr. Ron in office to discuss further plans regarding quadricep tendon repair. Please have your primary care doctor follow-up renal function to make sure acute kidney injury is resolving. Please hold your lisinopril for now until your renal function is found stable and you follow-up with your primary care doctor. Please have your primary care doctor follow-up thyroid functions for monitoring of subclinical hypothyroidism. Please discontinue celecoxib as this medication may elevate risk of heart attack, stroke, risk kidney injury, and other complications. Avoid other NSAIDs. Avoid using your cane on the right side for 2 days, or lifting more than 3 pounds for 2 days to allow for access site in the right radial artery to heal. If he noticed a pulsatile mass, significant swelling, pain, any numbness or blue discoloration of your hand, seek medical attention without delay. 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
== END 2020-11-26 18:30 | disposition home or self-care (01) | DRG 281 ==
LOC: ICU 15:45 → CSU 11-25 15:14
PROVIDERS: Internal Medicine Cardiovascular Disease; Admitting Provider Specialist; PCP Family Medicine; Visit Provider Internal Medicine
PROC: 4A023N7 Measurement of Cardiac Sampling and Pressure, Left Heart, Percutaneous Approach (ICD-10-PCS; principal; 2020-11-26 10:00)
DX: I21.4 Non-ST elevation (NSTEMI) myocardial infarction (principal); T88.2XXA Shock due to anesthesia, initial encounter; N17.9 Acute kidney failure, unspecified; I95.2 Hypotension due to drugs; S76.112A Strain of left quadriceps muscle, fascia and tendon, initial encounter; W00.0XXA Fall on same level due to ice and snow, initial encounter; Z96.652 Presence of left artificial knee joint; I25.10 Atherosclerotic heart disease of native coronary artery without angina pectoris; T48.1X5A Adverse effect of skeletal muscle relaxants [neuromuscular blocking agents], initial encounter; Y92.234 Operating room of hospital as the place of occurrence of the external cause; I10 Essential (primary) hypertension; R00.1 Bradycardia, unspecified; M79.7 Fibromyalgia; E03.9 Hypothyroidism, unspecified; Z79.891 Long term (current) use of opiate analgesic; Z79.82 Long term (current) use of aspirin
CPT/HCPCS: 36415; 71045; 78014; 80053; 80061; 83036; 84439; 84443; 84481; 84484; 85025; 93005; 93306; 93452; 94660; 94664; 96372; A9540; A9567; C1769; C1887; C1894; J0131; J0171; J0330; J1200; J1644; J1650; J1940; J2250; J2370; J2704; J3010; J3490; J7030; P9047; Q0163; Q9967

== ENCOUNTER → 2020-12-04 09:42 | Outpatient (BNVA) | payer OTHER, SELFPAY | PROVIDERS: PCP Family Medicine; Visit Provider Nurse Practitioner Family | DX: I10 Essential (primary) hypertension (principal) | CPT/HCPCS: 80048; 87635 ==

== ENCOUNTER 2020-12-07 15:12 | Observation (INO) | payer OTHER, SELFPAY ==
[2020-12-07] VITALS (12 sets, daily range): BP systolic 92–143; BP diastolic 59–85; PULSE 55–67; RESP 12–18; TEMP 36.2–36.8; O2SAT 95–100; BMI 32.8
--- NOTE | 2020-12-07 12:24 | ANES.PREANE2 ---
Pre-Anesthetic Assessment Pre-Anesthetic Assessment: Height/Weight: Height 1.8 m Weight 106.594 kg Temp Pulse Resp BP Pulse Ox 98.3 F 58 L 16 122/82 96 12/07/20 12:05 12/07/20 12:05 12/07/20 12:05 12/07/20 12:05 12/07/20 12:05 Preop Diagnosis: Left quadriceps tendon rupture Proposed Procedure: Operation Date: 12/07/20 13:00 Proposed Procedures p Tendon Repair Quadriceps frank prosthetic 44643 S78.199A(Left) - Concepcion Ron MD Was Beta Amadeo taken within 24 hours: N/A Was Clonidine taken within 24 hours: N/A Last intake: Intake Last Liquid Date 12/06/20 Last Liquid Time 18:00 Last Solid Date 12/06/20 Last Solid Time 18:00 Social: Social History: No alcohol and No tobacco Exam: Pre-Anes Outpt Exam: alert, oriented x 3, clear to auscultation bilaterally and regular rate & rhythm Airway: Submandibular: WNL Cervical ROM: WNL MP: 2 Dentition: Full CV/HEM: CV/HEM: HTN Metabolic: Metabolic: Morbid obesity Anesthetic Plan: ASA status: 2 Other: SAB Risk of > 500 ml blood loss (7ml/kg in children): No PFSH Anesthesia PFSH: Medical History Cardiac dysrhythmia Cervical disc disease Fibromyalgia Hypothyroidism Osteoarthritis of carpometacarpal (CMC) joint of left thumb Surgical History History of carpal tunnel release 2001 History of total knee arthroplasty Left Falls Of Rough total knee system with a size 6 triathlon beaded posterior stabilized femur left, a triathlon titanium tibial component size 6 beaded, a triathlon X3 posterior stabilized tibial bearing insert size 6 X 11 mm and a beaded triathlon titanium asymmetric patella size 35 x 10 mm Hx of hernia repair Hx of spinal surgery Hx of thumb surgery Social History Smoking and tobacco status: never smoked Alcohol intake: never Data Anesthesia Cardiac Studies: No Data to Display
--- NOTE | 2020-12-07 13:00 | P.HPUD_ITS ---
Surgery/Procedure H&P Update DATE OF PROCEDURE: December 07, 2020 DATE H&P PERFORMED: 11/20/20 H&P UPDATE INFORMATION: I have reviewed H&P completed within last 30 days, I have examined patient prior to procedure, Changes to prior documentation as noted here (Cardiac event following anesthesia for prior attempted surgery) and H&P is in [facility] EMR on date indicated CHANGES TO PREVIOUS DOCUMENTATION: Cardiac clearance from cardiology PREOP DIAGNOSIS: Left quadriceps tendon rupture PLANNED PROCEDURE: Operation Date: 12/07/20 13:00 Proposed Procedures p Tendon Repair Quadriceps frank prosthetic 49863 S78.199A(Left) - Concepcion Ron MD Related Problem List Diagnoses (1) Quadriceps tendon rupture: Qualifiers: Encounter type: initial encounter Laterality: left Qualified Code(s): S76.112A - Strain of left quadriceps muscle, fascia and tendon, initial encounter
[2020-12-07] MEDS: acetaminophen 1,000 MG/100 ML PIGGYBACK 400 MG IV ×2 (13:05→22:21)
[2020-12-07] MEDS: clindamycin 600 MG/50 ML PREMIX 100 MG IV (13:05)
[2020-12-07 13:08] LABS: Add Urine Microscopic? NO
[2020-12-07] MEDS: sodium chloride 0.9% 1,000 ML 30 ML IV (13:10)
[2020-12-07] MEDS: CELEcoxib 200 mg Capsule 400 MG PO (13:10)
[2020-12-07 13:21] LABS: Basophils # 0.1 10^3/uL (0.0-0.1); Basophils % 0.9 %; Eosinophils # 0.2 10^3/uL (0.0-0.8); Eosinophils % 2.7 %; Hematocrit 43.8 % (42.0-52.0); Hemoglobin 14.5 g/dL (11.7-16.6); Lymphocytes # 1.4 10^3/uL (0.8-4.8); Lymphocytes % 16.9 %; Mean Corpuscular HGB Conc 33.1 g/dL (30.0-36.0); Mean Corpuscular Volume 93.6 fL (80-94); Mean Platelet Volume 9.6 fL (7.4-10.4); Monocytes # 0.8 10^3/uL (0.2-0.9); Neutrophils # 5.58 10^3/uL (1.8-7.7); Neutrophils % 69.3 %; Nucleated Red Blood Cells % 0 %; Platelet Count 351 10^3/cmm (130-400); Red Blood Count 4.68 10^6/uL (4.1-5.3); Red Cell Distribution Width 12.2 % (12.1-15.1); White Blood Count 8.1 10^3/uL (4.0-10.0)
[2020-12-07 13:45] LABS: Bilirubin Urine Neg (Negative); Blood Urine Neg (Negative); Glucose Urine UA Norm (Normal); Ketones Urine Negative (Negative); Leukocyte Esterase Urine Negative (Negative); Nitrate Urine Negative (Negative); Protein Urine Neg (Negative); Urine Appearance Clear (CLEAR); Urine Color Yellow (Yellow); Urobilinogen Urine Norm (Negative); pH Urine 5 (5-7)
[2020-12-07 13:49] LABS: Alanine Aminotransferase 18 U/L (0-41); Alkaline Phosphatase 111 IU/L (40-130); Anion Gap 13.9 (5-19); Aspartate Amino Transferase 14 U/L (0-40); Blood Urea Nitrogen 13 mg/dL (8-23); Calcium 8.7 mg/dL (8.5-10.5); Carbon Dioxide 27 mmol/L (22-29); Chloride 100 mmol/L (98-107); Globulin 3.3 g/dL (1.3-4.6); Glomerular Filtration Rate 75.2 mL/min (90-130); Glucose 77 mg/dL (65-115); Osmolality Calculated 283 mOsm/kg (285-295); Potassium 3.9 mmol/L (3.5-5.1); Sodium 137 mmol/L (136-145); Total Bilirubin 0.5 mg/dL (0.15-1.2); Total Protein 7.3 g/dL (6.6-8.7)
[2020-12-07 14:30] LABS: RBC Synovial Fluid 47 10^3/uL (0-0); Synovial Fluid Mononuclear # 0.205 10^3/uL; Synovial Fluid Polynuclear # 0.084 10^3/uL; WBC Synovial Fluid 289 /uL (0-150)
[2020-12-07 14:33] LABS: Appearance Synovial Fluid CLOUDY (CLEAR); Color Synovial Fluid RED (PALE YELLOW); PATH Referal YES
--- NOTE | 2020-12-07 16:24 | XR_ITS ---
WS: [id number] XR knee LT 1-2V [id number] REASON FOR EXAM: Postop FINDINGS: Total left knee arthroplasty. Surgical appliance in proper position and alignment. Small gap between the anterior femoral cortex and the anterior superior aspect of the femoral applian ce. No focal bony abnormality. Postoperative soft tissue changes. XR/XR knee LT 1-2V [id number] IMPRESSION: Total left knee arthroplasty as above.
--- NOTE | 2020-12-07 16:30 | PC.NURSE ---
Brace applied by Physical Therapy at this time.
--- NOTE | 2020-12-07 16:34 | PM.OP ---
Operative Report Date of procedure: December 07, 2020 Pre-op Diagnosis: Left traumatic quadriceps tendon rupture following total knee arthroplasty Post-op diagnosis: same Post-op Findings: Partial tearing of the quadriceps tendon with traumatic dehiscence of arthrotomy suture line Procedure Done: Arthrotomy with irrigation, debridement, and repair of quadriceps tendon rupture Implants: None Specimens removed/disposition: Culture and fluid for cell count Surgeon: Concepcion Ron Software Architect: [facility] operating room technicians Anesthesia: MAC (With spinal anesthesia) Estimated blood loss (mL): 20 Tourniquet time (min): 81 Tourniquet time: At 250 mmHg IV fluids (mL): 700 Urine output (mL): 0 Urine output: No Moon Complications: None Findings: Quadriceps tendon rupture along the medial arthrotomy suture line. This extended medially into the and medial portion of the quadriceps muscle. Condition: stable Disposition: PACU (Then to floor for postoperative monitoring) Brief History: This 64-year-old man presented with complaints of severe left knee pain. He was unable to perform activities of daily living comfortably. He was unresponsive to conservative measures and wished to proceed with left total knee arthroplasty. Risks and complications were discussed with him. Consents were signed preoperatively and questions were answered. The patient wished to proceed understanding the above. Procedure: The patient was brought to the operating theater, and after undergoing adequate spinal anesthesia with MAC, the left lower extremity was prepped with Dura-Prep and draped in usual fashion following placement of a tourniquet high on the leg. The leg was then draped free. Following prepping and draping, the leg was exsanguinated, and the tourniquet was elevated to 250 mm Hg for a total tourniquet time of 81 minutes. Prior to elevation of the tourniquet, but following exposure of the site of surgery, a surgical pause was performed. At the time of the surgical pause, we confirmed the site and side of surgery. Additionally, we confirmed the appropriate and timely administration of preoperative antibiotics, vancomycin 1 g. and Transexemic acid 1 g. The availability of equipment was confirmed, and the patient's identity was verbalized as well. Following the surgical pause, an incision was made centering over the patella continuing proximally and distally as necessary to allow access to the knee joint utilizing the patient's prior total knee arthroplasty incision. Dissection continued through skin and soft tissues using a scalpel. Hemostasis was obtained using electrocautery. There was significant edema to the soft tissues. Tissue planes were identified and soft tissues were according to tissue lines. There was significant fluid in the knee joint. Fluid was obtained and sent for cell count with differential. Additionally, cultures were sent as well. The fluid appeared clear and there was no sign of infection. Upon evaluation, the patient's suture line along the median parapatellar arthrotomy was disrupted as was a portion of the medial border of the quadriceps tendon. Laterally, the quadriceps tendon was intact. Synovectomy was accomplished. Evaluation of the components of the total knee arthroplasty as well as evaluation of varus valgus stability in flexion extension demonstrated that there was no need to revise the polyethylene. The decision was made to debride the synovium, repair the quadriceps tendon, and after copious irrigation, primarily close the wound. 2. FiberWire was used to reapproximate the previous suture line after it was freshened. Prior to this, synovectomy was accomplished along with debridement of inflamed soft tissues. In addition to the FiberWire, 0 Vicryl was used to close the suture line as well. Once the suture line was closed and the medial aspect of the quadriceps muscle was repaired, the knee was placed through gentle range of motion. The quadriceps muscle repair was at the level of the proximal third of the patella. We were able to flex and extend the knee without difficulty. Copious irrigation was accomplished prior to closure of the knee as well. Subcutaneous tissues were closed utilizing 2-0 Monocryl in interrupted fashion. Skin day were then placed. Dermabond Prineo placed over the day. Once the Dermabond dried, Telfa was placed followed by 4x4's, ABD, sterile soft roll, and an Hank wrap. The patient was returned the Recovery Room in a satisfactory condition. The patient will be discharged to the floor for postoperative rehabilitation and pain management. Associated Problem List Diagnoses (1) Quadriceps tendon rupture: Qualifiers: Encounter type: initial encounter Laterality: left Qualified Code(s): S76.112A - Strain of left quadriceps muscle, fascia and tendon, initial encounter
[2020-12-07] MEDS: CELEcoxib 200 mg Capsule PO (17:52)
[2020-12-07] MEDS: chlorhexidine gluconate 0.12% Btl 473 mL 30 ML MUCOUS MEM ×2 (17:54→22:19)
[2020-12-07] MEDS: calcium carbonate 500 mg Chew Tablet 1000 MG PO (17:55)
[2020-12-07] MEDS: iron polysaccharide complex 150 mg Capsule PO (17:55)
[2020-12-07] MEDS: mupirocin oint 22 gm 1 APPLIC NASAL (17:55)
[2020-12-07] MEDS: sennosides-docusate Tablet 2 TAB PO (17:55)
--- NOTE | 2020-12-07 18:06 | ANE.PACU2 ---
Inpatient post-anesthesia follow up: Airway intact: Yes Vital signs: Temperature 97.1 F Pulse Rate 59 Respiratory Rate 18 Blood Pressure 126/85 Pulse Oximetry 99 Oxygen Delivery Me thod Room Air Oxygen Flow Rate 8 Fraction of Inspir ed Oxygen Hydration adequate: Yes Nausea and vomiting: No Pain level: 1 Mental status: Baseline
--- NOTE | 2020-12-07 19:02 | PC.NURSE ---
Report to [facility] at this time.
[2020-12-07] MEDS: clindamycin 900 MG/50 ML PREMIX 100 MG IV (22:19)
[2020-12-08] VITALS (8 sets, daily range): BP systolic 136–157; BP diastolic 82–89; PULSE 60–72; RESP 17–18; TEMP 36.4–36.8; O2SAT 94–96
[2020-12-08 02:20] LABS: Basophils # 0.1 10^3/uL (0.0-0.1); Basophils % 0.6 %; Eosinophils # 0.2 10^3/uL (0.0-0.8); Eosinophils % 2.5 %; Hematocrit 39.8 % (42.0-52.0); Lymphocytes # 1.5 10^3/uL (0.8-4.8); Lymphocytes % 16.2 %; Mean Corpuscular HGB Conc 32.7 g/dL (30.0-36.0); Mean Corpuscular Hemoglobin 30.6 pg (28.0-34.0); Mean Corpuscular Volume 93.6 fL (80-94); Mean Platelet Volume 9.2 fL (7.4-10.4); Monocytes # 1.1 10^3/uL (0.2-0.9); Monocytes % 11.8 %; Neutrophils # 6.34 10^3/uL (1.8-7.7); Neutrophils % 68.7 %; Nucleated Red Blood Cells % 0 %; Platelet Count 308 10^3/cmm (130-400); Red Blood Count 4.25 10^6/uL (4.1-5.3); Red Cell Distribution Width 12.4 % (12.1-15.1); White Blood Count 9.2 10^3/uL (4.0-10.0)
[2020-12-08 02:44] LABS: Blood Urea Nitrogen 17 mg/dL (8-23); Calcium 8.4 mg/dL (8.5-10.5); Carbon Dioxide 26 mmol/L (22-29); Chloride 103 mmol/L (98-107); Glomerular Filtration Rate 55.6 mL/min (90-130); Glucose 99 mg/dL (65-115); Osmolality Calculated 288 mOsm/kg (285-295); Sodium 138 mmol/L (136-145)
[2020-12-08] MEDS: clindamycin 900 MG/50 ML PREMIX 100 MG IV ×2 (04:21→13:11)
[2020-12-08] MEDS: CELEcoxib 200 mg Capsule PO (04:21)
[2020-12-08] MEDS: acetaminophen 1,000 MG/100 ML PIGGYBACK 400 MG IV ×2 (04:22→13:12)
[2020-12-08] MEDS: cholecalciferol (vitamin D3) 1,000 unit Tablet 1000 UNIT PO (09:32)
[2020-12-08] MEDS: aspirin 325 mg EC Tablet PO (09:32)
[2020-12-08] MEDS: oxyCODONE 5 mg IR Tab/Cap PO (09:32)
[2020-12-08] MEDS: sennosides-docusate Tablet 2 TAB PO (09:32)
[2020-12-08] MEDS: calcium carbonate 500 mg Chew Tablet 1000 MG PO (09:32)
[2020-12-08] MEDS: duloxetine 60 mg Capsule PO (09:33)
[2020-12-08] MEDS: multivitamin therapeutic Tablet 1 TAB PO (09:33)
[2020-12-08] MEDS: iron polysaccharide complex 150 mg Capsule PO (09:33)
[2020-12-08] MEDS: lisinopril 20 mg Tablet PO (09:33)
[2020-12-08] MEDS: mupirocin oint 22 gm 1 APPLIC NASAL (11:13)
[2020-12-08] MEDS: chlorhexidine gluconate 0.12% Btl 473 mL 30 ML MUCOUS MEM ×2 (11:13→13:22)
--- NOTE | 2020-12-08 13:05 | PC.CHAP ---
Pastoral Care Encounter/Spiritual Assessment Type of Contact [] Declined school commissioner visit [] Patient/Family/Request visit [] Outpatient visit [] Follow-up visit [] Physician referral [] Code/Alert [xx] Routine visit [] Staff referral [] Actively dying [] Patient sleeping [] Family support [] [] Out of room [] Palliative care [] [] Receiving care in room [] Pre-surgical visit [] Trauma [] Long length of stay [] ICU visit [] Other: Relational/Emotional Strength [xx] Patient feels connected with others/family/visitors/staff [] Distress [] Loneliness/isolation [] Abandonment Spirituality of Patient [xx] Person of Alice [xx] Attends Quaker of their Alice [xx] Believes in Prayer [xx] Reads Bible or Orthodoxy materials [] There are Spiritual issues to be addressed 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 [xx] Prayer [xx] Active listening [xx] Non-anxious presence [] Spiritual/emotional support [] Crisis/trauma care [] Spiritual counseling [] Bereavement support [] Provided bereavement packet [] Provided Bible/devotional materials [] Provided toy/stuffed animal, coloring book to patient or family member [] Provided Communion [] Anointing/[place] [] Salvation [xx] Completed spiritual assessment [] Other: Impact on Illness or Injury [] Angry [] Fearful [] Anxious [] Often cries [] Exhaustion [] Unable to work [] Unable to attend mu-ism [] Unable to walk/stand [] Unable to read [] Unable to drive [] Unable to eat/drink [] Unable to sleep [] Unable to be with family [] Patient intubated [] Other: Summary Patient stated he is doing well after knee tendon surgery and hopes to go home later today. Time spent with patient 3 minutes
--- NOTE | 2020-12-08 15:05 | PM.DCS ---
Discharge Providers Date of Admission: 12/07/20 15:12 Date of Discharge: December 08, 2020 Attending Provider at Admission: Concepcion Ron MD Attending Provider at Discharge: Concepcion Ron MD Primary Care Provider: Ashley Mac MD Diagnoses at Discharge Discharge Diagnosis (1) Quadriceps tendon rupture: Status: Acute Qualifiers: Encounter type: initial encounter Laterality: left Qualified Code(s): S76.112A - Strain of left quadriceps muscle, fascia and tendon, initial encounter Reason for Visit Reason for Visit: tendon repair Hospital Course Hospital Course This 64-year-old gentleman was brought to the hospital to have his ruptured quadriceps tendon repair. He had a total knee near the end of September, and he had a fall which hyperflexed his knee to the point where he suffered a partial quadriceps tendon rupture. He had a fall subsequent to that as well. The patient was to have had a repair 2 weeks ago. Unfortunately, he had a very significant allergic reaction which placed him in the intensive care unit. He now returns for definitive care in the form of quadriceps tendon repair. Following his repair, he was admitted to the hospital given his previous history for overnight observation. He did well overnight. He was seen the following afternoon, and he felt ready to go home. His dressings were DC'd. His wound was benign. His [place] brace will be readjusted. He will be discharged home to follow-up with me in the office. Physical Exam Const: COMMON NORMALS: no acute distress, average body habitus, patient oriented x3 and alert GENERAL APPEARANCE: cooperative and comfortable ORIENTATION/CONSCIOUSNESS: Yes awake HENMT: COMMON NORMALS: normocephalic and atraumatic HEAD & SCALP: normocephalic and atraumatic Eye: GENERAL EYE: appearance normal, both eyes and all related structures Chest: COMMONS NORMALS: normal inspection of the chest Resp: COMMON NORMALS: normal respiratory effort EFFORT & INSPECTION: Yes able to speak in complete sentences and Yes symmetric chest movement Extremity: LEFT LOWER EXTREMITY: Yes knee joint (Dressings are removed, no swelling, no erythema) Left knee: Yes inspection (There is no drainage from the wound.), Yes palpation (Minimal to no tenderness to palpation), Yes ROM (0 to 30 degrees limited by restrictions) and Yes neurovascular exam (Intact) Neuro: COMMON NORMALS: patient oriented x3 SENSORIUM/ORIENTATION: Yes alert Psych: COMMON NORMALS: mental status grossly normal APPEARANCE: Yes grossly normal ATTITUDE: Yes calm and Yes engaged ATTENTION/CONCENTRATION: Yes attention grossly intact Skin: COMMON NORMALS: no rashes or lesions noted GENERAL SKIN EXAM: no rashes or lesions noted Discharge Data Data Completed and Pending: Completed Studies During Hospitalization Category Date Time Status XR knee LT 1-2V 7 3560 Routine Exams 12/07/20 16:24 Completed Pending at discharge Category Date Time Status Anaerobic Culture Routine Lab 12/07/20 13:55 Received Complete Blood Co unt w/Auto AM LABS Lab 12/09/20 04:00 Ordered Complete Blood Co unt w/Auto AM LABS Lab 12/10/20 04:00 Ordered Wound Culture and Gram Stain Routin e Lab 12/07/20 13:55 Results Labs from last 24 hours 12/08/20 12/08/20 02:08 02:08 WBC 9.2 RBC 4.25 Hgb 13.0 Hct 39.8 L MCV 93.6 MCH 30.6 MCHC 32.7 RDW 12.4 Plt Count 308 MPV 9.2 Neut % (Auto) 68.7 Lymph % (Auto) 16.2 [place] % (Auto) 11.8 Eos % (Auto) 2.5 Baso % (Auto) 0.6 Neut # (Auto) 6.34 Lymph # (Auto) 1.5 [place] # (Auto) 1.1 H Eos # (Auto) 0.2 Baso # (Auto) 0.1 Nucleated RBC % (a uto) 0 Nucleated RBCs # 0.0 Sodium 138 Potassium 4.0 Chloride 103 Carbon Dioxide 26 Anion Gap 13.0 BUN 17 Creatinine 1.3 H GFR Calculation 55.6 L Glucose 99 Calculated Osmolal ity 288 Calcium 8.4 L Vitals: Last Vital Signs Temp 97.7 F 12/08/20 11:21 Pulse 65 12/08/20 11:21 Resp 17 12/08/20 11:21 BP 157/84 12/08/20 11:21 Pulse Ox 95 12/08/20 11:21 Discharge Plan Discharge Patient Disposition: Home Health Service Condition: Stable Prescriptions: New Percocet 5-325 mg tablet 1 tab PO Q6H PRN (Reason: pain) Qty: 30 RF: 0 Celebrex 200 mg capsule 200 mg PO BID 60 Days Qty: 120 RF: 0 acetaminophen 500 mg Tablet 1,000 mg PO Q8H Qty: 0 RF: 0 Continued lisinopril 20 mg tablet 20 mg PO DAILY RF: 0 Hold Instructions: Resume on 12/03/20. duloxetine [Cymbalta] 60 mg capsule,delayed release(DR/EC) 60 mg PO DAILY RF: 0 (DME) Thumb spica splint See Rx Instructions .Route .MEDSUPPLY Qty: 1 RF: 0 oxycodone 5 mg tablet 5 mg PO Q4H PRN (Reason: Moderate Pain) 7 Days Qty: 40 RF: 0 vitamin E 200 unit Capsule 200 unit PO DAILY RF: 0 ascorbic acid (vitamin C) 1,000 mg Capsule, Extended Release 1 cap PO DAILY RF: 0 zinc 50 mg Capsule 50 mg PO DAILY RF: 0 cholecalciferol (vitamin D3) [Vitamin D3] 50 mcg (2,000 unit) Capsule 50 mcg PO DAILY RF: 0 atorvastatin 40 mg Tablet 40 mg PO BEDTIME Qty: 30 RF: 0 Held aspirin 81 mg Tablet 81 mg PO DAILY RF: 0 Hold Instructions: Resume on 12/21/20. Discharge Orders: Discharge Order (Routine); Ordered 12/08/20 Ordered By: Concepcion Ron Referrals: Concepcion Ron MD [Physician] - 12/21/20 8:30 am Discharge Diet: Advance as tolerated and Usual diet Discharge Activity: Increase activity as tolerated, Limit activity as instructed and Use walker/crutches as instructed Activity Restrictions/Additional Instructions: Wear immobilizer. Ice and elevate left lower extremity. Range of motion within the brace only. Discharge Attestations Time Spent in Discharge Care*: greater than 30 min Specific Discharge Activities: educating patient, documenting/other paperwork and evaluating patient/reviewing data Quality Metrics Clinical Quality Measures During this hospital stay, did patient experience: None Coding Level of Care Code Acute Chg FW DC note Diagnoses Quadriceps tendon rupture S76.112A Encounter type: initial encounter Laterality: left
== END 2020-12-08 16:17 | disposition home health service (06) ==
LOC: MEDSURG 15:13
PROVIDERS: Admitting Provider Specialist; PCP Family Medicine; Visit Provider Specialist
PROC: (CPT 27385; principal; 2020-12-07 13:00)
DX: S76.112A Strain of left quadriceps muscle, fascia and tendon, initial encounter (principal); X58.XXXA Exposure to other specified factors, initial encounter; I10 Essential (primary) hypertension; E66.01 Morbid (severe) obesity due to excess calories; Z68.32 Body mass index [BMI] 32.0-32.9, adult; M79.7 Fibromyalgia; E03.9 Hypothyroidism, unspecified
CPT/HCPCS: 27385; 36415; 73560; 73562; 80048; 80053; 80500; 81003; 85025; 86850; 86900; 87070; 87075; 87205; 89050; 94660; 97161; 97165; 97535; G0378; J2704; J3490; J7030

== ENCOUNTER 2020-12-14 14:32 | Outpatient (CLI) | payer OTHER, SELFPAY ==
--- NOTE | 2020-12-14 15:13 | USCV_ITS ---
Kristen Youngblood Age: 64 Gender: M : 1955 Exam Date: 12/14/2020 15:19 Ordering Phys: Ashley Mac MD Technologist: Bro Murrieta Exam Location: [facility] – [place] Indication: SWELLING, PAIN PROCEDURES: Venous duplex imaging was performed in only the left lower extremity. The following venous structures were evaluated: common femoral vein, profunda vein, proximal portion of the greater saphenous vein, superficial femoral vein, and the popliteal vein. In addition, the posterior tibial and peroneal trunk were evaluated. FINDINGS: Normal 2-D Doppler and augmentation and compressibility throughout the lower extremity venous structures. Additional imaging through the proximal calf veins also reveals no thrombus. Limited evaluation of the greater saphenous vein is patent with no thrombus.. Appears to have pulsatile venous flow CONCLUSIONS No evidence of DVT in the above-mentioned identifiable veins. Abnormal venous flow pattern may suggest a high central venous pressure. Clinical correlation is recommended Dr Poncho Patel MD FACC (Electronically Signed) Final Date: 15 December 2020 19:23 S
== END 2020-12-14 14:33 | disposition home or self-care (01) ==
PROVIDERS: PCP Family Medicine; Visit Provider Family Medicine
DX: M79.89 Other specified soft tissue disorders (principal); M79.605 Pain in left leg
CPT/HCPCS: 93971

== ENCOUNTER → 2020-12-20 11:55 | Outpatient (BNVA) | payer OTHER, SELFPAY | PROVIDERS: PCP Family Medicine; Visit Provider Specialist | DX: M17.0 Bilateral primary osteoarthritis of knee (principal); Z96.652 Presence of left artificial knee joint | CPT/HCPCS: 73560; 73565 ==

== ENCOUNTER 2020-12-20 13:48 | Outpatient (CLI) | payer OTHER, SELFPAY | END 2020-12-20 13:49 | disposition home or self-care (01) | LOC: SPT 13:49 | PROVIDERS: PCP Family Medicine; Visit Provider Specialist | DX: Z46.89 Encounter for fitting and adjustment of other specified devices (principal); S76.112D Strain of left quadriceps muscle, fascia and tendon, subsequent encounter; X58.XXXD Exposure to other specified factors, subsequent encounter | CPT/HCPCS: 97760; L1812 ==

== ENCOUNTER → 2021-01-17 10:20 | Outpatient (BNVA) | payer OTHER, SELFPAY | PROVIDERS: PCP Family Medicine; Visit Provider Specialist | DX: M17.0 Bilateral primary osteoarthritis of knee (principal); S76.112A Strain of left quadriceps muscle, fascia and tendon, initial encounter; Z96.652 Presence of left artificial knee joint | CPT/HCPCS: 73560; 73565 ==

== ENCOUNTER → 2021-02-02 10:30 | Outpatient (BNVA) | payer OTHER, SELFPAY | PROVIDERS: PCP Family Medicine; Visit Provider Orthopaedic Surgery | DX: Z96.659 Presence of unspecified artificial knee joint (principal) | CPT/HCPCS: 80500; 87070; 87205; 89051 ==

== ENCOUNTER → 2021-02-05 10:24 | Outpatient (BNVA) | payer OTHER, SELFPAY | PROVIDERS: PCP Family Medicine; Visit Provider Specialist | DX: S76.112A Strain of left quadriceps muscle, fascia and tendon, initial encounter (principal); X58.XXXA Exposure to other specified factors, initial encounter | CPT/HCPCS: 73560; 73565 ==

== ENCOUNTER → 2021-03-14 08:54 | Outpatient (BNVA) | payer OTHER, SELFPAY | PROVIDERS: PCP Family Medicine; Visit Provider Specialist | DX: M25.462 Effusion, left knee (principal); S76.112D Strain of left quadriceps muscle, fascia and tendon, subsequent encounter; W01.10XD Fall on same level from slipping, tripping and stumbling with subsequent striking against unspecified object, subsequent encounter; Z96.652 Presence of left artificial knee joint | CPT/HCPCS: 73560; 73565 ==

== ENCOUNTER → 2021-04-25 10:31 | Outpatient (BNVA) | payer OTHER, SELFPAY | PROVIDERS: PCP Family Medicine; Visit Provider Specialist | DX: Z96.652 Presence of left artificial knee joint (principal) | CPT/HCPCS: 73560; 73565 ==

== ENCOUNTER → 2021-06-27 10:25 | Outpatient (BNVA) | payer OTHER, SELFPAY | PROVIDERS: PCP Family Medicine; Visit Provider Specialist | DX: T84.84XD Pain due to internal orthopedic prosthetic devices, implants and grafts, subsequent encounter (principal); Z96.652 Presence of left artificial knee joint | CPT/HCPCS: 73560; 73565 ==

== ENCOUNTER 2021-07-02 11:46 | Outpatient (CLI) | payer OTHER, SELFPAY ==
--- NOTE | 2021-07-02 11:50 | MM_ITS ---
WS: [id number] DIAGNOSTIC BILATERAL DIGITAL MAMMOGRAM WITH CAD LEFT breast ultrasound, limited HISTORY: PAIN TO LT NIPPLE COMPARISON: None available. TECHNIQUE: Bilateral craniocaudad, mediolateral oblique, and mediolateral views are submitted. Spot c ompression LEFT CC. Computer aided detection utilized. Breast composition: The breasts are almost entirely fatty. Very mild asymmetry posterior to the LEFT nipple. No mass or retraction of the nipple. No adenopathy. LEFT breast ultrasound, limited. Very mild prominent soft tissue posterior to the nipple. No increased vascularity. MM/[place] [id number] IMPRESSION: BI-RADS: 2-Benign FOLLOW UP: See Report Findings are most consistent with very mild LEFT gynecomastia.
== END 2021-07-02 11:47 | disposition home or self-care (01) ==
LOC: RADSHAW 11:48
PROVIDERS: PCP Family Medicine; Visit Provider Family Medicine
DX: N64.4 Mastodynia (principal); N64.89 Other specified disorders of breast
CPT/HCPCS: 76642; 77065

== ENCOUNTER → 2021-12-19 10:40 | Outpatient (BNVA) | payer OTHER, SELFPAY | PROVIDERS: PCP Family Medicine; Visit Provider Specialist | DX: T84.84XA Pain due to internal orthopedic prosthetic devices, implants and grafts, initial encounter (principal); Z96.652 Presence of left artificial knee joint | CPT/HCPCS: 73560; 73565 ==

== ENCOUNTER 2022-06-06 12:41 | Outpatient (CLI) | payer OTHER, SELFPAY ==
--- NOTE | 2022-06-06 12:50 | USCV_ITS ---
Kristen Youngblood Age: 66 Gender: M : 1955 Exam Date: 06/06/2022 12:57 Ordering Phys: Ashley Mac MD Technologist: Exam Location: [facility] [place]ication: screening HISTORY: Diameter (cm) AP x Transverse x Length Velocity (cm/s) Waveform Prox Aorta: 2.32 x 2.36 x 126.10 Biphasic Mid Aorta: 2.22 x 2.17 x 110.90 Biphasic Distal Aorta: 1.97 x 1.92 x 108.10 Biphasic Right Iliac Prox: 1.72 x 1.72 x 270.00 Biphasic Left Iliac Prox: 1.55 x 1.67 x 213.30 Biphasic Stent Prox Landing x x Aneurysmal Sac Max x x Lt Lat Sac Dim Rt Lat Sac Dim Stent Dist Landing x x Right Iliac Stent x x Left Iliac Stent x x Right Renal Art Left Renal Art FINDINGS: CONCLUSIONS 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 No evidence of abdominal aortic or bilateral iliac aneurysm. Benjamin Easton MD (Electronically Signed) Final Date: 07 June 2022 17:26 S
== END 2022-06-06 12:42 | disposition home or self-care (01) ==
LOC: RAD 12:42
PROVIDERS: PCP Family Medicine; Visit Provider Family Medicine
DX: Z13.6 Encounter for screening for cardiovascular disorders (principal); I70.0 Atherosclerosis of aorta
CPT/HCPCS: 76706

== ENCOUNTER → 2022-06-07 09:26 | Outpatient (BNVA) | payer OTHER, SELFPAY | PROVIDERS: PCP Family Medicine; Visit Provider Surgery | DX: K63.5 Polyp of colon (principal) | CPT/HCPCS: 99203 ==

== ENCOUNTER → 2022-06-19 10:30 | Outpatient (BNVA) | payer OTHER, SELFPAY | PROVIDERS: PCP Family Medicine; Visit Provider Specialist | DX: M17.11 Unilateral primary osteoarthritis, right knee (principal); T84.84XS Pain due to internal orthopedic prosthetic devices, implants and grafts, sequela; Y79.2 Prosthetic and other implants, materials and accessory orthopedic devices associated with adverse incidents; Z96.652 Presence of left artificial knee joint | CPT/HCPCS: 20610; 73560; 73565; 99214; J1100; J2795; J3301 ==

== ENCOUNTER 2022-07-08 06:51 | Day surgery (SDC) | payer OTHER, SELFPAY ==
[2022-07-03 16:31] VITALS: BMI 32.1
[2022-07-08 07:18] VITALS: BP 152/92; PULSE 49; RESP 16; TEMP 36.2; O2SAT 96
--- NOTE | 2022-07-08 07:20 | P.HP_ITS ---
Providers/Chief Complaint Primary Care Provider: Ashley Mac MD Chief Complaint: Colon cancer screening History of Present Illness Kristen Hayden is a 66 year old male here for colonoscopy Medications/Allergies Home Medications Medication Instructions Recorded Confirmed Last Taken Type duloxetine 60 mg capsule,delayed 60 mg PO DAILY 11/24/19 07/03/22 12/06/20 History release (Cymbalta) lisinopril 20 mg tablet 20 mg PO DAILY 11/24/19 07/03/22 12/07/20 07:00 History Thumb spica splint #1 ea 02/24/20 06/19/22 Unknown Rx ascorbic acid (vitamin C) 1,000 mg 1 cap PO DAILY 10/06/20 07/03/22 12/06/20 History capsule,extended release aspirin 81 mg tablet 325 mg PO DAILY 10/06/20 07/03/22 12/01/20 History cholecalciferol (vitamin D3) 50 50 mcg PO DAILY 10/06/20 07/03/22 12/06/20 History mcg (2,000 unit) capsule (Vitamin D3) vitamin E 200 unit capsule 200 unit PO DAILY 10/06/20 07/03/22 12/06/20 History zinc 50 mg capsule 50 mg PO DAILY 10/06/20 07/03/22 12/06/20 History acetaminophen 500 mg tablet 1,000 mg PO Q8H #0 tabs 12/08/20 07/03/22 Unknown Rx HINGED KNEE BRACE #1 ea 12/20/20 06/19/22 Unknown Rx Tumeric 1,000 mg PO DAILY 01/05/21 07/03/22 Unknown History peg 3350-electrolytes 236 240 ml PO Q10M #4,000 mL 06/07/22 07/03/22 Unknown Rx gram-22.74 gram-6.74 gram-5.86 gram solution (Golytely) Allergies Allergy/AdvReac Type Severity Reaction Status Date / Time rocuronium Allergy Severe ADR/ALGY-Hy Verified 06/19/22 10:35 potension vancomycin Allergy Severe ADR/ALGY-Hy Verified 06/19/22 10:35 potension latex Allergy Unknown Verified 06/19/22 10:35 bumble bee Allergy ALGY-Anaphy Uncoded 06/19/22 10:35 laxis PFSH Acute PFSH: Medical History Cardiac dysrhythmia Cervical disc disease Fibromyalgia Hypothyroidism Osteoarthritis of carpometacarpal (CMC) joint of left thumb Psychiatric care Surgical History History of ankle surgery x2 left ankle History of carpal tunnel release 2002 History of total knee arthroplasty Left Anthony total knee system with a size 6 triathlon beaded posterior stabilized femur left, a triathlon titanium tibial component size 6 beaded, a triathlon X3 posterior stabilized tibial bearing insert size 6 X 11 mm and a beaded triathlon titanium asymmetric patella size 35 x 10 mm Hx of colonoscopy with polypectomy Hx of hernia repair Hx of removal of cyst head, right wrist Hx of spinal surgery Hx of thumb surgery Social History Smoking and tobacco status: never smoked Alcohol intake: never A&P Assessment and plan (1) Colon cancer screening: Plan Colonoscopy Attestations Medical Necessity Statement*: Home Coding Level of Care Code Acute [employer] for Chg Fwd Diagnoses Colon cancer screening Z12.11
[2022-07-08] MEDS: sodium chloride 0.9% 1,000 ML 30 ML IV (07:26)
--- NOTE | 2022-07-08 07:54 | ANES.PREANE2 ---
Pre-Anesthetic Assessment Height/Weight: Height 1.8 m Weight 104.326 kg Temp Pulse Resp BP Pulse Ox O2 Del Method 97.1 F L 49 L 16 152/92 96 07/08/22 07:18 07/08/22 07:18 07/08/22 07:18 07/08/22 07:18 07/08/22 07:18 07/08/22 07:18 Preop Diagnosis: Left traumatic quadriceps tendon rupture following total knee arthroplasty Operation Date: 07/08/22 08:30 Proposed Procedures p Colonoscopy 32039,K63.5(Not Applicable) - Rohith Recinos DO Familial anesthetic complications: Possible anaphylactic reaction in 11/2020 to vancomycin (severe red man's syndrome) or rocuronium during general anesthetic for quadriceps rupture. this occurred shortly after uneventful induction. Patient became severely hypotensive with bradycardia refractory to boluses of multiple pressors and fluids, improvement shortly after initiating treatment for anaphylaxis/anaphylactoid reaction. No ischemic changes noted on EKGS, but troponins did elevate subsequently in ICU, and subsequent cath showed only mild CAD. Patient has tolerated spinal and propofol infusions multiple times. Often does require small boluses of ephedrine during prior anesthetics. Was Beta Amadeo taken within 24 hours: N/A Was Clonidine taken within 24 hours: N/A Last intake: Intake Last Liquid Date 07/07/22 Last Liquid Time 18:30 Last Solid Date 07/06/22 Last Solid Time 17:30 Social No alcohol and No tobacco Exam alert, oriented x 3, clear to auscultation bilaterally and regular rate & rhythm Airway Mallampati: Class III Dentition: full Comments: Comments: Fullo willis CV/HEM Arrythmia, Coronary Artery Disease (mild) and Hypertension Metabolic Thyroid Disease [facility] [place] Fibromyalgia Anesthetic Plan ASA status: 3 Anesthesia: MAC Risk of > 500 ml blood loss (7ml/kg in children): No Medications/Allergies Home Medications Medication Instructions Recorded Confirmed Last Taken Type duloxetine 60 mg capsule,delayed 60 mg PO DAILY 11/24/19 07/03/22 12/06/20 History release (Cymbalta) lisinopril 20 mg tablet 20 mg PO DAILY 11/24/19 07/03/22 12/07/20 07:00 History Thumb spica splint #1 ea 02/24/20 06/19/22 Unknown Rx ascorbic acid (vitamin C) 1,000 mg 1 cap PO DAILY 10/06/20 07/03/22 12/06/20 History capsule,extended release aspirin 81 mg tablet 325 mg PO DAILY 10/06/20 07/03/22 12/01/20 History cholecalciferol (vitamin D3) 50 50 mcg PO DAILY 10/06/20 07/03/22 12/06/20 History mcg (2,000 unit) capsule (Vitamin D3) vitamin E 200 unit capsule 200 unit PO DAILY 10/06/20 07/03/22 12/06/20 History zinc 50 mg capsule 50 mg PO DAILY 10/06/20 07/03/22 12/06/20 History acetaminophen 500 mg tablet 1,000 mg PO Q8H #0 tabs 12/08/20 07/03/22 Unknown Rx HINGED KNEE BRACE #1 ea 12/20/20 06/19/22 Unknown Rx Tumeric 1,000 mg PO DAILY 01/05/21 07/03/22 Unknown History peg 3350-electrolytes 236 240 ml PO Q10M #4,000 mL 06/07/22 07/03/22 Unknown Rx gram-22.74 gram-6.74 gram-5.86 gram solution (Golytely) Allergies Allergy/AdvReac Type Severity Reaction Status Date / Time rocuronium Allergy Severe ADR/ALGY-Hy Verified 06/19/22 10:35 potension vancomycin Allergy Severe ADR/ALGY-Hy Verified 06/19/22 10:35 potension latex Allergy Unknown Verified 06/19/22 10:35 bumble bee Allergy ALGY-Anaphy Uncoded 06/19/22 10:35 laxis Current Medications Generic Name Dose Route Start Last Admin Trade Name Freq PRN Reason Stop Dose Admin Sodium Chloride 1,000 mls @ 30 mls/hr 07/08/22 07:00 07/08/22 07:26 Sodium Chloride 0.9% IV 07/09/22 06:59 30 mls/hr .Q24H TAMIA Administration PFSH Anesthesia Medical History Cardiac dysrhythmia Cervical disc disease Fibromyalgia Hypothyroidism Osteoarthritis of carpometacarpal (CMC) joint of left thumb Psychiatric care Surgical History History of ankle surgery x2 left ankle History of carpal tunnel release 2002 History of total knee arthroplasty Left [place] total knee system with a size 6 triathlon beaded posterior stabilized femur left, a triathlon titanium tibial component size 6 beaded, a triathlon X3 posterior stabilized tibial bearing insert size 6 X 11 mm and a beaded triathlon titanium asymmetric patella size 35 x 10 mm Hx of colonoscopy with polypectomy Hx of hernia repair Hx of removal of cyst head, right wrist Hx of spinal surgery Hx of thumb surgery Social History Smoking and tobacco status: never smoked Alcohol intake: never Data Anesthesia Cardiac Studies: Echocardiogram Ultrasound 11/23/20
[2022-07-08 08:45] VITALS: BP 114/78; PULSE 52; RESP 16; TEMP 36.6; O2SAT 93
[2022-07-08 08:55] VITALS: BP 115/80; PULSE 50; RESP 16; O2SAT 99
[2022-07-08 09:04] VITALS: BP 136/87; PULSE 50; RESP 16; O2SAT 97
--- NOTE | 2022-07-08 14:57 | ANE.PACU2 ---
Inpatient post-anesthesia follow up: Airway intact: Yes Vital signs: Temperature 98 F Pulse Rate 50 Respiratory Rate 16 Blood Pressure 136/87 Pulse Oximetry 97 Oxygen Delivery Me thod Room Air Oxygen Flow Rate 3 Fraction of Inspir ed Oxygen Hydration adequate: Yes Nausea and vomiting: No Pain level: 1 Mental status: Baseline
== END 2022-07-08 09:20 | disposition home or self-care (01) ==
PROVIDERS: PCP Family Medicine; Visit Provider Surgery
PROC: 0DJD8ZZ Inspection of Lower Intestinal Tract, Via Natural or Artificial Opening Endoscopic (ICD-10-PCS; CPT 45378; principal; 2022-07-08 08:30)
DX: Z12.11 Encounter for screening for malignant neoplasm of colon (principal); M79.7 Fibromyalgia; E03.9 Hypothyroidism, unspecified; I25.10 Atherosclerotic heart disease of native coronary artery without angina pectoris; I10 Essential (primary) hypertension
CPT/HCPCS: G0121; J2704; J7030

== ENCOUNTER → 2022-09-17 13:23 | Outpatient (BNVA) | payer OTHER, SELFPAY | PROVIDERS: PCP Family Medicine; Visit Provider Internal Medicine Cardiovascular Disease | DX: I25.10 Atherosclerotic heart disease of native coronary artery without angina pectoris (principal); I10 Essential (primary) hypertension; R00.1 Bradycardia, unspecified; M17.11 Unilateral primary osteoarthritis, right knee | CPT/HCPCS: 99214 ==

== ENCOUNTER → 2022-11-04 09:57 | Outpatient (BNVA) | payer OTHER, SELFPAY | PROVIDERS: PCP Family Medicine; Visit Provider Specialist | DX: T84.84XD Pain due to internal orthopedic prosthetic devices, implants and grafts, subsequent encounter (principal); Z96.652 Presence of left artificial knee joint; Y79.2 Prosthetic and other implants, materials and accessory orthopedic devices associated with adverse incidents | CPT/HCPCS: 73560; 73565; 99214 ==

== ENCOUNTER 2022-11-14 08:49 | Outpatient (CLI) | payer OTHER, SELFPAY ==
--- NOTE | 2022-11-14 09:02 | NM_ITS ---
WS: [id number] THREE-PHASE BONE SCAN HISTORY: PAINFUL LEFT TKA COMPARISON: Radiographs 11/04/2022 and 12/19/2021 Patient is is injected with 24.4 mCi Tc99m HDP intravenously. Immediate angiographic phase imaging is performed over the area of concern. Static blood pool imaging also performed. Two-hour whole-body sc intigrams performed in anterior and posterior projections. Additional large field of view imaging sub mitted as necessary. The angiographic phase imaging centered over the knees demonstrates moderate hyperemia centered at th e LEFT knee. There is also increased uptake and activity noted on the blood pool phase imaging and th e delayed imaging surrounding the LEFT knee/prosthesis. On the delayed imaging there is significant u ptake along the tibial plateau of the LEFT knee and also surrounding the patella. There is a small area of increased uptake involving the medial RIGHT knee only on the delayed imaging . Mild AC joint arthritis. Mild soft tissue uptake is normal. Normal renal activity. NM/NM bone 3 phase 38305 IMPRESSION: 1. Abnormal 3 phase imaging involving the LEFT knee. There is significant incr eased uptake on all 3 phases. Several serial radiographs also demonstrate incre asing lucency surrounding the tibial plateau prosthesis. These findings can be seen with loosening of the knee arthroplasty or osteomyelitis. 2. Osteoarthritis medial compartment RIGHT knee.
== END 2022-11-14 08:50 | disposition home or self-care (01) ==
PROVIDERS: PCP Family Medicine; Visit Provider Specialist
DX: T84.84XD Pain due to internal orthopedic prosthetic devices, implants and grafts, subsequent encounter (principal); Y83.8 Other surgical procedures as the cause of abnormal reaction of the patient, or of later complication, without mention of misadventure at the time of the procedure; M17.11 Unilateral primary osteoarthritis, right knee
CPT/HCPCS: 78315; A9561

== ENCOUNTER → 2022-12-18 09:05 | Outpatient (BNVA) | payer OTHER, SELFPAY | PROVIDERS: PCP Family Medicine; Visit Provider Specialist | DX: T84.84XD Pain due to internal orthopedic prosthetic devices, implants and grafts, subsequent encounter (principal); Z96.652 Presence of left artificial knee joint; Y79.2 Prosthetic and other implants, materials and accessory orthopedic devices associated with adverse incidents | CPT/HCPCS: 20610; 80503; 87070; 87075; 87205; 89050; 99214 ==

== ENCOUNTER → 2023-02-03 10:51 | Outpatient (BNVA) | payer OTHER, SELFPAY | PROVIDERS: PCP Family Medicine; Visit Provider Specialist | DX: M25.462 Effusion, left knee (principal); T84.84XA Pain due to internal orthopedic prosthetic devices, implants and grafts, initial encounter; M17.0 Bilateral primary osteoarthritis of knee; Z96.659 Presence of unspecified artificial knee joint; Z96.652 Presence of left artificial knee joint; Y79.3 Surgical instruments, materials and orthopedic devices (including sutures) associated with adverse incidents | CPT/HCPCS: 80053; 85025; 99214 ==

== ENCOUNTER 2023-02-05 11:11 | Outpatient (CLI) | payer OTHER, SELFPAY | END 2023-02-05 11:12 | disposition home or self-care (01) | LOC: RT 02-06 11:14 | PROVIDERS: PCP Family Medicine; Visit Provider Specialist | DX: Z01.810 Encounter for preprocedural cardiovascular examination (principal) | CPT/HCPCS: 93005 ==

== ENCOUNTER 2023-02-11 16:26 | Inpatient (IN) | payer OTHER, SELFPAY ==
[2023-02-05 09:59] VITALS: BMI 32.1
--- NOTE | 2023-02-05 10:19 | ECG_ITS ---
[facility] Test Date: 2023-02-05 Pat Name: Kristen Hayden Department: Room: Gender: Male [employer]en [employer] Ere[employer]: : 1955 Requested By: Mandi Barker Order Number: [id number] Winnie MD: Elan Fowler M.D. Measurements Intervals [place] Rate: 50 P: 20 IL: 155 QRS: -19 QRSD: 101 T: 24 QT: 383 QTc: 351 Interpretive Statements SINUS BRADYCARDIA POSSIBLE ANTERIOR MYOCARDIAL INFARCTION , OF INDETERMINATE AGE [30 ms Q WAVE IN V3/V4, OR R < 0.2 mV IN V4] Compared to ECG 11/23/2020 16:44:54 Sinus rhythm no longer present Myocardial infarct finding still present Electronically Signed On 02-05-2023 17:59:00 CDT by Elan Fowler M.D. [email or web address] ([employer])[email or web address].[employer]/store/[id number]
--- NOTE | 2023-02-05 10:53 | ANES.PREANE2 ---
Pre-Anesthetic Assessment Height/Weight: Height 1.8 m Weight 104.326 kg Operation Date: 02/12/23 12:00 Proposed Procedures p REMOVAL LEFT TOTAL KNEE COMPONENTS WITH IMPLANT OF TEMPORARY PROSTHESIS 61750,T84.84XS Z96.652(Left) - Concepcion Ron MD Familial anesthetic complications: Possible anaphylactic reaction in 11/2020 to vancomycin (severe red man's syndrome) or rocuronium during general anesthetic for quadriceps rupture. this occurred shortly after uneventful induction. Patient became severely hypotensive with bradycardia refractory to boluses of multiple pressors and fluids, improvement shortly after initiating treatment for anaphylaxis/anaphylactoid reaction. No ischemic changes noted on EKGS, but troponins did elevate subsequently in ICU, and subsequent cath showed only mild CAD. Patient has tolerated spinal and propofol infusions multiple times. Often does require small boluses of ephedrine during prior anesthetics. Social No alcohol and No tobacco Airway Mallampati: Class II Dentition: full CV/HEM Coronary Artery Disease (moderate) and Hypertension Metabolic Thyroid Disease Anesthetic Plan ASA status: 3 Anesthesia: Regional (specify below) (spinal + adductor) Risk of > 500 ml blood loss (7ml/kg in children): Yes, adequate IV access and fluids planned Medications/Allergies Home Medications Medication Instructions Recorded Confirmed Last Taken Type duloxetine 60 mg capsule,delayed 60 mg PO DAILY 11/24/19 02/05/23 02/05/23 History release (Cymbalta) ascorbic acid (vitamin C) 1,000 mg 1 cap PO DAILY 10/06/20 02/05/23 02/05/23 History capsule,extended release aspirin 81 mg tablet 325 mg PO DAILY 10/06/20 02/05/23 02/04/23 History cholecalciferol (vitamin D3) 50 50 mcg PO DAILY 10/06/20 02/05/23 02/05/23 History mcg (2,000 unit) capsule (Vitamin D3) vitamin E 200 unit capsule 200 unit PO DAILY 10/06/20 02/05/23 02/04/23 History zinc 50 mg capsule 50 mg PO DAILY 10/06/20 02/05/23 02/05/23 History acetaminophen 500 mg tablet 1,000 mg PO Q8H #0 tabs 12/08/20 02/05/23 Unknown Rx Tumeric 1,000 mg PO DAILY 01/05/21 02/05/23 02/04/23 History lisinopril 20 mg tablet 10 mg PO DAILY 09/17/22 02/05/23 02/05/23 History uweptfyllt-bpfgvcqzluzek-tacfvfwo 1 cap PO Q6H PRN Migraine Headache 02/03/23 02/05/23 Unknown History 50 mg-325 mg-40 mg capsule lidocaine 5 % topical patch 1 patch topical DAILY 02/03/23 02/05/23 Unknown History mupirocin 2 % topical ointment 1 applic topical BID 5 days #22 02/03/23 02/05/23 Unknown Rx grams salmon oil 1,000 mg-omega-3 fatty cap PO 02/03/23 02/03/23 02/04/23 History acids 210 mg capsule Allergies Allergy/AdvReac Type Severity Reaction Status Date / Time rocuronium Allergy Severe ADR/ALGY-Hy Verified 02/03/23 09:20 potension vancomycin Allergy Severe ADR/ALGY-Hy Verified 02/03/23 09:20 potension latex Allergy Unknown Verified 02/03/23 09:20 bumble bee Allergy ALGY-Anaphy Uncoded 11/04/22 10:14 laxis PFSH Anesthesia Medical History Cardiac dysrhythmia Cervical disc disease Fibromyalgia Hypothyroidism Osteoarthritis of carpometacarpal (CMC) joint of left thumb Psychiatric care Surgical History History of ankle surgery x2 left ankle History of carpal tunnel release 2001 History of total knee arthroplasty Left [employer] total knee system with a size 6 triathlon beaded posterior stabilized femur left, a triathlon titanium tibial component size 6 beaded, a triathlon X3 posterior stabilized tibial bearing insert size 6 X 11 mm and a beaded triathlon titanium asymmetric patella size 35 x 10 mm Hx of colonoscopy with polypectomy Hx of hernia repair Hx of removal of cyst head, right wrist Hx of spinal surgery Hx of thumb surgery Social History Smoking and tobacco status: never smoked Alcohol intake: never Substance/Drug Use: never Data Anesthesia Cardiac Studies: Echocardiogram Ultrasound 11/23/20
[2023-02-11] VITALS (13 sets, daily range): BP systolic 106–155; BP diastolic 63–91; PULSE 51–82; RESP 13–18; TEMP 36.2–36.8; O2SAT 92–97; BMI 32.1
[2023-02-11] MEDS: gabapentin 300 mg Capsule PO (09:02)
[2023-02-11] MEDS: sodium chloride 0.9% 1,000 ML 30 ML IV (09:02)
[2023-02-11] MEDS: acetaminophen 1,000 MG/100 ML PIGGYBACK 400 MG IV ×2 (09:02→18:02)
[2023-02-11] MEDS: CELEcoxib 200 mg Capsule 400 MG PO (09:02)
[2023-02-11 10:25] LABS: Add Urine Microscopic? NO; Charge for UA Resulting for Rev
[2023-02-11 10:29] LABS: Bilirubin Urine Neg (Negative); Blood Urine Neg (Negative); Glucose Urine UA Norm (Normal); Ketones Urine Negative (Negative); Leukocyte Esterase Urine Negative (Negative); Nitrate Urine Negative (Negative); Protein Urine Neg (Negative); Urine Appearance Clear (CLEAR); Urine Color Yellow (Yellow); Urobilinogen Urine Norm (Negative); pH Urine 6 (5-7)
--- NOTE | 2023-02-11 11:11 | W.PM.OPSUD ---
Surgery/Procedure H&P Update DATE OF PROCEDURE: February 11, 2023 DATE H&P PERFORMED: 02/03/23 H&P UPDATE INFORMATION: I have reviewed H&P completed within last 30 days, I have examined patient prior to procedure, No changes to prior documentation and H&P is in [facility] [place] EMR on date indicated PLANNED PROCEDURE: Operation Date: 02/11/23 11:10 Proposed Procedures p REMOVAL LEFT TOTAL KNEE COMPONENTS WITH IMPLANT OF TEMPORARY PROSTHESIS 59007,T84.84XS Z96.652(Left) - Concepcion Ron MD Related Problem List Diagnoses (1) Infection of total left knee replacement: Qualifiers: Encounter type: initial encounter Qualified Code(s): T84.54XA - Infection and inflammatory reaction due to internal left knee prosthesis, initial encounter (2) History of MRSA infection: (3) History of total knee arthroplasty: Qualifiers: Laterality: left Qualified Code(s): Z96.652 - Presence of left artificial knee joint
--- NOTE | 2023-02-11 11:38 | ANES.PAUD2 ---
Pre-Anesthetic Update Pre-Anesthetic Assessment: Date of Surgery/Procedure: 02/11/23 Proposed Procedure: Operation Date: 02/11/23 11:10 Proposed Procedures p REMOVAL LEFT TOTAL KNEE COMPONENTS WITH IMPLANT OF TEMPORARY PROSTHESIS 13447,T84.84XS Z96.652(Left) - Concepcion Ron MD Any changes to Pre-Anesthetic Assessment?: No Last Intake: Intake Last Liquid Date 02/10/23 Last Liquid Time 20:00 Last Solid Date 02/10/23 Last Solid Time 20:00 Labs Last 48hrs: Urine 02/11/23 Range/Units 09:57 Urine Color Yellow (Yellow) Urine Appearance Clear (CLEAR) Urine pH 6 (5-7) Ur Specific Gravit y 1.020 (1.005-1.030) Urine Protein Neg (Negative) Urine Glucose (UA) Norm (Normal) Urine Ketones Negative (Negative) Urine Nitrate Negative (Negative) Urine Bilirubin Neg (Negative) Ur Leukocyte Domitila ase Negative (Negative) Vitals: Temperature 97.8 F 02/11/23 08:53 Temperature Source Temporal Artery S can 02/11/23 08:53 Pulse Rate 51 L 02/11/23 08:53 Respiratory Rate 18 02/11/23 08:53 Blood Pressure 155/85 02/11/23 08:53 Blood Pressure Yudith n 108 02/11/23 08:53 Pulse Oximetry 96 02/11/23 08:53 Oxygen Delivery Me thod Room Air 02/11/23 08:53 Exam: Pre-Anes Outpt Exam: alert, oriented x 3, clear to auscultation bilaterally and regular rate & rhythm Additional Exam Findings (including area of procedure): Plan GA/LMA b/c of spine surgery and pain pump. Cardiac Studies: Echocardiogram Ultrasound 11/23/20
--- NOTE | 2023-02-11 13:58 | ANES.PROC ---
Anesthesia Procedures Procedure/Date: 02/11/23 Nerve Block ^: Nerve Block 1: Main Anesthesia: general anesthesia Time Out Performed: Yes Consent: requested by attending/covering physician, from patient, risks and benefits reviewed and patient agrees to proceed Nerve block location: adductor canal (left) Anesthesia monitors applied: pulse oximetry, EKG, BP cuff and oxygen Nerve block position: supine Anesthetic Used: ropivicaine 0.5% Amount of anesthesia used (mL): 20 Ultrasound used to: recognize landmarks Nerve Stimulator Used?: No Interscalene/Femoral BLK: 4 stimuplex 21 g needle used for position and inplane approach Injection: neg aspiration of heme Patient Tolerated Procedure: well Complications: none
[2023-02-11] MEDS: TOBRAMYCIN 1.2 GM IRRIGATION (14:23)
[2023-02-11] MEDS: TOBRAMYCIN 1.2 GM XX (14:24)
[2023-02-11] MEDS: ceFAZolin 1,000 mg SDV 1000 MG IRRIGATION (14:25)
[2023-02-11] MEDS: ceFAZolin 1,000 mg SDV 3000 MG IRRIGATION (15:00)
--- NOTE | 2023-02-11 16:16 | XRR_ITS ---
PROCEDURE INFORMATION: Exam: XR Left Knee Exam date and time: 02/11/2023 3:21 PM Age: 67 years old Clinical indication: Device placement; Joint replacement hardware; Prior surgery; Surgery date: Post-operative (0-2 days); Surgery type: Left total knee arthroplasty revision; Additional info: Status post left total knee arthroplasty revision TECHNIQUE: Imaging protocol: Radiologic exam of the left knee. Views: 1 or 2 views. COMPARISON: CR XR knees AP WB w LT lmt ORTH 11/04/2022 9:59 AM FINDINGS: Bones/joints: See Soft tissues finding. Soft tissues: Postsurgical changes noted with history of left total knee arthroplasty revision with postsurgical soft tissue changes and surgical skin day. Interval change in appearance hardware with left knee prosthesis noted in relation to prior exam November 04, 2022 consistent with the given clinical history. Satisfactory or anatomic alignment and position noted. Density suggestive of cementive material with knee replacement noted anterior to the tibia on the AP view, mid to medial aspect, predominantly posteriorly on the lateral view. No fracture or acute osseous abnormality. XR/XR knee LT 1-2V [id number] IMPRESSION: Postsurgical changes about the left knee with revision of left knee prosthesis when correlated with prior exam November 04, 2022 with satisfactory or anatomic alignment and position, as noted above.
--- NOTE | 2023-02-11 16:44 | P.OP_ITS ---
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 Cement utilized was Simplex P with full dose tobramycin and additional tobramycin added for a total of 2.2 g per batch of cement Specimens removed/disposition: Cultures obtained intraoperatively Surgeon: Concepcion Ron General Assistant: [facility] operating room technicians Anesthesia: General (Intubated, with preoperative block, ASA 3) Estimated blood loss (mL): 100 Tourniquet time (min): 120 (50 mmHg) IV fluids (mL): 1,000 Urine output (mL): 150 Complications: None Findings: Very thickened synovium with purulent fluid within the knee joint. No obvious prosthetic loosening. Condition: stable Disposition: PACU (Then to floor for postoperative rehabilitation) Brief History: This is a 66 year old male patient who presents today for removal of infected left total knee arthroplasty and placement of antibiotic cement as a nonbiodegradable drug delivery implant with an all polyethylene tibia and attune femur. He rates his pain a 6/10 typically. Patient has a surgical history of a left total knee arthroplasty. DOS: 10/17/20 as well as his subsequent Arthrotomy, debridement and repair of quadriceps tendon rupture. DOS: 12/07/20.? Recent knee aspiration demonstrated the patient's total knee is infected with MRSA.? 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 Preoperatively in the office, consents were signed and questions were answered. The patient agreed to proceed with removal of total knee arthroplasty implants Procedure: The patient was brought to the operating theater, and after undergoing general intubated anesthesia, ASA 3, with preoperative regional block, the left lower extremity was prepped and draped in usual fashion following placement of a tourniquet high on the leg. The leg was then draped free with the prepping accomplished with DuraPrep. Following prepping and draping, the tourniquet was elevated to 250 mmHg for total tourniquet time of 120 minutes. Prior to elevation of the tourniquet the following exposure of the site of surgery, a surgical pause was performed. At the time of the surgical pause we confirmed the site and side of surgery. Additionally, we confirmed the appropriate and timely administration of preoperative antibiotics. The availability of equipment was confirmed, and the patient's identity was verbalized as well. Following the surgical pause, an incision was made centering over the patella continuing proximally and distally as necessary to allow access to the knee joint. This incision was accomplished through the patient's previous incision with slight extension. Dissection continued through skin and soft tissues using a scalpel. Hemostasis was obtained using electrocautery. The midline skin incision was followed by a median parapatellar arthrotomy. The leg was extended, and debridement was accomplished of the soft tissues which were quite thickened about the knee. There was thickening of the capsular tissues and also of the synovium. Cultures were obtained upon entry into the knee joint. Significant debridement of synovium and capsular soft tissues was accomplished at this time. Prior to this debridement, the tissues were noted to be quite stiff, and the patella was not at all mobile. We were able to mobilize the patella enough to allow access for removal of the implants. Subsequently, a lateral release was accomplished part way through the case to allow better mobilization of the patella and implantation of components. Following this the leg was returned to flexed position. After synovectomy had been completed, attention was directed to component removal. This was accomplished with a combination of a small power saw as well as flexible osteotomes. Initially, we removed the polyethylene insert. We then addressed the femoral component of the knee. This was noted to be well fixed without evidence of loosening, but there was some bony reabsorption along the edges. Care was taken to avoid bone loss. We were able subsequently to remove the femoral component without significant bone loss. After the femoral component had been removed, attention was directed to the tibial component. This also had difficult access secondary to the stiffness of the knee. We were, however, with a combination of the osteotomes and small motorized sob able to remove the tibial component as well. It was at this point, that a lateral release was accomplished about the patella to allow better mobilization. Following removal of the tibial tray, attention was directed to sizing of the components which were to be placed. Trial components demonstrated that a size 7 in both the femur and tibia were appropriate sized components. Preparation was made of the femur with drill holes in the femur and preparation was made of the tibia with sizing and subsequent broaching. Once we had accomplished this, attention was directed to the patellar component. We did not remove this sooner secondary to manipulation of the patella and concern for possible patellar fracture. Plans were not made to reimplant a patella. Patella was removed with minimal bone loss. There was slight bone loss with removal of the tibia p articularly in the posterior lateral corner. There was a good surface, however, for implantation of the temporary total knee arthroplasty. Copious irrigation was accomplished with 6 L of normal saline without antibiotic and 3 L of irrigation with 1 g of Ancef per liter. Once we had prepared the femur tibia and patella, we were prepared for implantation of the components. The size 7 Attune femoral cruciate retaining femur and the size 7 by 8 mm Attune all polyethylene tibial implant, cruciate retaining were brought onto the field. Initially, cementing of the tibia was accomplished followed by the femur. The cement utilized was antibiotic Simplex P cement with full dose Tobra and an additional 1.2 g of Toprol per batch to bring the total per batch to 2.2 g to allow for leaching of the antibiotic. These were cemented into position and excess cement was cleared. The knee was held in an extended position until the cement had fully cured. Once the cement had fully cured and excess cement was cleared, the knee was then copiously irrigated and suctioned dry. The knee was irrigated with Betadine solution diluted. This was suctioned dry after being irrigated further with normal saline. Attention was then directed to closure. Closure was accomplished with 0 Vicryl in the fascial tissues, 2-0 Monocryl was used in the subcutaneous tissues, and the skin was closed with skin day. A sterile dressing was then placed consisting of OpSite, sterile soft roll, and an Hank wrap. The patient was returned the Recovery Room in a satisfactory condition. X-rays were obtained there. The patient will be discharged to the floor for postoperative rehabilitation and pain management. There were no specimens and no complications. Related Problem List Diagnoses (1) Infection of total left knee replacement: (2) History of MRSA infection: (3) History of total knee arthroplasty:
--- NOTE | 2023-02-11 17:29 | ANE.PACU2 ---
Inpatient post-anesthesia follow up: Airway intact: Yes Vital signs: Temperature 98.2 F Pulse Rate 82 Respiratory Rate 18 Blood Pressure 117/72 Pulse Oximetry 94 Oxygen Delivery Me thod Nasal Cannula Oxygen Flow Rate 3 Fraction of Inspir ed Oxygen Hydration adequate: Yes Nausea and vomiting: No Pain level: 3 Mental status: Baseline
[2023-02-11] MEDS: mupirocin oint 22 gm 1 APPLIC TOPICAL (18:05)
[2023-02-11] MEDS: calcium carbonate 500 mg Chew Tablet 1000 MG PO (18:08)
[2023-02-11] MEDS: sennosides-docusate Tablet 2 TAB PO (18:08)
[2023-02-11] MEDS: iron polysaccharide complex 150 mg Capsule PO (18:08)
[2023-02-11] MEDS: oxyCODONE 5 mg IR Tab/Cap PO (20:30)
[2023-02-11] MEDS: CELEcoxib 200 mg Capsule PO (20:31)
[2023-02-11] MEDS: chlorhexidine gluconate 0.12% UDC 15 mL 30 ML MUCOUS MEM (20:32)
--- NOTE | 2023-02-11 23:38 | XRR_ITS ---
PROCEDURE INFORMATION: Exam: XR Chest Exam date and time: 02/11/2023 10:49 PM Age: 67 years old Clinical indication: Device placement; Prior surgery; Surgery date: 6+ months; Surgery type: Stimulator; Patient HX: Check S/P RT sided picc line placement; Additional info: Confirm picc line placement TECHNIQUE: Imaging protocol: Radiologic exam of the chest. Views: 1 view. COMPARISON: CR XR chest 1V portable [id number] 11/24/2020 8:20 AM FINDINGS: Tubes, catheters and devices: Right PICC line is in place with its tip in the superior vena cava. Lungs: Visualized portions of the lungs are clear. Pleural spaces: Unremarkable. No pleural effusion. No pneumothorax. Heart/Mediastinum: Heart is within normal limits of size. Bones/joints: Unremarkable. XR/XR chest 1V portable [id number] IMPRESSION: PICC line tip is in the superior vena cava.
[2023-02-12] VITALS (9 sets, daily range): BP systolic 106–127; BP diastolic 51–72; PULSE 57–76; RESP 16–18; TEMP 36.7–36.8; O2SAT 93–96
--- NOTE | 2023-02-12 00:19 | PC.NURSE ---
onsulted by House Charge for placement of PICC ordered by Dr. Concepcion Ron for Daptomycin therapy. Upon arrival explained procedure and answered questions regarding procedure including risks and benefits and alternatives. Pt signed consent. Assessed RUE and noted the R basilic vein is 6 mm in diameter and free of evidence of thrombus or stenosis. Using US guidance, MST, and sterile technique the R basilic was accessed x 1 stick. Device fed easily. Device port aspirates and flushes easily. Device secured and dressed. Pt tolerated well. EBL 5ml. Report to pt's primary nurse. Chest x-ray ordered. Pending reading at this time. Noted a Time out was performed immediately prior to starting procedure and confirmed correct pt, procedure, site, allergies, site prep and drying, equipment on hand, and pt undestands and consent was done. Unable to add TimeOut checklist in worklist and it was not populated when I opened chart to document procedure.
[2023-02-12] MEDS: acetaminophen 1,000 MG/100 ML PIGGYBACK 400 MG IV ×2 (00:58→08:21)
[2023-02-12] MEDS: oxyCODONE 5 mg IR Tab/Cap PO ×4 (01:04→18:59)
[2023-02-12] MEDS: ondansetron 2 mg/ML SDV 2 mL 4 MG IVP (01:35)
[2023-02-12 03:32] LABS: Basophils % 0.2 %; Hematocrit 35.5 % (42.0-52.0); Hemoglobin 11.1 g/dL (11.7-16.6); Lymphocytes % 8.5 %; Mean Corpuscular HGB Conc 31.3 g/dL (30.0-36.0); Mean Corpuscular Hemoglobin 29.2 pg (28.0-34.0); Mean Corpuscular Volume 93.4 fl (80-94); Mean Platelet Volume 9.4 fL (7.4-10.4); Monocytes # 1.1 10^3/uL (0.2-0.9); Monocytes % 9.6 %; Neutrophils # 9.71 10^3/uL (1.8-7.7); Neutrophils % 81.4 %; Nucleated Red Blood Cells % 0 %; Platelet Count 328 10^3/cmm (130-400); Red Cell Distribution Width 13.1 % (12.1-15.1); White Blood Count 11.9 10^3/uL (4.0-10.0)
[2023-02-12 03:59] LABS: Blood Urea Nitrogen 20 mg/dL (8-23); Calcium 7.7 mg/dL (8.5-10.5); Carbon Dioxide 25 mmol/L (22-29); Chloride 102 mmol/L (98-107); Glomerular Filtration Rate 55.1 mL/min (90-130); Glucose 146 mg/dL (65-115); Osmolality Calculated 285 mOsm/kg (285-295); Sodium 135 mmol/L (136-145)
[2023-02-12 04:01] LABS: Anion Gap 12.8 (5-19); Potassium 4.8 mmol/L (3.5-5.1)
[2023-02-12] MEDS: mupirocin oint 22 gm 1 APPLIC NASAL (08:18)
[2023-02-12] MEDS: lisinopril 10 mg Tablet PO (08:18)
[2023-02-12] MEDS: multivitamin therapeutic Tablet 1 TAB PO (08:19)
[2023-02-12] MEDS: cholecalciferol (vitamin D3) 1,000 unit Tablet 1000 UNIT PO (08:19)
[2023-02-12] MEDS: CELEcoxib 200 mg Capsule PO ×2 (08:19→20:26)
[2023-02-12] MEDS: calcium carbonate 500 mg Chew Tablet 1000 MG PO ×2 (08:19→17:52)
[2023-02-12] MEDS: aspirin 325 mg EC Tablet PO (08:19)
[2023-02-12] MEDS: iron polysaccharide complex 150 mg Capsule PO ×2 (08:19→16:57)
[2023-02-12] MEDS: duloxetine 60 mg Capsule PO (08:19)
[2023-02-12] MEDS: sennosides-docusate Tablet 2 TAB PO ×2 (08:19→16:58)
[2023-02-12] MEDS: chlorhexidine gluconate 0.12% UDC 15 mL 30 ML MUCOUS MEM ×3 (08:21→20:28)
--- NOTE | 2023-02-12 08:32 | PC.PHAR ---
WAITING ON A MED LIST FROM [facility] TO [facility]PLETE MED REC- [facility]ED [facility] AT 8:30 AM
--- NOTE | 2023-02-12 10:44 | PC.CHAP ---
Pastoral Care Encounter/Spiritual Assessment Type of Contact [x] Declined bookbinder chief visit [] Patient/Family/Request visit [] Outpatient visit [] Follow-up visit [] Physician referral [] Code/Alert [x] Routine visit [] Staff referral [] Actively dying [] Patient sleeping [] Family support [] [] Out of room [] Palliative care [] [] Receiving care in room [] Pre-surgical visit [] Trauma [] Long length of stay [] ICU visit [] Other: Relational/Emotional Strength [] Patient feels connected with others/family/visitors/staff [] Distress [] Loneliness/isolation [] Abandonment Spirituality of Patient [] Person of Alice [] Attends Gnosticism of their Alice [] Believes in Prayer [] Reads Bible or Judaism materials [] There are Spiritual issues to be addressed Extract Wringer Interventions [] Prayer [] Active listening [] Non-anxious presence [] Spiritual/emotional support [] Crisis/trauma care [] Spiritual counseling [] Bereavement support [] Provided bereavement packet [] Provided Bible/devotional materials [] Provided toy/stuffed animal, coloring book to patient or family member [] Provided Communion [] Anointing/[place] [] Salvation [] Completed spiritual assessment [] Other: Impact on Illness or Injury [] Angry [] Fearful [] Anxious [] Often cries [] Exhaustion [] Unable to work [] Unable to attend holiness [] Unable to walk/stand [] Unable to read [] Unable to drive [] Unable to eat/drink [] Unable to sleep [] Unable to be with family [] Patient intubated [] Other: Summary Time spent with patient
--- NOTE | 2023-02-12 13:37 | P.PN_ITS ---
Subjective Subjective: The patient is seen today in his room. He is comfortable. His PICC line has been placed. I have discussed his surgery with Dr. De La Cruz area we will be treating him from an infectious disease standpoint. She will see him today for further evaluation. This is explained to him and he understands. Medications: Reviewed: Yes Vitals/I&O/Wt Last Vital Signs Temp 98.1 F 02/12/23 11:27 Pulse 57 L 02/12/23 11:27 Resp 18 02/12/23 11:27 BP 117/71 02/12/23 11:27 Pulse Ox 94 02/12/23 11:27 O2 Del Method Room Air 02/12/23 11:27 O2 Flow Rate 4 02/11/23 23:29 02/11/23 02/12/23 02/12/23 22:59 06:59 14:59 Intake Total 520 / 720 460 / 1180 580 / 580 Output Total 400 / 400 1200 / 1600 650 / 650 Balance 120 / 320 -740 / -420 -70 / -70 Weight last 48 hrs Weight 230 lb Physical Exam Const: COMMON NORMALS: no acute distress, average body habitus, patient oriented x3 and alert GENERAL APPEARANCE: cooperative and comfortable ORIENTATION/CONSCIOUSNESS: Yes awake HENMT: COMMON NORMALS: normocephalic and atraumatic HEAD & SCALP: normocephalic and atraumatic Eye: GENERAL EYE: appearance normal, both eyes and all related structures Chest: COMMONS NORMALS: normal inspection of the chest Resp: COMMON NORMALS: normal respiratory effort EFFORT & INSPECTION: Yes able to speak in complete sentences and Yes symmetric chest movement Extremity: LEFT LOWER EXTREMITY: Yes knee joint (Dressing is removed, and the wound is benign.) Left knee: Yes palpation (Minimal tenderness) and Yes neurovascular exam (Intact. No evidence of DVT) Neuro: COMMON NORMALS: patient oriented x3 SENSORIUM/ORIENTATION: Yes alert Psych: COMMON NORMALS: mental status grossly normal APPEARANCE: Yes grossly normal ATTITUDE: Yes calm and Yes engaged ATTENTION/CONCENTRATION: Yes attention grossly intact Skin: COMMON NORMALS: no rashes or lesions noted GENERAL SKIN EXAM: no rashes or lesions noted Urinary Catheter Management: Moon: Cath Placed During This Visit: yes, but has since been removed by the nurse Reason for Continuing Indwelling Catheter: Decision to DC Catheter Urinary Catheter Date of Insertion: 02/11/23 Urinary Catheter Time of Insertion: 12:20 Date Urinary Catheter Removed: 02/12/23 Time Urinary Catheter Discontinued: 05:23 Data 02/12/23 02:59 02/12/23 02:59 Micro: Microbiology 02/11/23 Unknown Gram Stain - Final Knee - Left Wound Culture - Preliminary A&P Assessment and plan (1) Infection of total left knee replacement: Patient was admitted to the hospital following removal of hardware from an infected left total knee arthroplasty. Also placed was antibiotic eluding cement to treat the local infection. Patient is seen today. He is comfortable. He is neurologically intact. He is awaiting information from infectious dise ase regarding potential antibiotic treatment, schedule, and approval for discharge. Qualifiers: Encounter type: initial encounter Qualified Code(s): T84.54XA - Infection and inflammatory reaction due to internal left knee prosthesis, initial encounter (2) History of MRSA infection: (3) History of total knee arthroplasty: Qualifiers: Laterality: left Qualified Code(s): Z96.652 - Presence of left artificial knee joint Attestations Medical Necessity Statement*: Patient requires ongoing inpatient care for antibiotic treatment and bacterial evaluation of infected left total knee arthroplasty Coding Level of Care Code Acute Code for Chg Fwd Diagnoses Infection of total left knee replacement T84.54XA Encounter type: initial encounter History of MRSA infection Z86.14 History of total knee arthroplasty Z96.652 Laterality: left
--- NOTE | 2023-02-12 15:23 | PM.CONSULT ---
Providers/Reason For Consult Consulting Physician/Specialty*: Davina Roy MD/ Infectious disease Reason for Consult*: Prosthetic joint infection Requesting Physician: Concepcion Ron MD Attending Physician: Concepcion Ron MD Primary Care Provider: Ashley Mac MD History of Present Illness History of Present Illness Kristen Hayden is a 67 year old male who underwent left total knee arthroplasty on October 17, 2020 followed by subsequent arthrotomy debridement and repair of quadriceps tendon rupture in November 2020. Patient had in the interim sustained injury by slipping on ice. He was doing relatively well until end of 2021 when he started to complain of bilateral knee pain. His left knee was noted to have effusion for which she followed up with orthopedics and underwent joint aspiration on December 18, 2022[place] [address], 89% polynuclear. Synovial fluid aspirate was also sent for Synovasure testing which showed positive alpha Defensin PJI and Alpha Defensin-SF. Culture from the fluid showed Staph capitis. He underwent a bone scan in October 2022 which had shown vein uptake along the tibial plateau area and findings thought to be consistent with loosening of the medial compartment. He was admitted to the hospital on February 11, 2023 and has now undergone removal of the total knee arthroplasty implants, complete synovectomy with irrigation for a diagnosis of infected left total knee arthroplasty with thickened synovial and purulent fluid. Current implants are a cemented cruciate retaining femoral component and all polyethylene tibial implant. He is planned for revision down the line. His past history is notable for history of MRSA skin and soft tissue infection over the left arm which had manifested as an abscess. Patient does not recall which antibiotic he received at that time however does recall this was given via IV infusion through a PICC line. His chart notes a history of allergy to vancomycin. During his surgery in November 2020, shortly after receiving rocuronium and vancomycin perioperatively he developed anaphylactic reaction with hypotension and bradycardia which was refractory to multiple boluses of pressors and fluids. It was never quite identified if patient was allergic to vancomycin or rocuronium, however both have been avoided since then. I suspect that his reaction may have been related to rocuronium since he has previously tolerated vancomycin on his admission in September 2020 and also possibly when he was treated with MRSA, however he is extremely hesitant to try treatment with vancomycin ever again therefore he is currently on daptomycin while pending culture data from the OR. Patient denies any current fever chills weight loss or other constitutional symptoms. He does not recall any trauma or open lesions over his knee. Review of Systems General: Reports: 10 or more systems reviewed and unremarkable except in HPI and below Const: Denies: fever(s), chills or body aches Eyes: Denies: change in vision, blurry vision or photophobia ENMT: Reports: hoarseness; Denies: throat pain, enlarged tonsils, odynophagia or nasal congestion Card: Denies: chest pain, palpitations, irregular heart rhythm, edema, swelling of feet/ankles, lightheadedness, pre-syncope, dyspnea on exertion or orthopnea Resp: Denies: dyspnea, productive cough, non-productive cough, wheezing, stridor, pain on inspiration, change in phlegm color, hemoptysis or chest congestion GI: Denies: abdominal pain, nausea, vomiting, hematemesis, coffee ground emesis, dysphagia, heartburn, diarrhea, constipation, GI cramping, change in stool character, hematochezia or melena : Denies: flank pain, dysuria, urinary frequency, urinary urgency, urinary hesitancy or hematuria Musc: Denies: neck pain, back pain, extremity pain, joint swelling, joint warmth or deformity Neuro: Denies: headache(s), numbness in extremities, weakness in extremities, sensory changes, difficulty walking, frequent falls, dizziness, vertigo, behavioral changes, Slurred speech present or seizure-like activity Psych: Denies: anxiety, depression, suicidal ideation or homicidal ideation Endo: Denies: polyuria, polydipsia, tired all the time, cold intolerance or hot flashes Tutu/Lymph: Denies: easy bruising or easy bleeding Medications/Allergies Home Medications Medication Instructions Recorded Confirmed Last Taken Type duloxetine 60 mg capsule,delayed 60 mg PO DAILY 11/24/19 02/05/23 02/11/23 07:00 History release (Cymbalta) cholecalciferol (vitamin D3) 50 50 mcg PO DAILY 10/06/20 02/05/23 02/10/23 History mcg (2,000 unit) capsule (Vitamin D3) vitamin E 200 unit capsule 200 unit PO DAILY 10/06/20 02/05/23 02/04/23 History zinc 50 mg capsule 50 mg PO DAILY 10/06/20 02/05/23 02/10/23 History acetaminophen 500 mg tablet 1,000 mg PO Q8H #0 tabs 12/08/20 02/11/23 01/28/23 Rx Tumeric 1,000 mg PO DAILY 01/05/21 02/05/23 02/04/23 History lisinopril 20 mg tablet 10 mg PO DAILY 09/17/22 02/12/23 Unknown History [id number]-[id number] 1 cap PO Q6H PRN Migraine Headache 02/03/23 02/11/23 02/04/23 History 50 mg-325 mg-40 mg capsule lidocaine 5 % topical patch 1 patch topical DAILY 02/03/23 02/11/23 01/28/23 History mupirocin 2 % topical ointment 1 applic topical BID 5 days #22 02/03/23 02/11/23 01/21/23 Rx grams salmon oil 1,000 mg-omega-3 fatty 1 cap PO DAILY 02/03/23 02/12/23 Unknown History acids 210 mg capsule ascorbic acid (vitamin C) 1,000 mg 500 mg PO DAILY 02/12/23 02/12/23 Unknown History tablet (Vitamin C) aspirin 81 mg tablet,delayed 81 mg PO DAILY 02/12/23 02/12/23 Unknown History release atorvastatin 40 mg tablet 20 mg PO DAILY 02/12/23 02/12/23 Unknown History miconazole nitrate 2 % topical 1 applic topical DAILY 02/12/23 02/12/23 Unknown History cream prazosin 1 mg capsule 1 mg PO QPM 02/12/23 02/12/23 Unknown History acetaminophen 500 mg tablet 1,000 mg PO Q8H 15 days #0 tabs 02/13/23 Unknown Rx aspirin 325 mg tablet,delayed 325 mg PO DAILY 30 days #0 tabs 02/13/23 Unknown Rx release celecoxib 200 mg capsule 200 mg PO 1XD 30 days #30 caps 02/13/23 Unknown Rx daptomycin 500 mg intravenous 832 mg continuous IV infusion Q24H 02/13/23 Unknown Rx solution #0 ea oxycodone 5 mg tablet 5 mg PO Q4H PRN Moderate Pain 7 02/13/23 Unknown Rx days #30 tabs Allergies Allergy/AdvReac Type Severity Reaction Status Date / Time rocuronium Allergy Severe ADR/ALGY-Hy Verified 02/11/23 08:39 potension vancomycin Allergy Severe ADR/ALGY-Hy Verified 02/11/23 08:39 potension latex Allergy Unknown Verified 02/11/23 08:39 bumble bee Allergy ALGY-Anaphy Uncoded 02/11/23 08:39 laxis Current Medications Generic Name Dose Route Start Last Admin Trade Name Freq PRN Reason Stop Dose Admin Aspirin 325 mg 02/12/23 09:00 02/12/23 08:19 Aspirin 325 Mg Ec Tablet PO 325 mg DAILY TAMIA Administration Calcium Carbonate 1,000 mg 02/11/23 18:00 02/12/23 08:19 Calcium Carbonate 500 Mg Chew Tablet PO 1,000 mg BID TAMIA Administration Celecoxib 200 mg 02/11/23 21:00 02/12/23 08:19 Celecoxib 200 Mg Capsule PO 200 mg Q12H TAMIA Administration Chlorhexidine Gluconate 30 ml 02/11/23 17:30 02/12/23 14:53 Chlorhexidine Gluconate 0.12% Udc 15 Ml MUCOUS MEM Not Given QID TAMIA Duloxetine HCl 60 mg 02/12/23 09:00 02/12/23 08:19 Duloxetine 60 Mg Capsule PO 60 mg DAILY TAMIA Administration Daptomycin 832 mg/ Sodium 100 mls @ 100 mls/hr 02/12/23 13:30 02/12/23 15:10 Chloride IV 100 mls/hr Q24H TAMIA Administration Protocol Lisinopril 10 mg 02/12/23 09:00 02/12/23 08:18 Lisinopril 10 Mg Tablet PO 10 mg DAILY TAMIA Administration Multivitamins Therapeutic 1 tab 02/12/23 09:00 02/12/23 08:19 Multivitamin Therapeutic Tablet PO 1 tab DAILY TAMIA Administration Mupirocin 1 applic 02/11/23 18:00 02/12/23 08:28 Mupirocin Oint 22 Gm TOPICAL Not Given BID TAMIA Mupirocin 1 applic 02/11/23 18:00 02/12/23 08:18 Mupirocin Oint 22 Gm NASAL 02/16/23 17:59 1 applic BID TAMIA Administration Protocol Ondansetron HCl 4 mg 02/11/23 16:59 02/12/23 01:35 Ondansetron 2 Mg/Ml Sdv 2 Ml IVP 4 mg Q6H PRN Administration NAUSEA AND VOMITING Oxycodone HCl 5 mg 02/11/23 16:59 02/12/23 13:27 Oxycodone 5 Mg Ir Tab/Cap PO 5 mg Q4H PRN Administration MODERATE PAIN Polysaccharide Iron Complex 150 mg 02/11/23 18:00 02/12/23 08:19 Iron Polysaccharide Complex 150 Mg Capsule PO 150 mg BIDWM TAMIA Administration Senna/Docusate Sodium 2 tab 02/11/23 18:00 02/12/23 08:19 Sennosides-Docusate Tablet PO 2 tab BID TAMIA Administration Vitamin D 1,000 unit 02/12/23 09:00 02/12/23 08:19 Cholecalciferol (Vitamin D3) 1,000 Unit Tablet PO 1,000 unit DAILY TAMIA Administration PFSH Acute PFSH: Medical History Cardiac dysrhythmia Cervical disc disease Fibromyalgia Hypothyroidism Osteoarthritis of carpometacarpal (CMC) joint of left thumb Psychiatric care Surgical History History of ankle surgery x2 left ankle History of carpal tunnel release 2002 History of total knee arthroplasty Date of Procedure: 10/17/20 Left Lele total knee system with a size 6 triathlon beaded posterior stabilized femur left, a triathlon titanium tibial component size 6 beaded, a triathlon X3 posterior stabilized tibial bearing insert size 6 X 11 mm and a beaded triathlon titanium asymmetric patella size 35 x 10 mm Hx of colonoscopy with polypectomy Hx of hernia repair Hx of removal of cyst head, right wrist Hx of spinal surgery Hx of thumb surgery Social History Smoking and tobacco status: never smoked Alcohol intake: never Substance/Drug Use: never Vitals/I&O/Wt Last Vital Signs Temp 98.1 F 02/12/23 11:27 Pulse 57 L 02/12/23 11:27 Resp 18 02/12/23 11:27 BP 117/71 02/12/23 11:27 Pulse Ox 94 02/12/23 11:27 O2 Del Method Room Air 02/12/23 11:27 O2 Flow Rate 4 02/11/23 23:29 02/12/23 02/12/23 02/12/23 06:59 14:59 22:59 Intake Total 460 / 1180 580 / 580 Output Total 1200 / 1600 650 / 650 500 / 1150 Balance -740 / -420 -70 / -70 -500 / -570 Weight last 48 hrs Weight 104.326 kg Physical Exam Narrative: General: No acute distress, AO x3 HEENT: PERRLA, pupils bilaterally equal and reactive, pallors not present Chest: Normal vesicular breath sounds, no added sounds, equal good air entry bilaterally CVS: S1-S2 regular, no murmurs, no tachycardia, no gallops, no rubs Abdomen: Soft, nontender, no organomegaly, bowel sounds present Neuro: No focal deficits, no facial deformity, AO x3, power 5/5 in all limbs Urinary Catheter Management: Moon: Cath Placed During This Visit: yes, but has since been removed by the nurse Reason for Continuing Indwelling Catheter: Decision to DC Catheter Urinary Catheter Date of Insertion: 02/11/23 Urinary Catheter Time of Insertion: 12:20 Date Urinary Catheter Removed: 02/12/23 Time Urinary Catheter Discontinued: : Data 02/12/23 02:59 02/13/23 03:27 Micro: Microbiology 02/11/23 Unknown Anaerobic Culture - Preliminary Knee - #1 02/11/23 Unknown Gram Stain - Final Knee - Left Wound Culture - Preliminary December 18, 2022: Body fluid culture and Gram stain (synovial fluid) Rare white blood cells, no organisms seen, culture with scant normal skin alec not further identified. Other data: Launch?[place] [address] Nuclear Medicine Report Signed Patient: Kristen Youngblood Unit #: [id number] : 1955 Age/Sex: 66 / M ADM Date: 11/14/22 Loc: RAD Room/Bed: Attending Dr: Concepcion Ron MD Ordering Provider/Ordering MD: Concepcion Ron MD Date of Service: 11/14/22 Procedure(s): NM bone 3 phase 87945 Accession Number(s): [id number] Report Number: [id number] WS: [id number] THREE-PHASE BONE SCAN HISTORY: PAINFUL LEFT TKA COMPARISON: Radiographs 11/04/2022 and 12/19/2021 Patient is is injected with 24.4 mCi Tc99m HDP intravenously. Immediate angiographic phase imaging is performed over the area of concern. Static blood pool imaging also performed. Two-hour whole-body scintigrams performed in anterior and posterior projections. Additional large field of view imaging submitted as necessary. The angiographic phase imaging centered over the knees demonstrates moderate hyperemia centered at the LEFT knee. There is also increased uptake and activity noted on the blood pool phase imaging and the delayed imaging surrounding the LEFT knee/prosthesis. On the delayed imaging there is significant uptake along the tibial plateau of the LEFT knee and also surrounding the patella. There is a small area of increased uptake involving the medial RIGHT knee only on the delayed imaging. Mild AC joint arthritis. Mild soft tissue uptake is normal. Normal renal activity. NM/NM bone 3 phase 64589 IMPRESSION: ? 1.? Abnormal 3 phase imaging involving the LEFT knee. There is significant increased uptake on all 3 phases. Several serial radiographs also demonstrate increasing lucency surrounding the tibial plateau prosthesis. These findings can be seen with loosening of the knee arthroplasty or osteomyelitis. 2.? Osteoarthritis medial compartment RIGHT knee. ? 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 Currently patient is status post removal of left total knee arthroplasty implants on February 11, 2023. OR cultures are currently pending. Patient has been started on daptomycin in keeping with outpatient culture showing coag negative Staphylococcus. He is unwilling to currently try vancomycin given history of past anaphylaxis reaction which was unable to be determined whether related to vancomycin versus rocuronium. Will refer for outpatient allergy testing once over the acute phase. Recommend to treat with daptomycin 8 mg/kg IV every 24 hours over the next 6 weeks. We will follow pending OR cultures and change antibiotics if needed. Recommend to obtain baseline CRP, CPK, ESR. While on daptomycin will obtain weekly labs including renal and liver function, CPK. All updates discussed with Dr. Ariadne [facility] in 6 weeks Qualifiers: Encounter type: initial encounter Qualified Code(s): T84.54XA - Infection and inflammatory reaction due to internal left knee prosthesis, initial encounter Coding Level of Care Code Acute Code for Chg Fwd Diagnoses Infection of total left knee replacement T84.54XA Encounter type: initial encounter
[2023-02-12] MEDS: acetaminophen 500 mg Tablet 1000 MG PO (16:57)
[2023-02-12] MEDS: mupirocin oint 22 gm 1 APPLIC TOPICAL (17:01)
[2023-02-13] VITALS (9 sets, daily range): BP systolic 119–152; BP diastolic 55–82; PULSE 53–70; RESP 15–18; TEMP 36.5–36.8; O2SAT 95–97
[2023-02-13] MEDS: acetaminophen 500 mg Tablet 1000 MG PO ×2 (02:01→10:09)
[2023-02-13] MEDS: oxyCODONE 5 mg IR Tab/Cap PO ×2 (02:02→08:27)
[2023-02-13] MEDS: metoclopramide 5 mg/mL SDV 2 mL 10 MG IV (02:29)
[2023-02-13 03:53] LABS: Erythrocyte Sedimentation Rate 13 mm/hr (0-10)
[2023-02-13 04:19] LABS: Alanine Aminotransferase 8 U/L (0-41); Albumin Level 2.9 g/dL (3.5-5.2); Alkaline Phosphatase 91 U/L (40-130); Aspartate Amino Transferase 14 U/L (0-40); Blood Urea Nitrogen 20 mg/dL (8-23); C Reactive Protein 30.1 mg/L (0.0-4.9); Carbon Dioxide 28 mmol/L (22-29); Chloride 104 mmol/L (98-107); Creatine Phosphokinase 71 U/L (39-308); Glomerular Filtration Rate 55.1 mL/min (90-130); Glucose 98 mg/dL (65-115); Osmolality Calculated 287 mOsm/kg (285-295); Sodium 137 mmol/L (136-145); Total Bilirubin 0.2 mg/dL (0.15-1.2); Total Protein 5.9 g/dL (6.6-8.7)
[2023-02-13 04:22] LABS: Anion Gap 9.7 (5-19); Potassium 4.7 mmol/L (3.5-5.1)
[2023-02-13] MEDS: multivitamin therapeutic Tablet 1 TAB PO (08:28)
[2023-02-13] MEDS: aspirin 325 mg EC Tablet PO (08:28)
[2023-02-13] MEDS: sennosides-docusate Tablet 2 TAB PO (08:28)
[2023-02-13] MEDS: iron polysaccharide complex 150 mg Capsule PO (08:28)
[2023-02-13] MEDS: CELEcoxib 200 mg Capsule PO (08:28)
[2023-02-13] MEDS: duloxetine 60 mg Capsule PO (08:28)
[2023-02-13] MEDS: calcium carbonate 500 mg Chew Tablet 1000 MG PO (08:29)
[2023-02-13] MEDS: cholecalciferol (vitamin D3) 1,000 unit Tablet 1000 UNIT PO (08:29)
[2023-02-13] MEDS: mupirocin oint 22 gm 1 APPLIC NASAL (10:08)
[2023-02-13] MEDS: lisinopril 10 mg Tablet PO (10:09)
[2023-02-13] MEDS: chlorhexidine gluconate 0.12% UDC 15 mL 30 ML MUCOUS MEM ×2 (10:09→13:59)
--- NOTE | 2023-02-13 14:27 | P.DS_ITS ---
Discharge Providers Date of Admission: 02/11/23 16:26 Date of Discharge: February 13, 2023 Attending Provider at Admission: Concepcion Ron MD Attending Provider at Discharge: Concepcion Ron MD Consults: Dr. Davina Ryo Primary Care Provider: Ashley Mac MD Diagnoses at Discharge Discharge Diagnosis (1) Infection of total left knee replacement: Status: Acute Qualifiers: Encounter type: initial encounter Qualified Code(s): T84.54XA - Infection and inflammatory reaction due to internal left knee prosthesis, initial encounter Permanent problem details: Date of procedure: February 11, 2023 Diagnosis: Infected left total knee arthroplasty Procedure done: Removal total knee arthroplasty implants (CPT 80907) Assertion, nonbiodegradable drug delivery implant (CPT 61996-25,51) Complete synovectomy with irrigation Implants: The [employer] attune knee system with a size 7 cemented cruciate retaining femoral component and a size 7 x 8 mm all polyethylene tibial implant, cruciate retaining, cemented. Cement utilized was Simplex P with full dose tobramycin and additional tobramycin added for a total of 2.2 g per batch of cement (2) History of MRSA infection: Status: Acute (3) History of total knee arthroplasty: Status: Resolved Qualifiers: Laterality: left Qualified Code(s): Z96.652 - Presence of left artificial knee joint Permanent problem details: Date of Procedure: 10/17/20 Left [employer] total knee system with a size 6 triathlon beaded posterior stabilized femur left, a triathlon titanium tibial component size 6 beaded, a triathlon X3 posterior stabilized tibial bearing insert size 6 X 11 mm and a beaded triathlon titanium asymmetric patella size 35 x 10 mm Reason for Visit Reason for Visit: Brief History: This is a 66 year old male patient who presents today for removal of infected left total knee arthroplasty and placement of antibiotic cement as a nonbiodegradable drug delivery implant with an all polyethylene tibia and attune femur. He rates his pain a 6/10 typically. Patient has a surgical history of a left total knee arthroplasty. DOS: 10/17/20 as well as his subsequent Arthrotomy, debridement and repair of quadriceps tendon rupture. DOS: 12/07/20.? Recent knee aspiration demonstrated the patient's total knee is infected with MRSA.? 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 Preoperatively in the office, consents were sig kasia and questions were answered.? The patient agreed to proceed with removal of total knee arthroplasty. Hospital Course Hospital Course Patient was admitted to the hospital following removal of infected total knee arthroplasty and reimplantation of temporary prosthesis as well as nonbiodegradable drug delivery implant in the form of antibiotic laden cement. Additionally, complete synovectomy was accomplished. Preoperatively, I had discussed the case with Dr. Roy, and given the patient's multiple allergies, he was placed on daptomycin. Dr. Roy saw him in consultation during his hospital stay. He received a PICC line for home IV antibiotics. Discussion was undertaken with the patient regarding findings at the time of surgery and he understood that the eventual plan is for reimplantation of this knee arthroplasty. He was admitted to the floor for postoperative IV treatment as well as rehabilitation and pain management. He was allowed to be weightbearing as tolerated on this knee. He did well in hospital, received his PICC line, and arrangements were made for home IV therapies. The patient was ambulatory and independent at the time of discharge and will follow up with me in the office as well as with Dr. Roy as scheduled. Physical Exam Const: COMMON NORMALS: no acute distress, average body habitus, patient oriented x3 and alert GENERAL APPEARANCE: cooperative and comfortable ORIENTATION/CONSCIOUSNESS: Yes awake HENMT: COMMON NORMALS: normocephalic and atraumatic HEAD & SCALP: normocephalic and atraumatic Eye: GENERAL EYE: appearance normal, both eyes and all related structures Chest: COMMONS NORMALS: normal inspection of the chest Resp: COMMON NORMALS: normal respiratory effort EFFORT & INSPECTION: Yes able to speak in complete sentences and Yes symmetric chest movement Extremity: LEFT LOWER EXTREMITY: Yes knee joint (Minimal swelling or ecchymosis.) Left knee: Yes palpation (Minimal to no tenderness.), Yes ROM (Not evaluated), Yes neurovascular exam (Intact distally with no evidence of DVT) and Yes other (Able to straight leg raise) Neuro: COMMON NORMALS: patient oriented x3 SENSORIUM/ORIENTATION: Yes alert Psych: COMMON NORMALS: mental status grossly normal APPEARANCE: Yes grossly normal ATTITUDE: Yes calm and Yes engaged ATTENTION/CONCENTRATION: Yes attention grossly intact Skin: COMMON NORMALS: no rashes or lesions noted GENERAL SKIN EXAM: no rashes or lesions noted Urinary Catheter Management: Moon: Cath Placed During This Visit: yes, but has since been removed by the nurse Reason for Continuing Indwelling Catheter: Decision to DC Catheter Urinary Catheter Date of Insertion: 02/11/23 Urinary Catheter Time of Insertion: 12:20 Date Urinary Catheter Removed: 02/12/23 Time Urinary Catheter Discontinued: 05:23 Discharge Data Studies Completed and Pending Completed Studies During Hospitalization Category Date Time Status CXRP [XR chest 1V portable [id number]] Routine Exams 02/11/23 23:38 Completed XR knee LT 1-2V 53369 Routine Exams 02/11/23 16:16 Completed Pending at discharge Category Date Time Status Anaerobic Culture Stat Lab 02/11/23 Results Blood Culture AM LABS Lab 02/13/23 03:27 Results Wound Culture and Gram Stain Stat Lab 02/11/23 Results Radiology Impressions Knee X-Ray 02/11/23 16:16 IMPRESSION: Postsurgical changes about the left knee with revision of left knee prosthesis when correlated with prior exam November 04, 2022 with satisfactory or anatomic alignment and position, as noted above. Chest X-Ray 02/11/23 23:38 IMPRESSION: PICC line tip is in the superior vena cava. Laboratory Results WBC 11.9 10^3/uL (4.0-10.0) H 02/12/23 02:59 RBC 3.80 10^6/uL (4.1-5.3) L 02/12/23 02:59 Hgb 11.1 g/dL (11.7-16.6) L 02/12/23 02:59 Hct 35.5 % (42.0-52.0) L 02/12/23 02:59 MCV 93.4 fl (80-94) 02/12/23 02:59 MCH 29.2 pg (28.0-34.0) 02/12/23 02:59 MCHC 31.3 g/dL (30.0-36.0) 02/12/23 02:59 RDW 13.1 % (12.1-15.1) 02/12/23 02:59 Plt Count 328 10^3/cmm (130-400) 02/12/23 02:59 MPV 9.4 fL (7.4-10.4) 02/12/23 02:59 Neut % (Auto) 81.4 % 02/12/23 02:59 Lymph % (Auto) 8.5 % 02/12/23 02:59 Humphreys % (Auto) 9.6 % 02/12/23 02:59 Eos % (Auto) 0.0 % 02/12/23 02:59 Baso % (Auto) 0.2 % 02/12/23 02:59 Neut # (Auto) 9.71 10^3/uL (1.8-7.7) H 02/12/23 02:59 Lymph # (Auto) 1.0 10^3/uL (0.8-4.8) 02/12/23 02:59 Humphreys # (Auto) 1.1 10^3/uL (0.2-0.9) H 02/12/23 02:59 Eos # (Auto) 0.0 10^3/uL (0.0-0.8) 02/12/23 02:59 Baso # (Auto) 0.0 10^3/uL (0.0-0.1) 02/12/23 02:59 Nucleated RBC % (auto) 0 % 02/12/23 02:59 Nucleated RBCs # 0.0 /100WBC 02/12/23 02:59 ESR 13 mm/hr (0-10) H 02/13/23 03:27 Sodium 137 mmol/L (136-145) 02/13/23 03:27 Potassium 4.7 mmol/L (3.5-5.1) 02/13/23 03:27 Chloride 104 mmol/L (98-107) 02/13/23 03:27 Carbon Dioxide 28 mmol/L (22-29) 02/13/23 03:27 Anion Gap 9.7 (5-19) 02/13/23 03:27 BUN 20 mg/dL (8-23) 02/13/23 03:27 Creatinine 1.3 mg/dL (0.7-1.2) H 02/13/23 03:27 GFR Calculation 55.1 mL/min (90-130) L 02/13/23 03:27 Glucose 98 mg/dL (65-115) 02/13/23 03:27 Calculated Osmolality 287 mOsm/kg (285-295) 02/13/23 03:27 Calcium 8.0 mg/dL (8.5-10.5) L 02/13/23 03:27 Total Bilirubin 0.2 mg/dL (0.15-1.2) 02/13/23 03:27 AST 14 U/L (0-40) 02/13/23 03:27 ALT 8 U/L (0-41) 02/13/23 03:27 Alkaline Phosphatase 91 U/L (40-130) 02/13/23 03:27 Creatine Kinase 71 U/L (39-308) 02/13/23 03:27 C-Reactive Protein 30.1 mg/L (0.0-4.9) H 02/13/23 03:27 Total Protein 5.9 g/dL (6.6-8.7) L 02/13/23 03:27 Albumin 2.9 g/dL (3.5-5.2) L 02/13/23 03:27 Globulin 3.0 g/dL (1.3-4.6) 02/13/23 03:27 Urine Color Yellow (Yellow) 02/11/23 09:57 Urine Appearance Clear (CLEAR) 02/11/23 09:57 Urine pH 6 (5-7) 02/11/23 09:57 Ur Specific [place] 1.020 (1.005-1.030) 02/11/23 09:57 Urine Protein Neg (Negative) 02/11/23 09:57 Urine Glucose (UA) Norm (Normal) 02/11/23 09:57 Urine Ketones Negative (Negative) 02/11/23 09:57 Urine Blood Neg (Negative) 02/11/23 09:57 Urine Nitrate Negative (Negative) 02/11/23 09:57 Urine Bilirubin Neg (Negative) 02/11/23 09:57 Urine Urobilinogen Norm mg/dL (Negative) 02/11/23 09:57 Ur Leukocyte Esterase Negative (Negative) 02/11/23 09:57 Vitals Last Vital Signs Temp 98.0 F 02/13/23 12:22 Pulse 61 02/13/23 12:22 Resp 17 02/13/23 12:22 BP 145/74 02/13/23 12:22 Pulse Ox 96 02/13/23 12:22 O2 Del Method Room Air 02/13/23 12:22 O2 Flow Rate 0 02/13/23 08:00 Discharge Plan Discharge Patient Disposition: Home Condition: Stable Prescriptions: New celecoxib 200 mg Capsule 200 mg PO 1XD 30 Days Qty: 30 0RF acetaminophen 500 mg Tablet 1,000 mg PO Q8H 15 Days Qty: 0 0RF aspirin 325 mg Tablet,Delayed Release (Dr/Ec) 325 mg PO DAILY 30 Days Qty: 0 0RF oxycodone 5 mg Tablet 5 mg PO Q4H PRN (Reason: Moderate Pain) 7 Days Qty: 30 0RF daptomycin 500 mg Recon Soln 832 mg continuous IV infusion Q24H Qty: 0 0RF Continued duloxetine [Cymbalta] 60 mg capsule,delayed release(DR/EC) 60 mg PO DAILY lisinopril 20 mg tablet 10 mg PO DAILY Hold Instructions: Resume on 12/03/20. Tumeric 1,000 mg PO DAILY gowcupwwzw-sexplimyyshdw-hbte 50-325-40 mg capsule 1 cap PO Q6H PRN (Reason: Migraine Headache) lidocaine 5 % adhesive patch,medicated 1 patch topical DAILY Rx Instructions: leave on most painful area for up to 12 hrs salmon oil-omega-3 fatty acids 1,000-210 mg capsule 1 cap PO DAILY mupirocin 2 % ointment 1 applic topical BID 5 Days Qty: 22 0RF Rx Instructions: Coat q-tip and apply to nostrils 2 times daily for five days prior to surgery. acetaminophen 500 mg Tablet 1,000 mg PO Q8H Qty: 0 0RF vitamin E 200 unit Capsule 200 unit PO DAILY zinc 50 mg Capsule 50 mg PO DAILY cholecalciferol (vitamin D3) [Vitamin D3] 50 mcg (2,000 unit) Capsule 50 mcg PO DAILY atorvastatin 40 mg Tablet 20 mg PO DAILY miconazole nitrate 2 % Cream 1 applic TOPICAL DAILY prazosin 1 mg Capsule 1 mg PO QPM Vitamin C 1,000 mg Tablet 500 mg PO DAILY Held aspirin 81 mg Tablet,Delayed Release (Dr/Ec) 81 mg PO DAILY Hold Instructions: Resume on 03/15/23. Resume when you have completed 1 full strength aspirin daily for 30 days Discharge Orders: Discharge Order (Routine); Ordered 02/13/23 Ordered By: Concepcion oRn Other Ambulatory Orders: Complete Blood Count w/Auto (Routine) Timeframe: 20230203 Location: Determined by Patient Ordered By: Concepcion Ron Comprehensive Metabolic Panel (Routine) Timeframe: 20230203 Location: Determined by Patient Ordered By: Concepcion Ron Hemoglobin A1C (Routine) Timeframe: 20230203 Location: Determined by Patient Ordered By: Concepcion Ron Referrals: [facility] [Provider Group] - 6 Weeks (Nurse will contact patient for an appointment) Concepcion Ron MD [Physician] - 02/19/23 9:00 am (And second follow-up on February 26 at 3 PM) Discharge Diet: Advance as tolerated and Usual diet Discharge Activity: Increase activity as tolerated, Limit activity as instructed, Use walker/crutches as instructed and As per PT/OT instructions Patient Instructions: Oxycodone/Acetaminophen (By mouth), Celecoxib (By mouth), Hardware Removal (DC), Opioid Safety Activity Restrictions/Additional Instructions: You may weight-bear as tolerated. Elevate left lower extremity. Range of motion and strengthening are okay. IV therapy as instructed. Discharge Attestations Time Spent in Discharge Care*: greater than 30 min Specific Discharge Activities: educating patient, discussing with case management rn/social workers/dc planners, documenting/other paperwork and evaluating patient/reviewing data Quality Metrics Clinical Quality Measures [ No reported AMI, CVA or VTE this stay] Coding Level of Care Code Acute Code for Chg Fwd Diagnoses Infection of total left knee replacement T84.54XA Encounter type: initial encounter History of MRSA infection Z86.14 History of total knee arthroplasty Z96.652 Laterality: left
== END 2023-02-13 17:03 | disposition home health service (06) | DRG 468 ==
LOC: MEDSURG 16:44
PROVIDERS: Student in an Organized Health Care Education/Training Program; Admitting Provider Specialist; PCP Family Medicine; Visit Provider Specialist
PROC: 0SPD0JZ Removal of Synthetic Substitute from Left Knee Joint, Open Approach (ICD-10-PCS; principal; 2023-02-11 10:15)
DX: T84.54XA Infection and inflammatory reaction due to internal left knee prosthesis, initial encounter (principal); Y79.8 Miscellaneous orthopedic devices associated with adverse incidents, not elsewhere classified; Z86.14 Personal history of Methicillin resistant Staphylococcus aureus infection; M79.7 Fibromyalgia; E03.9 Hypothyroidism, unspecified
CPT/HCPCS: 36569; 36592; 51702; 71045; 73560; 80048; 80053; 81003; 82550; 85025; 85651; 86140; 87040; 87070; 87075; 87205; 97110; 97116; 97162; 97165; C1776; J0131; J0690; J0878; J1100; J1170; J2370; J2405; J2704; J2765; J2795; J3010; J3260; J7030

== ENCOUNTER 2023-02-17 08:02 | Outpatient (CLI) | payer OTHER, SELFPAY ==
[2023-02-17 16:42] LABS: Basophils # 0.1 10^3/uL (0.0-0.1); Eosinophils # 0.4 10^3/uL (0.0-0.8); Eosinophils % 4.2 %; Hematocrit 36.5 % (42.0-52.0); Hemoglobin 11.7 g/dL (11.7-16.6); Lymphocytes # 1.9 10^3/uL (0.8-4.8); Mean Corpuscular HGB Conc 32.1 g/dL (30.0-36.0); Mean Corpuscular Hemoglobin 29.4 pg (28.0-34.0); Mean Corpuscular Volume 91.7 fl (80-94); Mean Platelet Volume 9.6 fL (7.4-10.4); Monocytes % 11.2 %; Neutrophils # 5.71 10^3/uL (1.8-7.7); Neutrophils % 61.9 %; Nucleated Red Blood Cells % 0 %; Platelet Count 370 10^3/cmm (130-400); Red Blood Count 3.98 10^6/uL (4.1-5.3); Red Cell Distribution Width 13.2 % (12.1-15.1); White Blood Count 9.2 10^3/uL (4.0-10.0)
== END 2023-02-17 08:03 | disposition home or self-care (01) ==
LOC: LAB 02-20 08:03
PROVIDERS: PCP Family Medicine; Visit Provider Student in an Organized Health Care Education/Training Program
DX: T84.54XA Infection and inflammatory reaction due to internal left knee prosthesis, initial encounter (principal); Y83.8 Other surgical procedures as the cause of abnormal reaction of the patient, or of later complication, without mention of misadventure at the time of the procedure
CPT/HCPCS: 85025

== ENCOUNTER 2023-02-18 16:25 | Outpatient (CLI) | payer OTHER, SELFPAY ==
[2023-02-18 17:16] LABS: Creatine Phosphokinase 37 U/L (39-308); Glomerular Filtration Rate 60.4 mL/min (90-130)
[2023-02-19 09:31] LABS: Alanine Aminotransferase 13 U/L (0-41); Albumin Level 3.9 g/dL (3.5-5.2); Alkaline Phosphatase 113 U/L (40-130); Aspartate Amino Transferase 14 U/L (0-40); Globulin 3.2 g/dL (1.3-4.6); Total Bilirubin 0.4 mg/dL (0.15-1.2); Total Protein 7.1 g/dL (6.6-8.7)
== END 2023-02-18 16:26 | disposition home or self-care (01) ==
LOC: LAB 16:25
PROVIDERS: PCP Family Medicine; Visit Provider Student in an Organized Health Care Education/Training Program
DX: T84.54XA Infection and inflammatory reaction due to internal left knee prosthesis, initial encounter (principal); Y79.2 Prosthetic and other implants, materials and accessory orthopedic devices associated with adverse incidents
CPT/HCPCS: 80076; 82550; 82565

== ENCOUNTER → 2023-02-19 09:27 | Outpatient (BNVA) | payer OTHER, SELFPAY | PROVIDERS: PCP Family Medicine; Visit Provider Specialist | DX: T84.54XA Infection and inflammatory reaction due to internal left knee prosthesis, initial encounter (principal); Y79.2 Prosthetic and other implants, materials and accessory orthopedic devices associated with adverse incidents | CPT/HCPCS: 73560; 73565; 99024 ==

== ENCOUNTER 2023-02-24 15:17 | Outpatient (CLI) | payer OTHER, SELFPAY ==
[2023-02-24 15:51] LABS: Basophils # 0.1 10^3/uL (0.0-0.1); Basophils % 1.1 %; Eosinophils # 0.4 10^3/uL (0.0-0.8); Eosinophils % 5.9 %; Hematocrit 40.1 % (42.0-52.0); Hemoglobin 12.4 g/dL (11.7-16.6); Lymphocytes # 1.6 10^3/uL (0.8-4.8); Lymphocytes % 21.1 %; Mean Corpuscular HGB Conc 30.9 g/dL (30.0-36.0); Mean Corpuscular Hemoglobin 29.7 pg (28.0-34.0); Mean Corpuscular Volume 95.9 fl (80-94); Mean Platelet Volume 9.3 fL (7.4-10.4); Monocytes # 0.6 10^3/uL (0.2-0.9); Monocytes % 8.3 %; Neutrophils % 63.1 %; Nucleated Red Blood Cells % 0 %; Platelet Count 410 10^3/cmm (130-400); Red Blood Count 4.18 10^6/uL (4.1-5.3); White Blood Count 7.5 10^3/uL (4.0-10.0)
[2023-02-24 16:12] LABS: Alanine Aminotransferase 12 U/L (0-41); Albumin Level 3.9 g/dL (3.5-5.2); Alkaline Phosphatase 122 U/L (40-130); Aspartate Amino Transferase 22 U/L (0-40); Creatine Phosphokinase 61 U/L (39-308); Globulin 3.7 g/dL (1.3-4.6); Glomerular Filtration Rate 60.4 mL/min (90-130); Total Bilirubin 0.4 mg/dL (0.15-1.2); Total Protein 7.6 g/dL (6.6-8.7)
== END 2023-02-24 15:18 | disposition home or self-care (01) ==
LOC: LAB 15:17
PROVIDERS: PCP Family Medicine; Visit Provider Student in an Organized Health Care Education/Training Program
DX: T84.54XA Infection and inflammatory reaction due to internal left knee prosthesis, initial encounter (principal); Y83.8 Other surgical procedures as the cause of abnormal reaction of the patient, or of later complication, without mention of misadventure at the time of the procedure
CPT/HCPCS: 80076; 82550; 82565; 85025

== ENCOUNTER → 2023-02-26 10:46 | Outpatient (BNVA) | payer OTHER, SELFPAY | PROVIDERS: PCP Family Medicine; Visit Provider Nurse Practitioner Family | DX: T84.54XA Infection and inflammatory reaction due to internal left knee prosthesis, initial encounter (principal); Y79.2 Prosthetic and other implants, materials and accessory orthopedic devices associated with adverse incidents | CPT/HCPCS: 73560; 73565; 99213 ==

== ENCOUNTER 2023-03-04 13:00 | Outpatient (CLI) | payer OTHER, SELFPAY ==
[2023-03-04 13:18] LABS: Basophils # 0.1 10^3/uL (0.0-0.1); Basophils % 1.2 %; Eosinophils # 0.4 10^3/uL (0.0-0.8); Eosinophils % 6.9 %; Hematocrit 39.6 % (42.0-52.0); Hemoglobin 12.6 g/dL (11.7-16.6); Lymphocytes # 1.1 10^3/uL (0.8-4.8); Lymphocytes % 19.8 %; Mean Corpuscular HGB Conc 31.8 g/dL (30.0-36.0); Mean Corpuscular Hemoglobin 29.5 pg (28.0-34.0); Mean Corpuscular Volume 92.7 fl (80-94); Mean Platelet Volume 10.1 fL (7.4-10.4); Monocytes # 0.6 10^3/uL (0.2-0.9); Monocytes % 9.7 %; Neutrophils # 3.59 10^3/uL (1.8-7.7); Neutrophils % 62.2 %; Nucleated Red Blood Cells % 0 %; Platelet Count 311 10^3/cmm (130-400); Red Blood Count 4.27 10^6/uL (4.1-5.3); White Blood Count 5.8 10^3/uL (4.0-10.0)
== END 2023-03-04 13:01 | disposition home or self-care (01) ==
LOC: LAB 13:03
PROVIDERS: PCP Family Medicine; Visit Provider Student in an Organized Health Care Education/Training Program
DX: T84.54XD Infection and inflammatory reaction due to internal left knee prosthesis, subsequent encounter (principal); Y83.8 Other surgical procedures as the cause of abnormal reaction of the patient, or of later complication, without mention of misadventure at the time of the procedure
CPT/HCPCS: 85025; 99024

== ENCOUNTER 2023-03-06 14:39 | Outpatient (CLI) | payer OTHER, SELFPAY ==
[2023-03-06 14:59] LABS: Basophils # 0.1 10^3/uL (0.0-0.1); Eosinophils # 0.4 10^3/uL (0.0-0.8); Eosinophils % 6.6 %; Hematocrit 40.3 % (42.0-52.0); Hemoglobin 12.9 g/dL (11.7-16.6); Lymphocytes # 1.5 10^3/uL (0.8-4.8); Lymphocytes % 24.9 %; Mean Corpuscular Hemoglobin 29.4 pg (28.0-34.0); Mean Corpuscular Volume 91.8 fl (80-94); Mean Platelet Volume 9.9 fL (7.4-10.4); Monocytes # 0.7 10^3/uL (0.2-0.9); Monocytes % 10.7 %; Neutrophils # 3.49 10^3/uL (1.8-7.7); Neutrophils % 56.5 %; Nucleated Red Blood Cells % 0 %; Platelet Count 310 10^3/cmm (130-400); Red Blood Count 4.39 10^6/uL (4.1-5.3); Red Cell Distribution Width 13.8 % (12.1-15.1); White Blood Count 6.2 10^3/uL (4.0-10.0)
[2023-03-06 15:20] LABS: Alanine Aminotransferase 11 U/L (0-41); Alkaline Phosphatase 124 U/L (40-130); Aspartate Amino Transferase 14 U/L (0-40); Creatine Phosphokinase 49 U/L (39-308); Globulin 3.3 g/dL (1.3-4.6); Glomerular Filtration Rate 66.8 mL/min (90-130); Total Bilirubin 0.3 mg/dL (0.15-1.2); Total Protein 7.3 g/dL (6.6-8.7)
== END 2023-03-06 14:40 | disposition home or self-care (01) ==
LOC: LAB 14:39
PROVIDERS: PCP Family Medicine; Visit Provider Student in an Organized Health Care Education/Training Program
DX: T84.54XA Infection and inflammatory reaction due to internal left knee prosthesis, initial encounter (principal); Y83.8 Other surgical procedures as the cause of abnormal reaction of the patient, or of later complication, without mention of misadventure at the time of the procedure; Z79.899 Other long term (current) drug therapy
CPT/HCPCS: 80076; 82550; 82565; 85025

== ENCOUNTER 2023-03-10 14:23 | Outpatient (CLI) | payer OTHER, SELFPAY ==
[2023-03-10 14:35] LABS: Basophils # 0.1 10^3/uL (0.0-0.1); Basophils % 1.1 %; Eosinophils # 0.4 10^3/uL (0.0-0.8); Eosinophils % 5.9 %; Hemoglobin 12.7 g/dL (11.7-16.6); Lymphocytes # 1.7 10^3/uL (0.8-4.8); Lymphocytes % 25.3 %; Mean Corpuscular HGB Conc 31.8 g/dL (30.0-36.0); Mean Corpuscular Hemoglobin 29.6 pg (28.0-34.0); Mean Corpuscular Volume 93.2 fl (80-94); Mean Platelet Volume 10.6 fL (7.4-10.4); Monocytes # 0.7 10^3/uL (0.2-0.9); Monocytes % 10.2 %; Neutrophils # 3.77 10^3/uL (1.8-7.7); Neutrophils % 57.2 %; Nucleated Red Blood Cells % 0 %; Platelet Count 271 10^3/cmm (130-400); Red Blood Count 4.29 10^6/uL (4.1-5.3); Red Cell Distribution Width 13.9 % (12.1-15.1); White Blood Count 6.6 10^3/uL (4.0-10.0)
== END 2023-03-10 14:24 | disposition home or self-care (01) ==
LOC: LAB 14:24
PROVIDERS: PCP Family Medicine; Visit Provider Student in an Organized Health Care Education/Training Program
DX: T84.54XA Infection and inflammatory reaction due to internal left knee prosthesis, initial encounter (principal); Y79.2 Prosthetic and other implants, materials and accessory orthopedic devices associated with adverse incidents
CPT/HCPCS: 85025

== ENCOUNTER 2023-03-12 10:41 | Outpatient (CLI) | payer OTHER, SELFPAY ==
[2023-03-12 11:14] LABS: Basophils # 0.1 10^3/uL (0.0-0.1); Basophils % 1.2 %; Eosinophils # 0.3 10^3/uL (0.0-0.8); Eosinophils % 6.4 %; Hemoglobin 13.1 g/dL (11.7-16.6); Lymphocytes # 1.4 10^3/uL (0.8-4.8); Mean Corpuscular HGB Conc 32.8 g/dL (30.0-36.0); Mean Corpuscular Hemoglobin 30.4 pg (28.0-34.0); Mean Corpuscular Volume 92.8 fl (80-94); Mean Platelet Volume 9.3 fL (7.4-10.4); Monocytes # 0.8 10^3/uL (0.2-0.9); Monocytes % 14.5 %; Neutrophils # 2.67 10^3/uL (1.8-7.7); Neutrophils % 51.3 %; Nucleated Red Blood Cells % 0 %; Platelet Count 255 10^3/cmm (130-400); Red Blood Count 4.31 10^6/uL (4.1-5.3); White Blood Count 5.2 10^3/uL (4.0-10.0)
[2023-03-12 11:23] LABS: Alanine Aminotransferase 11 U/L (0-41); Alkaline Phosphatase 117 U/L (40-130); Aspartate Amino Transferase 16 U/L (0-40); Creatine Phosphokinase 72 U/L (39-308); Globulin 3.8 g/dL (1.3-4.6); Glomerular Filtration Rate 55.1 mL/min (90-130); Total Bilirubin 0.4 mg/dL (0.15-1.2); Total Protein 7.8 g/dL (6.6-8.7)
== END 2023-03-12 10:42 | disposition home or self-care (01) ==
LOC: LAB 10:42
PROVIDERS: PCP Family Medicine; Visit Provider Student in an Organized Health Care Education/Training Program
DX: T84.54XA Infection and inflammatory reaction due to internal left knee prosthesis, initial encounter (principal); Y83.8 Other surgical procedures as the cause of abnormal reaction of the patient, or of later complication, without mention of misadventure at the time of the procedure; Z79.899 Other long term (current) drug therapy
CPT/HCPCS: 36415; 80076; 82550; 82565; 85025

== ENCOUNTER → 2023-03-17 09:07 | Outpatient (BNVA) | payer OTHER, SELFPAY | PROVIDERS: PCP Family Medicine; Visit Provider Specialist | DX: T84.54XA Infection and inflammatory reaction due to internal left knee prosthesis, initial encounter (principal); Z96.652 Presence of left artificial knee joint; Y79.2 Prosthetic and other implants, materials and accessory orthopedic devices associated with adverse incidents; Z86.14 Personal history of Methicillin resistant Staphylococcus aureus infection | CPT/HCPCS: 73560; 73565; 80076; 82550; 82565; 85025; 99024 ==

== ENCOUNTER 2023-03-24 13:35 | Outpatient (CLI) | payer OTHER, SELFPAY ==
[2023-03-24 13:43] LABS: Basophils # 0.1 10^3/uL (0.0-0.1); Basophils % 1.1 %; Eosinophils # 0.3 10^3/uL (0.0-0.8); Eosinophils % 5.3 %; Hematocrit 44.8 % (42.0-52.0); Hemoglobin 14.4 g/dL (11.7-16.6); Lymphocytes # 1.5 10^3/uL (0.8-4.8); Lymphocytes % 26.6 %; Mean Corpuscular HGB Conc 32.1 g/dL (30.0-36.0); Mean Corpuscular Hemoglobin 29.3 pg (28.0-34.0); Mean Corpuscular Volume 91.1 fl (80-94); Mean Platelet Volume 9.8 fL (7.4-10.4); Monocytes # 0.6 10^3/uL (0.2-0.9); Monocytes % 10.8 %; Neutrophils # 3.05 10^3/uL (1.8-7.7); Nucleated Red Blood Cells % 0 %; Platelet Count 292 10^3/cmm (130-400); Red Blood Count 4.92 10^6/uL (4.1-5.3); White Blood Count 5.5 10^3/uL (4.0-10.0)
[2023-03-24 14:07] LABS: Alanine Aminotransferase 11 U/L (0-41); Albumin Level 4.2 g/dL (3.5-5.2); Alkaline Phosphatase 117 U/L (40-130); Aspartate Amino Transferase 12 U/L (0-40); Creatine Phosphokinase 49 U/L (39-308); Globulin 3.4 g/dL (1.3-4.6); Glomerular Filtration Rate 66.8 mL/min (90-130); Total Bilirubin 0.3 mg/dL (0.15-1.2); Total Protein 7.6 g/dL (6.6-8.7)
== END 2023-03-24 13:36 | disposition home or self-care (01) ==
LOC: LAB 13:35
PROVIDERS: PCP Family Medicine; Visit Provider Student in an Organized Health Care Education/Training Program
DX: T84.54XA Infection and inflammatory reaction due to internal left knee prosthesis, initial encounter (principal); X58.XXXA Exposure to other specified factors, initial encounter
CPT/HCPCS: 80076; 82550; 82565; 85025

== ENCOUNTER 2023-03-31 16:49 | Outpatient (CLI) | payer OTHER, SELFPAY ==
[2023-03-31 17:01] LABS: Basophils # 0.1 10^3/uL (0.0-0.1); Basophils % 0.9 %; Eosinophils # 0.2 10^3/uL (0.0-0.8); Eosinophils % 3.5 %; Hematocrit 45.3 % (42.0-52.0); Hemoglobin 14.3 g/dL (11.7-16.6); Lymphocytes # 1.9 10^3/uL (0.8-4.8); Lymphocytes % 33.4 %; Mean Corpuscular HGB Conc 31.6 g/dL (30.0-36.0); Mean Corpuscular Hemoglobin 29.4 pg (28.0-34.0); Mean Platelet Volume 9.7 fL (7.4-10.4); Monocytes # 0.6 10^3/uL (0.2-0.9); Monocytes % 11.2 %; Neutrophils # 2.88 10^3/uL (1.8-7.7); Neutrophils % 50.6 %; Nucleated Red Blood Cells % 0 %; Platelet Count 310 10^3/cmm (130-400); Red Blood Count 4.87 10^6/uL (4.1-5.3); Red Cell Distribution Width 12.9 % (12.1-15.1); White Blood Count 5.7 10^3/uL (4.0-10.0)
[2023-03-31 17:44] LABS: Alanine Aminotransferase 11 U/L (0-41); Albumin Level 4.2 g/dL (3.5-5.2); Alkaline Phosphatase 108 U/L (40-130); Aspartate Amino Transferase 15 U/L (0-40); Creatine Phosphokinase 66 U/L (39-308); Globulin 3.6 g/dL (1.3-4.6); Glomerular Filtration Rate 60.4 mL/min (90-130); Total Bilirubin 0.2 mg/dL (0.15-1.2); Total Protein 7.8 g/dL (6.6-8.7)
== END 2023-03-31 16:50 | disposition home or self-care (01) ==
LOC: LAB 16:50
PROVIDERS: PCP Family Medicine; Visit Provider Student in an Organized Health Care Education/Training Program
DX: T84.54XA Infection and inflammatory reaction due to internal left knee prosthesis, initial encounter (principal); Y83.8 Other surgical procedures as the cause of abnormal reaction of the patient, or of later complication, without mention of misadventure at the time of the procedure
CPT/HCPCS: 80076; 82550; 82565; 85025; 86140

== ENCOUNTER 2023-04-07 11:58 | Outpatient (CLI) | payer OTHER, SELFPAY ==
[2023-04-07 12:27] LABS: Basophils # 0.1 10^3/uL (0.0-0.1); Basophils % 1.2 %; Eosinophils # 0.2 10^3/uL (0.0-0.8); Eosinophils % 5.3 %; Hematocrit 42.4 % (42.0-52.0); Hemoglobin 13.7 g/dL (11.7-16.6); Lymphocytes # 1.5 10^3/uL (0.8-4.8); Mean Corpuscular HGB Conc 32.3 g/dL (30.0-36.0); Mean Corpuscular Hemoglobin 29.7 pg (28.0-34.0); Mean Platelet Volume 10.1 fL (7.4-10.4); Monocytes # 0.4 10^3/uL (0.2-0.9); Monocytes % 8.8 %; Neutrophils # 2.15 10^3/uL (1.8-7.7); Neutrophils % 49.5 %; Nucleated Red Blood Cells % 0 %; Platelet Count 266 10^3/cmm (130-400); Red Blood Count 4.61 10^6/uL (4.1-5.3); Red Cell Distribution Width 12.9 % (12.1-15.1); White Blood Count 4.3 10^3/uL (4.0-10.0)
[2023-04-07 12:57] LABS: Alanine Aminotransferase 12 U/L (0-41); Albumin Level 3.9 g/dL (3.5-5.2); Alkaline Phosphatase 99 U/L (40-130); Aspartate Amino Transferase 16 U/L (0-40); Creatine Phosphokinase 71 U/L (39-308); Globulin 3.3 g/dL (1.3-4.6); Total Bilirubin 0.4 mg/dL (0.15-1.2); Total Protein 7.2 g/dL (6.6-8.7)
== END 2023-04-07 11:59 | disposition home or self-care (01) ==
LOC: LAB 12:02
PROVIDERS: PCP Family Medicine; Visit Provider Student in an Organized Health Care Education/Training Program
DX: T84.54XA Infection and inflammatory reaction due to internal left knee prosthesis, initial encounter (principal); X58.XXXA Exposure to other specified factors, initial encounter
CPT/HCPCS: 80076; 82550; 85025; 86140

== ENCOUNTER → 2023-04-10 10:18 | Outpatient (BNVA) | payer OTHER, SELFPAY | PROVIDERS: PCP Family Medicine; Visit Provider Student in an Organized Health Care Education/Training Program | DX: T84.54XA Infection and inflammatory reaction due to internal left knee prosthesis, initial encounter (principal); X58.XXXA Exposure to other specified factors, initial encounter | CPT/HCPCS: 99205; 99214 ==

== ENCOUNTER 2023-04-14 12:09 | Outpatient (CLI) | payer OTHER, SELFPAY ==
[2023-04-14 12:53] LABS: Basophils # 0.1 10^3/uL (0.0-0.1); Eosinophils # 0.2 10^3/uL (0.0-0.8); Eosinophils % 4.7 %; Hematocrit 45.9 % (42.0-52.0); Hemoglobin 15.1 g/dL (11.7-16.6); Lymphocytes # 1.5 10^3/uL (0.8-4.8); Lymphocytes % 30.5 %; Mean Corpuscular HGB Conc 32.9 g/dL (30.0-36.0); Mean Corpuscular Hemoglobin 30.1 pg (28.0-34.0); Mean Corpuscular Volume 91.4 fl (80-94); Monocytes # 0.5 10^3/uL (0.2-0.9); Monocytes % 10.3 %; Neutrophils # 2.59 10^3/uL (1.8-7.7); Neutrophils % 53.3 %; Nucleated Red Blood Cells % 0 %; Platelet Count 204 10^3/cmm (130-400); Red Blood Count 5.02 10^6/uL (4.1-5.3); Red Cell Distribution Width 12.8 % (12.1-15.1); White Blood Count 4.9 10^3/uL (4.0-10.0)
[2023-04-14 13:23] LABS: Alanine Aminotransferase 13 U/L (0-41); Albumin Level 4.3 g/dL (3.5-5.2); Alkaline Phosphatase 96 U/L (40-130); Aspartate Amino Transferase 21 U/L (0-40); Creatine Phosphokinase 60 U/L (39-308); Globulin 3.3 g/dL (1.3-4.6); Glomerular Filtration Rate 60.4 mL/min (90-130); Total Bilirubin 0.5 mg/dL (0.15-1.2); Total Protein 7.6 g/dL (6.6-8.7)
== END 2023-04-14 12:10 | disposition home or self-care (01) ==
LOC: LAB 12:13
PROVIDERS: PCP Family Medicine; Visit Provider Student in an Organized Health Care Education/Training Program
DX: T84.54XA Infection and inflammatory reaction due to internal left knee prosthesis, initial encounter (principal); Y79.2 Prosthetic and other implants, materials and accessory orthopedic devices associated with adverse incidents
CPT/HCPCS: 80076; 82550; 82565; 85025; 86140

== ENCOUNTER → 2023-04-16 12:25 | Outpatient (BNVA) | payer OTHER, SELFPAY | PROVIDERS: PCP Family Medicine; Visit Provider Specialist | DX: T84.54XA Infection and inflammatory reaction due to internal left knee prosthesis, initial encounter (principal); Z86.14 Personal history of Methicillin resistant Staphylococcus aureus infection; T84.84XA Pain due to internal orthopedic prosthetic devices, implants and grafts, initial encounter; Z96.652 Presence of left artificial knee joint; Y79.2 Prosthetic and other implants, materials and accessory orthopedic devices associated with adverse incidents | CPT/HCPCS: 20610; 80503; 87070; 87075; 87205; 89050; 99024 ==

== ENCOUNTER → 2023-06-04 12:23 | Outpatient (BNVA) | payer OTHER, SELFPAY | PROVIDERS: PCP Family Medicine; Visit Provider Specialist | DX: T84.84XA Pain due to internal orthopedic prosthetic devices, implants and grafts, initial encounter (principal); Z96.652 Presence of left artificial knee joint; T84.54XA Infection and inflammatory reaction due to internal left knee prosthesis, initial encounter; Y79.2 Prosthetic and other implants, materials and accessory orthopedic devices associated with adverse incidents | CPT/HCPCS: 80053; 81003; 85025; 99215 ==

== ENCOUNTER → 2023-06-10 12:45 | Outpatient (BNVA) | payer SELFPAY | PROVIDERS: PCP Family Medicine; Referring Provider Specialist; Visit Provider Family Medicine | DX: Z01.818 Encounter for other preprocedural examination (principal) | CPT/HCPCS: 80048 ==

== ENCOUNTER 2023-06-17 16:55 | Inpatient (IN) | payer OTHER, SELFPAY ==
[2023-06-17] VITALS (14 sets, daily range): BP systolic 124–145; BP diastolic 62–86; PULSE 48–63; RESP 12–18; TEMP 36.1–36.4; O2SAT 90–99
[2023-06-17] MEDS: CELEcoxib 200 mg Capsule 400 MG PO (10:25)
[2023-06-17] MEDS: acetaminophen 1,000 MG/100 ML PIGGYBACK 400 MG IV ×2 (10:25→20:02)
[2023-06-17] MEDS: gabapentin 300 mg Capsule PO (10:25)
--- NOTE | 2023-06-17 10:25 | W.PM.OPSUD ---
Surgery/Procedure H&P Update DATE OF PROCEDURE: June 17, 2023 DATE H&P PERFORMED: 06/10/23 H&P UPDATE INFORMATION: I have reviewed H&P completed within last 30 days, I have examined patient prior to procedure, No changes to prior documentation and H&P is in [facility] EMR on date indicated PLANNED PROCEDURE: Operation Date: 06/17/23 11:05 Proposed Procedures p REVISION LEFT TOTAL KNEE ARTHROPLASTY 86841,T84.84XS,T84.54XS(Left) - Concepcion Ron MD Related Problem List Diagnoses (1) Infection of total left knee replacement: Qualifiers: Encounter type: initial encounter Qualified Code(s): T84.54XA - Infection and inflammatory reaction due to internal left knee prosthesis, initial encounter (2) History of MRSA infection: (3) History of total knee arthroplasty: Qualifiers: Laterality: left Qualified Code(s): Z96.652 - Presence of left artificial knee joint
[2023-06-17] MEDS: sodium chloride 0.9% 1,000 ML 30 ML IV (10:26)
[2023-06-17] MEDS: ondansetron 2 mg/ML SDV 2 mL 4 MG IVP ×2 (10:33→21:28)
--- NOTE | 2023-06-17 10:47 | ANES.PREANE2 ---
Pre-Anesthetic Assessment Height/Weight: Height 1.8 m Temp Pulse Resp BP Pulse Ox O2 Del Method 97.6 F 48 L 16 137/86 96 Room Air 06/17/23 09:34 06/17/23 09:34 06/17/23 09:34 06/17/23 09:34 06/17/23 09:34 06/17/23 09:37 Operation Date: 06/17/23 11:05 Proposed Procedures p REVISION LEFT TOTAL KNEE ARTHROPLASTY 30896,T84.84XS,T84.54XS(Left) - Concepcion Ron MD Was Beta Amadeo taken within 24 hours: N/A Was Clonidine taken within 24 hours: N/A Last intake: Intake Last Liquid Date 06/16/23 Last Liquid Time 21:00 Last Solid Date 06/16/23 Last Solid Time 23:00 Social No alcohol and No tobacco Exam alert, oriented x 3, clear to auscultation bilaterally and regular rate & rhythm Airway Submandibular: within normal limits Cervical ROM: within normal limits Mallampati: Class III Dentition: full History/ROS No significant history except as noted and No significant complaints Pulmonary Sleep Apnea CV/HEM Coronary Artery Disease Anesthetic Plan ASA status: 3 Anesthesia: General and Regional (specify below) Other: Spinal anesthesia, GA with LMA backup, Adductor canal block for post-op pain Risk of > 500 ml blood loss (7ml/kg in children): Yes, adequate IV access and fluids planned Medications/Allergies Home Medications Medication Instructions Recorded Confirmed Last Taken Type duloxetine 60 mg capsule,delayed 60 mg PO DAILY 11/24/19 06/17/23 06/17/23 07:30 History release (Cymbalta) cholecalciferol (vitamin D3) 50 50 mcg PO DAILY 10/06/20 06/16/23 06/10/23 History mcg (2,000 unit) capsule (Vitamin D3) vitamin E 200 unit capsule 200 unit PO DAILY 10/06/20 06/16/23 06/10/23 History zinc 50 mg capsule 50 mg PO DAILY 10/06/20 06/16/23 06/10/23 History acetaminophen 500 mg tablet 1,000 mg PO Q8H #0 tabs 12/08/20 06/16/23 06/10/23 Rx Tumeric 1,000 mg PO DAILY 01/05/21 06/16/23 06/10/23 History lisinopril 20 mg tablet 10 mg PO DAILY 09/17/22 06/16/23 06/16/23 History xomuzkkwlb-lkumwfpiklazj-hhpsgocy 1 cap PO Q6H PRN Migraine Headache 02/03/23 06/16/23 06/10/23 History 50 mg-325 mg-40 mg capsule lidocaine 5 % topical patch 1 patch topical DAILY PRN Pain 02/03/23 06/16/23 06/10/23 History salmon oil 1,000 mg-omega-3 fatty 1 cap PO DAILY 02/03/23 06/16/23 06/10/23 History acids 210 mg capsule ascorbic acid (vitamin C) 1,000 mg 500 mg PO DAILY 02/12/23 06/16/23 06/10/23 History tablet (Vitamin C) aspirin 81 mg tablet,delayed 81 mg PO DAILY 02/12/23 06/16/23 06/10/23 History release miconazole nitrate 2 % topical 1 applic topical DAILY PRN Rash 02/12/23 06/16/23 06/10/23 History cream prazosin 1 mg capsule 1 mg PO QPM 02/12/23 06/16/23 06/16/23 History magnesium 200 mg tablet 200 mg PO DAILY 06/10/23 06/16/23 06/10/23 History naproxen sodium 220 mg tablet 220 mg PO BID PRN Pain 06/10/23 06/16/23 06/10/23 History Allergies Allergy/AdvReac Type Severity Reaction Status Date / Time rocuronium Allergy Severe ADR/ALGY-Hy Verified 06/16/23 12:57 potension vancomycin Allergy Severe ADR/ALGY-Hy Verified 06/16/23 12:57 potension latex Allergy Unknown Verified 06/16/23 12:57 bumble bee Allergy ALGY-Anaphy Uncoded 06/04/23 10:59 laxis Current Medications Generic Name Dose Route Start Last Admin Trade Name Freq PRN Reason Stop Dose Admin Sodium Chloride 1,000 mls @ 30 mls/hr 06/17/23 09:30 06/17/23 10:26 Sodium Chloride 0.9% IV 06/18/23 09:29 30 mls/hr .Q24H TAMIA Administration Ondansetron HCl 4 mg 06/17/23 09:24 06/17/23 10:33 Ondansetron 2 Mg/Ml Sdv 2 Ml IVP 4 mg ONCE PRN Administration NAUSEA AND VOMITING PFSH Anesthesia Medical History Cardiac dysrhythmia Cervical disc disease Fibromyalgia Hypothyroidism Osteoarthritis of carpometacarpal (CMC) joint of left thumb Surgical History History of ankle surgery x2 left ankle History of carpal tunnel release 2001 History of total knee arthroplasty Date of Procedure: 10/17/20 Left [employer] total knee system with a size 6 triathlon beaded posterior stabilized femur left, a triathlon titanium tibial component size 6 beaded, a triathlon X3 posterior stabilized tibial bearing insert size 6 X 11 mm and a beaded triathlon titanium asymmetric patella size 35 x 10 mm Hx of colonoscopy with polypectomy Hx of hernia repair Hx of removal of cyst head, right wrist Hx of spinal surgery Hx of thumb surgery Social History Smoking and tobacco status: never smoked Alcohol intake: never Substance/Drug Use: never Data Anesthesia Cardiac Studies: Echocardiogram Ultrasound 11/23/20
--- NOTE | 2023-06-17 10:54 | ECG_ITS ---
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 Measurements Intervals [place] Rate: 42 P: 29 NC: 166 QRS: -7 QRSD: 104 T: 24 QT: 433 QTc: 364 Interpretive Statements SINUS BRADYCARDIA LOW QRS VOLTAGE IN PRECORDIAL LEADS [QRS DEFLECTION < 1.0 mV IN CHEST LEADS] Compared to ECG 02/05/2023 10:19:57 Low QRS voltage now present Myocardial infarct finding no longer present Electronically Signed On 06-17-2023 21:14:34 CDT by Poncho Patel M.D. [id number]
[2023-06-17] MEDS: tranexamic acid 1,000 mg/10mL SDV 1000 MG IV (11:55)
[2023-06-17] MEDS: ceFAZolin 1,000 mg SDV 1000 MG IRRIGATION (11:59)
[2023-06-17] MEDS: ceFAZolin 1,000 mg SDV 3000 MG IRRIGATION (11:59)
[2023-06-17] MEDS: BUPivacaine liposome 13.3 mg/mL SDV 10 mL 266 MG INFILTRATI (12:50)
[2023-06-17] MEDS: BUPivacaine 0.5% INJ 30 mL 20 ML INJECTION (12:50)
--- NOTE | 2023-06-17 14:03 | XRR_ITS ---
PROCEDURE INFORMATION: Exam: XR Left Knee Exam date and time: 06/17/2023 2:10 PM Age: 67 years old Clinical indication: Device placement; Other: Left knee revision; Prior surgery; Surgery date: Post-operative (0-2 days) TECHNIQUE: Imaging protocol: Radiologic exam of the left knee. Views: 1 or 2 views. COMPARISON: CR XR knees AP WB w LT lmt ORTH 03/17/2023 9:07 AM FINDINGS: Bones/joints: Single lateral view shows apparent interval removal of arthroplasty hardware with new partially imaged superior approach intramedullary hardware at the proximal tibia. Soft tissues: Unremarkable. XR/XR knee LT 1-2V [id number] IMPRESSION: Interval postsurgical changes as above.
--- NOTE | 2023-06-17 17:17 | XRR_ITS ---
PROCEDURE INFORMATION: Exam: XR Left Knee Exam date and time: 06/17/2023 5:25 PM Age: 67 years old Clinical indication: Device placement; Joint replacement hardware; Prior surgery; Surgery date: Post-operative (0-2 days); Surgery type: Knee arthroplasty; Additional info: Status post left total knee arthroplasty TECHNIQUE: Imaging protocol: Radiologic exam of the left knee. Views: 1 or 2 views. COMPARISON: CR XR knee LT 1-2V [id number] 06/17/2023 2:10 PM FINDINGS: Bones/joints: The patient has had a left knee arthroplasty with long intramedullary stems. There are no adverse findings. Lower [place] bone is unremarkable. New line postoperative soft tissue changes are seen including multiple anterior skin day. Soft tissues: See Bones/joints finding. XR/XR knee LT 1-2V [id number] IMPRESSION: Normal appearing postoperative left knee arthroplasty.
--- NOTE | 2023-06-17 17:27 | P.OP_ITS ---
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 Post-op findings: Well fixed temporary total knee arthroplasty following removal of hardware for infection. Procedure done: Revision total knee arthroplasty with removal of hardware and reimplantation with complete synovectomy Implants: The [employer] total knee system with a size 5 left triathlon total stabilizer cemented the femoral component, a size 5 left central femoral cone augment, a size 50 femoral stem supervisor screen printing with a size 15 mm x 50 mm triathlon total knee cemented stem and distal augments size 5 x 10 mm both medial and lateral. Size 6 universal cemented tibial baseplate with a size B tibial symmetric cone augment, a 25 mm stem supervisor screen printing, and a 15 mm x 50 mm cemented total knee stem. A size 6 x 13 mm total stabilizer tibial insert, and an asymmetric patella size 40 x 11 mm. Specimens removed/disposition: Bone, disposed of Pathology: Synovium for Gram stain and culture Surgeon: Concepcion Ron MD Web Site Manager: [facility] operating room technicians Anesthesia: General (Spinal converted to general anesthesia per LMA) and Spinal (With adductor block, ASA 3.) Estimated blood loss (mL): 300 Tourniquet time (min): 118 (At 250 mmHg) IV fluids (mL): 2,000 Urine output (mL): 300 Complications: None Findings: Significant synovitis with clear fluid. Well fixed temporary components, cemented. Condition: stable Disposition: PACU (Then to floor for postoperative rehabilitation and pain management) Brief History: This is an established 67 year old male who presents today for removal of temporary components following removal of primary total knee for infection 2 years following the total knee arthroplasty. The patient has had outpatient work-up including Synovasure and in-hospital cultures which were negative. He is now ready for removal of temporary prosthesis and reimplantation. Previous diagnosis is infected left total knee arthroplasty with very thickened synovium and purulent fluid.? Procedure done:Removal total knee arthroplasty implants, Insertion nonbiodegradable drug delivery implant, Complete synovectomy with irrigation.? Implants: The [employer] knee system with a size 7 cemented cruciate retaining femoral component and a size 7 x 8 mm all polyethylene tibial implant, cruciate retaining, cemented.? Cement utilized was Simplex P with full dose tobramycin and additional tobramycin added for a total of 2.2 g per batch of cement.?Patient states he has had his PICC line removed and not had to follow up with Dr. Roy recently. As the patient has tested negative on aspiration, he is ready for reimplantation. Procedure: The patient was brought to the operating theater, and after undergoing adequate spinal anesthesia with MAC and preoperative regional block, ASA 3, the left lower extremity was prepped and draped in usual fashion following placement of a tourniquet high on the leg. The leg was then draped free with the prepping accomplished with DuraPrep. Following prepping and draping, the leg was exsanguinated, and the tourniquet was elevated to 250 mmHg for total tourniquet time of 118 minutes. Prior to elevation of the tourniquet the following exposure of the site of surgery, a surgical pause was performed. At the time of the surgical pause we confirmed the site and side of surgery. Additionally, we confirmed the preoperative antibiotic had not been given until following cultures. Following the cultures, the patient was given Ancef 2 g. The availability of equipment was confirmed, and the patient's identity was verbalized as well. Following the surgical pause, an incision was made centering over the patella continuing proximally and distally as necessary to allow access to the knee joint. Dissection continued through skin and soft tissues using a scalpel. The midline skin incision followed the patient's previous incisions. Hemostasis was obtained using electrocautery. The patient had had a previously extensive lateral release and opening along the lateral aspect of the patella secondary to prior infected knee prosthesis and the extensive surgery required for its removal and implantation of temporary prostheses. There was significant edematous scar tissue and fibrous tissue within the joint. The complete synovectomy was accomplished along with removal of all of this other tissue that had formed secondary to his extensive inflammatory reaction. The fluid upon entry into the joint was clear. Tissue was sent for culture and Gram stain. Further debridement was required to allow the patella to be mobile enough to access the knee joint. Osteotomes were utilized to remove the femoral component from the distal femur. Minimal bone loss was a result of removal of this portion of the component. Cement was removed from the area. The femur was evaluated. Additionally, the tibial component was removed. This was an all poly tibia. Osteotomes were used on the cement followed by a saw. We were able to soft through the stem of the tibia to remove it. Following removal of the tibial tray, we had to use osteotomes around the stem as well as drills to remove the polyethylene and cement that was down the tibial canal. Once we had appropriately debrided the femur and tibia, as well as accomplished complete synovectomy and soft tissue debridement, attention was directed to reimplantation. Antibiotics, Ancef 2 g, was administered. Initially, attention was directed to the tibia. Sequential reamers were placed into the tibia to allow preparation for the cemented tibial stem. A reamer was left in position. The jig was placed on the proximal tibia. It was set so that approximately 1 mm of bone would be removed from the proximal tibia. There was a small defect medially, but it was felt that we had good surface for implantation of the tibia. Once this had been reamed, there is reamer for the symmetric cone augment was placed into position. We were able to ream to a size B tibial symmetric cone augment. At that point, we also had reamed to allow for a 25 mm stem supervisor screen printing and a 15 mm diameter by 50 mm cemented stem. This construct was put together after the tibia had been resected proximally drilled and broached for the tibial tray. The tray fitted nicely and had excellent coverage and appropriate rotation. At this point, attention was directed to the femur. Reamers were placed into the distal femur. These passed without difficulty. Reaming was accomplished and over one of the reamers was placed the femoral jig. The jig was for a size 5 femoral component. Anterior posterior and chamfer cuts were accomplished. The chamfer cuts took very minimal bone. We were uncertain as to whether we would need augmentation, and initially trials were accomplished with no augments on either the femur or tibia. Once reaming was accomplished of the femoral canal, we then reamed for the central femoral cone augment. This cone was a size 5 for a left knee. The femoral trial was put together and trial reduction was accomplished with the size 6 tibial tray in position. Sequentially, we increased the size of the tibial insert. The patient had patellar Baha consistent with his significant previous surgeries, so we did not want to elevate the joint line significantly. Femoral component was removed and a 5 mm augments were initially placed. The knee was placed back through trial reduct ions. Once again, the tibial tray increased in size, and the decision was made to increase to 10 mm augments medially and laterally. Because of the 10 mm augments medially and laterally we added to the stem supervisor screen printing. Therefore the plan was for a size 5 total stabilizer femoral component for the left knee with a central femoral cone augment size 5 left with a 50 mm stem supervisor screen printing and a 15 mm diameter by 50 mm cemented stem. When this construct was placed in position, we had full extension and excellent stability with a size 6 x 13 total stabilizer tibial insert. These were to be the chosen components. Trial components were removed. Although the patella was thinned, there was significant space between the patella and the femoral component. For this reason, we elected to resurface the patella which had been previously resurfaced. Resection of the articular side of the patella was accomplished using a saw. We were unable to use any jigs. Minimal resection was accomplished to allow maintenance of bone. The patella was measured and measured an asymmetric 40 x 11 mm. Jig was placed in position and patellar drill holes were made for cementing. With all trial components removed, Exparel was injected around the bony surfaces and soft tissues. Following injection of Exparel, the wound was copiously irrigated and dried for cementing. We had dropped the tourniquet earlier after 118 minutes. The tourniquet was not really elevated. Cementing was accomplished first of the tibia followed by the femur followed by the patella. Components were impacted into position as cement was placed into each bony surface. Prior to cementing, components were put together on the back table and appropriate construction of the components was confirmed. Components were cemented uneventfully. The tibial tray was placed into position and the leg was held in an extended position until the cement had fully cured. Care was taken to remove all extruded cement prior to the cement curing. Cement utilized was Simplex with tobramycin and speed set. Once the components were cemented into position, the knee was copiously irrigated with 20 mL of Betadine and 500 mL of normal saline. This was irrigated out with normal saline after had been in the knee 4 to 5 minutes. Once the cement had fully cured, the knee was again copiously irrigated and suctioned dry. Attention was directed to closure. Closure was accomplished with 0 Vicryl in the fascial tissues. This was supplemented with strata fix. The strata fix was placed proximal to distal and a second strata fix was placed distal to proximal. This was along the medial arthrotomy line. Once that had been closed, the knee was again irrigated. Surgiflo was placed into the following this, subcutaneous tissues were closed with 2-0 Monocryl in an interrupted fashion into the soft tissues. The skin was closed with skin day. This was followed by Steri-Strips and Silverlon dressing. Hank wrap was then placed over sterile soft roll. The patient was returned to the recovery room in satisfactory condition and will be discharged to the floor for postoperative rehabilitation. X-rays were obtained in the recovery room and were satisfactory. There were no complications. As noted above, specimen was sent for Gram stain. Related Problem List Diagnoses (1) Infection of total left knee replacement: (2) History of total knee arthroplasty:
--- NOTE | 2023-06-17 17:47 | ANE.PACU2 ---
Inpatient post-anesthesia follow up: Airway intact: Yes Vital signs: Temperature 97.6 F Pulse Rate 48 Respiratory Rate 16 Blood Pressure 137/86 Pulse Oximetry 96 Oxygen Delivery Me thod Room Air Oxygen Flow Rate Fraction of Inspir ed Oxygen Hydration adequate: Yes Nausea and vomiting: No Pain level: 2 Mental status: Baseline
--- NOTE | 2023-06-17 18:12 | PC.NURSE ---
Oral airway removed @ 1731. Good pedal pulses.
[2023-06-17] MEDS: sennosides-docusate Tablet 2 TAB PO (18:58)
[2023-06-17] MEDS: calcium carbonate 500 mg Chew Tablet 1000 MG PO (18:58)
[2023-06-17] MEDS: mupirocin oint 22 gm 1 APPLIC NASAL (18:58)
[2023-06-17] MEDS: prazosin 1 mg Capsule PO (18:58)
[2023-06-17] MEDS: iron polysaccharide complex 150 mg Capsule PO (18:58)
[2023-06-17] MEDS: ceFAZolin 2,000 MG in sodium chloride 0.9% (plus) 50 ML 100 MG IV (22:17)
[2023-06-18] VITALS (8 sets, daily range): BP systolic 107–125; BP diastolic 55–70; PULSE 56–62; RESP 16–18; TEMP 36.4–36.7; O2SAT 91–95
[2023-06-18] MEDS: oxyCODONE 5 mg IR Tab/Cap PO ×3 (03:01→12:19)
[2023-06-18] MEDS: acetaminophen 1,000 MG/100 ML PIGGYBACK 400 MG IV ×2 (03:52→12:19)
[2023-06-18] MEDS: ceFAZolin 2,000 MG in sodium chloride 0.9% (plus) 50 ML 100 MG IV ×2 (04:08→12:41)
[2023-06-18 05:15] LABS: Basophils % 0.4 %; Eosinophils % 0.4 %; Hematocrit 35.5 % (37-53); Lymphocytes # 0.9 10^3/uL (0.8-4.8); Lymphocytes % 8.8 %; Mean Corpuscular HGB Conc 31.8 g/dL (30-55); Mean Corpuscular Hemoglobin 29.6 pg (27-33); Mean Corpuscular Volume 92.9 fl (82-101); Mean Platelet Volume 9.4 fL (7.4-10.4); Monocytes # 1.4 10^3/uL (0.2-0.9); Monocytes % 13.8 %; Neutrophils # 7.54 10^3/uL (1.8-7.7); Nucleated Red Blood Cells % 0 %; Platelet Count 216 10^3/cmm (157-399); Red Blood Count 3.82 10^6/uL (3.85-5.65); Red Cell Distribution Width 13.7 % (12.1-15.1); White Blood Count 9.92 10^3/uL (3.29-11.43)
[2023-06-18 05:47] LABS: Anion Gap 14.9 (5-19); Blood Urea Nitrogen 25 mg/dL (8-23); Calcium 7.9 mg/dL (8.5-10.5); Carbon Dioxide 25 mmol/L (22-29); Chloride 102 mmol/L (98-107); Glomerular Filtration Rate 50.5 mL/min (90-130); Glucose 142 mg/dL (65-115); Osmolality Calculated 291 mOsm/kg (285-295); Potassium 4.9 mmol/L (3.5-5.1); Sodium 137 mmol/L (136-145)
[2023-06-18] MEDS: sennosides-docusate Tablet 2 TAB PO (08:14)
[2023-06-18] MEDS: mupirocin oint 22 gm 1 APPLIC NASAL (08:14)
[2023-06-18] MEDS: aspirin 325 mg EC Tablet PO (08:14)
[2023-06-18] MEDS: multivitamin therapeutic Tablet 1 TAB PO (08:14)
[2023-06-18] MEDS: duloxetine 60 mg Capsule PO (08:14)
[2023-06-18] MEDS: calcium carbonate 500 mg Chew Tablet 1000 MG PO (08:14)
[2023-06-18] MEDS: CELEcoxib 200 mg Capsule PO (08:14)
[2023-06-18] MEDS: cholecalciferol (vitamin D3) 1,000 unit Tablet 1000 UNIT PO (08:14)
[2023-06-18] MEDS: lisinopril 10 mg Tablet PO (08:15)
[2023-06-18] MEDS: iron polysaccharide complex 150 mg Capsule PO (08:15)
[2023-06-18] MEDS: chlorhexidine gluconate 0.12% Btl 473 mL 30 ML MUCOUS MEM (08:18)
--- NOTE | 2023-06-18 11:13 | PC.CHAP ---
Pastoral Care Encounter/Spiritual Assessment Type of Contact [] Declined platinum smith visit [] Patient/Family/Request visit [] Outpatient visit [] Follow-up visit [] Physician referral [] Code/Alert [x] Routine visit [] Staff referral [] Actively dying [] Patient sleeping [] Family support [] [] Out of room [] Palliative care [] [] Receiving care in room [] Pre-surgical visit [] Trauma [] Long length of stay [] ICU visit [] Other: Relational/Emotional Strength [] Patient feels connected with others/family/visitors/staff [] Distress [] Loneliness/isolation [] Abandonment Spirituality of Patient [x] Person of Alice [] Attends Yazidi of their Alice [x] Believes in Prayer [x] Reads Bible or Hindu materials [] There are Spiritual issues to be addressed Sapphire Stylus Grinder Interventions [x] Prayer [] Active listening [] Non-anxious presence [] Spiritual/emotional support [] Crisis/trauma care [] Spiritual counseling [] Bereavement support [] Provided bereavement packet [] Provided Bible/devotional materials [] Provided toy/stuffed animal, coloring book to patient or family member [] Provided Communion [] Anointing/[place] [] Salvation [] Completed spiritual assessment [] Other: Impact on Illness or Injury [] Angry [] Fearful [] Anxious [] Often cries [] Exhaustion [] Unable to work [] Unable to attend yazdanism [] Unable to walk/stand [] Unable to read [] Unable to drive [] Unable to eat/drink [] Unable to sleep [] Unable to be with family [] Patient intubated [] Other: Summary mel pemberton, had a wonderful converstion. About Scripture Time spent with patient 20 min
--- NOTE | 2023-06-18 13:36 | P.DS_ITS ---
Discharge Providers Date of Admission: 06/17/23 21:51 Date of Discharge: June 18, 2023 Attending Provider at Admission: Concepcion Ron MD Attending Provider at Discharge: oCncepcion Ron MD Primary Care Provider: Ashley Mac MD Diagnoses at Discharge Discharge Diagnosis (1) History of revision of total replacement of left knee joint: Status: Acute Permanent problem details: Date of procedure: June 17, 2023 Pre-op Diagnosis: Infected left total knee arthroplasty following removal of original components, temporary total knee arthroplasty, and resolution of infection. 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 Procedure done: Revision total knee arthroplasty with removal of hardware and reimplantation with complete synovectomy Implants: The [place] total knee system with a size 5 left triathlon total stabilizer cemented the femoral component, a size 5 left central femoral cone augment, a size 50 femoral stem press clippings cutter and paster with a size 15 mm x 50 mm triathlon total knee cemented stem and distal augments size 5 x 10 mm both medial and lateral. Size 6 universal cemented tibial baseplate with a size B tibial symmetric cone augment, a 25 mm stem press clippings cutter and paster, and a 15 mm x 50 mm cemented total knee stem. A size 6 x 13 mm total stabilizer tibial insert, and an asymmetric patella size 40 x 11 mm. (2) Infection of total left knee replacement: Status: Acute Qualifiers: Encounter type: initial encounter Qualified Code(s): T84.54XA - Infection and inflammatory reaction due to internal left knee prosthesis, initial encounter Permanent problem details: Date of procedure: February 11, 2023 Diagnosis: Infected left total knee arthroplasty Procedure done: Removal total knee arthroplasty implants (CPT 74048) Assertion, nonbiodegradable drug delivery implant (CPT 32495-22,51) Complete synovectomy with irrigation Implants: The [employer] knee system with a size 7 cemented cruciate retaining femoral component and a size 7 x 8 mm all polyethylene tibial implant, cruciate retaining, cemented. Cement utilized was Simplex P with full dose tobramycin and additional tobramycin added for a total of 2.2 g per batch of cement (3) History of total knee arthroplasty: Status: Resolved Qualifiers: Laterality: left Qualified Code(s): Z96.652 - Presence of left artificial knee joint Permanent problem details: Date of Procedure: 10/17/20 Left [place] total knee system with a size 6 triathlon beaded posterior stabilized femur left, a triathlon titanium tibial component size 6 beaded, a triathlon X3 posterior stabilized tibial bearing insert size 6 X 11 mm and a beaded triathlon titanium asymmetric patella size 35 x 10 mm Reason for Visit Reason for Visit: 96759 T84.84xs Brief History: This is an established 67 year old male who presents today for removal of temporary components following removal of primary total knee for infection 2 years following the total knee arthroplasty.? The patient has had outpatient work-up including Synovasure and in-hospital cultures which were negative.? He is now ready for removal of temporary prosthesis and reimplantation.? Previous diagnosis is infected left total knee arthroplasty with very thickened synovium and purulent fluid.? Procedure done:Removal total knee arthroplasty implants, Insertion nonbiodegradable drug delivery implant, Complete synovectomy with irrigation.? Implants: The [employer] knee system with a size 7 cemented cruciate retaining femoral component and a size 7 x 8 mm all polyethylene tibial implant, cruciate retaining, cemented.? Cement utilized was Simplex P with full dose tobramycin and additional tobramycin added for a total of 2.2 g per batch of cement.?Patient states he has had his PICC line removed and not had to follow up with Dr. Roy recently.? As the patient has tested negative on aspiration, he is ready for reimplantation. Hospital Course Hospital Course Patient was admitted following revision surgery as outlined above. He tolerated the procedure well, and on the first postoperative day, he was comfortable and his pain was well managed on oral pain medications. He was independent in his activities, and plans were made for his discharge to home. There was no evidence of DVT or other postoperative complications. The patient did have bleeding requiring dressing change, but this was not unexpected. The patient was in agreement with discharge to home and will follow-up with me in the office as scheduled. Physical Exam Const: COMMON NORMALS: no acute distress, average body habitus, patient oriented x3 and alert GENERAL APPEARANCE: cooperative and comfortable ORIENTATION/CONSCIOUSNESS: Yes awake HENMT: COMMON NORMALS: normocephalic and atraumatic HEAD & SCALP: normocephalic and atraumatic Eye: GENERAL EYE: appearance normal, both eyes and all related structures Chest: COMMONS NORMALS: normal inspection of the chest Resp: COMMON NORMALS: normal respiratory effort EFFORT & INSPECTION: Yes able to speak in complete sentences and Yes symmetric chest movement Extremity: LEFT LOWER EXTREMITY: Yes knee joint (Patient had bleeding from the dressing.) Left knee: Yes inspection (No ecchymosis), Yes palpation (Minimal tenderness), Yes ROM (Able to straight leg raise) and Yes neurovascular exam (Intact distally) Neuro: COMMON NORMALS: patient oriented x3 SENSORIUM/ORIENTATION: Yes alert Psych: COMMON NORMALS: mental status grossly normal APPEARANCE: Yes grossly normal ATTITUDE: Yes calm and Yes engaged ATTENTION/CONCENTRATION: Yes attention grossly intact Skin: COMMON NORMALS: no rashes or lesions noted GENERAL SKIN EXAM: no rashes or lesions noted Urinary Catheter Management: Moon: Cath Placed During This Visit: yes, but has since been removed by the nurse Reason for Continuing Indwelling Catheter: Decision to DC Catheter Urinary Catheter Date of Insertion: 06/17/23 Urinary Catheter Time of Insertion: 11:45 Date Urinary Catheter Removed: 06/18/23 Time Urinary Catheter Discontinued: 06:03 Discharge Data Studies Completed and Pending Completed Studies During Hospitalization Category Date Time Status XR knee LT 1-2V 54257 Routine Exams 06/17/23 17:17 Completed XR knee LT 1-2V 96953 Stat Exams 06/17/23 14:03 Completed Pending at discharge Category Date Time Status Tissue Culture and Gram Stain Stat Lab 06/17/23 12:04 Results Radiology Impressions Knee X-Ray 06/17/23 17:17 IMPRESSION: Normal appearing postoperative left knee arthroplasty. Laboratory Results WBC 9.92 10^3/uL (3.29-11.43) 06/18/23 05:02 RBC 3.82 10^6/uL (3.85-5.65) L 06/18/23 05:02 Hgb 11.30 g/dL (11.27-16.99) 06/18/23 05:02 Hct 35.5 % (37-53) L 06/18/23 05:02 MCV 92.9 fl (82-101) 06/18/23 05:02 MCH 29.6 pg (27-33) 06/18/23 05:02 MCHC 31.8 g/dL (30-55) 06/18/23 05:02 RDW 13.7 % (12.1-15.1) 06/18/23 05:02 Plt Count 216 10^3/cmm (157-399) 06/18/23 05:02 MPV 9.4 fL (7.4-10.4) 06/18/23 05:02 Neut % (Auto) 76.0 % 06/18/23 05:02 Lymph % (Auto) 8.8 % 06/18/23 05:02 [place] % (Auto) 13.8 % 06/18/23 05:02 Eos % (Auto) 0.4 % 06/18/23 05:02 Baso % (Auto) 0.4 % 06/18/23 05:02 Neut # (Auto) 7.54 10^3/uL (1.8-7.7) 06/18/23 05:02 Lymph # (Auto) 0.9 10^3/uL (0.8-4.8) 06/18/23 05:02 [place] # (Auto) 1.4 10^3/uL (0.2-0.9) H 06/18/23 05:02 Eos # (Auto) 0.0 10^3/uL (0.0-0.8) 06/18/23 05:02 Baso # (Auto) 0.0 10^3/uL (0.0-0.1) 06/18/23 05:02 Nucleated RBC % (auto) 0 % 06/18/23 05:02 Nucleated RBCs # 0.0 /100WBC 06/18/23 05:02 Sodium 137 mmol/L (136-145) 06/18/23 05:02 Potassium 4.9 mmol/L (3.5-5.1) 06/18/23 05:02 Chloride 102 mmol/L (98-107) 06/18/23 05:02 Carbon Dioxide 25 mmol/L (22-29) 06/18/23 05:02 Anion Gap 14.9 (5-19) 06/18/23 05:02 BUN 25 mg/dL (8-23) H 06/18/23 05:02 Creatinine 1.4 mg/dL (0.7-1.2) H 06/18/23 05:02 GFR Calculation 50.5 mL/min (90-130) L 06/18/23 05:02 Glucose 142 mg/dL (65-115) H 06/18/23 05:02 Calculated Osmolality 291 mOsm/kg (285-295) 06/18/23 05:02 Calcium 7.9 mg/dL (8.5-10.5) L 06/18/23 05:02 Vitals Last Vital Signs Temp 98.0 F 06/18/23 11:24 Pulse 62 06/18/23 11:24 Resp 18 06/18/23 12:19 BP 107/55 06/18/23 11:24 Pulse Ox 95 06/18/23 11:24 O2 Del Method Room Air 06/18/23 11:24 O2 Flow Rate 8 06/17/23 17:55 Discharge Plan Discharge Patient Disposition: Home Health Service Condition: Stable Prescriptions: New celecoxib 200 mg Capsule 200 mg PO DAILY 30 Days Qty: 30 1RF aspirin 325 mg Tablet,Delayed Release (Dr/Ec) 325 mg PO DAILY 30 Days Qty: 30 0RF oxycodone 5 mg Tablet 5 mg PO Q4H PRN (Reason: Moderate Pain) 7 Days Qty: 30 0RF Continued duloxetine [Cymbalta] 60 mg capsule,delayed release(DR/EC) 60 mg PO DAILY lisinopril 20 mg tablet 10 mg PO DAILY Hold Instructions: Resume on 12/03/20. Tumeric 1,000 mg PO DAILY lfszlbianv-uesaoqqtldxsp-xfmc 50-325-40 mg capsule 1 cap PO Q6H PRN (Reason: Migraine Headache) lidocaine 5 % adhesive patch,medicated 1 patch topical DAILY PRN (Reason: Pain) Rx Instructions: leave on most painful area for up to 12 hrs salmon oil-omega-3 fatty acids 1,000-210 mg capsule 1 cap PO DAILY magnesium 200 mg tablet 200 mg PO DAILY acetaminophen 500 mg Tablet 1,000 mg PO Q8H Qty: 0 0RF vitamin E 200 unit Capsule 200 unit PO DAILY zinc 50 mg Capsule 50 mg PO DAILY cholecalciferol (vitamin D3) [Vitamin D3] 50 mcg (2,000 unit) Capsule 50 mcg PO DAILY miconazole nitrate 2 % Cream 1 applic TOPICAL DAILY PRN (Reason: Rash) prazosin 1 mg Capsule 1 mg PO QPM ascorbic acid (vitamin C) [Vitamin C] 1,000 mg Tablet 500 mg PO DAILY Held naproxen sodium 220 mg tablet 220 mg PO BID PRN (Reason: Pain) Hold Instructions: Resume on 07/18/23. May resume after Celebrex. Continue Celebrex if it works better for you. aspirin 81 mg Tablet,Delayed Release (Dr/Ec) 81 mg PO DAILY Hold Instructions: Resume on 03/15/23. Resume when you have completed 1 full strength aspirin daily for 30 days Discharge Orders: Discharge Order (Routine); Ordered 06/18/23 Ordered By: Concepcion Ron Referrals: [facility] ([facility]) [Outside] Concepcion Ron MD [Physician] - 06/30/23 10:30 am Discharge Diet: Advance as tolerated and Usual diet Discharge Activity: Limit activity as instructed, Use walker/crutches as instructed and As per PT/OT instructions Patient Instructions: Aspirin (By mouth), Celecoxib (By mouth), Oxycodone, Slow Release (By mouth), Joint Replacement Surgery (DC), Opioid Safety Activity Restrictions/Additional Instructions: Weightbearing as tolerated. Range of motion, gait training, and ambulation per physical therapy instructions. You may shower and get the knee wet once your large outer dressing is off. Maintain Silverlon dressing until it comes off on its own or you are seen in our clinic. Elevate left lower extremity, Discharge Attestations Time Spent in Discharge Care*: greater than 30 min Specific Discharge Activities: educating patient, documenting/other paperwork and evaluating patient/reviewing data Quality Metrics Clinical Quality Measures [ No reported AMI, CVA or VTE this stay] Coding Level of Care Code Acute Code for Chg Fwd Diagnoses History of revision of total replacement of left knee joint Z96.652 Infection of total left knee replacement T84.54XA Encounter type: initial encounter History of total knee arthroplasty Z96.652 Laterality: left
--- NOTE | 2023-06-18 13:43 | PM.OP ---
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 Surgeon: Concepcion Ron MD Procedure: Date of procedure: June 17, 2023 Pre-op diagnosis: Infected left total knee arthroplasty following removal of original components, temporary total knee arthroplasty, and resolution of infection. 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 Post-op findings: Well fixed temporary total knee arthroplasty following removal of hardware for infection. Procedure done: Revision total knee arthroplasty with removal of hardware and reimplantation with complete synovectomy ? Implants: The [employer] total knee system with a size 5 triathlon total stabilizer cemented the femoral component, a size 5 left central femoral cone augment, a size 50 femoral stem geriatric nurse practitioner with a size 15 mm x 50 mm triathlon total knee cemented stem and distal augments size 5 x 10 mm both medial and lateral.? Size 6 universal cemented tibial baseplate with a size B tibial symmetric cone augment, a 25 mm stem geriatric nurse practitioner, and a 15 mm x 50 mm cemented total knee stem.? A size 6 x 13 mm total stabilizer tibial insert, and an asymmetric patella size 40 x 11 mm. Specimens removed/disposition: Bone, disposed of Pathology: Synovium for Gram stain and culture Surgeon: Concepcion Ron MD Special Loan Officer: [facility] operating room technicians Anesthesia: General (Spinal converted to general anesthesia per LMA) and Spinal (With adductor block, ASA 3.) Estimated blood loss (mL): 300 Tourniquet time (min): 118 (At 250 mmHg) IV fluids (mL): 2,000 Urine output (mL): 300 Complications: None Findings: Significant synovitis with clear fluid.? Well fixed temporary components, cemented. Condition: stable Disposition: PACU (Then to floor for postoperative rehabilitation and pain management) Brief History: This is an established 67 year old male who presents today for removal of temporary components following removal of primary total knee for infection 2 years following the total knee arthroplasty.? The patient has had outpatient work-up including Synovasure and in-hospital cultures which were negative.? He is now ready for removal of temporary prosthesis and reimplantation.? Previous diagnosis is infected left total knee arthroplasty with very thickened synovium and purulent fluid.? Procedure done:Removal total knee arthroplasty implants, Insertion nonbiodegradable drug delivery implant, Complete synovectomy with irrigation.? Implants: The [employer] knee system with a size 7 cemented cruciate retaining femoral component and a size 7 x 8 mm all polyethylene tibial implant, cruciate retaining, cemented.? Cement utilized was Simplex P with full dose tobramycin and additional tobramycin added for a total of 2.2 g per batch of cement.?Patient states he has had his PICC line removed and not had to follow up with Dr. Roy recently.? As the patient has tested negative on aspiration, he is ready for reimplantation. Procedure: The patient was brought to the operating theater, and after undergoing adequate spinal anesthesia with MAC and preoperative regional block, the right lower extremity was prepped and draped in usual fashion following placement of a tourniquet high on the leg. The leg was then draped free with the prepping accomplished with DuraPrep. Following prepping and draping, the leg was exsanguinated, and the tourniquet was elevated to 250 mmHg for total tourniquet time of 133 minutes. Prior to elevation of the tourniquet the following exposure of the site of surgery, a surgical pause was performed. At the time of the surgical pause we confirmed the site and side of surgery. Additionally, we confirmed the appropriate and timely administration of preoperative antibiotics. The availability of equipment was confirmed, and the patient's identity was verbalized as well. Following the surgical pause, an incision was made centering over the patella continuing proximally and distally as necessary to allow access to the knee joint. Dissection continued through skin and soft tissues using a scalpel. Hemostasis was obtained using electrocautery. The midline skin incision was followed by a median parapatellar arthrotomy. The leg was extended and the patella was everted. Following this the leg was returned to flexed position.? Cultures were taken at this time of the synovial fluid.? Also, there was a synovectomy performed.? There was actually evidence of small metal debris within the knee as well.? The distal femur was exposed and a drill hole was made in this for placement of the distal femoral jig. The distal femoral jig was set at 5? of valgus. The distal femoral cutting block was then placed in appropriate position at 8 mm of bony resection, and an wanda wing was used to confirm an appropriate amount of distal femur would be resected.? The distal femoral resection was accomplished. After the distal femoral resection had been accomplished the femur was measured and it measured a size 3. Anterior posterior dimension was a size 3 as well. ? A size 3 femoral cutting block was placed in position and we were then able to accomplish the anterior, posterior and chamfer cuts. This jig was then removed and the notch guide was placed in position. With the notch guide in appropriate position the notch was excised including resection of the anterior and posterior cruciate ligaments. This notch was to allow for the posterior stabilized femoral component. Secondary to the need for revision components, at this point, sequential reamers were placed into the distal femur.? These were passed without difficulty.? We wanted to bypass the distal screw holes by approximately 2 femoral diameters.? Additionally, we wanted to be below the gamma nail which had been previously placed as well.? We reamed to allow for a size 14 femoral stem.? We had some question as to whether or not we would use of 15, however, intraoperative x-rays were obtained and it was felt that the 15 would put too much stress on the anterior cortex.? Therefore, we did choose a 14 mm x 100 mm stem length.? X-rays also demonstrated that we needed to have slightly increased lengths and therefore, a stem geriatric nurse practitioner was placed on the revision femoral component as well.? At this point, the femur was prepared and attention was directed to the proximal tibia. The posterior knee retractor was placed very carefully secondary to the severe osteopenia of the patient's distal femur along with medial and lateral retractors. Further resection of the menisci were accomplished as we had better visualization. A complete meniscectomy was performed both medially and laterally with care being taken to protect the popliteus. Retractors were then placed so that the proximal tibia was well visualized. A drill hole was then made in the tibia for placement of the intramedullary guide. This guide was placed to balance out the bone loss medially with appropriate retraction laterally.? Laterally, we did resect approximately 9 mm of bone.? Medially, we resected the medial two thirds of the tibial plateau, but there was enough bone loss along the most medial aspect of the medial tibial plateau that we had to resect cartilage and subsequently fill-in with cement.? Once the jig had been placed in appropriate position, attention was directed to resection of the proximal tibia. The intramedullary guide was utilized supplemented with an extra medullary guide to assure appropriate alignment for the proximal tibial resection. The proximal tibial jig was then evaluated, pinned in position, and the proximal tibial resection was accomplished without difficulty. The jig was removed and the proximal tibia was measured. It measured a size 3. We then performed a trial reduction with a 9 mm insert into the size 3 tray. The femoral component was placed in position and the knee was placed through range of motion.? We subsequently increased the height of the tibial insert from a 9 mm through 11 mm in up to 13 mm.? This did require balancing with medial release.? The 13 mm was chosen and with that we did have full extension.? There was good stability.? The tibial tray was pinned in position.? We then reamed and prepared for a stem here as well.? Sequential reamers were passed.? We also reamed proximally for placement of a tibial cone augment.? This was a size B augment.? The trial reduction was then accomplished with this tibial cone augment as well as the tibial tray and we were pleased with the appearance of the prosthesis.? It was at this point, we also obtained the x-ray and determined that we were pleased with the fit and position of the stems. Attention was then directed to the patella. The patella was measured with a caliper.? We resected about 7 mm of the patella which left remaining approximately 13 mm. Measurements of the patella then indicated that a size asymmetric 29 mm x 9 mm was the appropriate patellar size. We then placed the jig to drill for the 3 pegs of the patella, and these drill holes were made without incident. A trial patella was then placed, and the knee was placed through range of motion. The patella was noted to track nicely without evidence of subluxation. All trial components were subsequently removed.? All surfaces were copiously irrigated in preparation for cementing, this included a pin on power in the sclerotic areas of the medial tibial plateau and patella. The surfaces were then dried and a bone plug was placed into the distal femur. Cementing was accomplished with Simplex with tobramycin, 2 batches, and one speed set Simplex. This gave us excellent working time. Cement was placed initially under the tibial component, and the cone augment was pushed onto the distal tibia.? Care was taken to avoid cementing of the stem.? The tibia was impacted into position. Similarly the femur was impacted into position after cement was laid onto the distal femoral component avoiding cementing the stem. All components were impacted into position and excess cement was removed from around both components. The tibial tray was placed during the cementing process so that we could place the knee in extended position while the cement was allowed to fully cure. The patella was also cemented at this point in time and held with a patellar clamp. Once again excess cement was cleared from around the patellar component as well. The knee was held in the extended position until cement was allowed to fully cure. During that time we irrigated the knee with 20 mL of Betadine and 500 mL of normal saline and this was allowed to remain in the knee for 3-4 minutes. Once the cement had fully cured, all surfaces were reevaluated for further extruded cement and where this was found it was excised. Once the cement had fully cured and excess cement was cleared, the knee was then copiously irrigated and suctioned dry.? Exparel was placed.? Attention was then directed to closure. Closure was accomplished with 0 Vicryl in the fascial tissues, 2-0 Monocryl was used in the subcutaneous tissues, and the skin was closed with skin day. A sterile dressing was then placed consisting of Xeroform gauze, 4 x 4's, ABDs, sterile soft roll, and an Hank wrap. The patient was returned the Recovery Room in a satisfactory condition. X-rays were obtained there. The patient will be discharged to the floor for postoperative rehabilitation and pain management. There were no specimens and no complications.
== END 2023-06-18 15:40 | disposition home health service (06) | DRG 941 ==
LOC: MEDSURG 16:56
PROVIDERS: Admitting Provider Specialist; PCP Family Medicine; Visit Provider Specialist
PROC: 0SRD0J9 Replacement of Left Knee Joint with Synthetic Substitute, Cemented, Open Approach (ICD-10-PCS; principal; 2023-06-17 10:35)
DX: T84.54XD Infection and inflammatory reaction due to internal left knee prosthesis, subsequent encounter (principal); Y79.8 Miscellaneous orthopedic devices associated with adverse incidents, not elsewhere classified; M79.7 Fibromyalgia; E03.9 Hypothyroidism, unspecified; Z86.14 Personal history of Methicillin resistant Staphylococcus aureus infection
CPT/HCPCS: 36415; 51702; 73560; 80048; 85025; 87070; 87176; 87205; 93005; 97110; 97116; 97161; 97165; C1713; C1776; C9290; G0378; J0131; J0171; J0360; J0690; J1170; J2250; J2405; J2704; J2795; J3010; J3490; J7030

== ENCOUNTER 2023-06-27 11:48 | Inpatient (IN) | payer OTHER, SELFPAY ==
[2023-06-27] VITALS (15 sets, daily range): BP systolic 103–136; BP diastolic 49–73; PULSE 70–88; RESP 15–21; TEMP 37.4–37.8; O2SAT 92–97; BMI 33.5
--- NOTE | 2023-06-27 13:21 | ED_ITS ---
HPI - Fever General: Chief Complaint: Fever Stated Complaint: possible left knee infection Time Seen by Provider: 06/27/23 13:10 History of Present Illness: This 67-year-old male presents to the ER with left knee swelling, redness and pain. He had a revision of of a left total knee replacement on 06/17/2023. He was able to put weight on that leg until yesterday when he became unable to walk because of pain. His home health nurse came around today and advised him that the knee looks infected and that he needs to come to the ER for evaluation. He reports having fevers at home. Here in the ER, he has a temperature of 100.3. He reports nausea but no vomiting. Patient denies chest pain or shortness of breath. Associated symptoms: Deny chills, chest pain, dysuria or headache(s) Review of Systems Const: Denies: chills, body aches or change in appetite Eyes: Denies: change in vision or eye discharge ENMT: Denies: throat pain, dental pain or nasal discharge Card: Denies: chest pain or lightheadedness : Denies: dysuria Musc: Reports: joint pain (Left knee), joint swelling (Left knee), joint redness (Left knee) and limited range of motion (Left knee); Denies: neck pain or back pain Neuro: Denies: headache(s) or weakness in extremities Psych: Denies: depression Tutu/Lymph: Denies: easy bruising All/Imm: Denies: urticaria, tongue swelling or facial swelling PFS ED PFSH: Medical History (Updated 06/27/23 @ 17:58 by Alberto Avalos MD) Cardiac dysrhythmia Cervical disc disease Fibromyalgia Hypothyroidism Osteoarthritis of carpometacarpal (CMC) joint of left thumb Primary osteoarthritis of right knee Surgical History History of ankle surgery x2 left ankle History of carpal tunnel release 2001 History of total knee arthroplasty Date of Procedure: 10/17/20 Left [place] total knee system with a size 6 triathlon beaded posterior stabilized femur left, a triathlon titanium tibial component size 6 beaded, a triathlon X3 posterior stabilized tibial bearing insert size 6 X 11 mm and a beaded triathlon titanium asymmetric patella size 35 x 10 mm Hx of colonoscopy with polypectomy Hx of hernia repair Hx of removal of cyst head, right wrist Hx of spinal surgery Hx of thumb surgery Social History Smoking and tobacco status: never smoked Alcohol intake: never Substance/Drug Use: never Physical Exam Const: COMMON NORMALS: patient oriented x3, no limitations and alert OTHER: Mild distress due to left knee pain HENMT: COMMON NORMALS: normocephalic HEAD & SCALP: normocephalic Eye: COMMON NORMALS: EOMs intact bilaterally Neck/C-Spine: COMMON NORMALS: full ROM and supple Chest: COMMONS NORMALS: normal inspection of the chest Resp: COMMON NORMALS: normal respiratory effort, No retractions, No use of accessory muscles and clear to auscultation bilaterally AUSCULTATION: clear to auscultation bilaterally Cardio: COMMON NORMALS: regular rate, regular rhythm and No murmurs present (Cardio) RATE: regular rate RHYTHM: regular rhythm GI: COMMON NORMALS: Normal to inspection, nondistended, normoactive bowel sounds present and non-tender : COMMON NORMALS: Yes no CVA tenderness BLADDER/KIDNEY EXAM: Yes no CVA tenderness Back/Pelvis: COMMON NORMALS: no CVA tenderness and no thoracic nor lumbar tenderness Extremity: GENERAL: Yes normal exam except as noted OTHER: Swollen and tender left knee. Knee is warm to touch. Presence of day on the anterior knee from a recent revision of left total knee replacement. Wound is covered with a dressing that is bloodstained. There is marked limitation of left knee movement due to pain. No distal neurovascular deficit. Neuro: COMMON NORMALS: patient oriented x3 and no focal motor deficits SENSORIUM/ORIENTATION: Yes alert Psych: COMMON NORMALS: mental status grossly normal and cooperative Course Consultations: Consultation #1: Case discussed with Dr. Ron, patient's orthopedic surgeon. He recommends aspirating the joint and then admitting patient under the hospitalist with IV antibiotics. Consultation #2: Case discussed with Dr. Ochoa. He accepts patient for admission but wants the orthopedic surgeon on-call to be consulted. He also requests for a CT of the left knee. Consultation #3: Case discussed with Dr. Mo, orthopedic surgeon on-call. He agrees to consult on patient but will also talk to Dr. Ron to confirm the management plan. Vital Signs: Vital signs: Vital Signs Temperature 99.6 F 06/27/23 20:12 Pulse Rate 72 06/27/23 20:12 Respiratory Rate 18 06/27/23 20:52 Blood Pressure 112/67 06/27/23 20:12 Pulse Oximetry 96 06/27/23 20:52 Oxygen Delivery Me thod Room Air 06/27/23 20:38 MDM - Fever Medical Decision Making Medical decision making: Patient presents with redness, swelling and pain in the left knee. Joint aspiration reveals bloody effluent which is most consistent with hematoma. He will be admitted for further evaluation and management by orthopedic surgeon. He will be seen by ID. He will be admitted by the hospitalist. Lab Data 06/27/23 13:13 06/27/23 13:[address] 06/27/23 16:59 IMPRESSION: 1. Large hyperdense knee joint effusion and very large hyperdense prepatellar fluid collection. Hyperdensities are also noted to linoleum layer dependently within the prepatellar collection most typical of blood products/hematoma. Both the knee joint effusion and prepatellar collections contain a few air bubbles but this is markedly decreased compared to the June 17 plain film and is compatible with postoperative changes. At this time, the appearance may simply reflect postoperative changes with interval development of hemarthrosis and prepatellar hematoma. Early infection or abscess cannot be excluded. Continued follow up or possibly aspiration may be helpful. 2. No bony fracture. No evidence of periosteal reaction or bony destruction of osteomyelitis. No intramuscular fluid collection or gas. Laboratory Results WBC 14.35 10^3/uL (3.29-11.43) H 06/27/23 13:13 RBC 3.60 10^6/uL (3.85-5.65) L 06/27/23 13:13 Hgb 10.90 g/dL (11.27-16.99) L 06/27/23 13:13 Hct 33.5 % (37-53) L 06/27/23 13:13 MCV 93.1 fl (82-101) 06/27/23 13:13 MCH 30.3 pg (27-33) 06/27/23 13:13 MCHC 32.5 g/dL (30-55) 06/27/23 13:13 RDW 13.2 % (12.1-15.1) 06/27/23 13:13 Plt Count 422 10^3/cmm (157-399) H 06/27/23 13:13 MPV 8.7 fL (7.4-10.4) 06/27/23 13:13 Neut % (Auto) 81.9 % 06/27/23 13:13 Lymph % (Auto) 5.9 % 06/27/23 13:13 [place] % (Auto) 10.5 % 06/27/23 13:13 Eos % (Auto) 1.0 % 06/27/23 13:13 Baso % (Auto) 0.3 % 06/27/23 13:13 Neut # (Auto) 11.75 10^3/uL (1.8-7.7) H 06/27/23 13:13 Lymph # (Auto) 0.8 10^3/uL (0.8-4.8) 06/27/23 13:13 [place] # (Auto) 1.5 10^3/uL (0.2-0.9) H 06/27/23 13:13 Eos # (Auto) 0.2 10^3/uL (0.0-0.8) 06/27/23 13:13 Baso # (Auto) 0.1 10^3/uL (0.0-0.1) 06/27/23 13:13 Nucleated RBC % (auto) 0 % 06/27/23 13:13 Nucleated RBCs # 0.0 /100WBC 06/27/23 13:13 ESR 34 mm/hr (0-10) H 06/27/23 13:13 Sodium 132 mmol/L (136-145) L 06/27/23 13:13 Potassium 3.9 mmol/L (3.5-5.1) 06/27/23 13:13 Chloride 96 mmol/L (98-107) L 06/27/23 13:13 Carbon Dioxide 26 mmol/L (22-29) 06/27/23 13:13 Anion Gap 13.9 (5-19) 06/27/23 13:13 BUN 24 mg/dL (8-23) H 06/27/23 13:13 Creatinine 1.5 mg/dL (0.7-1.2) H 06/27/23 13:13 GFR Calculation 46.7 mL/min (90-130) L 06/27/23 13:13 Glucose 120 mg/dL (65-115) H 06/27/23 13:13 Calculated Osmolality 279 mOsm/kg (285-295) L 06/27/23 13:13 Lactic Acid 1.5 mmol/L (0.5-2.2) 06/27/23 13:13 Calcium 8.6 mg/dL (8.5-10.5) 06/27/23 13:13 Iron 16 ug/dL (59-158) L 06/27/23 13:13 TIBC 264 mcg/dl 06/27/23 13:13 % Saturation 6.0 % (20-50) L 06/27/23 13:13 Unsat Iron Binding 248 ug/dL (112-347) 06/27/23 13:13 Total Bilirubin 0.7 mg/dL (0.15-1.2) 06/27/23 13:13 AST 16 U/L (0-40) 06/27/23 13:13 ALT 12 U/L (0-41) 06/27/23 13:13 Alkaline Phosphatase 100 U/L (40-130) 06/27/23 13:13 C-Reactive Protein 9.6 mg/L (0.0-4.9) H 06/27/23 13:13 Total Protein 7.3 g/dL (6.6-8.7) 06/27/23 13:13 Albumin 3.8 g/dL (3.5-5.2) 06/27/23 13:13 Globulin 3.5 g/dL (1.3-4.6) 06/27/23 13:13 Vitamin B12 Cancelled 06/27/23 13:13 Procalcitonin 0.15 ng/mL (0-0.5) 06/27/23 13:13 TSH 2.21 uIU/mL (0.27-4.20) 06/27/23 13:13 Synovial Color Red (PALE YELLOW) 06/27/23 16:44 Synovial Appearance Bloody (CLEAR) 06/27/23 16:44 Synovial WBC 99430 /uL (0-150) H 06/27/23 16:44 Synovial RBC 544 10^3/uL (0-0) H 06/27/23 16:44 Synovial Mononuclear 0.763 10^3/uL 06/27/23 16:44 Synov Polynuclear WBCs 31.290 10^3/uL 06/27/23 16:44 Synovial Other Cells Not Reportable 06/27/23 16:44 Synovial Polynuclear % 97.600 % 06/27/23 16:44 Synovial Mononuclear % 2.400 % 06/27/23 16:44 Path Cons w/Slide Yes 06/27/23 16:44 All radiology interpretation(s) finalized by discharge Discharge Plan Discharge Patient Disposition: Admitted As Inpatient Admit Provider: Alberto Avalos Clinical Impression: Infection of total left knee replacement Condition: Stable Coding Level of Care Code ED Lithograph Press Feeder for Azar Bashir
--- NOTE | 2023-06-27 13:26 | XR_ITS ---
WS: [id number] EXAMINATION: XR knee LT 3V* [id number] REASON FOR EXAM: Left knee swelling and pain COMPARISON: None available. ORDER DATE: 06/27/2023 1:26 PM FINDINGS: There is no sign of any acute osseous or articular abnormality. There has a total knee arthroplasty in place without evidence of loosening or hardware failure. Surgical day are demonstrated in the midline. Soft tissue postoperative changes of gas and edema have diminished compared with the previo us study IMPRESSION: Postsurgical changes diminishing as indicated above
[2023-06-27 13:37] LABS: Basophils # 0.1 10^3/uL (0.0-0.1); Basophils % 0.3 %; Eosinophils # 0.2 10^3/uL (0.0-0.8); Hematocrit 33.5 % (37-53); Lymphocytes # 0.8 10^3/uL (0.8-4.8); Lymphocytes % 5.9 %; Mean Corpuscular HGB Conc 32.5 g/dL (30-55); Mean Corpuscular Hemoglobin 30.3 pg (27-33); Mean Corpuscular Volume 93.1 fl (82-101); Mean Platelet Volume 8.7 fL (7.4-10.4); Monocytes # 1.5 10^3/uL (0.2-0.9); Monocytes % 10.5 %; Neutrophils # 11.75 10^3/uL (1.8-7.7); Neutrophils % 81.9 %; Nucleated Red Blood Cells % 0 %; Platelet Count 422 10^3/cmm (157-399); Red Cell Distribution Width 13.2 % (12.1-15.1); White Blood Count 14.35 10^3/uL (3.29-11.43)
[2023-06-27 13:52] LABS: Lactic Sepsis W/Reflex 1.5 mmol/L (0.5-2.2)
[2023-06-27 13:53] LABS: Alanine Aminotransferase 12 U/L (0-41); Albumin Level 3.8 g/dL (3.5-5.2); Alkaline Phosphatase 100 U/L (40-130); Anion Gap 13.9 (5-19); Aspartate Amino Transferase 16 U/L (0-40); Blood Urea Nitrogen 24 mg/dL (8-23); Calcium 8.6 mg/dL (8.5-10.5); Carbon Dioxide 26 mmol/L (22-29); Chloride 96 mmol/L (98-107); Globulin 3.5 g/dL (1.3-4.6); Glomerular Filtration Rate 46.7 mL/min (90-130); Glucose 120 mg/dL (65-115); Osmolality Calculated 279 mOsm/kg (285-295); Potassium 3.9 mmol/L (3.5-5.1); Sodium 132 mmol/L (136-145); Total Bilirubin 0.7 mg/dL (0.15-1.2); Total Protein 7.3 g/dL (6.6-8.7)
[2023-06-27] MEDS: cefepime 2,000 MG in sodium chloride 0.9% (plus) 50 ML 100 MG IV (14:28)
[2023-06-27] MEDS: morphine 4 mg/mL SDV 1 mL IVP (15:42)
--- NOTE | 2023-06-27 16:59 | CTR_ITS ---
PROCEDURE INFORMATION: Exam: CT Left Lower Extremity Without Contrast, Knee Exam date and time: 06/27/2023 5:24 PM Age: 67 years old Clinical indication: Pain; Swelling or effusion of joint; Left; Prior surgery; Surgery date: <1 month; Surgery type: Total knee replacement; Additional info: Left knee swelling post op TECHNIQUE: Imaging protocol: CT of the left lower extremity without contrast was performed. Exam focused on the knee. Radiation optimization: All CT scans at this facility use at least one of these dose optimization techniques: automated exposure control; mA and/or kV adjustment per patient size (includes targeted exams where dose is matched to clinical indication); or iterative reconstruction. REPORTING DATA: Count of CT and Cardiac NM exams in prior 12 months: This patient has received 0 known CTs and 0 known cardiac nuclear medicine studies in the 12 months prior to the current study. COMPARISON: CR XR knee LT 3V* [id number] 06/27/2023 1:32 PM RADIATION DOSE METRICS: Total DLP (mGy-cm): 833.41 FINDINGS: Bones/joints: There are findings of a recent left total knee arthroplasty. There is a large hyperdense knee joint effusion/hemarthrosis containing a few air bubbles and scattered areas of dependent hyperdensity/blood products compatible with recent postoperative changes. There is a large hyperdense prepatellar fluid collection containing a few scattered air bubbles measuring 17 cm superior to inferior, 10 cm medial to lateral and 5 cm anterior to posterior. This prepatellar collection has hyperdensities layering out dependently best seen superficial to the patella on series 13, image 28 most typical of a large hematoma with blood clots/dependent blood products. The scattered air bubbles/gas in the prepatellar fluid collection and in the knee joint has significantly decreased in quantity compared to the plain film of June 17, 2023. The total knee arthroplasty has an appropriate appearance without fracture. No periosteal reaction or bony destruction to indicate osteomyelitis. Soft tissues: Superficial skin day are present. There is edema of the skin adjacent to the knee and muscle edema compatible with the recent knee arthroplasty. No intramuscular fluid collection. No gas in the muscles of the thigh or proximal leg. CT/CT knee LT wo con* [id number] IMPRESSION: 1. Large hyperdense knee joint effusion and very large hyperdense prepatellar fluid collection. Hyperdensities are also noted to player development manager dependently within the prepatellar collection most typical of blood products/hematoma. Both the knee joint effusion and prepatellar collections contain a few air bubbles but this is markedly decreased compared to the June 17 plain film and is compatible with postoperative changes. At this time, the appearance may simply reflect postoperative changes with interval development of hemarthrosis and prepatellar hematoma. Early infection or abscess cannot be excluded. Continued follow up or possibly aspiration may be helpful. 2. No bony fracture. No evidence of periosteal reaction or bony destruction of osteomyelitis. No intramuscular fluid collection or gas.
[2023-06-27 17:13] LABS: Appearance Synovial Fluid BLOODY (CLEAR); Color Synovial Fluid RED (PALE YELLOW); Cyto Order Verification No Order; PATH Referal YES
[2023-06-27] MEDS: lidocaine-epi 1% 20 mL INJ 10 ML INJECTION (17:14)
[2023-06-27 17:37] LABS: RBC Synovial Fluid 544 10^3/uL (0-0); Synovial Fluid Mononuclear # 0.763 10^3/uL; WBC Synovial Fluid 32053 /uL (0-150)
--- NOTE | 2023-06-27 17:40 | P.HP_ITS ---
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 He was sent into the ER today by his home health nurse because he was unable to put any weight on his knee since yesterday morning along with decreased range of motion, subjective feeling of fever. In the ER patient's knee was tapped by the ER physician on which bloody aspirate was drained. ER physician had a conversation with patient's primary orthopedic surgeon/Dr. Ron who requested patient to be started on antibiotics and admitted. Hospitalist service was consulted for further recommendations. Review of Systems General: Reports: 10 or more systems reviewed and unremarkable except in HPI and below Const: Denies: fever(s), chills, body aches, change in appetite, change in weight, malaise, night sweats, diaphoresis, change in sleep pattern, daytime sleepiness or snoring Eyes: Denies: change in vision, blurry vision, photophobia, eye discomfort or eye discharge ENMT: Denies: throat pain, enlarged tonsils, hoarseness, mouth pain, oral sores, dry mouth, tinnitus, nasal congestion or post nasal drip Card: Denies: chest pain, palpitations, irregular heart rhythm, edema, swelling of feet/ankles, lightheadedness, syncope, pre-syncope, dyspnea on exertion, orthopnea, leg pain with exertion or acrocyanosis Resp: Denies: dyspnea, productive cough, non-productive cough, wheezing, stridor, pain on inspiration, change in phlegm color, hemoptysis or chest congestion GI: Denies: abdominal pain, nausea, vomiting, hematemesis, coffee ground emesis, dysphagia, heartburn, diarrhea, constipation, bloating, GI cramping, change in bowel habits, pain on defecation, hematochezia or melena : Denies: flank pain, difficulty urinating, dysuria, urinary frequency, urinary urgency, urinary hesitancy, urinary dribbling, difficulty starting urination, change in urine stream, nocturia or hematuria Musc: Denies: neck pain, back pain, extremity pain, joint pain, joint swelling, joint redness, joint stiffness or limited range of motion Neuro: Denies: headache(s), numbness in extremities, weakness in extremities, sensory changes, lack of coordination, difficulty walking, frequent falls, dizziness, vertigo, confusion, Slurred speech present, difficulty communicating thoughts or seizure-like activity Psych: Denies: anxiety, depression, mood swings, panic attacks, hopelessness or irritability Endo: Denies: polyuria, polydipsia, tired all the time, cold intolerance, excessive sweating, flushing or heat intolerance Tutu/Lymph: Denies: easy bruising or easy bleeding All/Imm: Denies: tongue swelling, facial swelling or acute wheezing Medications/Allergies Home Medications Medication Instructions Recorded Confirmed Last Taken Type duloxetine 60 mg capsule,delayed 60 mg PO QAM 11/24/19 06/27/23 06/26/23 History release (Cymbalta) cholecalciferol (vitamin D3) 50 50 mcg PO QAM 10/06/20 06/27/23 06/26/23 History mcg (2,000 unit) capsule (Vitamin D3) Tumeric 1,000 mg PO QAM 01/05/21 06/27/23 06/26/23 History lisinopril 20 mg tablet 10 mg PO QAM 09/17/22 06/27/23 06/26/23 History xnosvmmxaw-yozmkobtnyibh-simjojlo 1 cap PO Q6H PRN Migraine Headache 02/03/23 06/27/23 06/10/23 History 50 mg-325 mg-40 mg capsule lidocaine 5 % topical patch See Rx Instructions .Route 02/03/23 06/27/23 06/10/23 History .COMPLEX PRN Pain salmon oil 1,000 mg-omega-3 fatty 1 cap PO QAM 02/03/23 06/27/23 06/26/23 History acids 210 mg capsule ascorbic acid (vitamin C) 1,000 mg 500 mg PO QAM 02/12/23 06/27/23 06/26/23 History tablet (Vitamin C) aspirin 81 mg tablet,delayed 81 mg PO QAM 02/12/23 06/27/23 06/10/23 History release miconazole nitrate 2 % topical 1 applic topical DAILY PRN Rash 02/12/23 06/27/23 06/10/23 History cream prazosin 1 mg capsule 1 mg PO QPM 02/12/23 06/27/23 06/26/23 History magnesium 200 mg tablet 200 mg PO QAM 06/10/23 06/27/23 06/26/23 History naproxen sodium 220 mg tablet 220 mg PO BID PRN Pain 06/10/23 06/27/23 06/10/23 History acetaminophen 500 mg tablet 1,000 mg PO Q8H PRN Pain 06/27/23 06/27/23 Unknown History aspirin 325 mg tablet,delayed 325 mg PO QAM 06/27/23 06/27/23 06/26/23 History release celecoxib 200 mg capsule 200 mg PO QAM 06/27/23 06/27/23 06/26/23 History oxycodone 5 mg tablet 5 mg PO Q4H PRN Moderate Pain 06/27/23 06/27/23 Unknown History (Scale Score 5-6) vitamin E acetate 134 mg (200 134 mg PO QAM 06/27/23 06/27/23 06/26/23 History unit) capsule zinc acetate 50 mg (zinc) capsule 50 mg PO QAM 06/27/23 06/27/23 06/26/23 History Allergies Allergy/AdvReac Type Severity Reaction Status Date / Time rocuronium Allergy Severe ADR/ALGY-Hy Verified 06/27/23 12:16 potension vancomycin Allergy Severe ADR/ALGY-Hy Verified 06/27/23 12:16 potension latex Allergy Unknown Verified 06/27/23 12:16 bumble bee Allergy ALGY-Anaphy Uncoded 06/27/23 12:16 laxis PFSH Acute PFSH: Medical History (Updated 06/27/23 @ 17:58 by Alberto Avalos MD) Cardiac dysrhythmia Cervical disc disease Fibromyalgia Hypothyroidism Osteoarthritis of carpometacarpal (CMC) joint of left thumb Primary osteoarthritis of right knee Surgical History History of ankle surgery x2 left ankle History of carpal tunnel release 2001 History of total knee arthroplasty Date of Procedure: 10/17/20 Left [place] total knee system with a size 6 triathlon beaded posterior stabilized femur left, a triathlon titanium tibial component size 6 beaded, a triathlon X3 posterior stabilized tibial bearing insert size 6 X 11 mm and a beaded triathlon titanium asymmetric patella size 35 x 10 mm Hx of colonoscopy with polypectomy Hx of hernia repair Hx of removal of cyst head, right wrist Hx of spinal surgery Hx of thumb surgery Social History Smoking and tobacco status: never smoked Alcohol intake: never Substance/Drug Use: never Vitals/I&O/Wt Last Vital Signs Temp 100.1 F H 06/27/23 12:16 Pulse 72 06/27/23 17:22 Resp 21 H 06/27/23 15:42 BP 128/55 06/27/23 17:22 Pulse Ox 94 06/27/23 17:22 O2 Del Method Room Air 06/27/23 17:22 Weight last 48 hrs Weight 108.862 kg Physical Exam Narrative: General: No acute distress, AO x3 sick and uncomfortable appearing HEENT: PERRLA, pupils bilaterally equal and reactive Chest: Normal vesicular breath sounds, no added sounds, equal good air entry bilaterally CVS: S1-S2 regular, no murmurs, no tachycardia, no gallops, no rubs Abdomen: Soft, nontender, no organomegaly, bowel sounds present Neuro: No focal deficits, no facial deformity, AO x3, power 5/5 in all limbs Skin: OTHER: Data 06/27/23 13:13 06/27/23 13:13 Micro: Microbiology 06/27/23 13:49 Blood Culture - Preliminary Blood SPECIMEN COLLECTED 06/27/23 13:45 Blood Culture - Preliminary Blood SPECIMEN COLLECTED A&P Assessment and plan (1) Infected prosthetic knee joint: Knee replacement on June 17 after 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 Knee tapped in the ER by ER physician. Bloody aspirate. Orthopedic consulted from ER. Empirically start patient on IV cefepime 2 g twice daily and IV daptomycin. Patient has a history of possible anaphylaxis with vancomycin. Patient does not want to try vancomycin anymore. Check blood culture, procalcitonin, follow aspiration culture, ESR, CRP. Check CT knee. Check fluid Synovial analysis, crystals. We will follow orthopedic recommendation for possible joint washout. Patient would most likely need repeat 6 weeks of IV antibiotics. (2) History of revision of total replacement of left knee joint: (3) History of MRSA infection: (4) Hypertension: Goal blood pressure less than 140/90 mmHg. Takes lisinopril and prazosin at home. Continue prazosin. Holding off on lisinopril given HAY[place]. Monitor blood pressures and uptitrate medications accordingly. Qualifiers: Hypertension type: essential hypertension Qualified Code(s): I10 - Essential (primary) hypertension (5) CAD (coronary artery disease): No active chest pain. Continue with baby aspirin 81 mg daily. Check A1c, lipid panel. Last cardiac angiogram in November 2020 showed moderate coronary artery disease with one-vessel disease in mid RCA with 60% moderate stenosis and was recommended medical management as per cardiology team. (6) Acute kidney injury: Baseline creatinine seems to be ranging from 1.1-1.3. Currently 1.5. 1.4 at the time of OR in May. Strict input output charting. Medical reconciliation done for nephrotoxic drugs. Normal saline at 75 cc/h. Monitor BMP daily for now. Plan Full code Foot pumps for DVT prophylaxis, hold off on medical prophylaxis given possible need for OR versus bloody tap Famotidine for PUD prophylaxis Cardiac diet. Attestations Medical Necessity Statement*: Admission for more than 2 midnights for concerns for infected prosthesis of right knee which was replaced on June 17 Diagnoses Infected prosthetic knee joint T84.59XA; Z96.659 History of revision of total replacement of left knee joint Z96.652 History of MRSA infection Z86.14 Hypertension I10 Hypertension type: essential hypertension CAD (coronary artery disease) I25.10 Acute kidney injury N17.9
[2023-06-27 18:26] LABS: Erythrocyte Sedimentation Rate 34 mm/hr (0-10)
[2023-06-27 18:33] LABS: Procalcitonin 0.15 ng/mL (0-0.5); Thyroid Stimulating Hormone 2.21 uIU/mL (0.27-4.20)
[2023-06-27 18:38] LABS: C Reactive Protein 9.6 mg/L (0.0-4.9)
[2023-06-27 18:45] LABS: Iron 16 ug/dL (59-158); Total Iron Binding Capacity 264 mcg/dl; Unsaturated Iron Binding 248 ug/dL (112-347)
[2023-06-27 19:49] LABS: Bilirubin Urine Neg (Negative); Blood Urine Neg (Negative); Glucose Urine UA Norm (Normal); Ketones Urine Negative (Negative); Nitrate Urine Negative (Negative); Protein Urine Trace (Negative); Urine Appearance Clear (CLEAR); Urine Color Yellow (Yellow); pH Urine 5 (5-7)
[2023-06-27 19:50] LABS: Add Urine Culture? No; Add Urine Microscopic? YES; Amorphous Sediment Urine 1+ /hpf; Bacteria Urine TRACE /hpf; Hyaline Casts Urine 0-4 /lpf; Leukocyte Esterase Urine Negative (Negative); Mucus Urine 2+ /hpf; RBC Urine 0-4 /hpf (0-2); Squamous Epithelial Cell Urine RARE /hpf (0-5); Urobilinogen Urine 1 mg/dL (Negative)
[2023-06-27] MEDS: famotidine 20 mg Tablet PO (20:52)
[2023-06-27] MEDS: oxyCODONE 5 mg IR Tab/Cap PO (20:52)
[2023-06-27] MEDS: prazosin 1 mg Capsule PO (20:52)
[2023-06-27] MEDS: sodium chloride 0.9% 1,000 ML 75 ML IV (20:53)
[2023-06-28] VITALS (10 sets, daily range): BP systolic 109–127; BP diastolic 50–68; PULSE 62–81; RESP 17–18; TEMP 36.3–37.8; O2SAT 94–97
[2023-06-28] MEDS: oxyCODONE 5 mg IR Tab/Cap PO ×4 (03:07→20:38)
[2023-06-28] MEDS: cefepime 2,000 MG in sodium chloride 0.9% (plus) 50 ML 100 MG IV ×2 (03:07→13:18)
[2023-06-28 05:20] LABS: Basophils # 0.1 10^3/uL (0.0-0.1); Basophils % 0.4 %; Eosinophils # 0.3 10^3/uL (0.0-0.8); Hematocrit 29.1 % (37-53); Lymphocytes # 1.3 10^3/uL (0.8-4.8); Lymphocytes % 10.1 %; Mean Corpuscular HGB Conc 32.3 g/dL (30-55); Mean Corpuscular Hemoglobin 30.2 pg (27-33); Mean Corpuscular Volume 93.6 fl (82-101); Mean Platelet Volume 8.9 fL (7.4-10.4); Monocytes # 1.5 10^3/uL (0.2-0.9); Monocytes % 11.9 %; Neutrophils # 9.63 10^3/uL (1.8-7.7); Neutrophils % 75.1 %; Nucleated Red Blood Cells % 0 %; Platelet Count 360 10^3/cmm (157-399); Red Blood Count 3.11 10^6/uL (3.85-5.65); Red Cell Distribution Width 13.4 % (12.1-15.1); White Blood Count 12.82 10^3/uL (3.29-11.43)
[2023-06-28 05:27] LABS: Estmated Average Glucose 97
[2023-06-28 05:49] LABS: Alanine Aminotransferase 9 U/L (0-41); Alkaline Phosphatase 86 U/L (40-130); Anion Gap 9.9 (5-19); Aspartate Amino Transferase 12 U/L (0-40); Blood Urea Nitrogen 23 mg/dL (8-23); Carbon Dioxide 27 mmol/L (22-29); Chloride 100 mmol/L (98-107); Globulin 3.3 g/dL (1.3-4.6); Glomerular Filtration Rate 46.7 mL/min (90-130); Glucose 108 mg/dL (65-115); Magnesium 2.2 mg/dL (1.7-2.3); Osmolality Calculated 280 mOsm/kg (285-295); Potassium 3.9 mmol/L (3.5-5.1); Sodium 133 mmol/L (136-145); Total Bilirubin 0.6 mg/dL (0.15-1.2); Total Protein 6.3 g/dL (6.6-8.7)
[2023-06-28 05:54] LABS: Chol HDL Ratio 4.52 mg/dL (1.0-5.00); Cholesterol 113 mg/dL (0-200); HDL Cholesterol 25 mg/dL (60-100); LDL Cholesterol Calculated 72 mg/dL (50-129); LDL HDL Ratio 2.88 RATIO (0.00-3.22); Triglycerides 82 mg/dL (0-150)
[2023-06-28 06:03] LABS: Folate Level 18.1 ng/mL (4.5-32.2)
[2023-06-28] MEDS: duloxetine 60 mg Capsule PO (06:29)
[2023-06-28] MEDS: aspirin 81 mg EC Tablet PO (06:29)
[2023-06-28] MEDS: famotidine 20 mg Tablet PO ×2 (07:47→16:03)
--- NOTE | 2023-06-28 11:15 | USR_ITS ---
PROCEDURE INFORMATION: Exam: US Retroperitoneal; Complete; Kidneys and Bladder Exam date and time: 06/28/2023 11:34 AM Age: 67 years old Clinical indication: Condition or disease; Other: Jm TECHNIQUE: Imaging protocol: Real-time ultrasound of the retroperitoneum with image documentation. Complete exam focused on the kidneys and bladder. COMPARISON: CR XR KUB [id number] 08/10/2018 11:30 AM FINDINGS: The right kidney measures 11.3 x 5.6 x 5.6 cm. No suspicious mass or hydronephrosis. The left kidney measures 12.1 x 5.0 x 5.7 cm. No suspicious mass or hydronephrosis. The visualized aorta is normal in caliber. US/US renal BI* [id number] IMPRESSION: No acute abnormality identified.
[2023-06-28] MEDS: ondansetron 2 mg/ML SDV 2 mL 4 MG IVP (13:19)
[2023-06-28 13:53] LABS: Potassium, Radom Urine 45 mmol/L; Urine Creatinine 222 mg/dL (39-259); Urine Random Chloride 108 mmol/L; Urine Random Sodium 100 mmol/L
--- NOTE | 2023-06-28 14:19 | P.CONIM_ITS ---
Providers/Reason For Consult Consulting Physician/Specialty*: Yang Mo DO/orthopedic surgery Reason for Consult*: s/p left TKA revision with concerns for infection and drainage Requesting Physician: Dr. Avalos Attending Physician: Alberto Avalos MD Primary Care Provider: Ashley Mac MD History of Present Illness History of Present Illness Kristen Garcia is a 67 year old male who presented to the emergency department yesterday with concern for left knee infection. Patient has a history of MRSA infection and a left total knee arthroplasty performed originally over 2 years out infection had been worked up and patient has had a antibiotic spacer in place and had been cleared of infection per outpatient work-up with Synovasure and cultures and just recently underwent left knee antibiotic spacer explant with reimplantation of left total knee arthroplasty revision implants. Patient states over the past few days he has been feverish and has had drainage with significant swelling of the left knee. He was seen evaluated in the emergency department he is found to have an elevated white count with complaints of fevers as well as persistent drainage to the left knee. Patient has significant swelling. He underwent a joint aspiration in the emergency department which was sent for cell count as well as cultures. Internal medicine has admitted patient as primary and orthopedics was consulted for evaluation and treatment recommendations. Given patient's joint aspiration has been performed emergency department patient has been now started on empiric antibiotics. Patient's primary orthopedic surgeon Dr. Ron has been contacted and will assume patient's care when she returns on Friday. Review of Systems General: Reports: 10 or more systems reviewed and unremarkable except in HPI and below Medications/Allergies Home Medications Medication Instructions Recorded Confirmed Last Taken Type duloxetine 60 mg capsule,delayed 60 mg PO QAM 11/24/19 06/27/23 06/26/23 History release (Cymbalta) cholecalciferol (vitamin D3) 50 50 mcg PO QAM 10/06/20 06/27/23 06/26/23 History mcg (2,000 unit) capsule (Vitamin D3) Tumeric 1,000 mg PO QAM 01/05/21 06/27/23 06/26/23 History lisinopril 20 mg tablet 10 mg PO QAM 09/17/22 06/27/23 06/26/23 History rndrdqndwx-gkyopaykonokj-bdorohyd 1 cap PO Q6H PRN Migraine Headache 02/03/23 06/27/23 06/10/23 History 50 mg-325 mg-40 mg capsule lidocaine 5 % topical patch See Rx Instructions .Route 02/03/23 06/27/23 06/10/23 History .COMPLEX PRN Pain salmon oil 1,000 mg-omega-3 fatty 1 cap PO QAM 02/03/23 06/27/23 06/26/23 History acids 210 mg capsule ascorbic acid (vitamin C) 1,000 mg 500 mg PO QAM 02/12/23 06/27/23 06/26/23 History tablet (Vitamin C) aspirin 81 mg tablet,delayed 81 mg PO QAM 02/12/23 06/27/23 06/10/23 History release miconazole nitrate 2 % topical 1 applic topical DAILY PRN Rash 02/12/23 06/27/23 06/10/23 History cream prazosin 1 mg capsule 1 mg PO QPM 02/12/23 06/27/23 06/26/23 History magnesium 200 mg tablet 200 mg PO QAM 06/10/23 06/27/23 06/26/23 History naproxen sodium 220 mg tablet 220 mg PO BID PRN Pain 06/10/23 06/27/23 06/10/23 History acetaminophen 500 mg tablet 1,000 mg PO Q8H PRN Pain 06/27/23 06/27/23 Unknown History aspirin 325 mg tablet,delayed 325 mg PO QAM 06/27/23 06/27/23 06/26/23 History release celecoxib 200 mg capsule 200 mg PO QAM 06/27/23 06/27/23 06/26/23 History oxycodone 5 mg tablet 5 mg PO Q4H PRN Moderate Pain 06/27/23 06/27/23 Unknown History (Scale Score 5-6) vitamin E acetate 134 mg (200 134 mg PO QAM 06/27/23 06/27/23 06/26/23 History unit) capsule zinc acetate 50 mg (zinc) capsule 50 mg PO QAM 06/27/23 06/27/23 06/26/23 History Allergies Allergy/AdvReac Type Severity Reaction Status Date / Time rocuronium Allergy Severe ADR/ALGY-Hy Verified 06/27/23 12:16 potension vancomycin Allergy Severe ADR/ALGY-Hy Verified 06/27/23 12:16 potension latex Allergy Unknown Verified 06/27/23 12:16 bumble bee Allergy ALGY-Anaphy Uncoded 06/27/23 12:16 laxis Current Medications Generic Name Dose Route Start Last Admin Trade Name Freq PRN Reason Stop Dose Admin Aspirin 81 mg 06/28/23 06:00 06/28/23 06:29 Aspirin 81 Mg Ec Tablet PO 81 mg QAM TAMIA Administration Duloxetine HCl 60 mg 06/28/23 06:00 06/28/23 06:29 Duloxetine 60 Mg Capsule PO 60 mg QAM TAMIA Administration Famotidine 20 mg 06/27/23 20:12 06/28/23 07:47 Famotidine 20 Mg Tablet PO 20 mg BID TAMIA Administration Cefepime HCl 2,000 mg/ Sodium 50 mls @ 100 mls/hr 06/28/23 02:30 06/28/23 13:18 Chloride IV 100 mls/hr Q12H TAMIA Administration Protocol Daptomycin 870 mg/ Sodium 50 mls @ 100 mls/hr 06/27/23 19:45 06/27/23 22:29 Chloride IV Infused Q24H TAMIA Infusion Sodium Chloride 1,000 mls @ 75 mls/hr 06/27/23 20:12 06/27/23 20:53 Sodium Chloride 0.9% IV 75 mls/hr .[id number] TAMIA Administration Ondansetron HCl 4 mg 06/27/23 20:12 06/28/23 13:19 Ondansetron 2 Mg/Ml Sdv 2 Ml IVP 4 mg Q8H PRN Administration vomiting, or N/V if npo Oxycodone HCl 5 mg 06/27/23 20:12 06/28/23 12:08 Oxycodone 5 Mg Ir Tab/Cap PO 5 mg Q4H PRN Administration Moderate Pain (Scale Score 5-6) Prazosin HCl 1 mg 06/27/23 20:12 06/27/23 20:52 Prazosin 1 Mg Capsule PO 1 mg QPM TAMIA Administration PFSH Acute PFSH: Medical History (Updated 06/27/23 @ 17:58 by Alberto Avalos MD) Cardiac dysrhythmia Cervical disc disease Fibromyalgia Hypothyroidism Osteoarthritis of carpometacarpal (CMC) joint of left thumb Primary osteoarthritis of right knee Surgical History History of ankle surgery x2 left ankle History of carpal tunnel release 2002 History of total knee arthroplasty Date of Procedure: 10/17/20 Left [place] total knee system with a size 6 triathlon beaded posterior stabilized femur left, a triathlon titanium tibial component size 6 beaded, a triathlon X3 posterior stabilized tibial bearing insert size 6 X 11 mm and a beaded triathlon titanium asymmetric patella size 35 x 10 mm Hx of colonoscopy with polypectomy Hx of hernia repair Hx of removal of cyst head, right wrist Hx of spinal surgery Hx of thumb surgery Social History Smoking and tobacco status: never smoked Alcohol intake: never Substance/Drug Use: never Vitals/I&O/Wt Last Vital Signs Temp 100.0 F H 06/28/23 12:00 Pulse 62 06/28/23 12:00 Resp 18 06/28/23 12:00 BP 127/50 06/28/23 12:00 Pulse Ox 97 06/28/23 12:00 O2 Del Method CPAP 06/28/23 03:54 06/27/23 06/28/23 06/28/23 22:59 06:59 14:59 Intake Total 100 / 100 50 / 150 360 / 360 Output Total 250 / 250 Balance 100 / 100 -200 / -100 360 / 360 Weight last 48 hrs Weight 240 lb Physical Exam Narrative: Examination left knee: Examination the left knee no dressings on in place day are in place there is a previous aspiration of the superior lateral aspect of the knee. Patient has a large palpable joint effusion as well as significant swelling throughout the left knee. Warmth noted about the knee. Mild frank-incisional erythema mostly on the inferior aspect with normal postoperative swelling and ecchymosis noted. Patient unable to perform straight leg raise and has pain with range of motion of the knee. Gross motor and sensory is intact distally as patient is able to wiggle toes plantarflex. Data 06/28/23 04:14 06/28/23 04:14 Other Labs: Synovial joint aspirate per emergency department 32,000 WBCs Micro: Microbiology 06/27/23 13:49 Blood Culture - Preliminary Blood NEGATIVE TO DATE 06/27/23 13:45 Blood Culture - Preliminary Blood NEGATIVE TO DATE Other CT: Radiologist's impression: Patient: Kristen Garcia Unit #: [id number] : 1955 Age/Sex: 67 / M ADM Date: 06/27/23 Loc: ER Room/Bed: Attending Dr: Ordering Provider/Ordering MD: Victor Manuel Miller MD Date of Service: 06/27/23 Procedure(s): CT knee LT wo con* [id number] Accession Number(s): [id number] Report Number: [id number] PROCEDURE INFORMATION: Exam: CT Left Lower Extremity Without Contrast, Knee Exam date and time: 06/27/2023 5:24 PM Age: 67 years old Clinical indication: Pain; Swelling or effusion of joint; Left; Prior surgery; Surgery date: <1 month; Surgery type: Total knee replacement; Additional info: Left knee swelling post op TECHNIQUE: Imaging protocol: CT of the left lower extremity without contrast was performed. Exam focused on the knee. Radiation optimization: All CT scans at this facility use at least one of these dose optimization techniques: automated exposure control; mA and/or kV adjustment per patient size (includes targeted exams where dose is matched to clinical indication); or iterative reconstruction. REPORTING DATA: Count of CT and Cardiac NM exams in prior 12 months: This patient has received 0 known CTs and 0 known cardiac nuclear medicine studies in the 12 months prior to the current study. COMPARISON: CR XR knee LT 3V* [id number] 06/27/2023 1:32 PM RADIATION DOSE METRICS: Total DLP (mGy-cm): 833.41 FINDINGS: Bones/joints: There are findings of a recent left total knee arthroplasty. There is a large hyperdense knee joint effusion/hemarthrosis containing a few air bubbles and scattered areas of dependent hyperdensity/blood products compatible with recent postoperative changes. There is a large hyperdense prepatellar fluid collection containing a few scattered air bubbles measuring 17 cm superior to inferior, 10 cm medial to lateral and 5 cm anterior to posterior. This prepatellar collection has hyperdensities layering out dependently best seen superficial to the patella on series 13, image 28 most typical of a large hematoma with blood clots/dependent blood products. The scattered air bubbles/gas in the prepatellar fluid collection and in the knee joint has significantly decreased in quantity compared to the plain film of June 17, 2023. The total knee arthroplasty has an appropriate appearance without fracture. No periosteal reaction or bony destruction to indicate osteomyelitis. Soft tissues: Superficial skin day are present. There is edema of the skin adjacent to the knee and muscle edema compatible with the recent knee arthroplasty. No intramuscular fluid collection. No gas in the muscles of the thigh or proximal leg. CT/CT knee LT wo con* [id number] IMPRESSION: 1. ? Large hyperdense knee joint effusion and very large hyperdense prepatellar fluid collection. Hyperdensities are also noted to composition tile layer dependently within the prepatellar collection most typical of blood products/hematoma. Both the knee joint effusion and prepatellar collections contain a few air bubbles but this is markedly decreased compared to the June 17 plain film and is compatible with postoperative changes. At this time, the appearance may simply reflect postoperative changes with interval development of hemarthrosis and prepatellar hematoma. Early infection or abscess cannot be excluded. Continued follow up or possibly aspiration may be helpful. 2. ? No bony fracture. No evidence of periosteal reaction or bony destruction of osteomyelitis. No intramuscular fluid collection or gas. ? Xray Ortho: Radiologist's impression: Ordering Provider/Ordering MD: Victor Manuel Miller MD Date of Service: 06/27/23 Procedure(s): XR knee LT 3V* [id number] Accession Number(s): [id number] Report Number: [id number] WS: [id number] EXAMINATION: XR knee LT 3V* [id number] REASON FOR EXAM: Left knee swelling and pain COMPARISON: None available. ORDER DATE:? 06/27/2023 1:26 PM FINDINGS: There is no sign of any acute osseous or articular abnormality. ? There has a total knee arthroplasty in place without evidence of loosening or hardware failure. Surgical day are demonstrated in the midline. Soft tissue postoper ative changes of gas and edema have diminished compared with the previous study IMPRESSION: Postsurgical changes diminishing as indicated above A&P Assessment and plan (1) Infected prosthetic knee joint: (2) History of revision of total replacement of left knee joint: (3) Infection of total left knee replacement: (4) History of total knee arthroplasty: Qualifiers: Laterality: left Qualified Code(s): Z96.652 - Presence of left artificial knee joint Plan Continue to monitor joint aspirate from emergency department?follow cultures Defer to infectious disease/primary for antibiotics Orthopedics on board and will continue to follow Dr. Ron notified and will assume patient's care on Friday when she returns Imaging reviewed Labs reviewed?patient has elevated inflammatory markers as well as increased white count and history of fevers as well as persistent drainage of the left knee with large postoperative swelling. Concern for postoperative infection Synovial cell analysis 32,000 WBC?aerobic and anaerobic cultures are pending No acute orthopedic surgical intervention at this time and will defer to Dr. Ron for definitive care and treatment Orthopedics will continue to follow while patient is hospitalized Recommend ice and elevate as needed Weight-bear as tolerated left lower extremity PT/OT Recommend dressings of 4 x 4's ABDs Kerlix and an Hank wrap Coding Level of Care Code Acute Code for Chg Fwd Diagnoses Infected prosthetic knee joint T84.59XA; Z96.659 History of revision of total replacement of left knee joint Z96.652 Infection of total left knee replacement T84.54XA History of total knee arthroplasty Z96.652 Laterality: left Time Spent (min) 452
--- NOTE | 2023-06-28 15:20 | P.PN_ITS ---
Subjective Subjective: No acute events overnight. Patient states he is feeling the same. Denies any nausea vomiting, headache. Continues to complain of pain in the knee. Tmax since admission 100.1 Fahrenheit. Blood work appreciated for leukocytosis to 12.8, hemoglobin of 9.4, creatinine stable at 1.5 Vitals/I&O/Wt Last Vital Signs Temp 100.0 F H 06/28/23 12:00 Pulse 62 06/28/23 12:00 Resp 18 06/28/23 12:00 BP 127/50 06/28/23 12:00 Pulse Ox 97 06/28/23 12:00 O2 Del Method CPAP 06/28/23 03:54 06/28/23 06/28/23 06/28/23 06:59 14:59 22:59 Intake Total 50 / 150 360 / 360 Output Total 250 / 250 Balance -200 / -100 360 / 360 Weight last 48 hrs Weight 108.862 kg Physical Exam Narrative: General: No acute distress, AO x3 sick and uncomfortable appearing HEENT: PERRLA, pupils bilaterally equal and reactive Chest: Normal vesicular breath sounds, no added sounds, equal good air entry hector aterally CVS: S1-S2 regular, no murmurs, no tachycardia, no gallops, no rubs Abdomen: Soft, nontender, no organomegaly, bowel sounds present Neuro: No focal deficits, no facial deformity, AO x3, power 5/5 in all limbs Skin: OTHER: Data 06/28/23 04:14 06/28/23 04:14 Micro: Microbiology 06/27/23 13:49 Blood Culture - Preliminary Blood NEGATIVE TO DATE 06/27/23 13:45 Blood Culture - Preliminary Blood NEGATIVE TO DATE A&P Assessment and plan (1) Infected prosthetic knee joint: Knee replacement on June 17 after 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 Knee tapped in the ER by ER physician. Bloody aspirate. Appreciate fluid analysis results. Cultures so far pending. Gram stain pending. Orthopedic consulted from ER. Empirically start patient on IV cefepime 2 g twice daily and IV daptomycin. Patient has a history of possible anaphylaxis with vancomycin. Patient does not want to try vancomycin anymore. Follow blood cultures, Pro-Oswaldo negative, ESR mildly elevated, CRP 9.6. Appreciate CT results. We will follow orthopedic recommendation for possible joint washout. Patient would most likely need repeat 6 weeks of IV antibiotics. (2) History of revision of total replacement of left knee joint: (3) History of MRSA infection: (4) Hypertension: Goal blood pressure less than 140/90 mmHg. Takes lisinopril and prazosin at home. Continue prazosin. Holding off on lisinopril given HAYLEY. Monitor blood pressures and uptitrate medications accordingly. Qualifiers: Hypertension type: essential hypertension Qualified Code(s): I10 - Ess ential (primary) hypertension (5) CAD (coronary artery disease): No active chest pain. Continue with baby aspirin 81 mg daily. Check A1c, lipid panel. Last cardiac angiogram in November 2020 showed moderate coronary artery disease with one-vessel disease in mid RCA with 60% moderate stenosis and was recommended medical management as per cardiology team. (6) Acute kidney injury: Baseline creatinine seems to be ranging from 1.1-1.3. Currently stable at 1.5. Strict input output charting. Medical reconciliation done for nephrotoxic drugs. Normal saline at 75 cc/h. Monitor BMP daily for now. Plan Full code Foot pumps for DVT prophylaxis, hold off on medical prophylaxis given possible need for OR versus bloody tap Famotidine for PUD prophylaxis Cardiac diet. Plan for the day: Awaiting orthopedic recommendations. For now continue with empiric antibiotics. Follow-up synovial fluid culture, blood culture results. Continue with IV fluids at 75 cc/h. Creatinine stable at 1.5, BUN improving. PT as per orthopedic team. Goal blood pressure less than 140/90 mmHg. Continue with prazosin. Continue with holding off on lisinopril Discussed treatment plan in detail with patient at bedside. We discussed that we are awaiting orthopedic recommendations for now we will most likely he will need a joint washout for further evaluation and management. Also discussed cannot rule out postoperative hemarthrosis but given low-grade fever and leukocytosis for now we will have to treat him like a septic joint. Patient verbalized understanding. Attestations Medical Necessity Statement*: Requires further hospitalization for management of possible infected prosthesis of the left knee with recent revision of total knee joint Diagnoses Infected prosthetic knee joint T84.59XA; Z96.659 History of revision of total replacement of left knee joint Z96.652 History of MRSA infection Z86.14 Hypertension I10 Hypertension type: essential hypertension CAD (coronary artery disease) I25.10 Acute kidney injury N17.9
[2023-06-28 15:55] LABS: Crystals, Fluid SENT TO PATH
[2023-06-28] MEDS: sodium chloride 0.9% 1,000 ML 75 ML IV (16:03)
[2023-06-28] MEDS: prazosin 1 mg Capsule PO (20:38)
[2023-06-29] VITALS (13 sets, daily range): BP systolic 95–119; BP diastolic 54–71; PULSE 57–85; RESP 15–18; TEMP 36.4–37.2; O2SAT 95–98
[2023-06-29] MEDS: acetaminophen 325 mg Tablet 650 MG PO ×3 (01:50→20:40)
[2023-06-29] MEDS: cefepime 2,000 MG in sodium chloride 0.9% (plus) 50 ML 100 MG IV ×2 (01:51→14:51)
[2023-06-29] MEDS: oxyCODONE 5 mg IR Tab/Cap PO ×3 (01:51→20:40)
[2023-06-29 05:49] LABS: Basophils # 0.1 10^3/uL (0.0-0.1); Basophils % 0.8 %; Eosinophils # 0.5 10^3/uL (0.0-0.8); Eosinophils % 4.3 %; Hematocrit 28.9 % (37-53); Lymphocytes # 1.4 10^3/uL (0.8-4.8); Mean Corpuscular HGB Conc 31.5 g/dL (30-55); Mean Corpuscular Hemoglobin 29.6 pg (27-33); Mean Corpuscular Volume 94.1 fl (82-101); Mean Platelet Volume 8.9 fL (7.4-10.4); Monocytes # 1.3 10^3/uL (0.2-0.9); Monocytes % 12.1 %; Neutrophils # 7.37 10^3/uL (1.8-7.7); Neutrophils % 69.4 %; Nucleated Red Blood Cells % 0 %; Platelet Count 335 10^3/cmm (157-399); Red Blood Count 3.07 10^6/uL (3.85-5.65); Red Cell Distribution Width 13.2 % (12.1-15.1); White Blood Count 10.62 10^3/uL (3.29-11.43)
[2023-06-29] MEDS: aspirin 81 mg EC Tablet PO (06:06)
[2023-06-29] MEDS: duloxetine 60 mg Capsule PO (06:06)
[2023-06-29] MEDS: sodium chloride 0.9% 1,000 ML 75 ML IV (06:07)
[2023-06-29 06:17] LABS: Alanine Aminotransferase 10 U/L (0-41); Albumin Level 2.7 g/dL (3.5-5.2); Alkaline Phosphatase 86 U/L (40-130); Aspartate Amino Transferase 17 U/L (0-40); Blood Urea Nitrogen 18 mg/dL (8-23); Calcium 7.7 mg/dL (8.5-10.5); Carbon Dioxide 24 mmol/L (22-29); Chloride 103 mmol/L (98-107); Creatinine Clr Calc Pharmacy 74.9642; Globulin 3.4 g/dL (1.3-4.6); Glomerular Filtration Rate 60.4 mL/min (90-130); Glucose 99 mg/dL (65-115); Osmolality Calculated 282 mOsm/kg (285-295); Sodium 135 mmol/L (136-145); Total Bilirubin 0.5 mg/dL (0.15-1.2); Total Protein 6.1 g/dL (6.6-8.7)
[2023-06-29 06:21] LABS: Anion Gap 12.3 (5-19); Potassium 4.3 mmol/L (3.5-5.1)
[2023-06-29] MEDS: famotidine 20 mg Tablet PO ×2 (08:24→17:17)
[2023-06-29] MEDS: ondansetron 2 mg/ML SDV 2 mL 4 MG IVP ×2 (09:28→20:55)
[2023-06-29 11:11] LABS: Vitamin B12 (Cobalamin) 560 pg/mL (200-1100)
--- NOTE | 2023-06-29 15:31 | P.PN_ITS ---
Subjective Subjective: No acute events overnight. Patient has remained hemodynamically stable and afebrile. States he is feeling better. Denies any nausea, vomiting, headache. CBC today shows resolution of leukocytosis, stable hemoglobin of 9.1, resolution of acute kidney injury with creatinine down to 1.2, mild hyponatremia sodium 135 Vitals/I&O/Wt Last Vital Signs Temp 97.6 F 06/29/23 11:31 Pulse 72 06/29/23 11:31 Resp 16 06/29/23 11:31 BP 103/59 06/29/23 07:23 Pulse Ox 98 06/29/23 11:31 O2 Del Method Room Air 06/29/23 11:31 06/29/23 06/29/23 06/29/23 06:59 14:59 22:59 Intake Total 986 / 2926 480 / 480 Output Total 800 / 800 Balance 186 / 2126 480 / 480 Weight last 48 hrs Weight 107.275 kg Physical Exam Narrative: General: No acute distress, AO x3 sick and uncomfortable appearing HEENT: PERRLA, pupils bilaterally equal and reactive Chest: Normal vesicular breath sounds, no added sounds, equal good air entry bilaterally CVS: S1-S2 regular, no murmurs, no tachycardia, no gallops, no rubs Abdomen: Soft, nontender, no organomegaly, bowel sounds present Neuro: No focal deficits, no facial deformity, AO x3, power 5/5 in all limbs Skin: OTHER: Data 06/29/23 05:32 06/29/23 05:32 Micro: Microbiology 06/27/23 16:44 Body Fluid Culture - Preliminary Synovial Fluid Staphylococcus species 06/27/23 16:44 Gram Stain - Final Synovial Fluid 06/27/23 13:49 Blood Culture - Preliminary Blood NEGATIVE TO DATE 06/27/23 13:45 Blood Culture - Preliminary Blood NEGATIVE TO DATE A&P Assessment and plan (1) Infected prosthetic knee joint: Knee replacement on June 17 after 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 Knee tapped in the ER by ER physician. Bloody aspirate. Appreciate fluid analysis results. Fluid culture growing staph colonies. Orthopedic consulted from ER. Empirically start patient on IV cefepime 2 g twice daily and IV daptomycin. Patient has a history of possible anaphylaxis with vancomycin. Patient does not want to try vancomycin anymore. We will follow orthopedic recommendation for possible joint washout. Patient would most likely need repeat 6 weeks of IV antibiotics. (2) History of revision of total replacement of left knee joint: (3) History of MRSA infection: (4) Hypertension: Goal blood pressure less than 140/90 mmHg. Takes lisinopril and prazosin at home. Continue prazosin. Holding off on lisinopril given HAYLEY. Monitor blood pressures and uptitrate medications accordingly. Qualifiers: Hypertension type: essential hypertension Qualified Code(s): I10 - Essential (primary) hypertension (5) CAD (coronary artery disease): No active chest pain. Continue with baby aspirin 81 mg daily. Check A1c, lipid panel. Last cardiac angiogram in November 2020 showed moderate coronary artery disease with one-vessel disease in mid RCA with 60% moderate stenosis and was recommen ded medical management as per cardiology team. (6) Acute kidney injury: Baseline creatinine seems to be ranging from 1.1-1.3. Resolved. Strict input output charting. Medical reconciliation done for nephrotoxic drugs. Hold off on any further IV fluids. Good oral intake. Monitor BMP daily for now. Plan Full code Foot pumps for DVT prophylaxis, hold off on medical prophylaxis given possible need for OR versus bloody tap Famotidine for PUD prophylaxis Cardiac diet. Attestations Medical Necessity Statement*: Requires further hospitalization for management of infected prosthesis in a patient with recent total knee replacement, resolving HAYLEY Diagnoses Infected prosthetic knee joint T84.59XA; Z96.659 History of revision of total replacement of left knee joint Z96.652 History of MRSA infection Z86.14 Hypertension I10 Hypertension type: essential hypertension CAD (coronary artery disease) I25.10 Acute kidney injury N17.9
--- NOTE | 2023-06-29 16:20 | PM.CONSULT ---
Providers/Reason For Consult Consulting Physician/Specialty*: Davina Roy MD/ Infectious Disease Reason for Consult*: Septic arthritis Requesting Physician: Dr. Miller from ER Attending Physician: Alberto Avalos MD Primary Care Provider: Ashley Mac MD History of Present Illness History of Present Illness Kristen Garcia is a 67 year old male who underwent left total knee arthroplasty on October 17, 2020 followed by subsequent arthrotomy debridement and repair of quadriceps tendon rupture in November 2020.? Patient had in the interim sustained injury by slipping on ice.? He was doing relatively well until end of 2021 when he started to complain of bilateral knee pain.? His left knee was noted to have effusion for which he followed up with orthopedics and underwent joint aspiration on December 18, 2022.? [place] [address], 89% polynuclear.? Synovial fluid aspirate was also sent for Synovasure testing which showed positive alpha Defensin PJI and Alpha Defensin-SF.? Culture from the fluid showed Staph capitis.? He underwent a bone scan in October 2022 which had shown uptake along the tibial plateau area and findings thought to be consistent with loosening of the medial compartment. He was admitted to the hospital on February 11, 2023 and underwent removal of the total knee arthroplasty implants, complete synovectomy with irrigation for a diagnosis of infected left total knee arthroplasty with thickened synovial and purulent fluid with placement of cemented spacers. He was treated with nearly 8 weeks of iv daptomycin for PJI. He improved clinically with IV antibiotic treatment. CRP was down to 3 at the end of his treatment course. He followed up with orthopedics as outpatient at the end of his treatment course and repeat synovial aspirations were performed as outpatient and April 16, 2023. Synovial fluid demonstrated 169 white blood cells with 84% mononuclear cells. Synovasure was also reviewed with the patient. Findings on the study included negative alpha defense, CRP within the synovial fluid was 0.7. Neutrophil elastase was negative. Microbiology panel was negative number with overall no growth on cultures. He remains stable off of antibiotics without any signs of infection. He underwent revision surgery on June 17, 2023 removal of temporary prosthesis and reimplantation. Intraoperative surgical bed cultures were negative. Currently patient presents to the emergency room with swelling, warmth and tenderness of this recent postoperative joint. He has had low-grade fevers and leukocytosis. He underwent synovial fluid aspiration by the emergency room physician. Cell count returned at 32,000 with 31% PMN else. CT of the left knee showed Large hyperdense knee joint effusion and very large hyperdense prepatellar fluid collection. Initially it appeared his symptoms were referred related to postoperative hemarthrosis and a prepatellar hematoma, however subsequently his cultures today are being reported as positive for Staphylococcus species. He has been on empiric treatment with cefepime and daptomycin since admission. He is awaiting definitive surgical planning from orthopedics awaiting the return of Dr. Ron, who has been following him previously. Denies any trauma, denies any discharge from staple line. His past history is notable for history of MRSA skin and soft tissue infection over the left arm which had manifested as an abscess.? Patient does not recall which antibiotic he received at that time however does recall this was given via IV infusion through a PICC line. His chart notes a history of allergy to vancomycin.? During his surgery in November 2020, shortly after receiving rocuronium and vancomycin perioperatively he developed anaphylactic reaction with hypotension and bradycardia which was refractory to multiple boluses of pressors and fluids.? It was never quite identified if patient was allergic to vancomycin or rocuronium, however both have been avoided since then. I suspect that his reaction may have been related to rocuronium since he has previously tolerated vancomycin on his admission in September 2020 and also possibly when he was treated with MRSA, however he is extremely hesitant to try treatment with vancomycin ever again Review of Systems General: Reports: 10 or more systems reviewed and unremarkable except in HPI and below Const: Denies: fever(s), chills or body aches Eyes: Denies: change in vision, blurry vision or photophobia ENMT: Reports: hoarseness; Denies: throat pain, enlarged tonsils, odynophagia or nasal congestion Card: Denies: chest pain, palpitations, irregular heart rhythm, edema, swelling of feet/ankles, lightheadedness, pre-syncope, dyspnea on exertion or orthopnea Resp: Denies: dyspnea, productive cough, non-productive cough, wheezing, stridor, pain on inspiration, change in phlegm color, hemoptysis or chest congestion GI: Denies: abdominal pain, nausea, vomiting, hematemesis, coffee ground emesis, dysphagia, heartburn, diarrhea, constipation, GI cramping, change in stool character, hematochezia or melena : Denies: flank pain, dysuria, urinary frequency, urinary urgency, urinary hesitancy or hematuria Musc: Denies: neck pain, back pain, extremity pain, joint swelling, joint warmth or deformity Neuro: Denies: headache(s), numbness in extremities, weakness in extremities, sensory changes, difficulty walking, frequent falls, dizziness, vertigo, behavioral changes, Slurred speech present or seizure-like activity Psych: Denies: anxiety, depression, suicidal ideation or homicidal ideation Endo: Denies: polyuria, polydipsia, tired all the time, cold intolerance or hot flashes Tutu/Lymph: Denies: easy bruising or easy bleeding Medications/Allergies Home Medications Medication Instructions Recorded Confirmed Last Taken Type duloxetine 60 mg capsule,delayed 60 mg PO QAM 11/24/19 06/27/23 06/26/23 History release (Cymbalta) cholecalciferol (vitamin D3) 50 50 mcg PO QAM 10/06/20 06/27/23 06/26/23 History mcg (2,000 unit) capsule (Vitamin D3) Tumeric 1,000 mg PO QAM 01/05/21 06/27/23 06/26/23 History lisinopril 20 mg tablet 10 mg PO QAM 09/17/22 06/27/23 06/26/23 History ucbmzfgwtb-jqshiydrcqdor-zkcguevf 1 cap PO Q6H PRN Migraine Headache 02/03/23 06/27/23 06/10/23 History 50 mg-325 mg-40 mg capsule lidocaine 5 % topical patch See Rx Instructions .Route 02/03/23 06/27/23 06/10/23 History .COMPLEX PRN Pain salmon oil 1,000 mg-omega-3 fatty 1 cap PO QAM 02/03/23 06/27/23 06/26/23 History acids 210 mg capsule ascorbic acid (vitamin C) 1,000 mg 500 mg PO QAM 02/12/23 06/27/23 06/26/23 History tablet (Vitamin C) aspirin 81 mg tablet,delayed 81 mg PO QAM 02/12/23 06/27/23 06/10/23 History release miconazole nitrate 2 % topical 1 applic topical DAILY PRN Rash 02/12/23 06/27/23 06/10/23 History cream prazosin 1 mg capsule 1 mg PO QPM 02/12/23 06/27/23 06/26/23 History magnesium 200 mg tablet 200 mg PO QAM 06/10/23 06/27/23 06/26/23 History naproxen sodium 220 mg tablet 220 mg PO BID PRN Pain 06/10/23 06/27/23 06/10/23 History acetaminophen 500 mg tablet 1,000 mg PO Q8H PRN Pain 06/27/23 06/27/23 Unknown History aspirin 325 mg tablet,delayed 325 mg PO QAM 06/27/23 06/27/23 06/26/23 History release celecoxib 200 mg capsule 200 mg PO QAM 06/27/23 06/27/23 06/26/23 History oxycodone 5 mg tablet 5 mg PO Q4H PRN Moderate Pain 06/27/23 06/27/23 Unknown History (Scale Score 5-6) vitamin E acetate 134 mg (200 134 mg PO QAM 06/27/23 06/27/23 06/26/23 History unit) capsule zinc acetate 50 mg (zinc) capsule 50 mg PO QAM 06/27/23 06/27/23 06/26/23 History Allergies Allergy/AdvReac Type Severity Reaction Status Date / Time rocuronium Allergy Severe ADR/ALGY-Hy Verified 06/27/23 12:16 potension vancomycin Allergy Severe ADR/ALGY-Hy Verified 06/27/23 12:16 potension latex Allergy Unknown Verified 06/27/23 12:16 bumble bee Allergy ALGY-Anaphy Uncoded 06/27/23 12:16 laxis Current Medications Generic Name Dose Route Start Last Admin Trade Name Freq PRN Reason Stop Dose Admin Acetaminophen 650 mg 06/27/23 20:12 06/29/23 08:27 Acetaminophen 325 Mg Tablet PO 650 mg Q6H PRN Administration Mild/Mod Pain Or Temp >/= 101 Aspirin 81 mg 06/28/23 06:00 06/29/23 06:06 Aspirin 81 Mg Ec Tablet PO 81 mg QAM TAMIA Administration Duloxetine HCl 60 mg 06/28/23 06:00 06/29/23 06:06 Duloxetine 60 Mg Capsule PO 60 mg QAM TAMIA Administration Famotidine 20 mg 06/27/23 20:12 06/29/23 08:24 Famotidine 20 Mg Tablet PO 20 mg BID TAMIA Administration Daptomycin 870 mg/ Sodium 50 mls @ 100 mls/hr 06/27/23 19:45 06/28/23 21:31 Chloride IV Infused Q24H TAMIA Infusion Ondansetron HCl 4 mg 06/27/23 20:12 06/29/23 09:28 Ondansetron 2 Mg/Ml Sdv 2 Ml IVP 4 mg Q8H PRN Administration vomiting, or N/V if npo Oxycodone HCl 5 mg 06/27/23 20:12 06/29/23 06:06 Oxycodone 5 Mg Ir Tab/Cap PO 5 mg Q4H PRN Administration Moderate Pain (Scale Score 5-6) Prazosin HCl 1 mg 06/27/23 20:12 06/28/23 20:38 Prazosin 1 Mg Capsule PO 1 mg QPM TAMIA Administration PFSH Acute PFSH: Medical History Cardiac dysrhythmia Cervical disc disease Fibromyalgia Hypothyroidism Osteoarthritis of carpometacarpal (CMC) joint of left thumb Primary osteoarthritis of right knee Surgical History History of ankle surgery x2 left ankle History of carpal tunnel release 2001 History of total knee arthroplasty Date of Procedure: 10/17/20 Left Lele total knee system with a size 6 triathlon beaded posterior stabilized femur left, a triathlon titanium tibial component size 6 beaded, a triathlon X3 posterior stabilized tibial bearing insert size 6 X 11 mm and a beaded triathlon titanium asymmetric patella size 35 x 10 mm Hx of colonoscopy with polypectomy Hx of hernia repair Hx of removal of cyst head, right wrist Hx of spinal surgery Hx of thumb surgery Social History Smoking and tobacco status: never smoked Alcohol intake: never Substance/Drug Use: never Vitals/I&O/Wt Last Vital Signs Temp 98.0 F 06/29/23 15:36 Pulse 85 06/29/23 15:36 Resp 15 06/29/23 15:36 BP 118/63 06/29/23 15:36 Pulse Ox 95 06/29/23 15:36 O2 Del Method Room Air 06/29/23 15:36 06/29/23 06/29/23 06/29/23 06:59 14:59 22:59 Intake Total 986 / 2926 480 / 480 Output Total 800 / 800 Balance 186 / 2126 480 / 480 Weight last 48 hrs Weight 107.275 kg Physical Exam Narrative: General: No acute distress, AO x3 HEENT: PERRLA, pupils bilaterally equal and reactive, pallors not present Chest: Normal vesicular breath sounds, no added sounds, equal good air entry bilaterally CVS: S1-S2 regular, no murmurs, no tachycardia, no gallops, no rubs Abdomen: Soft, nontender, no organomegaly, bowel sounds present Neuro: No focal deficits, no facial deformity, AO x3, power 5/5 in all limbs Extremities: Swelling over the left knee, appears improved compared to pictures from admission however still with significant swelling. Suture line intact with day in place. No obvious discharge noted. Data 06/29/23 05:32 06/29/23 05:32 Micro: Microbiology 06/27/23 16:44 Body Fluid Culture - Preliminary Synovial Fluid Staphylococcus species 06/27/23 16:44 Gram Stain - Final Synovial Fluid 06/27/23 13:49 Blood Culture - Preliminary Blood NEGATIVE TO DATE 06/27/23 13:45 Blood Culture - Preliminary Blood NEGATIVE TO DATE NAME: Kristen Garcia LOC: [facility] #: [id number] AGE/SX: 67/M ROOM: 269 RE06/27/[address]: Alberto Avalos MD : 1955 BED: 1 DIS: FAX #: STATUS: ADM IN TLOC: Spec #: [id number] Lenny: 06/27/23 Status: RES Req #: [id number] Recd: 06/27/[address]: Victor Manuel Miller MD Src: Blood SpDesc: Ordered: Bcult Procedure Result Verified Site Blood Culture Preliminary 06/28/23 NEGATIVE TO DATE Blood Culture Preliminary (changed) 06/27/23 SPECIMEN COLLECTED NAME: Kristen Garcia LOC: [facility] [place] U #: [id number] AGE/SX: 67/M ROOM: [facility] RE06/17/[address]: Concepcion Ron MD : 1955 BED: 1 DIS: 06/18/23 FAX #: STATUS: DIS IN TLOC: Spec #: [id number] Lenny: 06/17/23 Status: COMP Req #: [id number] Recd: 06/17/[address]: Concepcion Ron MD Src: Knee SpDesc: #1 Ordered: Tissue Cult GS Comments: Comment LEFT KNEE BURSA Procedure Result Verified Site Gram Stain Final 06/17/23-1247 Result FEW WHITE BLOOD CELLS NO ORGANISMS SEEN Tissue Culture Final 06/20/23-1811 NO GROWTH AT 72 HOURS Tissue Culture Preliminary (changed) 06/19/23-150 NO GROWTH AT 36-48 HOURS Tissue Culture Preliminary (changed) 06/18/23-1121 NO GROWTH AT 18-24 HOURS NAME: Kristen Garcia LOC: [facility] U #: [id number] AGE/SX: 67/M ROOM: RE04/16/[address]: Concepcion Ron MD : 1955 BED: DIS: FAX #: STATUS: DEP AMB TLOC: Spec #: [id number] Lenny: 04/16/23-UNK Status: COMP Req #: [id number] Recd: 04/16/23-[address]: Concepcion Ron MD Src: Syn Fld SpDesc: Ordered: Body FL Cult&GS Procedure Result Verified Site Gram Stain Final 04/16/23-1721 Result FEW WHITE BLOOD CELLS NO ORGANISMS SEEN Body Fluid Culture Final 04/18/23-1527 NO GROWTH AFTER 2 DAYS Body Fluid Culture Preliminary (changed) 04/17/23-1525 NO GROWTH AFTER 1 DAY Other data: CT/CT knee LT wo con* [id number] IMPRESSION: 1. ? Large hyperdense knee joint effusion and very large hyperdense prepatellar fluid collection. Hyperdensities are also noted to mica layer dependently within the prepatellar collection most typical of blood products/hematoma. Both the knee joint effusion and prepatellar collections contain a few air bubbles but this is markedly decreased compared to the June 17 plain film and is compatible with postoperative changes. At this time, the appearance may simply reflect postoperative changes with interval development of hemarthrosis and prepatellar hematoma. Early infection or abscess cannot be excluded. Continued follow up or possibly aspiration may be helpful. 2. ? No bony fracture. No evidence of periosteal reaction or bony destruction of osteomyelitis. No intramuscular fluid collection or gas. A&P Assessment and plan (1) Infected prosthetic knee joint: (2) History of revision of total replacement of left knee joint: Plan Prosthetic joint infection of left TKA HPI as above Date of reimplantation : 06/17/23 All prior cx including surgical bed cx negative Currently cell count not impressive however synvial fluid aspirate cx returned with Staphylococcus species. Additionally patient with constitutional symptoms of fever and malaise. He is awaiting definitive surgical planning awaiting return of Dr. Ron. Patient has been started on daptomycin 8 mg/kg IV every 24 hours in keeping with recovery of Staphylococcus species on culture. This can continue. Discontinue cefepime At this time would recommend to treat for PJI with daptomycin 8 mg/kg IV every 24 hours at least over the next 6 weeks. Depending on whether patient undergoes I&D with retention of prosthesis versus two-stage reimplantation will need recommendations for iv abx and long-term suppression going forward. I will be away and off call for the next 1 week, unable to round on the patient physically. I remain available for any questions or concerns from the orthopedic and hospitalist team over the phone if needed. Further recommendations would be dependent on surgical plans from Orthopedics side. Consult Attestations Medical Necessity Statement: per admitting Coding Level of Care Code Acute Code for Chg Fwd High MDM includes number and complexity of problems actively addressed during encounter, amount and/or complexity of data reviewed/ordered and described risk of complication, morbidity or mortality of management as documented Diagnoses Infected prosthetic knee joint T84.59XA; Z96.659 History of revision of total replacement of left knee joint Z96.652
--- NOTE | 2023-06-29 18:15 | PM.PN ---
Subjective Subjective: Patient seen and examined this evening. He is gotten up and worked better with therapy today states his pain is more controlled and improving today. His white count has normalized. Continue with IV antibiotics appreciate infectious disease consultation and recommendations. We will handoff care to Dr. Reyes tomorrow. Vitals/I&O/Wt Last Vital Signs Temp 98.0 F 06/29/23 15:36 Pulse 85 06/29/23 15:36 Resp 15 06/29/23 15:36 BP 118/63 06/29/23 15:36 Pulse Ox 95 06/29/23 15:36 O2 Del Method Room Air 06/29/23 15:36 06/29/23 06/29/23 06/29/23 06:59 14:59 22:59 Intake Total 986 / 2926 480 / 480 240 / 720 Output Total 800 / 800 250 / 250 Balance 186 / 2126 480 / 480 -10 / 470 Weight last 48 hrs Weight 236 lb 8 oz Physical Exam Narrative: Examination left knee: Magen in place to incision site dressing in place to the left knee with Hank wrap. Dressing not taken down today. Patient is able to wiggle toes plantarflex and dorsiflex ankle. Gross motor and sensory is intact distally. Left lower extremity is warm well perfused. Data 06/29/23 05:32 06/29/23 05:32 Micro: Microbiology 06/27/23 16:44 Body Fluid Culture - Preliminary Synovial Fluid Staphylococcus species 06/27/23 16:44 Gram Stain - Final Synovial Fluid 06/27/23 13:49 Blood Culture - Preliminary Blood NEGATIVE TO DATE 06/27/23 13:45 Blood Culture - Preliminary Blood NEGATIVE TO DATE A&P Assessment and plan (1) Infected prosthetic knee joint: (2) History of revision of total replacement of left knee joint: (3) Infection of total left knee replacement: (4) History of total knee arthroplasty: Qualifiers: Laterality: left Qualified Code(s): Z96.652 - Presence of left artificial knee joint Plan Continue to monitor joint aspirate from emergency department?follow cultures Defer to infectious disease/primary for antibiotics Orthopedics on board and will continue to follow Dr. Ron notified and will assume patient's care on Friday when she returns Imaging reviewed Labs reviewed?patient has elevated inflammatory markers as well as increased white count and history of fevers as well as persistent drainage of the left knee with large postoperative swelling. Concern for postoperative infection Improving WBC count today Synovial cell analysis 32,000 WBC?aerobic and anaerobic cultures are pending No acute orthopedic surgical intervention at this time and will defer to Dr. Ron for definitive care and treatment Orthopedics will continue to follow while patient is hospitalized Recommend ice and elevate as needed Weight-bear as tolerated left lower extremity PT/OT Recommend dressings of 4 x 4's ABDs Kerlix and an Hank wrap Attestations Medical Necessity Statement*: Requires further hospitalization for management of infected prosthesis in a patient with recent total knee replacement revision Coding Level of Care Code Acute Code for Chg Fwd Diagnoses Infected prosthetic knee joint T84.59XA; Z96.659 History of revision of total replacement of left knee joint Z96.652 Infection of total left knee replacement T84.54XA History of total knee arthroplasty Z96.652 Laterality: left Time Spent (min) 20
[2023-06-29] MEDS: prazosin 1 mg Capsule PO (20:40)
[2023-06-30] VITALS (20 sets, daily range): BP systolic 91–169; BP diastolic 50–102; PULSE 53–72; RESP 9–19; TEMP 36.1–37.3; O2SAT 93–99
[2023-06-30 04:35] LABS: Basophils # 0.1 10^3/uL (0.0-0.1); Basophils % 0.8 %; Eosinophils # 0.5 10^3/uL (0.0-0.8); Eosinophils % 6.7 %; Lymphocytes # 1.5 10^3/uL (0.8-4.8); Lymphocytes % 18.9 %; Mean Corpuscular HGB Conc 31.9 g/dL (30-55); Mean Corpuscular Hemoglobin 29.6 pg (27-33); Mean Corpuscular Volume 92.8 fl (82-101); Neutrophils # 4.86 10^3/uL (1.8-7.7); Neutrophils % 61.2 %; Nucleated Red Blood Cells % 0 %; Platelet Count 326 10^3/cmm (157-399); Red Blood Count 2.91 10^6/uL (3.85-5.65); Red Cell Distribution Width 13.2 % (12.1-15.1); White Blood Count 7.93 10^3/uL (3.29-11.43)
[2023-06-30 04:54] LABS: Alanine Aminotransferase 14 U/L (0-41); Albumin Level 2.7 g/dL (3.5-5.2); Alkaline Phosphatase 90 U/L (40-130); Anion Gap 10.2 (5-19); Aspartate Amino Transferase 16 U/L (0-40); Blood Urea Nitrogen 17 mg/dL (8-23); Calcium 7.9 mg/dL (8.5-10.5); Carbon Dioxide 27 mmol/L (22-29); Chloride 100 mmol/L (98-107); Creatinine Clr Calc Pharmacy 74.4279; Globulin 3.4 g/dL (1.3-4.6); Glomerular Filtration Rate 60.4 mL/min (90-130); Glucose 92 mg/dL (65-115); Osmolality Calculated 277 mOsm/kg (285-295); Potassium 4.2 mmol/L (3.5-5.1); Sodium 133 mmol/L (136-145); Total Bilirubin 0.4 mg/dL (0.15-1.2); Total Protein 6.1 g/dL (6.6-8.7)
[2023-06-30 05:00] LABS: Creatine Phosphokinase 60 U/L (39-308)
[2023-06-30] MEDS: duloxetine 60 mg Capsule PO (05:23)
[2023-06-30] MEDS: aspirin 81 mg EC Tablet PO (05:23)
[2023-06-30] MEDS: acetaminophen 325 mg Tablet 650 MG PO (05:23)
[2023-06-30] MEDS: oxyCODONE 5 mg IR Tab/Cap PO ×2 (05:23→23:09)
[2023-06-30] MEDS: famotidine 20 mg Tablet PO (08:32)
[2023-06-30] MEDS: CELEcoxib 200 mg Capsule 400 MG PO (16:59)
[2023-06-30] MEDS: acetaminophen 1,000 MG/100 ML PIGGYBACK 400 MG IV (17:00)
[2023-06-30] MEDS: sodium chloride 0.9% 1,000 ML 30 ML IV (17:00)
--- NOTE | 2023-06-30 17:07 | ANES.PREANE2 ---
Pre-Anesthetic Assessment Height/Weight: Height 1.8 m Weight 106.155 kg Temp Pulse Resp BP Pulse Ox O2 Del Method 99.2 F 62 16 122/83 94 Room Air 06/30/23 16:44 06/30/23 16:44 06/30/23 16:44 06/30/23 16:44 06/30/23 16:44 06/30/23 16:44 Operation Date: 06/30/23 16:05 Proposed Procedures p Polyethelene Exchange Knee and washout(Left) - Concepcion Ron MD Familial anesthetic complications: Slow to wake, N/V Was Beta Amadeo taken within 24 hours: N/A Was Clonidine taken within 24 hours: N/A Last intake: 729 this morning Social No alcohol and No tobacco Exam alert, oriented x 3, clear to auscultation bilaterally and regular rate & rhythm Airway Submandibular: within normal limits Cervical ROM: within normal limits Mallampati: Class II Dentition: full History/ROS No significant history except as noted and No significant complaints Pulmonary Sleep Apnea (CPAP) CV/HEM Hypertension None reported Hepatic None reported GI None reported Metabolic None reported Musc/skel Lower Back Pain and Osteoarthritis/DJD Neuropsych Depression and Neuropathy (In left foot) Anesthetic Plan ASA status: 3 Anesthesia: Anesthesia Evaluation and General Risk of > 500 ml blood loss (7ml/kg in children): No Medications/Allergies Home Medications Medication Instructions Recorded Confirmed Last Taken Type duloxetine 60 mg capsule,delayed 60 mg PO QAM 11/24/19 06/27/23 06/26/23 History release (Cymbalta) cholecalciferol (vitamin D3) 50 50 mcg PO QAM 10/06/20 06/27/23 06/26/23 History mcg (2,000 unit) capsule (Vitamin D3) Tumeric 1,000 mg PO QAM 01/05/21 06/27/23 06/26/23 History lisinopril 20 mg tablet 10 mg PO QAM 09/17/22 06/27/23 06/26/23 History yhgjeqowsz-sijhdgylikfzh-ysqkfvah 1 cap PO Q6H PRN Migraine Headache 02/03/23 06/27/23 06/10/23 History 50 mg-325 mg-40 mg capsule lidocaine 5 % topical patch See Rx Instructions .Route 02/03/23 06/27/23 06/10/23 History .COMPLEX PRN Pain salmon oil 1,000 mg-omega-3 fatty 1 cap PO QAM 02/03/23 06/27/23 06/26/23 History acids 210 mg capsule ascorbic acid (vitamin C) 1,000 mg 500 mg PO QAM 02/12/23 06/27/23 06/26/23 History tablet (Vitamin C) aspirin 81 mg tablet,delayed 81 mg PO QAM 02/12/23 06/27/23 06/10/23 History release miconazole nitrate 2 % topical 1 applic topical DAILY PRN Rash 02/12/23 06/27/23 06/10/23 History cream prazosin 1 mg capsule 1 mg PO QPM 02/12/23 06/27/23 06/26/23 History magnesium 200 mg tablet 200 mg PO QAM 06/10/23 06/27/23 06/26/23 History naproxen sodium 220 mg tablet 220 mg PO BID PRN Pain 06/10/23 06/27/23 06/10/23 History acetaminophen 500 mg tablet 1,000 mg PO Q8H PRN Pain 06/27/23 06/27/23 Unknown History aspirin 325 mg tablet,delayed 325 mg PO QAM 06/27/23 06/27/23 06/26/23 History release celecoxib 200 mg capsule 200 mg PO QAM 06/27/23 06/27/23 06/26/23 History oxycodone 5 mg tablet 5 mg PO Q4H PRN Moderate Pain 06/27/23 06/27/23 Unknown History (Scale Score 5-6) vitamin E acetate 134 mg (200 134 mg PO QAM 06/27/23 06/27/23 06/26/23 History unit) capsule zinc acetate 50 mg (zinc) capsule 50 mg PO QAM 06/27/23 06/27/23 06/26/23 History Allergies Allergy/AdvReac Type Severity Reaction Status Date / Time rocuronium Allergy Severe ADR/ALGY-Hy Verified 06/27/23 12:16 potension vancomycin Allergy Severe ADR/ALGY-Hy Verified 06/27/23 12:16 potension latex Allergy Unknown Verified 06/27/23 12:16 bumble bee Allergy ALGY-Anaphy Uncoded 06/27/23 12:16 laxis Current Medications Generic Name Dose Route Start Last Admin Trade Name Freq PRN Reason Stop Dose Admin Acetaminophen 650 mg 06/27/23 20:12 06/30/23 05:23 Acetaminophen 325 Mg Tablet PO 650 mg Q6H PRN Administration Mild/Mod Pain Or Temp >/= 101 Aspirin 81 mg 06/28/23 06:00 06/30/23 05:23 Aspirin 81 Mg Ec Tablet PO 81 mg QAM TAMIA Administration Duloxetine HCl 60 mg 06/28/23 06:00 06/30/23 05:23 Duloxetine 60 Mg Capsule PO 60 mg QAM TAMIA Administration Famotidine 20 mg 06/27/23 20:12 06/30/23 08:32 Famotidine 20 Mg Tablet PO 20 mg BID TAMIA Administration Daptomycin 870 mg/ Sodium 50 mls @ 100 mls/hr 06/27/23 19:45 06/29/23 21:28 Chloride IV Infused Q24H TAMIA Infusion Sodium Chloride 1,000 mls @ 30 mls/hr 06/30/23 16:45 06/30/23 17:00 Sodium Chloride 0.9% IV 07/01/23 16:44 30 mls/hr .Q24H TAMIA Administration Ondansetron HCl 4 mg 06/27/23 20:12 06/29/23 20:55 Ondansetron 2 Mg/Ml Sdv 2 Ml IVP 4 mg Q8H PRN Administration vomiting, or N/V if npo Oxycodone HCl 5 mg 06/27/23 20:12 06/30/23 05:23 Oxycodone 5 Mg Ir Tab/Cap PO 5 mg Q4H PRN Administration Moderate Pain (Scale Score 5-6) Prazosin HCl 1 mg 06/27/23 20:12 06/29/23 20:40 Prazosin 1 Mg Capsule PO 1 mg QPM TAMIA Administration PFSH Anesthesia Medical History Cardiac dysrhythmia Cervical disc disease Fibromyalgia Hypothyroidism Osteoarthritis of carpometacarpal (CMC) joint of left thumb Primary osteoarthritis of right knee Surgical History History of ankle surgery x2 left ankle History of carpal tunnel release 2001 History of total knee arthroplasty Date of Procedure: 10/17/20 Left L[employer] total knee system with a size 6 triathlon beaded posterior stabilized femur left, a triathlon titanium tibial component size 6 beaded, a triathlon X3 posterior stabilized tibial bearing insert size 6 X 11 mm and a beaded triathlon titanium asymmetric patella size 35 x 10 mm Hx of colonoscopy with polypectomy Hx of hernia repair Hx of removal of cyst head, right wrist Hx of spinal surgery Hx of thumb surgery Social History Smoking and tobacco status: never smoked Alcohol intake: never Substance/Drug Use: never Data Anesthesia 06/30/23 03:20 06/30/23 03:20 Short CBC 06/29/23 06/30/23 Range/Units 05:32 03:20 WBC 10.62 7.93 (3.29-11.43) 10^3/uL Hgb 9.10 L 8.60 L (11.27-16.99) g/dL Hct 28.9 L 27.0 L (37-53) % MCV 94.1 92.8 (82-101) fl Plt Count 335 326 (157-399) 10^3/cmm Neut % (Auto) 69.4 61.2 % Neut # (Auto) 7.37 4.86 (1.8-7.7) 10^3/uL BMP 06/29/23 06/30/23 05:32 03:20 Sodium 135 L 133 L Potassium 4.3 4.2 Chloride 103 100 Carbon Dioxide 24 27 BUN 18 17 Creatinine 1.2 1.2 Glucose 99 92 Calcium 7.7 L 7.9 L Cardiac Enzymes 06/30/23 Range/Units 03:20 Creatine Kinase 60 (39-308) U/L Liver Function 06/29/23 06/30/23 Range/Units 05:32 03:20 Total Bilirubin 0.5 0.4 (0.15-1.2) mg/dL AST 17 16 (0-40) U/L ALT 10 14 (0-41) U/L Alkaline Phosphatase 86 90 (40-130) U/L Albumin 2.7 L 2.7 L (3.5-5.2) g/dL Cardiac Studies: Echocardiogram Ultrasound 11/23/20
--- NOTE | 2023-06-30 17:11 | P.PN_ITS ---
Subjective Subjective: This 67-year-old gentleman underwent revision knee arthroplasty approximately 2 weeks ago for history of infected total knee arthroplasty. Over the weekend, he presented with a swollen knee through the emergency department. The knee was aspirated in the emergency department and sent for culture. Current cultures are growing a staph species. The patient is seen in his room today. He is comf ortable and notes that he has improved significantly with the antibiotics he has been receiving. Medications: Reviewed: Yes Vitals/I&O/Wt Last Vital Signs Temp 99.2 F 06/30/23 16:44 Pulse 62 06/30/23 16:44 Resp 16 06/30/23 16:44 BP 122/83 06/30/23 16:44 Pulse Ox 94 06/30/23 16:44 O2 Del Method Room Air 06/30/23 16:44 06/30/23 06/30/23 06/30/23 06:59 14:59 22:59 Intake Total 240 / 240 Output Total 250 / 900 Balance -250 / 1160 240 / 240 Weight last 48 hrs Weight 234 lb 0.5 oz Weight 236 lb 8 oz Physical Exam Const: COMMON NORMALS: no acute distress, average body habitus, patient oriented x3 and alert GENERAL APPEARANCE: cooperative and comfortable ORIENTATION/CONSCIOUSNESS: Yes awake HENMT: COMMON NORMALS: normocephalic and atraumatic HEAD & SCALP: normocephalic and atraumatic Eye: GENERAL EYE: appearance normal, both eyes and all related structures Chest: COMMONS NORMALS: normal inspection of the chest Resp: COMMON NORMALS: normal respiratory effort EFFORT & INSPECTION: Yes able to speak in complete sentences and Yes symmetric chest movement Extremity: LEFT LOWER EXTREMITY: Yes knee joint (Knee is swollen with minimal erythema) Left knee: Yes inspection (Slight ecchymosis), Yes palpation (Nontender), Yes ROM (Able to move the knee with minimal discomfort.), Yes neurovascular exam (Intact distally.) and Yes other (Currently able to weight- bear.) Neuro: COMMON NORMALS: patient oriented x3 SENSORIUM/ORIENTATION: Yes alert Psych: COMMON NORMALS: mental status grossly normal APPEARANCE: Yes grossly normal ATTITUDE: Yes calm and Yes engaged ATTENTION/CONCENTRATION: Yes attention grossly intact Skin: COMMON NORMALS: no rashes or lesions noted GENERAL SKIN EXAM: no rashes or lesions noted Data 06/30/23 03:20 06/30/23 03:20 A&P Assessment and plan (1) History of revision of total replacement of left knee joint: This 67-year-old gentleman underwent revision knee arthroplasty approximately 2 weeks ago for history of infected total knee arthroplasty. Over the weekend, he presented with a swollen knee through the emergency department. The knee was aspirated in the emergency department and sent for culture. Current cultures are growing a staph species. The patient is seen in his room today. He is comfortable and notes that he has improved significantly with the antibiotics he has been receiving. Initial arthroplasty was October 17, 2020. Subsequent to that, the patient had a traumatic quadriceps tendon rupture in November 2020. He was taken for repair at that time. Patient then presented to the office with a left total knee infection in January 2023. He underwent removal of total knee implants and placement of a temporary knee arthroplasty with antibiotic laden cement. This was removed with revision components placed on June 17, 2023. Patient presented to the emergency room approximately 3 days ago complaining of up to 3 days of pain prior to his admission. He was unable to move the knee and weightbearing was very tender. Aspiration was obtained in the emergency department and the patient was started on daptomycin for treatment. He has improved significantly with this treatment. Plan today is to perform a polyethylene exchange with aggressive irrigation and debridement in hopes of salvaging his arthroplasty. The patient's plan has been discussed in detail with Dr. Roy. Likely, the patient will require chronic suppressive antibiotics. Initially, however, we will continue treatment with daptomycin. The patient will require a PICC line and will have home therapies for 6 weeks. Rifampin will be added to his treatment plan at the time of discharge. She will continue to follow him as an outpatient as well. (2) Infected prosthetic knee joint: Attestations Medical Necessity Statement*: Ongoing care for infected revision left total knee arthroplasty Coding Level of Care Code 11465 Other Coding Information Procedural care (documented in another note) Diagnoses History of revision of total replacement of left knee joint Z96.652 Infected prosthetic knee joint T84.59XA; Z96.659
--- NOTE | 2023-06-30 18:02 | PM.PN ---
Subjective Subjective: she denies any new symptoms. pain has been better since being here. No drainage from the knee wound. Vitals/I&O/Wt Last Vital Signs Temp 99.2 F 06/30/23 16:44 Pulse 62 06/30/23 16:44 Resp 16 06/30/23 16:44 BP 122/83 06/30/23 16:44 Pulse Ox 94 06/30/23 16:44 O2 Del Method Room Air 06/30/23 16:44 06/30/23 06/30/23 06/30/23 06:59 14:59 22:59 Intake Total 240 / 240 Output Total 250 / 900 Balance -250 / 1160 240 / 240 Weight last 48 hrs Weight 106.155 kg Weight 107.275 kg Physical Exam Const: COMMON NORMALS: patient oriented x3 and alert GENERAL APPEARANCE: cooperative ORIENTATION/CONSCIOUSNESS: Yes awake HENMT: COMMON NORMALS: oropharynx normal Neck/C-Spine: COMMON NORMALS: no JVD Resp: COMMON NORMALS: normal respiratory effort and clear to auscultation bilaterally AUSCULTATION: clear to auscultation bilaterally Cardio: COMMON NORMALS: no JVD, regular rhythm, S1 normal heart sound present, S2 normal heart sound present and No murmurs present (Cardio) RHYTHM: regular rhythm HEART SOUNDS: S1 normal heart sound present and S2 normal heart sound present GI: COMMON NORMALS: Normal to inspection, nondistended, normoactive bowel sounds present, Soft to palpation and non-tender PALPATION: Yes Soft to palpation Extremity: COMMON NORMALS: no joint enlargement and no pedal edema OTHER: L knee wound With minimal surrounding erythema. No drainage currently. With swelling. Ecchymoses. Magen in place. Neuro: COMMON NORMALS: patient oriented x3 and moves all extremities SENSORIUM/ORIENTATION: Yes alert Skin: COMMON NORMALS: no rashes or lesions noted GENERAL SKIN EXAM: no rashes or lesions noted Data 06/30/23 03:20 06/30/23 03:20 A&P Assessment and plan (1) Infected prosthetic knee joint: Discussed with nursing, case management, patient, pending orthopedic evaluation today with consideration of further source control. Reviewed orthopedic documentation, discussion with infectious disease, plan for polyethylene exchange with aggressive rugation and debridement in hopes of salvaging arthroplasty. Likely need for chronic suppressive antibiotics. Continue daptomycin at this time. Will need follow-up with orthopedics and ID. Reviewed CBC, CMP. Reviewed knee culture with noted moderate staph species on preliminary. Reviewed blood culture. Noted negative At risk of rhabdomyolysis, HAYLEY with antibiotic. Reassess chemistry. Monitor symptoms. 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 Follow-up renal function. Check CK. Attestations Medical Necessity Statement*: Continue admission for assessment management of left prosthetic knee joint. Diagnoses Infected prosthetic knee joint T84.59XA; Z96.659 History of revision of total replacement of left knee joint Z96.652
[2023-06-30] MEDS: ceFAZolin 1,000 mg SDV 7000 MG IRRIGATION (20:00)
--- NOTE | 2023-06-30 21:34 | PM.OP ---
Operative Report Date of procedure: June 30, 2023 Pre-op diagnosis: Infected revision left total knee arthroplasty Post-op diagnosis: Infected revision left total knee arthroplasty Post-op findings: 500 mL of serosanguineous fluid without purulence Procedure done: Revision of revision left total knee arthroplasty with irrigation, debridement, and tibial polyethylene exchange Implants: The Lele triathlon X3 total stabilizer+ tibial insert size 6 x 13 mm Specimens removed/disposition: Synovial fluid and tissue both sent for culture. Closing synovial fluid also sent for culture. Surgeon: Concepcion Ron MD Gear Setter: [facility] operating room technicians Anesthesia: General (LMA, ASA 3) Estimated blood loss (mL): 50 Tourniquet time (min): 123 (At 250 mmHg) IV fluids (mL): 900 Urine output (mL): 150 Complications: None Findings: 500 cc of serosanguineous fluid without mayur pus. Synovitis Condition: stable Disposition: PACU (Then return to floor for discharge to home) Brief History: This 67-year-old gentleman initially presented for total knee arthroplasty on October 17, 2020. Subsequent to that, he had a traumatic quadriceps tendon rupture which was repaired on December 07, 2020. He did well until he presented to the office with a large knee effusion. Aspiration demonstrated purulent fluid. The patient underwent removal of total knee arthroplasty on February 11, 2023. At that time, temporary prosthesis was placed with antibiotic laden cement. This was removed on June 17, 2023. He presented to the emergency department over the weekend with a swollen knee which she was unable to bend or walk on. This was a significant change from his immediate postoperative period. He also described fever and chills. Therefore, the knee was aspirated in the emergency department and cultures were sent. The cultures demonstrated a staph species which was consistent with the patient's previous findings. Dr. Roy is involved in the case and this was discussed with her. Plans were made for revision arthroplasty with revision of the tibial insert only. The patient was consented for the surgical procedure and discussion was undertaken with him regarding the reasoning of the procedure. Procedure: The patient was brought to the operating theater, and after undergoing adequate general anesthesia per LMA, ASA 3, the left lower extremity was prepped and draped in usual fashion following placement of a tourniquet high on the leg. The leg was then draped free with the prepping accomplished with DuraPrep. Following prepping and draping, the leg was exsanguinated, and the tourniquet was elevated to 250 mmHg for total tourniquet time of 123 minutes. The leg was not exsanguinated prior to elevation of the tourniquet. Prior to elevation of the tourniquet the following exposure of the site of surgery, a surgical pause was performed. At the time of the surgical pause we confirmed the site and side of surgery. Additionally, we confirmed that the patient had received daptomycin which is treatment for his infected knee prior to the surgical procedure and on a schedule of every 24 hours. Daptomycin was due following the surgical procedure, and arrangements were made for this. The availability of equipment was confirmed, and the patient's identity was verbalized as well. Following the surgical pause, an incision was made centering over the patella continuing proximally and distally as necessary to allow access to the knee joint. The patient's previous incision was entered and suture material was removed during the arthrotomy process. Dissection continued through skin and soft tissues using a scalpel. The midline skin incision followed the patient's previous incisions. Hemostasis was obtained using electrocautery.? The patient had had a previously extensive lateral release and opening along the lateral aspect of the patella secondary to prior infected knee prosthesis and the extensive surgery required for its removal and implantation of temporary prostheses. Upon entry into the knee joint, there was 500 cc of serosanguineous fluid with no purulent material. There was reactive synovium which was removed with a combination of a curette and rongeur. Opening synovium was cultured. Tissues were cultured as well. We did obtain closing cultures. Following extensive synovectomy and debridement of soft tissues as well as irrigation with 9 L of normal saline the first and last 3 L each containing Ancef 3 g, the previous tibial insert was removed. Further debridement was accomplished as well. This was actually removed prior to irrigation as noted above. As the patient's knee was quite functional with the initial component. The same size total stabilizer plus tibial insert, size 6 x 13 mm, was placed without difficulty. After this was in position, attention was directed to closure of the knee. Prior to closure, the knee was irrigated with an additional 20 mL of Betadine and 500 mL of normal saline. This was irrigated out with normal saline after had been in the knee for 3 to 5 minutes. Attention was directed to closure.? Closure was accomplished with 0 Vicryl in the fascial tissues.? This was supplemented with strata fix.? The strata fix was placed proximal to distal and a second strata fix was placed distal to proximal.? This was along the medial arthrotomy line.? Once that had been closed, the knee was again irrigated.? A drain was placed into the knee and to self suction. Subcutaneous tissues were closed with 2-0 Monocryl in an interrupted fashion into the soft tissues.? The skin was closed with skin day.? This was followed by PrineoChilango, sterile soft roll, and an Hank wrap.? Tourniquet was released after 123 minutes. The patient was returned to the recovery room in satisfactory condition and will be discharged to the floor for postoperative rehabilitation.? X-rays were obtained in the recovery room and were satisfactory.? There were no complications.? As noted above, specimens were sent for culture and Gram stain. Microbiology was asked to hold the cultures for a total of 7 days as this was a periprosthetic infection. Related Problem List Diagnoses (1) History of revision of total replacement of left knee joint: (2) Infected prosthetic knee joint:
--- NOTE | 2023-06-30 21:48 | XRR_ITS ---
PROCEDURE INFORMATION: Exam: XR Left Knee Exam date and time: 06/30/2023 10:00 PM Age: 67 years old Clinical indication: Device placement; Joint replacement hardware; Prior surgery; Surgery date: Post-operative (0-2 days); Surgery type: Lt knee; Additional info: Status post revision knee with polyethylene exchange TECHNIQUE: Imaging protocol: Radiologic exam of the left knee. Views: 1 or 2 views. COMPARISON: CT knee LT wo con* [id number] 06/27/2023 5:24 PM FINDINGS: Tubes, catheters and devices: Postsurgical changes noted along the anterior aspect of the left knee now with a surgical drain in place. Bones/joints: Status post semi constrained total left knee arthroplasty without immediate hardware complications. Soft tissues: Normal. XR/XR knee LT 1-2V [id number] IMPRESSION: 1. Status post semi constrained total left knee arthroplasty without immediate hardware complications. 2. Postsurgical changes noted along the anterior aspect of the left knee now with a surgical drain in place.
--- NOTE | 2023-06-30 21:54 | ANE.PACU2 ---
Inpatient post-anesthesia follow up: Airway intact: Yes Vital signs: Temperature 99.2 F Pulse Rate 62 Respiratory Rate 16 Blood Pressure 122/83 Pulse Oximetry 94 Oxygen Delivery Me thod Room Air Oxygen Flow Rate 6 Fraction of Inspir ed Oxygen Hydration adequate: Yes Nausea and vomiting: No Pain level: 2 Mental status: Baseline
--- NOTE | 2023-06-30 22:59 | PC.NURSE ---
Per report from PACU nurse, olivera was removed. Patient did not have olivera upon arrival to [facility].
[2023-07-01] VITALS (15 sets, daily range): BP systolic 111–130; BP diastolic 68–76; PULSE 52–64; RESP 15–18; TEMP 36.5–36.8; O2SAT 90–100
[2023-07-01] MEDS: acetaminophen 1,000 MG/100 ML PIGGYBACK 400 MG IV ×2 (01:20→09:51)
[2023-07-01] MEDS: oxyCODONE 5 mg IR Tab/Cap PO ×4 (03:01→22:43)
[2023-07-01 05:10] LABS: Basophils % 0.4 %; Hematocrit 31.2 % (37-53); Lymphocytes # 0.5 10^3/uL (0.8-4.8); Lymphocytes % 6.4 %; Mean Corpuscular HGB Conc 31.4 g/dL (30-55); Mean Corpuscular Hemoglobin 29.7 pg (27-33); Mean Corpuscular Volume 94.5 fl (82-101); Monocytes # 0.3 10^3/uL (0.2-0.9); Monocytes % 3.5 %; Neutrophils # 7.34 10^3/uL (1.8-7.7); Neutrophils % 89.3 %; Nucleated Red Blood Cells % 0 %; Platelet Count 414 10^3/cmm (157-399); Red Cell Distribution Width 13.2 % (12.1-15.1); White Blood Count 8.22 10^3/uL (3.29-11.43)
[2023-07-01 05:32] LABS: Alanine Aminotransferase 13 U/L (0-41); Albumin Level 3.2 g/dL (3.5-5.2); Alkaline Phosphatase 95 U/L (40-130); Aspartate Amino Transferase 13 U/L (0-40); Blood Urea Nitrogen 22 mg/dL (8-23); C Reactive Protein 111.2 mg/L (0.0-4.9); Calcium 8.1 mg/dL (8.5-10.5); Carbon Dioxide 27 mmol/L (22-29); Chloride 102 mmol/L (98-107); Globulin 3.4 g/dL (1.3-4.6); Glomerular Filtration Rate 50.5 mL/min (90-130); Glucose 180 mg/dL (65-115); Osmolality Calculated 290 mOsm/kg (285-295); Sodium 136 mmol/L (136-145); Total Bilirubin 0.3 mg/dL (0.15-1.2); Total Protein 6.6 g/dL (6.6-8.7)
[2023-07-01] MEDS: duloxetine 60 mg Capsule PO (06:56)
[2023-07-01] MEDS: aspirin 81 mg EC Tablet PO (06:56)
--- NOTE | 2023-07-01 08:35 | XRR_ITS ---
PROCEDURE INFORMATION: Exam: XR Spine; Thoracic Exam date and time: 07/01/2023 9:34 AM Age: 67 years old Clinical indication: Screening exam; Exam type: Stimulator issues; Prior surgery; Surgery date: 6+ months; Surgery type: Spine stimulator; Additional info: Scs paddle removal, recent knee surgery TECHNIQUE: Imaging protocol: XR of the spine. Exam focused on the thoracic spine. Views: 1 view. COMPARISON: CT thoracic spin wo con* [id number] 12/23/2018 2:27 PM FINDINGS: Tubes, catheters and devices: There is a spinal stimulator device noted with leads projecting superiorly to the level of T7. There is no evidence of acute fracture. Bones/joints: See Tubes, catheters and devices finding. Soft tissues: Normal. XR/XR thoracic spine 1ort [id number] IMPRESSION: No acute findings.
--- NOTE | 2023-07-01 08:35 | XRR_ITS ---
PROCEDURE INFORMATION: Exam: XR Spine; Lumbar Exam date and time: 07/01/2023 9:29 AM Age: 67 years old Clinical indication: Screening exam; Exam type: Stimulator issues; Prior surgery; Surgery date: 6+ months; Surgery type: Spine stimulator; Additional info: Scs battery, recent knee surgery TECHNIQUE: Imaging protocol: XR of the spine. Exam focused on the lumbar spine. Views: 1 view. COMPARISON: CR XR chest 1V portable [id number] 11/23/2020 5:20 PM FINDINGS: Tubes, catheters and devices: There is partial visualization of a spinal stimulator device. Bones/joints: The lumbar vertebral body heights appear to be maintained. There is mild bilateral hip osteoarthritis. Soft tissues: Normal. XR/XR lumbar spine 1V port [id number] IMPRESSION: No acute findings.
--- NOTE | 2023-07-01 08:39 | P.CONIM_ITS ---
Providers/Reason For Consult Consulting Physician/Specialty*: Orthopedic spine Reason for Consult*: Spinal cord stimulator failure Attending Physician: Werner Naik Primary Care Provider: Ashley Mac MD History of Present Illness History of Present Illness Kristen Garcia is a 67 year old male who had a spinal cord [place] [address] Ryan. Patient states over the course the spinal cord stimulator has failed he has not been using it for the last year. He has had intermittent infections and states that he thinks that may be a source of his infection as well. Patient would like the spinal cord stimulator removed. He underwent recent knee replacement revision surgery. Patient reports the stimulator in his right flank with the paddle lead in the mid thoracic region. He is on sure as to what company it is. He has not met with a distribution sales representative in some time. He has not been using the stimulator in the last year. Review of Systems General: Reports: 10 or more systems reviewed and unremarkable except in HPI and below Const: Denies: fever(s), chills or body aches Eyes: Denies: change in vision, blurry vision or photophobia ENMT: Reports: hoarseness; Denies: throat pain, enlarged tonsils, odynophagia or nasal congestion Card: Denies: chest pain, palpitations, irregular heart rhythm, edema, swelling of feet/ankles, lightheadedness, pre-syncope, dyspnea on exertion or orthopnea Resp: Denies: dyspnea, productive cough, non-productive cough, wheezing, stridor, pain on inspiration, change in phlegm color, hemoptysis or chest congestion GI: Denies: abdominal pain, nausea, vomiting, hematemesis, coffee ground emesis, dysphagia, heartburn, diarrhea, constipation, GI cramping, change in stool character, hematochezia or melena : Denies: flank pain, dysuria, urinary frequency, urinary urgency, urinary hesitancy or hematuria Musc: Denies: neck pain, back pain, extremity pain, joint swelling, joint warmth or deformity Neuro: Denies: headache(s), numbness in extremities, weakness in extremities, sensory changes, difficulty walking, frequent falls, dizziness, vertigo, behavioral changes, Slurred speech present or seizure-like activity Psych: Denies: anxiety, depression, suicidal ideation or homicidal ideation Endo: Denies: polyuria, polydipsia, tired all the time, cold intolerance or hot flashes Tutu/Lymph: Denies: easy bruising or easy bleeding Medications/Allergies Home Medications Medication Instructions Recorded Confirmed Last Taken Type duloxetine 60 mg capsule,delayed 60 mg PO QAM 11/24/19 06/27/23 06/26/23 History release (Cymbalta) cholecalciferol (vitamin D3) 50 50 mcg PO QAM 10/06/20 06/27/23 06/26/23 History mcg (2,000 unit) capsule (Vitamin D3) Tumeric 1,000 mg PO QAM 01/05/21 06/27/23 06/26/23 History lisinopril 20 mg tablet 10 mg PO QAM 09/17/22 06/27/23 06/26/23 History qwpbzwodob-xcyfwdnjhfilu-edlprvhb 1 cap PO Q6H PRN Migraine Headache 02/03/23 06/27/23 06/10/23 History 50 mg-325 mg-40 mg capsule lidocaine 5 % topical patch See Rx Instructions .Route 02/03/23 06/27/23 06/10/23 History .COMPLEX PRN Pain salmon oil 1,000 mg-omega-3 fatty 1 cap PO QAM 02/03/23 06/27/23 06/26/23 History acids 210 mg capsule ascorbic acid (vitamin C) 1,000 mg 500 mg PO QAM 02/12/23 06/27/23 06/26/23 History tablet (Vitamin C) aspirin 81 mg tablet,delayed 81 mg PO QAM 02/12/23 06/27/23 06/10/23 History release miconazole nitrate 2 % topical 1 applic topical DAILY PRN Rash 02/12/23 06/27/23 06/10/23 History cream prazosin 1 mg capsule 1 mg PO QPM 02/12/23 06/27/23 06/26/23 History magnesium 200 mg tablet 200 mg PO QAM 06/10/23 06/27/23 06/26/23 History naproxen sodium 220 mg tablet 220 mg PO BID PRN Pain 06/10/23 06/27/23 06/10/23 History acetaminophen 500 mg tablet 1,000 mg PO Q8H PRN Pain 06/27/23 06/27/23 Unknown History aspirin 325 mg tablet,delayed 325 mg PO QAM 06/27/23 06/27/23 06/26/23 History release celecoxib 200 mg capsule 200 mg PO QAM 06/27/23 06/27/23 06/26/23 History oxycodone 5 mg tablet 5 mg PO Q4H PRN Moderate Pain 06/27/23 06/27/23 Unknown History (Scale Score 5-6) vitamin E acetate 134 mg (200 134 mg PO QAM 06/27/23 06/27/23 06/26/23 History unit) capsule zinc acetate 50 mg (zinc) capsule 50 mg PO QAM 06/27/23 06/27/23 06/26/23 History Allergies Allergy/AdvReac Type Severity Reaction Status Date / Time rocuronium Allergy Severe ADR/ALGY-Hy Verified 06/27/23 12:16 potension vancomycin Allergy Severe ADR/ALGY-Hy Verified 06/27/23 12:16 potension latex Allergy Unknown Verified 06/27/23 12:16 bumble bee Allergy ALGY-Anaphy Uncoded 06/27/23 12:16 laxis Current Medications Generic Name Dose Route Start Last Admin Trade Name Freq PRN Reason Stop Dose Admin Acetaminophen 650 mg 06/27/23 20:12 06/30/23 05:23 Acetaminophen 325 Mg Tablet PO 650 mg Q6H PRN Administration Mild/Mod Pain Or Temp >/= 101 Aspirin 81 mg 06/28/23 06:00 07/01/23 06:56 Aspirin 81 Mg Ec Tablet PO 81 mg QAM TAMIA Administration Duloxetine HCl 60 mg 06/28/23 06:00 07/01/23 06:56 Duloxetine 60 Mg Capsule PO 60 mg QAM TAMIA Administration Famotidine 20 mg 06/27/23 20:12 06/30/23 08:32 Famotidine 20 Mg Tablet PO 20 mg BID TAMIA Administration Daptomycin 870 mg/ Sodium 50 mls @ 100 mls/hr 06/27/23 19:45 07/01/23 02:08 Chloride IV Infused Q24H TAMIA Infusion Acetaminophen 1,000 mg in 100 mls @ 400 mls/hr 07/01/23 01:00 07/01/23 02:24 Acetaminophen IV 07/01/23 17:14 Infused Q8H TAMIA Infusion Ondansetron HCl 4 mg 06/27/23 20:12 06/29/23 20:55 Ondansetron 2 Mg/Ml Sdv 2 Ml IVP 4 mg Q8H PRN Administration vomiting, or N/V if npo Oxycodone HCl 5 mg 06/27/23 20:12 07/01/23 06:56 Oxycodone 5 Mg Ir Tab/Cap PO 5 mg Q4H PRN Administration Moderate Pain (Scale Score 5-6) Prazosin HCl 1 mg 06/27/23 20:12 06/29/23 20:40 Prazosin 1 Mg Capsule PO 1 mg QPM TAMIA Administration PFSH Acute PFSH: Medical History Cardiac dysrhythmia Cervical disc disease Fibromyalgia Hypothyroidism Osteoarthritis of carpometacarpal (CMC) joint of left thumb Primary osteoarthritis of right knee Surgical History History of ankle surgery x2 left ankle History of carpal tunnel release 2001 History of total knee arthroplasty Date of Procedure: 10/17/20 Left Dumont total knee system with a size 6 triathlon beaded posterior stabilized femur left, a triathlon titanium tibial component size 6 beaded, a triathlon X3 posterior stabilized tibial bearing insert size 6 X 11 mm and a beaded triathlon titanium asymmetric patella size 35 x 10 mm Hx of colonoscopy with polypectomy Hx of hernia repair Hx of removal of cyst head, right wrist Hx of spinal surgery Hx of thumb surgery Social History Smoking and tobacco status: never smoked Alcohol intake: never Substance/Drug Use: never Vitals/I&O/Wt Last Vital Signs Temp 97.9 F 07/01/23 05:05 Pulse 58 L 07/01/23 05:08 Resp 16 07/01/23 06:56 BP 124/69 07/01/23 05:05 Pulse Ox 97 07/01/23 05:05 O2 Del Method Nasal Cannula 07/01/23 05:05 O2 Flow Rate 3 07/01/23 05:05 06/30/23 07/01/23 07/01/23 22:59 06:59 14:59 Intake Total 50 / 290 560 / 850 Output Total 505 / 505 255 / 760 Balance -455 / -215 305 / 90 Weight last 48 hrs Weight 234 lb 0.5 oz Weight 236 lb 8 oz Physical Exam Narrative: Patient is alert orient x3 has a good general appearance normal mood and affect. Demonstrates dorsiflexion and plantarflexion without difficulty. No palpatory and percussion pain throughout the paraspinous musculature of the thoracolumbar spine. Incisions are well-healed in the mid thoracic and right lower lumbar region from previous spinal cord stimulator placement. No palpable pain over the incisional areas in the mid thoracic or right lower lumbar incisional site from the palpable spinal cord stimulator battery. Normal sensation to light touch through all dermatomal layers. Dressings on his left lower extremity from recent revision knee replacement surgery. Normal sensation light touch down both lower extremities with 4/5 motor strength throughout all motor groups. Skin is clear warm with normal sensation to light touch, calves are supple with no medial thigh tenderness, Dorsalis pedis and posterior tibial pulses are 2+. No palpable edema bilaterally. HENMT: COMMON NORMALS: normocephalic HEAD & SCALP: normocephalic Resp: COMMON NORMALS: normal respiratory effort Cardio: COMMON NORMALS: regular rate and regular rhythm RATE: regular rate RHYTHM: regular rhythm GI: COMMON NORMALS: Soft to palpation and non-tender PALPATION: Yes Soft to palpation : COMMON NORMALS: Yes no CVA tenderness BLADDER/KIDNEY EXAM: Yes no CVA tenderness Back/Pelvis: COMMON NORMALS: no CVA tenderness Psych: COMMON NORMALS: mental status grossly normal and cooperative Urinary Catheter Management: Moon: Cath Placed During This Visit: yes Urinary Catheter Date of Insertion: 06/30/23 Urinary Catheter Time of Insertion: 19:00 Data 07/01/23 04:55 07/01/23 04:55 A&P Assessment and plan (1) Failed spinal cord stimulator: Discussed the options with the patient he would like to have the spinal cord stimulator removed. We will obtain recent x-rays of his thoracic and lumbar spine to confirm the paddle and spinal cord stimulator battery sites. We will also coordinate with Dr. Reyes and infectious disease as to an appropriate time to expose him to general anesthetic for that removal. Discussed this with Dr. Ireland he agrees above-stated plan. More than 50% of the time spent with the patient today involved coordination of care, counseling and discussion of conservative versus surgical treatment options. Total amount of time spent with the patient was 32 minutes. Coding Level of Care Code Acute Code for Chg Fwd Diagnoses Failed spinal cord stimulator T85.192A Time Spent (min) 32
[2023-07-01] MEDS: chlorhexidine gluconate 0.12% Btl 473 mL 30 ML MUCOUS MEM ×4 (09:50→21:21)
[2023-07-01] MEDS: mupirocin oint 22 gm 1 APPLIC NASAL ×2 (09:50→17:43)
[2023-07-01] MEDS: multivitamin therapeutic Tablet 1 TAB PO (09:51)
[2023-07-01] MEDS: calcium carbonate 500 mg Chew Tablet 1000 MG PO ×2 (09:51→17:44)
[2023-07-01] MEDS: sennosides-docusate Tablet 2 TAB PO ×2 (09:51→17:44)
[2023-07-01] MEDS: cholecalciferol (vitamin D3) 1,000 unit Tablet 1000 UNIT PO (09:51)
[2023-07-01] MEDS: famotidine 20 mg Tablet PO ×2 (09:52→17:44)
[2023-07-01] MEDS: iron polysaccharide complex 150 mg Capsule PO ×2 (09:52→17:44)
--- NOTE | 2023-07-01 12:58 | PC.OT ---
OT EVALUATION ORDERS RECEIVED. PER DISCUSSION AND OBSERVATION OF PATIENT HE IS AT BASELINE FOR ADLS. DOES HAVE DME WELL ADL KIT AT HOME FOR INDEPENDENCE WITH [employer]. NO FURTHER SKILLED OT REQUIRED.
--- NOTE | 2023-07-01 13:22 | XR_ITS ---
WS: [id number] PORTABLE CHEST x 2 HISTORY: Post PICC insertion COMPARISON: 02/11/2023 Initial portable chest at 2:12 p.m. Demonstrates the PICC line crosses the midline and may be in the RIGHT atrium. Second radiograph at 2:27 p.m. Demonstrates good position PICC line in the distal SVC. No complications. IMPRESSION: Satisfactory positioning of PICC line.
--- NOTE | 2023-07-01 14:30 | PC.NURSE ---
Single lumen PICC placed to left basilic vein. Pt referred for PICC placement for IV antibiotics x 6 weeks. Pt states he is right arm dominant and would prefer placement in left arm. Risks and benefits discussed and informed consent obtained from patient. Left arm assessed with left basilic vein measuring 4.5 mm, straight, and apparent best choice for placement. Using sterile technique and MST, left basilic vein accessed x 1 stick. Mid-arm circumference measured 10 cm from left AC 33 cm. Trimmed cath length 45 cm with 3 cm external length noted. Line secured with stat-lock. Insertion site covered with Biopatch and TSM. CXR shows tip in distal SVC, in good postion for use per radiologist. Report given to charge nurseBetsey.
--- NOTE | 2023-07-01 14:32 | P.PN_ITS ---
Subjective Subjective: He feels he has been improving. Currently denies any complaints or needs. She has had a discussion yesterday with orthopedics who also were in contact with ID with regards to options for further steps for treatment, with resultant decision together to work on attempted salvage of the prosthesis, with likely need for long-term antibiotic suppression after course of IV antibiotics. Placement of PICC line. Follow-up with orthopedics and ID. Vitals/I&O/Wt Last Vital Signs Temp 98.2 F 07/01/23 11:21 Pulse 58 L 07/01/23 11:21 Resp 17 07/01/23 11:21 BP 124/73 07/01/23 11:21 Pulse Ox 99 07/01/23 11:21 O2 Del Method Room Air 07/01/23 11:21 O2 Flow Rate 3 07/01/23 05:05 06/30/23 07/01/23 07/01/23 22:59 06:59 14:59 Intake Total 160 / 400 560 / 960 360 / 360 Output Total 505 / 505 255 / 760 700 / 700 Balance -345 / -105 305 / 200 -340 / -340 Weight last 48 hrs Weight 106.155 kg Physical Exam Const: COMMON NORMALS: patient oriented x3 and alert GENERAL APPEARANCE: cooperative ORIENTATION/CONSCIOUSNESS: Yes awake HENMT: COMMON NORMALS: oropharynx normal Neck/C-Spine: COMMON NORMALS: no JVD Resp: COMMON NORMALS: normal respiratory effort and clear to auscultation bilaterally AUSCULTATION: clear to auscultation bilaterally Cardio: COMMON NORMALS: no JVD, regular rhythm, S1 normal heart sound present, S2 normal heart sound present and No murmurs present (Cardio) RHYTHM: regular rhythm HEART SOUNDS: S1 normal heart sound present and S2 normal heart sound present GI: COMMON NORMALS: Normal to inspection, nondistended, normoactive bowel sounds present, Soft to palpation and non-tender PALPATION: Yes Soft to palpation Extremity: COMMON NORMALS: no joint enlargement and no pedal edema OTHER: L knee postop dressing. Cooling pack. With minimal surrounding erythema. No drainage currently. With swelling. Ecchymoses. [place] in place. Neuro: COMMON NORMALS: patient oriented x3 and moves all extremities SENSORIUM/ORIENTATION: Yes alert Skin: COMMON NORMALS: no rashes or lesions noted GENERAL SKIN EXAM: no rashes or lesions noted Urinary Catheter Management: Moon: Cath Placed During This Visit: yes Urinary Catheter Date of Insertion: 06/30/23 Urinary Catheter Time of Insertion: 19:00 Data 07/01/23 04:55 07/01/23 04:55 Micro: Microbiology 06/27/23 16:44 Body Fluid Culture - Final Synovial Fluid Staph capitis sub ureolyticus A&P Assessment and plan (1) Infected prosthetic knee joint: Status post knee revision due to knee joint infection status post SAVANNAH, with attempted salvage prosthesis, continue antibiotic course currently with daptomycin, 870 mg IV every 24 hours, continue until 08/10 or per infectious disease. With subsequently anticipated chronic antibiotic suppression. Reviewed operative wound culture, pending. Prior wound culture reviewed, noted with Staph capitis. At risk of treatment failure, localized and distant infection spread, potentially disabling and/or life-threatening complication. Will need follow-up with ID. Discussed with case management. Plans were for PICC line placement, reviewed blood cultures, are remaining negative. He lost IV access today. Requested PICC line. Reviewed CBC noted no leukocytosis, CMP renal function slight worsening creatinine up to 1.4. Follow-up CBC and chemistry. Reviewed liver parameters, noted unremarkable. Reviewed CRP noted 111.2. At risk of rhabdomyolysis, HAYLEY with antibiotic. Check CK. 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 Additional assessment underway. HTN CAD HAYLEY: At risk of rhabdomyolysis with daptomycin. Follow-up renal function. Check CK. Attestations Medical Necessity Statement*: Continue admission for assessment management of left prosthetic knee joint. Diagnoses Infected prosthetic knee joint T84.59XA; Z96.659 History of revision of total replacement of left knee joint Z96.652
[2023-07-01] MEDS: prazosin 1 mg Capsule PO (17:44)
--- NOTE | 2023-07-01 19:13 | PM.PN ---
Subjective Subjective: Patient was seen, postop day 1. He notes he is much more comfortable than preop. He has a drain in place which is keeping his knee less swollen than it has been for quite a while. Medications: Reviewed: Yes Vitals/I&O/Wt Last Vital Signs Temp 97.9 F 07/01/23 16:00 Pulse 61 07/01/23 16:00 Resp 18 07/01/23 17:44 BP 130/70 07/01/23 16:00 Pulse Ox 98 07/01/23 16:00 O2 Del Method Room Air 07/01/23 16:00 O2 Flow Rate 3 07/01/23 05:05 07/01/23 07/01/23 07/01/23 06:59 14:59 22:59 Intake Total 560 / 960 460 / 460 480 / 940 Output Total 255 / 760 700 / 700 350 / 1050 Balance 305 / 200 -240 / -240 130 / -110 Weight last 48 hrs Weight 234 lb 0.9 oz Weight 234 lb 0.5 oz Physical Exam Const: COMMON NORMALS: no acute distress, average body habitus, patient oriented x3 and alert GENERAL APPEARANCE: cooperative and comfortable ORIENTATION/CONSCIOUSNESS: Yes awake HENMT: COMMON NORMALS: normocephalic and atraumatic HEAD & SCALP: normocephalic and atraumatic Eye: GENERAL EYE: appearance normal, both eyes and all related structures Chest: COMMONS NORMALS: normal inspection of the chest Resp: COMMON NORMALS: normal respiratory effort EFFORT & INSPECTION: Yes able to speak in complete sentences and Yes symmetric chest movement Extremity: LEFT LOWER EXTREMITY: Yes knee joint (Dressing is dry and intact. Drain is functional.) Left knee: Yes inspection (No significant swelling noted.), Yes palpation (Minimal discomfort.), Yes ROM (Not evaluated.) and Yes neurovascular exam (Intact distally.) Neuro: COMMON NORMALS: patient oriented x3 SENSORIUM/ORIENTATION: Yes alert Psych: COMMON NORMALS: mental status grossly normal APPEARANCE: Yes grossly normal ATTITUDE: Yes calm and Yes engaged ATTENTION/CONCENTRATION: Yes attention grossly intact Skin: COMMON NORMALS: no rashes or lesions noted GENERAL SKIN EXAM: no rashes or lesions noted Urinary Catheter Management: Moon: Cath Placed During This Visit: yes Urinary Catheter Date of Insertion: 06/30/23 Urinary Catheter Time of Insertion: 19:00 Data 07/03/23 05:30 07/03/23 05:30 Micro: Microbiology 06/30/23 19:15 Gram Stain - Final Knee - #4 06/30/23 19:15 Gram Stain - Final Knee - #3 06/30/23 19:15 Gram Stain - Final Knee - #1 06/30/23 19:15 Gram Stain - Final Knee - #2 06/27/23 16:44 Body Fluid Culture - Final Synovial Fluid Staph capitis sub ureolyticus A&P Assessment and plan (1) Infected prosthetic knee joint: Patient is more comfortable, and he has been working with physical therapy. Cultures are still pending. Gram stain demonstrated no organisms seen. The drain is in place, and the patient is tolerating it nicely. We will continue with the drain. Patient remain inpatient for IV antibiotics. Qualifiers: Encounter type: subsequent encounter Qualified Code(s): T84.59XD - Infection and inflammatory reaction due to other internal joint prosthesis, subsequent encounter; Z96.659 - Presence of unspecified artificial knee joint (2) History of revision of total replacement of left knee joint: Attestations Medical Necessity Statement*: Ongoing care and antibiotic therapies. Coding Level of Care Code Acute Code for Chg Fwd Diagnoses Infected prosthetic knee joint T84.59XD; Z96.659 Encounter type: subsequent encounter History of revision of total replacement of left knee joint Z96.652
[2023-07-02] VITALS (13 sets, daily range): BP systolic 117–142; BP diastolic 66–78; PULSE 52–66; RESP 16–18; TEMP 36.4–36.9; O2SAT 94–97
[2023-07-02] MEDS: HYDROmorphone 1 mg/mL INJ 1 mL IVP ×3 (02:24→17:04)
[2023-07-02] MEDS: cetylpyridinium Lozenge 1 EACH MUCOUS MEM ×2 (05:19→20:01)
[2023-07-02] MEDS: aspirin 81 mg EC Tablet PO (05:19)
[2023-07-02] MEDS: oxyCODONE 5 mg IR Tab/Cap PO (05:19)
[2023-07-02] MEDS: duloxetine 60 mg Capsule PO (05:19)
[2023-07-02 05:28] LABS: Basophils # 0.1 10^3/uL (0.0-0.1); Eosinophils # 0.3 10^3/uL (0.0-0.8); Eosinophils % 2.9 %; Hematocrit 27.2 % (37-53); Lymphocytes # 2.7 10^3/uL (0.8-4.8); Lymphocytes % 28.8 %; Mean Corpuscular HGB Conc 31.3 g/dL (30-55); Mean Corpuscular Hemoglobin 29.1 pg (27-33); Mean Corpuscular Volume 93.2 fl (82-101); Mean Platelet Volume 9.6 fL (7.4-10.4); Monocytes # 0.9 10^3/uL (0.2-0.9); Monocytes % 9.3 %; Neutrophils # 5.27 10^3/uL (1.8-7.7); Neutrophils % 57.3 %; Nucleated Red Blood Cells % 0 %; Platelet Count 415 10^3/cmm (157-399); Red Blood Count 2.92 10^6/uL (3.85-5.65); Red Cell Distribution Width 13.3 % (12.1-15.1)
[2023-07-02 05:50] LABS: Creatine Phosphokinase 37 U/L (39-308)
[2023-07-02 05:54] LABS: Alanine Aminotransferase 13 U/L (0-41); Albumin Level 2.9 g/dL (3.5-5.2); Alkaline Phosphatase 91 U/L (40-130); Anion Gap 10.2 (5-19); Aspartate Amino Transferase 12 U/L (0-40); Blood Urea Nitrogen 19 mg/dL (8-23); Carbon Dioxide 29 mmol/L (22-29); Chloride 104 mmol/L (98-107); Globulin 3.1 g/dL (1.3-4.6); Glomerular Filtration Rate 55.1 mL/min (90-130); Glucose 93 mg/dL (65-115); Osmolality Calculated 290 mOsm/kg (285-295); Potassium 4.2 mmol/L (3.5-5.1); Sodium 139 mmol/L (136-145); Total Bilirubin 0.2 mg/dL (0.15-1.2)
[2023-07-02] MEDS: sennosides-docusate Tablet 2 TAB PO ×2 (08:58→17:33)
[2023-07-02] MEDS: calcium carbonate 500 mg Chew Tablet 1000 MG PO ×2 (08:58→17:33)
[2023-07-02] MEDS: iron polysaccharide complex 150 mg Capsule PO ×2 (08:58→17:33)
[2023-07-02] MEDS: multivitamin therapeutic Tablet 1 TAB PO (08:58)
[2023-07-02] MEDS: famotidine 20 mg Tablet PO ×2 (08:58→17:33)
[2023-07-02] MEDS: cholecalciferol (vitamin D3) 1,000 unit Tablet 1000 UNIT PO (08:58)
[2023-07-02] MEDS: mupirocin oint 22 gm 1 APPLIC NASAL ×2 (08:59→17:32)
[2023-07-02] MEDS: chlorhexidine gluconate 0.12% Btl 473 mL 30 ML MUCOUS MEM ×4 (09:21→19:59)
--- NOTE | 2023-07-02 10:07 | PC.NURSE ---
Moon was removed 07/01/23 on chart per Avril Comer RN. Moon not charted as out. Done this AM by this nurse.
--- NOTE | 2023-07-02 10:52 | P.PN_ITS ---
Subjective Subjective: He states he had a quite a difficult night, was in pain. Had to have extra IV pain medication requested. It is now helping. Denies any difficulty breathing. No chest pain or pressure. Vitals/I&O/Wt Last Vital Signs Temp 97.6 F 07/02/23 08:08 Pulse 53 L 07/02/23 08:08 Resp 18 07/02/23 08:54 BP 133/72 07/02/23 08:08 Pulse Ox 97 07/02/23 08:54 O2 Del Method Room Air 07/02/23 08:08 O2 Flow Rate 3 07/01/23 05:05 07/01/23 07/02/23 07/02/23 22:59 06:59 14:59 Intake Total 480 / 940 50 / 990 480 / 480 Output Total 380 / 1080 50 / 1130 600 / 600 Balance 100 / -140 0 / -140 -120 / -120 Weight last 48 hrs Weight 106.166 kg Physical Exam Const: COMMON NORMALS: patient oriented x3 and alert GENERAL APPEARANCE: cooperative ORIENTATION/CONSCIOUSNESS: Yes awake HENMT: COMMON NORMALS: oropharynx normal Neck/C-Spine: COMMON NORMALS: no JVD Resp: COMMON NORMALS: normal respiratory effort and clear to auscultation bilaterally AUSCULTATION: clear to auscultation bilaterally Cardio: COMMON NORMALS: no JVD, regular rhythm, S1 normal heart sound present, S2 normal heart sound present and No murmurs present (Cardio) RHYTHM: regular rhythm HEART SOUNDS: S1 normal heart sound present and S2 normal heart sound present GI: COMMON NORMALS: Normal to inspection, nondistended, normoactive bowel sounds present, Soft to palpation and non-tender PALPATION: Yes Soft to palpation Extremity: COMMON NORMALS: no joint enlargement and no pedal edema OTHER: L knee postop dressing. Cooling pack. Neuro: COMMON NORMALS: patient oriented x3 and moves all extremities SENSORIUM/ORIENTATION: Yes alert Skin: COMMON NORMALS: no rashes or lesions noted GENERAL SKIN EXAM: no rashes or lesions noted Urinary Catheter Management: Moon: Cath Placed During This Visit: yes, but has since been removed by the nurse Reason for Continuing Indwelling Catheter: Decision to DC Catheter Urinary Catheter Date of Insertion: 06/30/23 Urinary Catheter Time of Insertion: 19:00 Date Urinary Catheter Removed: 07/01/23 Time Urinary Catheter Discontinued: 05:08 Data 07/02/23 04:49 07/02/23 04:49 Micro: Microbiology 06/30/23 19:15 Gram Stain - Final Knee - #4 06/30/23 19:15 Gram Stain - Final Knee - #3 06/30/23 19:15 Gram Stain - Final Knee - #1 06/30/23 19:15 Gram Stain - Final Knee - #2 06/27/23 16:44 Body Fluid Culture - Final Synovial Fluid Staph capitis sub ureolyticus A&P Assessment and plan (1) Infected prosthetic knee joint: Required IV pain medication. Continue as needed Dilaudid for now for severe pain, oxycodone as needed. Continue to optimize pain control. Continued management by orthopedics with monitoring of output from Hemovac drain currently in place. Reviewed blood counts, no leukocytosis. Neutrophils normal. Reviewed c hemistry. Noted BUN 19, creatinine 1.3. Reviewed wound culture, pending culture from 06/30. Reviewed body fluid culture from 06/27, noted many PMNs, no organisms. Reviewed blood culture, noted negative to date. Discussed with case management. Status post knee revision due to knee joint infection status post SAVANNAH, with attempted salvage prosthesis, continue antibiotic course currently with daptomycin, 870 mg IV every 24 hours, continue until 08/10 or per infectious disease. With subsequently anticipated chronic antibiotic suppression. Reviewed operative wound culture, pending. Prior wound culture reviewed, noted with Staph capitis. At risk of treatment failure, localized and distant infection spread, potentially disabling and/or life-threatening complication. Will need follow-up with ID. Discussed with case management. PICC line 07/01/23 Reviewed CRP noted 111.2. At risk of rhabdomyolysis, HAYLEY with antibiotic. Reviewed CK. 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 Additional assessment underway. HTN CAD HAYLEY: At risk of rhabdomyolysis with daptomycin. Follow-up renal function. Reviewd CK, unremarkable. Avoid NSAIDs. Attestations Medical Necessity Statement*: Continue history for assessment of plan of prosthetic joint infection. Diagnoses Infected prosthetic knee joint T84.59XA; Z96.659 History of revision of total replacement of left knee joint Z96.652
--- NOTE | 2023-07-02 13:17 | PM.PN ---
Subjective Subjective: Patient continues to do well on postop day 2. He is having no significant issues and continues to work with physical therapy. He did have increased pain last night, however. This has improved over the day. Medications: Reviewed: Yes Vitals/I&O/Wt Last Vital Signs Temp 97.9 F 07/02/23 12:15 Pulse 59 L 07/02/23 12:15 Resp 18 07/02/23 12:15 BP 128/68 07/02/23 12:15 Pulse Ox 94 07/02/23 12:15 O2 Del Method Room Air 07/02/23 12:15 O2 Flow Rate 3 07/01/23 05:05 07/01/23 07/02/23 07/02/23 22:59 06:59 14:59 Intake Total 480 / 940 50 / 990 960 / 960 Output Total 380 / 1080 50 / 1130 800 / 800 Balance 100 / -140 0 / -140 160 / 160 Weight last 48 hrs Weight 234 lb 0.9 oz Physical Exam Const: COMMON NORMALS: no acute distress, average body habitus, patient oriented x3 and alert GENERAL APPEARANCE: cooperative and comfortable ORIENTATION/CONSCIOUSNESS: Yes awake HENMT: COMMON NORMALS: normocephalic and atraumatic HEAD & SCALP: normocephalic and atraumatic Eye: GENERAL EYE: appearance normal, both eyes and all related structures Chest: COMMONS NORMALS: normal inspection of the chest Resp: COMMON NORMALS: normal respiratory effort EFFORT & INSPECTION: Yes able to speak in complete sentences and Yes symmetric chest movement Extremity: LEFT LOWER EXTREMITY: Yes knee joint (Dressing is left in place. It remains dry.) Left knee: Yes inspection (No significant swelling is noted.), Yes ROM (Not evaluated.) and Yes neurovascular exam (Intact distally.) Neuro: COMMON NORMALS: patient oriented x3 SENSORIUM/ORIENTATION: Yes alert Psych: COMMON NORMALS: mental status grossly normal APPEARANCE: Yes grossly normal ATTITUDE: Yes calm and Yes engaged ATTENTION/CONCENTRATION: Yes attention grossly intact Skin: COMMON NORMALS: no rashes or lesions noted GENERAL SKIN EXAM: no rashes or lesions noted Urinary Catheter Management: Moon: Cath Placed During This Visit: yes, but has since been removed by the nurse Reason for Continuing Indwelling Catheter: Decision to DC Catheter Urinary Catheter Date of Insertion: 06/30/23 Urinary Catheter Time of Insertion: 19:00 Date Urinary Catheter Removed: 07/01/23 Time Urinary Catheter Discontinued: 05:08 Data 07/03/23 05:30 07/03/23 05:30 Micro: Microbiology 06/30/23 19:15 Gram Stain - Final Knee - #4 06/30/23 19:15 Gram Stain - Final Knee - #3 06/30/23 19:15 Gram Stain - Final Knee - #1 06/30/23 19:15 Gram Stain - Final Knee - #2 06/27/23 16:44 Body Fluid Culture - Final Synovial Fluid Staph capitis sub ureolyticus A&P Assessment and plan (1) Infected prosthetic knee joint: Patient continues to work with physical therapy. He is still having drainage out the drain, therefore, we will leave it in place. There is decreased swelling. Plan is discussed with the patient. He will require IV antibiotic therapy and chronic antibiotic suppression therapy. He has also been seen by the spine team, and plans will be made for removal of the spinal stimulator as the patient is not using it, and he is concerned about it. This will be scheduled for him. He will continue inpatient IV antibiotics. We are still awaiting final results on cultures. So far, only skin alec has grown. Qualifiers: Encounter type: subsequent encounter Qualified Code(s): T84.59XD - Infection and inflammatory reaction due to other internal joint prosthesis, subsequent encounter; Z96.659 - Presence of unspecified artificial knee joint (2) History of revision of total replacement of left knee joint: Attestations Medical Necessity Statement*: Ongoing care for infected revision knee arthroplasty. Coding Level of Care Code Acute Code for [facility] Fwd Diagnoses Infected prosthetic knee joint T84.59XD; Z96.659 Encounter type: subsequent encounter History of revision of total replacement of left knee joint Z96.652
[2023-07-02] MEDS: prazosin 1 mg Capsule PO (17:33)
[2023-07-02] MEDS: acetaminophen 500 mg Tablet 1000 MG PO (22:10)
[2023-07-03] VITALS (14 sets, daily range): BP systolic 116–149; BP diastolic 67–85; PULSE 52–64; RESP 14–18; TEMP 36.4–37; O2SAT 94–98
[2023-07-03] MEDS: oxyCODONE 5 mg IR Tab/Cap PO ×2 (01:54→17:21)
[2023-07-03] MEDS: duloxetine 60 mg Capsule PO (05:29)
[2023-07-03] MEDS: acetaminophen 500 mg Tablet 1000 MG PO ×3 (05:29→21:20)
[2023-07-03] MEDS: aspirin 81 mg EC Tablet PO (05:29)
[2023-07-03 05:36] LABS: Basophils # 0.1 10^3/uL (0.0-0.1); Basophils % 0.9 %; Eosinophils # 0.4 10^3/uL (0.0-0.8); Eosinophils % 6.4 %; Hematocrit 28.9 % (37-53); Lymphocytes # 2.1 10^3/uL (0.8-4.8); Lymphocytes % 31.5 %; Mean Corpuscular HGB Conc 31.8 g/dL (30-55); Mean Corpuscular Hemoglobin 29.8 pg (27-33); Mean Corpuscular Volume 93.5 fl (82-101); Mean Platelet Volume 8.7 fL (7.4-10.4); Monocytes # 0.7 10^3/uL (0.2-0.9); Monocytes % 10.3 %; Neutrophils % 49.6 %; Nucleated Red Blood Cells % 0 %; Platelet Count 404 10^3/cmm (157-399); Red Blood Count 3.09 10^6/uL (3.85-5.65); Red Cell Distribution Width 13.3 % (12.1-15.1); White Blood Count 6.67 10^3/uL (3.29-11.43)
[2023-07-03 05:52] LABS: Alanine Aminotransferase 11 U/L (0-41); Alkaline Phosphatase 90 U/L (40-130); Anion Gap 8.8 (5-19); Aspartate Amino Transferase 10 U/L (0-40); Blood Urea Nitrogen 19 mg/dL (8-23); Calcium 8.3 mg/dL (8.5-10.5); Carbon Dioxide 31 mmol/L (22-29); Chloride 103 mmol/L (98-107); Globulin 3.2 g/dL (1.3-4.6); Glomerular Filtration Rate 60.4 mL/min (90-130); Glucose 89 mg/dL (65-115); Osmolality Calculated 288 mOsm/kg (285-295); Potassium 4.8 mmol/L (3.5-5.1); Sodium 138 mmol/L (136-145); Total Bilirubin 0.2 mg/dL (0.15-1.2); Total Protein 6.2 g/dL (6.6-8.7)
[2023-07-03] MEDS: multivitamin therapeutic Tablet 1 TAB PO (08:12)
[2023-07-03] MEDS: cholecalciferol (vitamin D3) 1,000 unit Tablet 1000 UNIT PO (08:12)
[2023-07-03] MEDS: iron polysaccharide complex 150 mg Capsule PO ×2 (08:12→17:18)
[2023-07-03] MEDS: sennosides-docusate Tablet 2 TAB PO ×2 (08:12→17:18)
[2023-07-03] MEDS: calcium carbonate 500 mg Chew Tablet 1000 MG PO ×2 (08:12→17:17)
[2023-07-03] MEDS: famotidine 20 mg Tablet PO ×2 (08:12→17:18)
[2023-07-03] MEDS: HYDROmorphone 1 mg/mL INJ 1 mL IVP ×2 (08:20→21:25)
[2023-07-03] MEDS: chlorhexidine gluconate 0.12% Btl 473 mL 30 ML MUCOUS MEM ×4 (08:26→21:20)
[2023-07-03] MEDS: mupirocin oint 22 gm 1 APPLIC NASAL ×2 (08:27→17:18)
--- NOTE | 2023-07-03 14:03 | P.PN_ITS ---
Subjective Subjective: During my visit this morning he is doing all right. At that time not in pain. No shortness of breath or chest pain. Medications: Reviewed: Yes Vitals/I&O/Wt Last Vital Signs Temp 97.8 F 07/03/23 12:00 Pulse 57 L 07/03/23 12:00 Resp 18 07/03/23 12:00 BP 120/71 07/03/23 12:00 Pulse Ox 96 07/03/23 12:00 O2 Del Method CPAP 07/03/23 03:44 O2 Flow Rate 3 07/01/23 05:05 07/02/23 07/03/23 07/03/23 22:59 06:59 14:59 Intake Total 480 / 1440 50 / 1490 480 / 480 Output Total 675 / 1475 860 / 2335 575 / 575 Balance -195 / -35 -810 / -845 -95 / -95 Weight last 48 hrs Weight 106.367 kg Weight 106.594 kg Weight 106.166 kg Physical Exam Const: COMMON NORMALS: patient oriented x3 and alert GENERAL APPEARANCE: cooperative ORIENTATION/CONSCIOUSNESS: Yes awake HENMT: COMMON NORMALS: oropharynx normal Neck/C-Spine: COMMON NORMALS: no JVD Resp: COMMON NORMALS: normal respiratory effort and clear to auscultation bilaterally AUSCULTATION: clear to auscultation bilaterally Cardio: COMMON NORMALS: no JVD, regular rhythm, S1 normal heart sound present, S2 normal heart sound present and No murmurs present (Cardio) RHYTHM: regular rhythm HEART SOUNDS: S1 normal heart sound present and S2 normal heart sound present GI: COMMON NORMALS: Normal to inspection, nondistended, normoactive bowel sounds present, Soft to palpation and non-tender PALPATION: Yes Soft to palpation Extremity: COMMON NORMALS: no joint enlargement and no pedal edema OTHER: L knee postop dressing. Drain in place. Neuro: COMMON NORMALS: patient oriented x3 and moves all extremities SENSORIUM/ORIENTATION: Yes alert Skin: COMMON NORMALS: no rashes or lesions noted GENERAL SKIN EXAM: no rashes or lesions noted Urinary Catheter Management: Moon: Cath Placed During This Visit: yes, but has since been removed by the nurse Reason for Continuing Indwelling Catheter: Decision to DC Catheter Urinary Catheter Date of Insertion: 06/30/23 Urinary Catheter Time of Insertion: 19:00 Date Urinary Catheter Removed: 07/01/23 Time Urinary Catheter Discontinued: 05:08 Data 07/03/23 05:30 07/03/23 05:30 Micro: Microbiology 06/30/23 19:15 Anaerobic Culture - Preliminary Knee - #4 06/30/23 19:15 Anaerobic Culture - Preliminary Knee - #2 06/30/23 19:15 Gram Stain - Final Knee - #1 Anaerobic Culture - Preliminary Wound Culture - Preliminary 06/30/23 19:15 Gram Stain - Final Knee - #4 Wound Culture - Preliminary 06/30/23 19:15 Gram Stain - Final Knee - #2 Wound Culture - Preliminary 06/30/23 19:15 Gram Stain - Final Knee - #3 Tissue Culture - Preliminary 06/27/23 13:49 Blood Culture - Final Blood NO GROWTH AFTER 5 DAYS 06/27/23 13:45 Blood Culture - Final Blood NO GROWTH AFTER 5 DAYS A&P Assessment and plan (1) Infected prosthetic knee joint: Again required IV Dilaudid this morning. Appears to be needing it less frequently. Continue to taper down. Oxycodone as needed. Continue to adjust pain control as he is improving. Continued management by orthopedics with monitoring of output from Hemovac drain currently in place. Discussed with orthopedics. Orthopedic note reviewed. Reviewed and discussed with him aerobic wound cultures from 06/30, anaerobic and tissue culture. So far scant normal skin alec present. Reviewed blood culture. So far negative. Reviewed CBC, vitals. Reviewed chemistry. Repeat CBC, CMP. Check CK. Continue daptomycin. PICC line has been placed. We will need to continue daptomycin after discharge. Discussed with case management. Discussed with him follow-up with orthopedics and ID. Reviewed family service caseworkerfront of house manager Status post knee revision due to knee joint infection status post SAVANNAH, with attempted salvage prosthesis, continue antibiotic course currently with daptomycin, 870 mg IV every 24 hours, continue until 08/10 or per infectious disease. With subsequently anticipated chronic antibiotic suppression. Reviewed operative wound culture, pending. Prior wound culture reviewed, noted with Staph capitis. At risk of treatment failure, localized and distant infection spread, potentially disabling and/or life-threatening complication. PICC line 07/01/23 CRP noted 111.2. At risk of rhabdomyolysis, HAYLEY with antibiotic. Reviewed CK. Discussed with him follow-up with orthopedics and ID. 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 Additional assessment underway. HTN CAD HAYLEY: Reviewed renal function. HAYLEY continues to improve. Creatinine down to 1.2. Follow-up CK. At risk of rhabdomyolysis with Dapto. Avoid NSAIDs. Follow-up chemistry requested. Attestations Medical Necessity Statement*: Continue history for assessment of plan of prosthetic joint infection. Diagnoses Infected prosthetic knee joint T84.59XD; Z96.659 Encounter type: subsequent encounter History of revision of total replacement of left knee joint Z96.652
[2023-07-03] MEDS: prazosin 1 mg Capsule PO (17:18)
--- NOTE | 2023-07-03 17:47 | P.PN_ITS ---
Subjective Subjective: Patient is seen in his room. He remains comfortable. The drain is still functioning, and the patient states that his knee feels better since it is smaller size . Medications: Reviewed: Yes Vitals/I&O/Wt Last Vital Signs Temp 97.8 F 07/03/23 16:00 Pulse 52 L 07/03/23 16:13 Resp 18 07/03/23 17:21 BP 149/82 07/03/23 16:00 Pulse Ox 98 07/03/23 16:00 O2 Del Method CPAP 07/03/23 03:44 O2 Flow Rate 3 07/01/23 05:05 07/03/23 07/03/23 07/03/23 06:59 14:59 22:59 Intake Total 50 / 1490 480 / 480 240 / 720 Output Total 860 / 2335 575 / 575 Balance -810 / -845 -95 / -95 240 / 145 Weight last 48 hrs Weight 234 lb 8 oz Weight 235 lb Weight 234 lb 0.9 oz Physical Exam Const: COMMON NORMALS: no acute distress, average body habitus, patient orie nted x3 and alert GENERAL APPEARANCE: cooperative and comfortable ORIENTATION/CONSCIOUSNESS: Yes awake HENMT: COMMON NORMALS: normocephalic and atraumatic HEAD & SCALP: normocephalic and atraumatic Eye: GENERAL EYE: appearance normal, both eyes and all related structures Chest: COMMONS NORMALS: normal inspection of the chest Resp: COMMON NORMALS: normal respiratory effort EFFORT & INSPECTION: Yes able to speak in complete sentences and Yes symmetric chest movement Extremity: LEFT LOWER EXTREMITY: Yes knee joint (Dressing and drain are left in place as they are clean and functional.) Left knee: Yes ROM (Not evaluated.) and Yes neurovascular exam (Intact distally, no evidence of DVT) Neuro: COMMON NORMALS: patient oriented x3 SENSORIUM/ORIENTATION: Yes alert Psych: COMMON NORMALS: mental status grossly normal APPEARANCE: Yes grossly normal ATTITUDE: Yes calm and Yes engaged ATTENTION/CONCENTRATION: Yes attention grossly intact Skin: COMMON NORMALS: no rashes or lesions noted GENERAL SKIN EXAM: no rashes or lesions noted Urinary Catheter Management: Moon: Cath Placed During This Visit: yes, but has since been removed by the nurse Reason for Continuing Indwelling Catheter: Decision to DC Catheter Urinary Catheter Date of Insertion: 06/30/23 Urinary Catheter Time of Insertion: 19:00 Date Urinary Catheter Removed: 07/01/23 Time Urinary Catheter Discontinued: 05:08 Data 07/04/23 04:46 07/04/23 04:46 Micro: Microbiology 06/30/23 19:15 Gram Stain - Final Knee - #1 Anaerobic Culture - Preliminary Wound Culture - Preliminary 06/30/23 19:15 Gram Stain - Final Knee - #2 Wound Culture - Preliminary 06/30/23 19:15 Gram Stain - Final Knee - #4 Wound Culture - Preliminary 06/30/23 19:15 Gram Stain - Final Knee - #3 Tissue Culture - Preliminary 06/30/23 19:15 Anaerobic Culture - Preliminary Knee - #4 06/30/23 19:15 Anaerobic Culture - Preliminary Knee - #2 06/27/23 13:49 Blood Culture - Final Blood NO GROWTH AFTER 5 DAYS 06/27/23 13:45 Blood Culture - Final Blood NO GROWTH AFTER 5 DAYS A&P Assessment and plan (1) Infected prosthetic knee joint: Patient continues to improve on IV antibiotics. Plan is that we will leave the drain in place for 5 to 7 days in hopes of limiting recurrent effusion in the knee. I am concerned that recurrent effusion would lead to a higher risk of infection and lesser penetration of the antibiotic. Additionally, the patient is interested in removal of the spinal cord stimulator. This was to be scheduled as an outpatient, however, since he will remain in hospital through the weekend, plans are being made to attempt to remove this early in the week prior to discharge. Qualifiers: Encounter type: subsequent encounter Qualified Code(s): T84.59XD - Infection and inflammatory reaction due to other internal joint prosthesis, subsequent encounter; Z96.659 - Presence of unspecified artificial knee joint (2) History of revision of total replacement of left knee joint: (3) Infection of total left knee replacement: (4) History of total knee arthroplasty: Qualifiers: Laterality: left Qualified Code(s): Z96.652 - Presence of left artificial knee joint Attestations Medical Necessity Statement*: Patient requires inpatient stay for ongoing IV antibiotics and drain management. Coding Level of Care Code Acute Code for [facility] Fwd Diagnoses Infected prosthetic knee joint T84.59XD; Z96.659 Encounter type: subsequent encounter History of revision of total replacement of left knee joint Z96.652 Infection of total left knee replacement T84.54XA History of total knee arthroplasty Z96.652 Laterality: left
[2023-07-04] VITALS (11 sets, daily range): BP systolic 126–161; BP diastolic 70–80; PULSE 54–60; RESP 15–18; TEMP 36.6–36.8; O2SAT 94–99
[2023-07-04 05:10] LABS: Basophils # 0.1 10^3/uL (0.0-0.1); Eosinophils # 0.5 10^3/uL (0.0-0.8); Eosinophils % 6.8 %; Hematocrit 29.7 % (37-53); Lymphocytes # 1.9 10^3/uL (0.8-4.8); Lymphocytes % 26.1 %; Mean Corpuscular HGB Conc 31.6 g/dL (30-55); Mean Corpuscular Hemoglobin 29.2 pg (27-33); Mean Corpuscular Volume 92.2 fl (82-101); Monocytes # 0.7 10^3/uL (0.2-0.9); Monocytes % 10.3 %; Neutrophils # 3.94 10^3/uL (1.8-7.7); Neutrophils % 54.7 %; Nucleated Red Blood Cells % 0 %; Platelet Count 413 10^3/cmm (157-399); Red Blood Count 3.22 10^6/uL (3.85-5.65); Red Cell Distribution Width 13.1 % (12.1-15.1)
[2023-07-04 05:30] LABS: Anion Gap 12.3 (5-19); Blood Urea Nitrogen 18 mg/dL (8-23); Calcium 8.3 mg/dL (8.5-10.5); Carbon Dioxide 29 mmol/L (22-29); Chloride 104 mmol/L (98-107); Glomerular Filtration Rate 55.1 mL/min (90-130); Glucose 96 mg/dL (65-115); Osmolality Calculated 294 mOsm/kg (285-295); Potassium 4.3 mmol/L (3.5-5.1); Sodium 141 mmol/L (136-145)
[2023-07-04 05:31] LABS: Creatine Phosphokinase 20 U/L (39-308)
[2023-07-04] MEDS: duloxetine 60 mg Capsule PO (05:52)
[2023-07-04] MEDS: acetaminophen 500 mg Tablet 1000 MG PO ×3 (05:52→22:29)
[2023-07-04] MEDS: aspirin 81 mg EC Tablet PO (05:52)
[2023-07-04] MEDS: cholecalciferol (vitamin D3) 1,000 unit Tablet 1000 UNIT PO (08:37)
[2023-07-04] MEDS: multivitamin therapeutic Tablet 1 TAB PO (08:37)
[2023-07-04] MEDS: famotidine 20 mg Tablet PO ×2 (08:37→17:34)
[2023-07-04] MEDS: calcium carbonate 500 mg Chew Tablet 1000 MG PO ×2 (08:37→17:34)
[2023-07-04] MEDS: iron polysaccharide complex 150 mg Capsule PO ×2 (08:37→17:34)
[2023-07-04] MEDS: sennosides-docusate Tablet 2 TAB PO ×2 (08:37→17:33)
[2023-07-04] MEDS: mupirocin oint 22 gm 1 APPLIC NASAL ×2 (08:38→17:34)
[2023-07-04] MEDS: chlorhexidine gluconate 0.12% Btl 473 mL 30 ML MUCOUS MEM ×4 (08:38→20:04)
[2023-07-04] MEDS: oxyCODONE 5 mg IR Tab/Cap PO (08:42)
--- NOTE | 2023-07-04 15:40 | PM.PN ---
Subjective Subjective: Patient is seen in his room today. Plans have been made for removal of his spinal cord stimulator in approximately 3 days. His drain continues to drain enough to make it appropriate to keep the drain in place. The patient is comfortable without complaint. Medications: Reviewed: Yes Vitals/I&O/Wt Last Vital Signs Temp 98.3 F 07/04/23 12:00 Pulse 60 07/04/23 12:00 Resp 17 07/04/23 12:00 BP 161/76 07/04/23 12:00 Pulse Ox 96 07/04/23 12:00 O2 Del Method Room Air 07/04/23 07:59 O2 Flow Rate 3 07/01/23 05:05 07/04/23 07/04/23 07/04/23 06:59 14:59 22:59 Intake Total 50 / 770 720 / 720 Output Total 90 / 665 500 / 500 Balance -40 / 105 220 / 220 Weight last 48 hrs Weight 233 lb 12.8 oz Weight 234 lb 8 oz Physical Exam Const: COMMON NORMALS: no acute distress, average body habitus, patient oriented x3 and alert GENERAL APPEARANCE: cooperative and comfortable ORIENTATION/CONSCIOUSNESS: Yes awake HENMT: COMMON NORMALS: normocephalic and atraumatic HEAD & SCALP: normocephalic and atraumatic Eye: GENERAL EYE: appearance normal, both eyes and all related structures Chest: COMMONS NORMALS: normal inspection of the chest Resp: COMMON NORMALS: normal respiratory effort EFFORT & INSPECTION: Yes able to speak in complete sentences and Yes symmetric chest movement Extremity: LEFT LOWER EXTREMITY: Yes knee joint (Hank wrap remains in place. Drain is functioning.) Left knee: Yes inspection (The knee is without significant effusion.), Yes ROM (Not evaluated.) and Yes neurovascular exam (Intact with no evidence of DVT.) Neuro: COMMON NORMALS: patient oriented x3 SENSORIUM/ORIENTATION: Yes alert Psych: COMMON NORMALS: mental status grossly normal APPEARANCE: Yes grossly normal ATTITUDE: Yes calm and Yes engaged ATTENTION/CONCENTRATION: Yes attention grossly intact Skin: COMMON NORMALS: no rashes or lesions noted GENERAL SKIN EXAM: no rashes or lesions noted Urinary Catheter Management: Moon: Cath Placed During This Visit: yes, but has since been removed by the nurse Reason for Continuing Indwelling Catheter: Decision to DC Catheter Urinary Catheter Date of Insertion: 06/30/23 Urinary Catheter Time of Insertion: 19:00 Date Urinary Catheter Removed: 07/01/23 Time Urinary Catheter Discontinued: 05:08 Data 07/04/23 04:46 07/04/23 04:46 Micro: Microbiology 06/30/23 19:15 Gram Stain - Final Knee - #1 Anaerobic Culture - Preliminary Wound Culture - Preliminary 06/30/23 19:15 Gram Stain - Final Knee - #2 Wound Culture - Preliminary 06/30/23 19:15 Gram Stain - Final Knee - #4 Wound Culture - Preliminary 06/30/23 19:15 Gram Stain - Final Knee - #3 Tissue Culture - Preliminary A&P Assessment and plan (1) Infected prosthetic knee joint: The patient continues to be treated with IV antibiotics. His drain remains in place. Initially, plans have been made for removal of the drain when drainage decreased. The patient is still draining enough to warrant leaving the drain at this point in time. The drain is not sewn in, and due to concerns of possible introduction of further infection, the patient will be maintained in the hospital until the drain is discontinued. Plans are made for removal of the spinal cord stimulator as the patient has not used this for an extended period of time. He is concerned that it may have some ability to harbor the infection, but he has been advised that it is very rare for these to be infected. Still, secondary to the fact that the patient has not used the stimulator in over a year, this will be removed during this hospitalization. The plan will be the patient will remain here over the weekend to allow appropriate antibiotic therapies to be arranged for him at home. In addition to the IV daptomycin, the patient is to be discharged on rifampin per recommendation of Dr. Roy. The patient is advised that I will be out of town the day of his surgical procedure, but from my perspective, he will ready for discharge and can be discharged following this procedure. Qualifiers: Encounter type: subsequent encounter Qualified Code(s): T84.59XD - Infection and inflammatory reaction due to other internal joint prosthesis, subsequent encounter; Z96.659 - Presence of unspecified artificial knee joint (2) History of revision of total replacement of left knee joint: (3) Infection of total left knee replacement: (4) History of total knee arthroplasty: Qualifiers: Laterality: left Qualified Code(s): Z96.652 - Presence of left artificial knee joint Attestations Medical Necessity Statement*: Ongoing IV antibiotic therapy and drain management Coding Level of Care Code Acute Code for [facility] Fwd Diagnoses Infected prosthetic knee joint T84.59XD; Z96.659 Encounter type: subsequent encounter History of revision of total replacement of left knee joint Z96.652 Infection of total left knee replacement T84.54XA History of total knee arthroplasty Z96.652 Laterality: left
[2023-07-04] MEDS: prazosin 1 mg Capsule PO (17:33)
--- NOTE | 2023-07-04 19:23 | PM.PN ---
Subjective Subjective: So far no additional changes in how he feels. Overall has been gradually improving. So far has not needed additional IV pain medication. Vitals/I&O/Wt Last Vital Signs Temp 98.2 F 07/04/23 16:00 Pulse 58 L 07/04/23 16:00 Resp 17 07/04/23 16:00 BP 149/76 07/04/23 16:00 Pulse Ox 95 07/04/23 16:00 O2 Del Method Room Air 07/04/23 07:59 O2 Flow Rate 3 07/01/23 05:05 07/04/23 07/04/23 07/04/23 06:59 14:59 22:59 Intake Total 50 / 770 720 / 720 120 / 840 Output Total 90 / 665 500 / 500 Balance -40 / 105 220 / 220 120 / 340 Weight last 48 hrs Weight 106.05 kg Weight 106.367 kg Physical Exam Const: COMMON NORMALS: patient oriented x3 and alert GENERAL APPEARANCE: cooperative ORIENTATION/CONSCIOUSNESS: Yes awake HENMT: COMMON NORMALS: oropharynx normal Neck/C-Spine: COMMON NORMALS: no JVD Resp: COMMON NORMALS: normal respiratory effort and clear to auscultation bilaterally AUSCULTATION: clear to auscultation bilaterally Cardio: COMMON NORMALS: no JVD, regular rhythm, S1 normal heart sound present, S2 normal heart sound present and No murmurs present (Cardio) RHYTHM: regular rhythm HEART SOUNDS: S1 normal heart sound present and S2 normal heart sound present GI: COMMON NORMALS: Normal to inspection, nondistended, normoactive bowel sounds present, Soft to palpation and non-tender PALPATION: Yes Soft to palpation Extremity: COMMON NORMALS: no joint enlargement and no pedal edema OTHER: L knee postop dressing. Drain in place. Neuro: COMMON NORMALS: patient oriented x3 and moves all extremities SENSORIUM/ORIENTATION: Yes alert Skin: COMMON NORMALS: no rashes or lesions noted GENERAL SKIN EXAM: no rashes or lesions noted Urinary Catheter Management: Moon: Cath Placed During This Visit: yes, but has since been removed by the nurse Reason for Continuing Indwelling Catheter: Decision to DC Catheter Urinary Catheter Date of Insertion: 06/30/23 Urinary Catheter Time of Insertion: 19:00 Date Urinary Catheter Removed: 07/01/23 Time Urinary Catheter Discontinued: 05:08 Data 07/04/23 04:46 07/04/23 04:46 Micro: Microbiology 06/30/23 19:15 Gram Stain - Final Knee - #2 Wound Culture - Preliminary 06/30/23 19:15 Gram Stain - Final Knee - #1 Anaerobic Culture - Preliminary Wound Culture - Preliminary 06/30/23 19:15 Gram Stain - Final Knee - #4 Wound Culture - Preliminary 06/30/23 19:15 Gram Stain - Final Knee - #3 Tissue Culture - Preliminary A&P Assessment and plan (1) Infected prosthetic knee joint: So far has not needed further IV Dilaudid. Continue pain control as needed. Discussed with orthopedics. So far still increased output from the drain. Continue to monitor before drain removal. Follow-up cultures. Reviewed wound cultures from 06/30, anaerobic and tissue culture. So far scant normal skin alec present. Reviewed blood culture. So far negative. Reviewed CBC, vitals. Afebrile. Without leukocytosis. Noted fluctuation of renal function, possibly mild HAYLEY, creatinine up to 1.3 again. CK has been normal. Recheck renal function again. Discussed with case management and nursing. Continue daptomycin. Continue daptomycin after discharge. Discussed with him follow-up with orthopedics and ID. Reviewed adult protective caseworkerchannel marketing manager Status post knee revision due to knee joint infection status post SAVANNAH, with attempted salvage prosthesis, continue antibiotic course currently with daptomycin, 870 mg IV every 24 hours, continue until 08/10 or per infectious disease. With subsequently anticipated chronic antibiotic suppression. Reviewed operative wound culture, pending. Prior wound culture reviewed, noted with Staph capitis. At risk of treatment failure, localized and distant infection spread, potentially disabling and/or life-threatening complication. PICC line 07/01/23 CRP noted 111.2. At risk of rhabdomyolysis, HAYLEY with antibiotic. Reviewed CK. Discussed with him follow-up with orthopedics and ID. 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 Additional assessment underway. HTN CAD HAYLEY: With noted worsening, creatinine up to 1.3. Discussed with him. Reviewed CK, noted normal. At risk of rhabdomyolysis with Dapto. Avoid NSAIDs. Follow-up chemistry requested. Attestations Medical Necessity Statement*: Continue history for assessment of plan of prosthetic joint infection. and High MDM includes described risk of complication, morbidity or mortality of management as documented Diagnoses Infected prosthetic knee joint T84.59XD; Z96.659 Encounter type: subsequent encounter History of revision of total replacement of left knee joint Z96.655
[2023-07-04] MEDS: HYDROmorphone 1 mg/mL INJ 1 mL IVP (20:02)
[2023-07-05] VITALS (10 sets, daily range): BP systolic 122–137; BP diastolic 68–82; PULSE 49–59; RESP 14–18; TEMP 36.5–37.1; O2SAT 94–97
[2023-07-05 04:45] LABS: Basophils # 0.1 10^3/uL (0.0-0.1); Basophils % 1.4 %; Eosinophils # 0.5 10^3/uL (0.0-0.8); Eosinophils % 8.4 %; Hematocrit 30.7 % (37-53); Lymphocytes # 1.8 10^3/uL (0.8-4.8); Lymphocytes % 30.9 %; Mean Corpuscular HGB Conc 31.3 g/dL (30-55); Mean Corpuscular Hemoglobin 28.9 pg (27-33); Mean Corpuscular Volume 92.5 fl (82-101); Mean Platelet Volume 8.9 fL (7.4-10.4); Monocytes # 0.6 10^3/uL (0.2-0.9); Monocytes % 9.4 %; Neutrophils # 2.86 10^3/uL (1.8-7.7); Neutrophils % 48.7 %; Nucleated Red Blood Cells % 0 %; Platelet Count 421 10^3/cmm (157-399); Red Blood Count 3.32 10^6/uL (3.85-5.65); White Blood Count 5.86 10^3/uL (3.29-11.43)
[2023-07-05 05:06] LABS: Anion Gap 11.2 (5-19); Blood Urea Nitrogen 17 mg/dL (8-23); Calcium 8.2 mg/dL (8.5-10.5); Carbon Dioxide 29 mmol/L (22-29); Chloride 103 mmol/L (98-107); Glomerular Filtration Rate 55.1 mL/min (90-130); Glucose 90 mg/dL (65-115); Osmolality Calculated 289 mOsm/kg (285-295); Potassium 4.2 mmol/L (3.5-5.1); Sodium 139 mmol/L (136-145)
[2023-07-05] MEDS: duloxetine 60 mg Capsule PO (05:20)
[2023-07-05] MEDS: acetaminophen 500 mg Tablet 1000 MG PO ×3 (05:20→21:04)
[2023-07-05] MEDS: aspirin 81 mg EC Tablet PO (05:20)
[2023-07-05] MEDS: multivitamin therapeutic Tablet 1 TAB PO (08:25)
[2023-07-05] MEDS: famotidine 20 mg Tablet PO ×2 (08:25→17:47)
[2023-07-05] MEDS: mupirocin oint 22 gm 1 APPLIC NASAL ×2 (08:25→17:45)
[2023-07-05] MEDS: calcium carbonate 500 mg Chew Tablet 1000 MG PO ×2 (08:25→17:46)
[2023-07-05] MEDS: sennosides-docusate Tablet 2 TAB PO ×2 (08:25→17:47)
[2023-07-05] MEDS: cholecalciferol (vitamin D3) 1,000 unit Tablet 1000 UNIT PO (08:25)
[2023-07-05] MEDS: iron polysaccharide complex 150 mg Capsule PO ×2 (08:25→17:47)
[2023-07-05] MEDS: chlorhexidine gluconate 0.12% Btl 473 mL 30 ML MUCOUS MEM ×3 (08:26→21:05)
--- NOTE | 2023-07-05 12:52 | PM.PN ---
Subjective Subjective: No worsening of the condition of his knee. Denies chest pain or discomfort. No trouble breathing. No nausea vomiting or diarrhea. Vitals/I&O/Wt Last Vital Signs Temp 98.0 F 07/05/23 11:43 Pulse 52 L 07/05/23 11:43 Resp 18 07/05/23 11:43 BP 137/82 07/05/23 11:43 Pulse Ox 95 07/05/23 11:43 O2 Del Method Room Air 07/05/23 11:43 O2 Flow Rate 3 07/01/23 05:05 07/04/23 07/05/23 07/05/23 22:59 06:59 14:59 Intake Total 120 / 840 50 / 890 240 / 240 Output Total 70 / 570 1000 / 1000 Balance 120 / 340 -20 / 320 -760 / -760 Weight last 48 hrs Weight 106.05 kg Physical Exam Const: COMMON NORMALS: patient oriented x3 and alert GENERAL APPEARANCE: cooperative ORIENTATION/CONSCIOUSNESS: Yes awake HENMT: COMMON NORMALS: oropharynx normal Neck/C-Spine: COMMON NORMALS: no JVD Resp: COMMON NORMALS: normal respiratory effort and clear to auscultation bilaterally AUSCULTATION: clear to auscultation bilaterally Cardio: COMMON NORMALS: no JVD, regular rhythm, S1 normal heart sound present, S2 normal heart sound present and No murmurs present (Cardio) RHYTHM: regular rhythm HEART SOUNDS: S1 normal heart sound present and S2 normal heart sound present GI: COMMON NORMALS: Normal to inspection, nondistended, normoactive bowel sounds present, Soft to palpation and non-tender PALPATION: Yes Soft to palpation Extremity: COMMON NORMALS: no joint enlargement and no pedal edema OTHER: L knee postop dressing. Drain in place. Neuro: COMMON NORMALS: patient oriented x3 and moves all extremities SENSORIUM/ORIENTATION: Yes alert Skin: COMMON NORMALS: no rashes or lesions noted GENERAL SKIN EXAM: no rashes or lesions noted Urinary Catheter Management: Moon: Cath Placed During This Visit: yes, but has since been removed by the nurse Reason for Continuing Indwelling Catheter: Decision to DC Catheter Urinary Catheter Date of Insertion: 06/30/23 Urinary Catheter Time of Insertion: 19:00 Date Urinary Catheter Removed: 07/01/23 Time Urinary Catheter Discontinued: 05:08 Data 07/05/23 04:15 07/05/23 04:15 Micro: Microbiology 06/30/23 19:15 Gram Stain - Final Knee - #1 Anaerobic Culture - Preliminary Wound Culture - Preliminary 06/30/23 19:15 Anaerobic Culture - Preliminary Knee - #4 06/30/23 19:15 Anaerobic Culture - Preliminary Knee - #2 06/30/23 19:15 Gram Stain - Final Knee - #4 Wound Culture - Preliminary Coag negative Staphylococcus 06/30/23 19:15 Gram Stain - Final Knee - #3 Tissue Culture - Preliminary Coag negative Staphylococcus 06/30/23 19:15 Gram Stain - Final Knee - #2 Wound Culture - Preliminary A&P Assessment and plan (1) Infected prosthetic knee joint: Reviewed drainage from Hemovac, noted 70 mL. Reviewed wound culture from 06/30, noted coagulase-negative staph, reviewed tissue culture from 03/30 also noted coagulase-negative staph. Follow-up culture results. Reviewed blood culture from 06/27, preliminary remains negative. Again required IV Dilaudid last night. Discussed with Ortho. Reviewed orthopedic note. Follow-up culture results. Continue to monitor before drain removal. Follow-up cultures. Reviewed CBC and chemistry. Renal function unchanged today. Reviewed case management note. Continue daptomycin. Continue daptomycin after discharge. Discussed with him follow-up with orthopedics and ID. 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 With subsequently anticipated chronic antibiotic suppression. Reviewed operative wound culture, pending. Prior wound culture reviewed, noted with Staph capitis. At risk of treatment failure, localized and distant infection spread, potentially disabling and/or life-threatening complication. PICC line 07/01/23 CRP noted 111.2. At risk of rhabdomyolysis, HAYLEY with antibiotic. Reviewed CK. Discussed with him follow-up with orthopedics and ID. 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 Additional assessment underway. Spinal stimulator in place: He has not been using it. He is concerned about additional potential nidus for infection and would like to have it removed. Orthospine plans on removing it possibly Friday. HTN CAD HAYLEY: With noted worsening, creatinine up to 1.3. Discussed with him. Reviewed CK, noted normal. At risk of rhabdomyolysis with Dapto. Avoid NSAIDs. Follow-up chemistry requested. Attestations Medical Necessity Statement*: Continue history for assessment of plan of prosthetic joint infection. Diagnoses Infected prosthetic knee joint T84.59XD; Z96.659 Encounter type: subsequent encounter History of revision of total replacement of left knee joint Z96.650
[2023-07-05] MEDS: prazosin 1 mg Capsule PO (17:46)
[2023-07-05] MEDS: oxyCODONE 5 mg IR Tab/Cap PO (21:03)
[2023-07-05] MEDS: HYDROmorphone 1 mg/mL INJ 1 mL IVP (23:12)
[2023-07-06] VITALS (9 sets, daily range): BP systolic 129–155; BP diastolic 55–82; PULSE 48–59; RESP 13–18; TEMP 36.4–36.9; O2SAT 95–98
[2023-07-06 05:17] LABS: Basophils # 0.1 10^3/uL (0.0-0.1); Basophils % 1.3 %; Eosinophils # 0.5 10^3/uL (0.0-0.8); Hematocrit 29.7 % (37-53); Lymphocytes # 2.2 10^3/uL (0.8-4.8); Lymphocytes % 31.3 %; Mean Corpuscular HGB Conc 31.6 g/dL (30-55); Mean Corpuscular Hemoglobin 29.2 pg (27-33); Mean Corpuscular Volume 92.2 fl (82-101); Mean Platelet Volume 9.1 fL (7.4-10.4); Monocytes # 0.7 10^3/uL (0.2-0.9); Monocytes % 10.3 %; Neutrophils # 3.41 10^3/uL (1.8-7.7); Neutrophils % 49.5 %; Nucleated Red Blood Cells % 0 %; Platelet Count 433 10^3/cmm (157-399); Red Blood Count 3.22 10^6/uL (3.85-5.65); Red Cell Distribution Width 13.2 % (12.1-15.1); White Blood Count 6.88 10^3/uL (3.29-11.43)
[2023-07-06 05:42] LABS: Blood Urea Nitrogen 16 mg/dL (8-23); Calcium 8.4 mg/dL (8.5-10.5); Carbon Dioxide 30 mmol/L (22-29); Chloride 99 mmol/L (98-107); Creatinine Clr Calc Pharmacy 68.2781; Glomerular Filtration Rate 55.1 mL/min (90-130); Glucose 82 mg/dL (65-115); Osmolality Calculated 278 mOsm/kg (285-295); Sodium 134 mmol/L (136-145)
[2023-07-06] MEDS: acetaminophen 500 mg Tablet 1000 MG PO ×3 (06:07→22:21)
[2023-07-06] MEDS: aspirin 81 mg EC Tablet PO (06:07)
[2023-07-06] MEDS: oxyCODONE 5 mg IR Tab/Cap PO ×3 (06:08→18:24)
[2023-07-06] MEDS: duloxetine 60 mg Capsule PO (06:08)
[2023-07-06] MEDS: cholecalciferol (vitamin D3) 1,000 unit Tablet 1000 UNIT PO (09:04)
[2023-07-06] MEDS: iron polysaccharide complex 150 mg Capsule PO ×2 (09:04→18:21)
[2023-07-06] MEDS: calcium carbonate 500 mg Chew Tablet 1000 MG PO ×2 (09:04→18:21)
[2023-07-06] MEDS: famotidine 20 mg Tablet PO ×2 (09:04→18:21)
[2023-07-06] MEDS: multivitamin therapeutic Tablet 1 TAB PO (09:04)
[2023-07-06] MEDS: sennosides-docusate Tablet 2 TAB PO ×2 (09:05→18:21)
[2023-07-06] MEDS: chlorhexidine gluconate 0.12% Btl 473 mL 30 ML MUCOUS MEM ×4 (09:09→22:21)
--- NOTE | 2023-07-06 13:41 | P.PN_ITS ---
Subjective Medications: Medication Review Details: He denies any additional changes. Vitals/I&O/Wt Last Vital Signs Temp 97.7 F 07/06/23 12:00 Pulse 49 L 07/06/23 12:00 Resp 17 07/06/23 12:00 BP 155/55 07/06/23 12:00 Pulse Ox 98 07/06/23 12:00 O2 Del Method Room Air 07/06/23 04:00 O2 Flow Rate 3 07/01/23 05:05 07/05/23 07/06/23 07/06/23 22:59 06:59 14:59 Intake Total 480 / 960 290 / 1250 120 / 120 Output Total 1590 / 2590 400 / 2990 Balance -1110 / -1630 -110 / -1740 120 / 120 Weight last 48 hrs Weight 105.914 kg Physical Exam Const: COMMON NORMALS: patient oriented x3 and alert GENERAL APPEARANCE: cooperative ORIENTATION/CONSCIOUSNESS: Yes awake HENMT: COMMON NORMALS: oropharynx normal Neck/C-Spine: COMMON NORMALS: no JVD Resp: COMMON NORMALS: normal respiratory effort and clear to auscultation bilaterally AUSCULTATION: clear to auscultation bilaterally Cardio: COMMON NORMALS: no JVD, regular rhythm, S1 normal heart sound present, S2 normal heart sound present and No murmurs present (Cardio) RHYTHM: regular rhythm HEART SOUNDS: S1 normal heart sound present and S2 normal heart sound present GI: COMMON NORMALS: Normal to inspection, nondistended, normoactive bowel sounds present, Soft to palpation and non-tender PALPATION: Yes Soft to palpation Extremity: COMMON NORMALS: no joint enlargement and no pedal edema OTHER: L knee postop dressing. Drain in place. Neuro: COMMON NORMALS: patient oriented x3 and moves all extremities SENSORIUM/ORIENTATION: Yes alert Skin: COMMON NORMALS: no rashes or lesions noted GENERAL SKIN EXAM: no r ashes or lesions noted Urinary Catheter Management: Moon: Cath Placed During This Visit: yes, but has since been removed by the nurse Reason for Continuing Indwelling Catheter: Decision to DC Catheter Urinary Catheter Date of Insertion: 06/30/23 Urinary Catheter Time of Insertion: 19:00 Date Urinary Catheter Removed: 07/01/23 Time Urinary Catheter Discontinued: 05:08 Data 07/06/23 04:10 07/06/23 04:10 Micro: Microbiology 06/30/23 19:15 Gram Stain - Final Knee - #2 Wound Culture - Preliminary 06/30/23 19:15 Gram Stain - Final Knee - #1 Anaerobic Culture - Preliminary Wound Culture - Preliminary 06/30/23 19:15 Anaerobic Culture - Preliminary Knee - #4 06/30/23 19:15 Anaerobic Culture - Preliminary Knee - #2 A&P Assessment and plan (1) Infected prosthetic knee joint: Drainage appears to be decreasing. Reviewed wound culture from 06/30 -given normal skin alec on day 4, reviewed tissue culture from 06/30 also noted coagulase-negative staph, preliminary. Follow-up culture results. Reviewed anaerobic cultures, no anaerobes. Reviewed blood culture from 06/27, preliminary remains negative. Required a dose of IV Dilaudid last night. Continued better today. IV Dilaudid for now discontinued. Continue pain management with as needed oxycodone, acetaminophen. Reviewed CBC and chemistry. Renal function unchanged today. Continue daptomycin. Continue daptomycin after discharge. Status post knee revision due to knee joint infection status post SAVANNAH, with a ttempted salvage prosthesis, continue antibiotic course currently with daptomycin, 870 mg IV every 24 hours, continue until 08/10 or per infectious disease. With subsequently anticipated chronic antibiotic suppression. Reviewed operative wound culture, pending. Prior wound culture reviewed, noted with Staph capitis. At risk of treatment failure, localized and distant infection spread, potential ly disabling and/or life-threatening complication. PICC line 07/01/23 CRP noted 111.2. At risk of rhabdomyolysis, HAYLEY with antibiotic. Reviewed CK. Discussed with him follow-up with orthopedics and ID. 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 Additional assessment underway. Spinal stimulator in place: Tentative plans for follow-up for spinal stimulator extraction. N.p.o. after midnight. He has not been using it. He is concerned about additional potential nidus for infection and would like to have it removed. Orthospine plans on removing it possibly Friday. HTN: Hypertension could be better controlled. We will give 1 dose of 2.5mg amlodipine. Hold off on starting scheduled medication for tomorrow morning given tentative plans for surgery. CAD HAYLEY: With noted worsening, creatinine up to 1.3. Discussed with him. Reviewed CK, noted normal. At risk of rhabdomyolysis with Dapto. Avoid NSAIDs. Follow- up chemistry requested. Attestations Medical Necessity Statement*: Continue history for assessment of plan of prosthetic joint infection. Diagnoses Infected prosthetic knee joint T84.59XD; Z96.659 Encounter type: subsequent encounter History of revision of total replacement of left knee joint Z96.652
[2023-07-06] MEDS: amlodipine 5 mg Tablet 2.5 MG PO (14:12)
--- NOTE | 2023-07-06 16:03 | P.PN_ITS ---
Subjective Subjective: Patient is doing better. Drain backed out on its own, and dressings are removed. Medications: Reviewed: Yes Vitals/I&O/Wt Last Vital Signs Temp 97.7 F 07/06/23 12:00 Pulse 49 L 07/06/23 12:00 Resp 17 07/06/23 14:11 BP 155/55 07/06/23 12:00 Pulse Ox 98 07/06/23 12:00 O2 Del Method Room Air 07/06/23 04:00 O2 Flow Rate 3 07/01/23 05:05 07/06/23 07/06/23 07/06/23 06:59 14:59 22:59 Intake Total 290 / 1250 360 / 360 Output Total 400 / 2990 Balance -110 / -1740 360 / 360 Weight last 48 hrs Weight 236 lb 3.2 oz Weight 233 lb 8 oz Physical Exam Const: COMMON NORMALS: no acute distress, average body habitus, patient oriented x3 and alert GENERAL APPEARANCE: cooperative and comfortable ORIENTATION/CONSCIOUSNESS: Yes awake HENMT: COMMON NORMALS: normocephalic and atraumatic HEAD & SCALP: normocephalic and atraumatic Eye: GENERAL EYE: appearance normal, both eyes and all related structures Chest: COMMONS NORMALS: normal inspection of the chest Resp: COMMON NORMALS: normal respiratory effort EFFORT & INSPECTION: Yes able to speak in complete sentences and Yes symmetric chest movement Extremity: LEFT LOWER EXTREMITY: Yes knee joint (Dressing removed. Drain is removed. Wound is benign.) Left knee: Yes inspection (Minimal swelling and ecchymosis.), Yes ROM (Able to flex to 90 degrees.) and Yes neurovascular exam (Intact distally.) Neuro: COMMON NORMALS: patient oriented x3 SENSORIUM/ORIENTATION: Yes alert Psych: COMMON NORMALS: mental status grossly normal APPEARANCE: Yes grossly normal ATTITUDE: Yes calm and Yes engaged ATTENTION/CONCENTRATION: Yes attention grossly intact Skin: COMMON NORMALS: no rashes or lesions noted GENERAL SKIN EXAM: no rashes or lesions noted Urinary Catheter Management: Moon: Cath Placed During This Visit: yes, but has since been removed by the nurse Reason for Continuing Indwelling Catheter: Decision to DC Catheter Urinary Catheter Date of Insertion: 06/30/23 Urinary Catheter Time of Insertion: 19:00 Date Urinary Catheter Removed: 07/01/23 Time Urinary Catheter Discontinued: 05:08 Data 07/06/23 04:10 07/06/23 04:10 Micro: Microbiology 06/30/23 19:15 Anaerobic Culture - Preliminary Knee - #4 06/30/23 19:15 Anaerobic Culture - Preliminary Knee - #2 06/30/23 19:15 Gram Stain - Final Knee - #1 Anaerobic Culture - Preliminary Wound Culture - Preliminary 06/30/23 19:15 Gram Stain - Final Knee - #2 Wound Culture - Preliminary A&P Assessment and plan (1) Infected prosthetic knee joint: The patient continues to be treated with IV antibiotics. The drain is removed today as are the dressings. The wound is benign. There is minimal to no ecchymosis. Minimal joint effusion. Pressure dressing is placed over the drain portals. The patient is ready for discharge tomorrow from orthopedic perspective. He understands he may be weightbearing as tolerated. I will be out of town tomorrow, and the patient is aware of this. Follow-up should be in 2 weeks with me. In the meantime, he may remain weightbearing as tolerated and pursue total knee arthroplasty exercises as per prior to hospital admission. The patient is scheduled for spinal cord stimulator removal tomorrow. He may be discharged from an orthopedic perspective after this. At time of discharge, in addition to the daptomycin, patient is to be discha rged on rifampin per recommendation of Dr. Roy in her consultation. This was discussed today with Dr. Naik as well. Qualifiers: Encounter type: subsequent encounter Qualified Code(s): T84.59XD - Infection and inflammatory reaction due to other internal joint prosthesis, subsequent encounter; Z96.659 - Presence of unspecified artificial knee joint (2) History of revision of total replacement of left knee joint: (3) Infection of total left knee replacement: (4) History of total knee arthroplasty: Qualifiers: Laterality: left Qualified Code(s): Z96.652 - Presence of left artificial knee joint Attestations Medical Necessity Statement*: Ongoing care and IV antibiotics. Coding Level of Care Code Acute Code for [facility] Fwd Diagnoses Infected prosthetic knee joint T84.59XD; Z96.659 Encounter type: subsequent encounter History of revision of total replacement of left knee joint Z96.652 Infection of total left knee replacement T84.54XA History of total knee arthroplasty Z96.652 Laterality: left
[2023-07-06] MEDS: prazosin 1 mg Capsule PO (18:21)
[2023-07-07] VITALS (22 sets, daily range): BP systolic 119–179; BP diastolic 67–78; PULSE 50–85; RESP 16–27; TEMP 36.1–37.2; O2SAT 90–100
[2023-07-07 05:30] LABS: Basophils # 0.1 10^3/uL (0.0-0.1); Basophils % 1.2 %; Eosinophils # 0.5 10^3/uL (0.0-0.8); Hematocrit 32.9 % (37-53); Lymphocytes # 1.7 10^3/uL (0.8-4.8); Lymphocytes % 22.5 %; Mean Corpuscular HGB Conc 31.3 g/dL (30-55); Mean Corpuscular Hemoglobin 29.1 pg (27-33); Mean Corpuscular Volume 92.9 fl (82-101); Mean Platelet Volume 9.1 fL (7.4-10.4); Monocytes # 0.8 10^3/uL (0.2-0.9); Monocytes % 10.1 %; Neutrophils # 4.37 10^3/uL (1.8-7.7); Neutrophils % 58.5 %; Nucleated Red Blood Cells % 0 %; Platelet Count 394 10^3/cmm (157-399); Red Blood Count 3.54 10^6/uL (3.85-5.65); Red Cell Distribution Width 13.1 % (12.1-15.1); White Blood Count 7.46 10^3/uL (3.29-11.43)
[2023-07-07 05:59] LABS: Anion Gap 13.6 (5-19); Blood Urea Nitrogen 16 mg/dL (8-23); Calcium 8.8 mg/dL (8.5-10.5); Carbon Dioxide 29 mmol/L (22-29); Chloride 103 mmol/L (98-107); Glomerular Filtration Rate 50.5 mL/min (90-130); Glucose 94 mg/dL (65-115); Osmolality Calculated 293 mOsm/kg (285-295); Potassium 4.6 mmol/L (3.5-5.1); Sodium 141 mmol/L (136-145)
[2023-07-07] MEDS: aspirin 81 mg EC Tablet PO (06:41)
[2023-07-07] MEDS: acetaminophen 500 mg Tablet 1000 MG PO (06:41)
[2023-07-07] MEDS: duloxetine 60 mg Capsule PO (06:42)
[2023-07-07] MEDS: oxyCODONE 5 mg IR Tab/Cap PO ×3 (06:42→21:48)
[2023-07-07] MEDS: sennosides-docusate Tablet 2 TAB PO ×2 (08:46→17:46)
[2023-07-07] MEDS: multivitamin therapeutic Tablet 1 TAB PO (08:46)
[2023-07-07] MEDS: iron polysaccharide complex 150 mg Capsule PO ×2 (08:46→17:46)
[2023-07-07] MEDS: famotidine 20 mg Tablet PO ×2 (08:46→17:46)
[2023-07-07] MEDS: calcium carbonate 500 mg Chew Tablet 1000 MG PO ×2 (08:46→17:46)
[2023-07-07] MEDS: chlorhexidine gluconate 0.12% Btl 473 mL 30 ML MUCOUS MEM ×3 (08:51→19:52)
[2023-07-07] MEDS: sodium chloride 0.9% 1,000 ML 30 ML IV (12:32)
--- NOTE | 2023-07-07 12:38 | PC.SOCIAL ---
IMM Update IMM not updated. Pt said he does not have Medicare. He said he has [facility] only.
--- NOTE | 2023-07-07 12:48 | P.ANESUD_ITS ---
Pre-Anesthetic Update Pre-Anesthetic Assessment: Date of Surgery/Procedure: 07/07/23 Preop Mallika gnosis: Failed Spinal Cord Stimulator Proposed Procedure: Operation Date: 06/30/23 16:05 Proposed Procedures p Polyethelene Exchange Knee and washout(Left) - Concepcion Ron MD Operation Date: 07/07/23 13:10 Proposed Procedures p [id number]: Spinal cord and stimulator paddle remover(Not Applicable) - Blake Ireland, DO Any changes to Pre-Anesthetic Assessment?: No Last Intake: Intake Last Liquid Date 07/06/23 Last Liquid Time 21:00 Last Solid Date 07/06/23 Last Solid Time 21:00 Labs Last 48hrs: Short CBC 07/06/23 07/07/23 Range/Units 04:10 04:59 WBC 6.88 7.46 (3.29-11.43) 10^ 3/uL Hgb 9.40 L 10.30 L (11.27-16.99) g/ dL Hct 29.7 L 32.9 L (37-53) % MCV 92.2 92.9 (82-101) fl Plt Count 433 H 394 (157-399) 10^3/c mm Neut % (Auto) 49.5 58.5 % Neut # (Auto) 3.41 4.37 (1.8-7.7) 10^3/u L BMP 07/06/23 07/07/23 04:10 04:59 Sodium 134 L 141 Potassium 4.0 4.6 Chloride 99 103 Carbon Dioxide 30 H 29 BUN 16 16 Creatinine 1.3 H 1.4 H Glucose 82 94 Calcium 8.4 L 8.8 Vitals: Temperature 97.7 F 07/07/23 11:36 Temperature Source Temporal Artery S can 07/07/23 11:36 Pulse Rate 56 L 07/07/23 11:36 Pulse Rhythm Regular 07/06/23 20:00 Pulse Strength 3+ Normal 07/07/23 06:00 Respiratory Rate 19 H 07/07/23 11:36 Respiratory Effort Spontaneous, Non- Labored 07/07/23 06:42 Respiratory Depth Normal 07/07/23 06:42 Respiratory Patter n Normal 07/07/23 06:42 Blood Pressure 137/74 07/07/23 11:36 Blood Pressure Yudith n 95 07/07/23 11:36 Blood Pressure Pos ition Supine 07/06/23 04:00 Pulse Oximetry 95 07/07/23 11:36 Oxygen Delivery Me thod Nasal Cannula 07/07/23 11:36 Oxygen Flow Rate 3 07/01/23 05:05 Sepsis Recent Feve r Within 48 Hours Yes 06/27/23 12:16 Sepsis New/Unexpla ined Change in Men darío Status No 06/27/23 12:16 Exam: Pre-Anes Outpt Exam: alert, oriented x 3, clear to auscultation bilaterally and regular rate & rhythm Cardiac Studies: Echocardiogram Ultrasound 11/23/20
--- NOTE | 2023-07-07 13:02 | W.PM.OPSUD ---
Surgery/Procedure H&P Update DATE OF PROCEDURE: July 07, 2023 DATE H&P PERFORMED: 07/01/23 H&P UPDATE INFORMATION: I have reviewed H&P completed within last 30 days, I have examined patient prior to procedure and No changes to prior documentation PREOP DIAGNOSIS: Failed Spinal Cord Stimulator PLANNED PROCEDURE: Operation Date: 06/30/23 16:05 Proposed Procedures p Polyethelene Exchange Knee and washout(Left) - Concepcion Ron MD Operation Date: 07/07/23 13:10 Proposed Procedures p [id number]: Spinal cord and stimulator paddle remover(Not Applicable) - Blake Ireland, DO
[2023-07-07] MEDS: ceFAZolin 2,000 MG in sodium chloride 0.9% (plus) 50 ML 100 MG IV ×2 (13:26→19:51)
[2023-07-07] MEDS: lidocaine-epi 2% 20 mL INJ INJECTION (14:10)
--- NOTE | 2023-07-07 14:17 | P.OP_ITS ---
Operative Report Date of procedure: July 07, 2023 Pre-op diagnosis: Nonfunctioning spinal cord stimulator with concerns for infection. Post-op diagnosis: same Procedure done: 1. Removal of spinal cord stimulator paddle. 2. Removal of battery pack for spinal cord stimulator Surgeon: Blake Ireland DO Flight Reservations Manager: Sarabjit Medina Flight Reservations Manager: The surgical scrub technologist, Sarabjit Medina, CATARINO was needed for his expertise under the microscope. He was important and necessary throughout the procedure to complete in a safe and timely manner. He assisted with patient positioning prepping and draping tissue retraction suctioning of the operative field protection of the dural sac and tissue closure Estimated blood loss (mL): 5 Procedure: 1. Removal of spinal cord stimulator paddle. 2. Removal of battery pack for spinal cord stimulator Please read the op suite after going anesthesia was placed in the prone position. All areas impingement well-padded. Patient was prepped and draped in a sterile fashion. Skin incision made with the battery first the Bovie was used to dissect down to the battery and dissect out the wires. The battery was pulled out of the wound. Next tension was brought to the spinal cord stimulator paddle. The dissection was made down the bone subperiosteally along the spinous process and lamina. The wires were identified and traced into the epidural space. The curved curette was used to remove scar tissue. The paddle was then pulled out and then the paddle was removed from the spine. Cultures were taken from both the paddle wound as well as the battery wound. Next attention was brought to cutting the wires so that the wires could be pulled through to the battery side. Once all the wires and battery and paddles were removed serum was brought in to ensure that the wires and paddles and battery were completely removed. C-arm did confirm this. Wounds were irrigated and closed with Vicryl and Monocryl suture. Sterile dressings were applied patient transferred to the PACU in stable condition.
--- NOTE | 2023-07-07 15:05 | ANE.PACU2 ---
Inpatient post-anesthesia follow up: Airway intact: Yes Vital signs: Temperature 97.9 F Pulse Rate 55 Respiratory Rate 17 Blood Pressure 127/69 Pulse Oximetry 97 Oxygen Delivery Me thod Room Air Oxygen Flow Rate 3 Fraction of Inspir ed Oxygen Hydration adequate: Yes Nausea and vomiting: No Pain level: 1 Mental status: Baseline
--- NOTE | 2023-07-07 16:18 | P.PN_ITS ---
Subjective Subjective: Hospital course, labs appreciated. Today morning patient lying comfortably in bed. Denies any further nausea, vomiting, headache. Has remained hemodynamically stable and afebrile. States he is feeling a lot better since he last saw me. Awaiting to go to the OR today for removal of spinal stimulator. Blood work shows no leukocytosis, stable hemoglobin, CMP showing creatinine stable at 1.4 without electrolyte abnormalities. Medications: Reviewed: Yes Medication Review Details: He denies any additional changes. Vitals/I&O/Wt Last Vital Signs Temp 97.0 F L 07/07/23 15:03 Pulse 73 07/07/23 15:03 Resp 24 H 07/07/23 15:03 BP 148/72 07/07/23 15:03 Pulse Ox 93 07/07/23 15:03 O2 Del Method Room Air 07/07/23 15:03 O2 Flow Rate 3 07/07/23 14:38 07/07/23 07/07/23 07/07/23 06:59 14:59 22:59 Intake Total 50 / 890 100 / 100 Output Total 700 / 1000 525 / 525 Balance -650 / -110 -425 / -425 Weight last 48 hrs Weight 104.19 kg Weight 107.139 kg Physical Exam Narrative: General: No acute distress, AO x3 sick and uncomfortable appearing HEENT: PERRLA, pupils bilaterally equal and reactive Chest: Normal vesicular breath sounds, no added sounds, equal good air entry bilaterally CVS: S1-S2 regular, no murmurs, no tachycardia, no gallops, no rubs Abdomen: Soft, nontender, no organomegaly, bowel sounds present Neuro: No focal deficits, no facial deformity, AO x3, power 5/5 in all limbs Urinary Catheter Management: Moon: Cath Placed During This Visit: yes, but has since been removed by the nurse Reason for Continuing Indwelling Catheter: Decision to DC Catheter Urinary Catheter Date of Insertion: 06/30/23 Urinary Catheter Time of Insertion: 19:00 Date Urinary Catheter Removed: 07/01/23 Time Urinary Catheter Discontinued: 05:08 Data 07/07/23 04:59 07/07/23 04:59 Micro: Microbiology 06/30/23 19:15 Anaerobic Culture - Preliminary Knee - #4 06/30/23 19:15 Gram Stain - Final Knee - #1 Anaerobic Culture - Preliminary Wound Culture - Preliminary 06/30/23 19:15 Anaerobic Culture - Preliminary Knee - #2 06/30/23 19:15 Gram Stain - Final Knee - #4 Wound Culture - Final Staph capitis sub ureolyticus 06/30/23 19:15 Gram Stain - Final Knee - #3 Tissue Culture - Final Staph capitis sub ureolyticus A&P Assessment and plan (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 Cultures growing Staph capitis. Appreciate orthopedic and ID recommendations. Continue with daptomycin. Blood cultures so far negative. Plan to discharge on daptomycin for overall 6 weeks as per ID recommendations. PICC line placed on 07/01/23. Recheck CPK as patient is on daptomycin. Repeat CRP. Patient will most likely need weekly creatinine, CRP, CPK. Wound care as per orthopedic team. Qualifiers: Encounter type: subsequent encounter Qualified Code(s): T84.59XD - Infection and inflammatory reaction due to other internal joint prosthesis, subsequent encounter; Z96.659 - Presence of unspecified artificial knee joint (2) History of revision of total replacement of left knee joint: Plan Spinal stimulator in place: Spine surgery consulted by orthopedic. As per spinal team plan for explantation of spinal stimulator today. Follow-up recommendations. Continue NPO. HTN: Goal blood pressure less than 140/90 mmHg. Continue with home dose of prazosin. Restart home dose of lisinopril. CAD HAYLEY: With noted worsening, creatinine up to 1.3. Discussed with him. Reviewed CK, noted normal. At risk of rhabdomyolysis with Dapto. Avoid NSAIDs. Follow- up chemistry requested. Restart cardiac diet postoperatively Anticoagulation as per orthopedic team Famotidine for PUD prophylaxis Attestations Medical Necessity Statement*: Requires further hospitalization for management of infected prosthetic knee joint while patient awaits removal of spinal stimulator and outpatient antibiotic arrangement. Diagnoses Infected prosthetic knee joint T84.59XD; Z96.659 Encounter type: subsequent encounter History of revision of total replacement of left knee joint Z96.658
[2023-07-07 16:59] LABS: Creatine Phosphokinase 24 U/L (39-308)
[2023-07-07] MEDS: prazosin 1 mg Capsule PO (17:45)
[2023-07-07] MEDS: docusate sodium 100 mg Capsule PO (17:46)
--- NOTE | 2023-07-07 18:09 | PM.PN ---
Subjective Subjective: Infectious disease progress note. Patient was last seen by me in consultation on June 29, 2023. Since then he was evaluated by Dr. Reyes and has undergone revision of the left total knee arthroplasty on June 30, 2023. He underwent left total knee arthroplasty with irrigation debridement and tibial polyethylene exchange. He has also undergone removal of his nonfunctioning spinal cord stimulator earlier today as it has been nonfunctioning for over a year and may have been a potential nidus of recurrent infection of the joint. Cultures returned with growth of Staph capitis, similar organism as previously seen. Medications: Reviewed: Yes Medication Review Details: He denies any additional changes. Vitals/I&O/Wt Last Vital Signs Temp 98.0 F 07/07/23 17:15 Pulse 85 07/07/23 17:15 Resp 17 07/07/23 17:45 BP 179/74 07/07/23 17:15 Pulse Ox 94 07/07/23 17:15 O2 Del Method Room Air 07/07/23 17:15 O2 Flow Rate 3 07/07/23 14:38 07/07/23 07/07/23 07/07/23 06:59 14:59 22:59 Intake Total 50 / 890 100 / 100 360 / 460 Output Total 700 / 1000 525 / 525 Balance -650 / -110 -425 / -425 360 / -65 Weight last 48 hrs Weight 104.19 kg Weight 107.139 kg Physical Exam Narrative: General: No acute distress, AO x3 HEENT: PERRLA, pupils bilaterally equal and reactive, pallors not present Chest: Normal vesicular breath sounds, no added sounds, equal good air entry bilaterally CVS: S1-S2 regular, no murmurs, no tachycardia, no gallops, no rubs Abdomen: Soft, nontender, no organomegaly, bowel sounds present Neuro: No focal deficits, no facial deformity, AO x3, power 5/5 in all limbs Extremities: Surgical dressing present over the back at the site of spinal cord stimulator removal and over the left knee. Urinary Catheter Management: Moon: Cath Placed During This Visit: yes, but has since been removed by the nurse Reason for Continuing Indwelling Catheter: Decision to DC Catheter Urinary Catheter Date of Insertion: 06/30/23 Urinary Catheter Time of Insertion: 19:00 Date Urinary Catheter Removed: 07/01/23 Time Urinary Catheter Discontinued: 05:08 Data 07/08/23 05:10 07/08/23 05:10 Micro: Microbiology 07/07/23 13:55 Gram Stain - Final Back 07/07/23 13:54 Gram Stain - Final Back 06/30/23 19:15 Anaerobic Culture - Preliminary Knee - #4 06/30/23 19:15 Gram Stain - Final Knee - #1 Anaerobic Culture - Preliminary Wound Culture - Preliminary 06/30/23 19:15 Anaerobic Culture - Preliminary Knee - #2 06/30/23 19:15 Gram Stain - Final Knee - #4 Wound Culture - Final OR Staph capitis sub ureolyticus 06/30/23 19:15 Gram Stain - Final Knee - #3 Tissue Culture - Final OR Staph capitis sub ureolyticus Body Fluid Culture Final 07/01/23-1038 Organism 1 Staph capitis sub ureolyticus Growth MODERATE DAY 3 Sta cap ur M.I.C. RX --------- ------ * Amoxicillin/Clavulanate <=4/2 R * Ampicillin >8 R * Ampicillin/Sulbactam <=8/4 R * Ceftriaxone >32 R * Ciprofloxacin <=1 S * Clindamycin <=0.5 S * Erythromycin <=0.5 S * Gentamicin <=4 S * Levofloxacin <=1 S * Linezolid 2 S * Oxacillin >2 R * Penicillin >8 R * Rifampin <=1 S * Tetracycline <=4 S * Trimethoprim/Sulfamethoxazole <=0.5/9.5 S Vancomycin 2 S Daptomycin 1 S A&P Assessment and plan (1) Infected prosthetic knee joint: Qualifiers: Encounter type: subsequent encounter Qualified Code(s): T84.59XD - Infection and inflammatory reaction due to other internal joint prosthesis, subsequent encounter; Z96.659 - Presence of unspecified artificial knee joint (2) History of revision of total replacement of left knee joint: Plan Prosthetic joint infection of left TKA Date of first surgery: Sep Date of removal of infected TKA with spacer placement: February 11, 2023 Organism on synovasure : Staph capitis Treated with iv daptomycin ~ 8 weeks negative synovasure and post op synovial cx post treatment Date of reimplantation : 06/17/23 Date of most recent I&D with tibial polyethylene exchange 06/30/23 OR cx from 06/30: Staph capitis Blood cx negative to date. Now also status post removal of spinal cord stimulator on 07/07/2023. recommend to treat with Daptomycin 8 mg/kg IV every 24 hours over the next 3 to 6 weeks. Add accompanying rifampin 300 mg p.o. twice daily. At the end of 6-week milind anticipate transition to oral fluoroquinolone plus rifampin for additional 6 weeks followed by chronic suppression thereafter. PICC line placed to facilitate above. While on above antibiotics recommend to obtain weekly creatinine, CPK, CRP and LFT levels. Counseled regarding side effects of both medications. Daptomycin chosen over vancomycin due to history of allergy as noted details in original consult note. Follow-up in ID clinic on July 31, 2023 at 11:30 AM. Attestations Medical Necessity Statement*: Per admitting Coding Level of Care Code Acute Code for Chg Fwd Diagnoses Infected prosthetic knee joint T84.59XD; Z96.659 Encounter type: subsequent encounter History of revision of total replacement of left knee joint Z96.652
--- NOTE | 2023-07-07 18:16 | PM.MISC ---
Miscellaneous Note Note: Today at 1230 I went to patient's inpatient room to around and see how he was doing, since orthopedic service discharge, in relation to his revision knee surgery. Patient has been discharged from our orthopedic service, in relation to his left knee revision surgery however, he does remain inpatient at this time as he was taken down for battery replacement for his spinal stimulator by Dr. Ireland. At the time of rounds today, patient was out of his room for surgery. Patient has been doing well according to bedside nursing report. We will plan to follow-up in the morning, July 08, 2023, prior to discharge.
[2023-07-07] MEDS: rifAMPin 300 mg Capsule PO (18:49)
[2023-07-08] VITALS (7 sets, daily range): BP systolic 119–129; BP diastolic 59–69; PULSE 55–64; RESP 16–18; TEMP 36.5–37; O2SAT 96–98; BMI 32.0
[2023-07-08] MEDS: oxyCODONE 5 mg IR Tab/Cap PO ×3 (01:57→12:19)
[2023-07-08 05:41] LABS: Basophils # 0.1 10^3/uL (0.0-0.1); Basophils % 0.4 %; Eosinophils % 0.1 %; Hematocrit 30.7 % (37-53); Lymphocytes # 1.1 10^3/uL (0.8-4.8); Lymphocytes % 9.6 %; Mean Corpuscular HGB Conc 31.3 g/dL (30-55); Mean Corpuscular Hemoglobin 28.7 pg (27-33); Mean Corpuscular Volume 91.9 fl (82-101); Mean Platelet Volume 9.2 fL (7.4-10.4); Monocytes % 8.8 %; Neutrophils # 9.57 10^3/uL (1.8-7.7); Neutrophils % 80.8 %; Nucleated Red Blood Cells % 0 %; Platelet Count 374 10^3/cmm (157-399); Red Blood Count 3.34 10^6/uL (3.85-5.65); Red Cell Distribution Width 13.1 % (12.1-15.1); White Blood Count 11.84 10^3/uL (3.29-11.43)
[2023-07-08] MEDS: ceFAZolin 2,000 MG in sodium chloride 0.9% (plus) 50 ML 100 MG IV (06:04)
[2023-07-08] MEDS: aspirin 81 mg EC Tablet PO (06:04)
[2023-07-08] MEDS: duloxetine 60 mg Capsule PO (06:04)
[2023-07-08 06:05] LABS: Alanine Aminotransferase 9 U/L (0-41); Albumin Level 3.4 g/dL (3.5-5.2); Alkaline Phosphatase 109 U/L (40-130); Anion Gap 13.4 (5-19); Aspartate Amino Transferase 13 U/L (0-40); Blood Urea Nitrogen 18 mg/dL (8-23); Calcium 8.3 mg/dL (8.5-10.5); Carbon Dioxide 26 mmol/L (22-29); Chloride 102 mmol/L (98-107); Glomerular Filtration Rate 50.5 mL/min (90-130); Glucose 115 mg/dL (65-115); Osmolality Calculated 287 mOsm/kg (285-295); Potassium 4.4 mmol/L (3.5-5.1); Sodium 137 mmol/L (136-145); Total Bilirubin 0.6 mg/dL (0.15-1.2); Total Protein 6.4 g/dL (6.6-8.7)
[2023-07-08 06:12] LABS: C Reactive Protein 25.2 mg/L (0.0-4.9)
--- NOTE | 2023-07-08 07:10 | P.PN_ITS ---
Subjective Subjective: POD 1 Patient resting comfortably. Denies any back pain, chest pain, headaches or shortness of breath. Vitals/I&O/Wt Last Vital Signs Temp 98.6 F 07/08/23 04:06 Pulse 59 L 07/08/23 04:06 Resp 16 07/08/23 06:04 BP 129/62 07/08/23 04:06 Pulse Ox 96 07/08/23 04:06 O2 Del Method Room Air 07/07/23 18:15 O2 Flow Rate 3 07/07/23 14:38 07/07/23 07/08/23 07/08/23 22:59 06:59 14:59 Intake Total 730 / 830 100 / 930 Output Total 700 / 1225 900 / 2125 Balance 30 / -395 -800 / -1195 Weight last 48 hrs Weight 229 lb 11.2 oz Weight 236 lb 3.2 oz Physical Exam Narrative: Patient presents alert and oriented x3 with a good general appearance normal m ood and affect. Normal coordination normal stability. Mild tenderness around the incisional site with the incision appear to be healing nicely. No signs of erythema or drainage. No signs of infection. Patient denies any fevers or chills. 5/5 motor strength both lower extremities with negative straight leg raise bilaterally. Calves are supple no medial thigh tenderness. Pulses are 2+ at the dorsalis pedis and posterior tibial region. Good capillary refill throughout normal sensation light touch both lower extremities. Urinary Catheter Management: Moon: Cath Placed During This Visit: yes, but has since been removed by the nurse Reason for Continuing Indwelling Catheter: Decision to DC Catheter Urinary Catheter Date of Insertion: 06/30/23 Urinary Catheter Time of Insertion: 19:00 Date Urinary Catheter Removed: 07/01/23 Time Urinary Catheter Discontinued: 05:08 Data 07/08/23 05:10 07/08/23 05:10 Micro: Microbiology 07/07/23 13:55 Gram Stain - Final Back 07/07/23 13:54 Gram Stain - Final Back 06/30/23 19:15 Anaerobic Culture - Preliminary Knee - #4 06/30/23 19:15 Gram Stain - Final Knee - #1 Anaerobic Culture - Preliminary Wound Culture - Preliminary 06/30/23 19:15 Anaerobic Culture - Preliminary Knee - #2 A&P Assessment and plan (1) Failed spinal cord stimulator: This point from an orthopedic spine standpoint can mobilize as tolerated with restrictions to the left lower extremity. We will see him back in the office in 2 weeks time for suture removal in the lumbar and thoracic region. Continue incentive spirometry for pulmonary toilet. Attestations Medical Necessity Statement*: Defer to medical team Coding Level of Care Code Acute Code for Chg Fwd Diagnoses Failed spinal cord stimulator T85.192A
[2023-07-08] MEDS: docusate sodium 100 mg Capsule PO (08:22)
[2023-07-08] MEDS: calcium carbonate 500 mg Chew Tablet 1000 MG PO (08:22)
[2023-07-08] MEDS: iron polysaccharide complex 150 mg Capsule PO (08:22)
[2023-07-08] MEDS: multivitamin therapeutic Tablet 1 TAB PO (08:22)
[2023-07-08] MEDS: sennosides-docusate Tablet 2 TAB PO (08:22)
[2023-07-08] MEDS: rifAMPin 300 mg Capsule PO (08:22)
[2023-07-08] MEDS: famotidine 20 mg Tablet PO (08:22)
[2023-07-08] MEDS: cholecalciferol (vitamin D3) 1,000 unit Tablet 1000 UNIT PO (08:22)
[2023-07-08] MEDS: chlorhexidine gluconate 0.12% Btl 473 mL 30 ML MUCOUS MEM ×2 (08:23→14:20)
--- NOTE | 2023-07-08 11:04 | P.DS_ITS ---
Discharge Providers Date of Admission: 06/27/23 17:01 Date of Discharge: July 08, 2023 Attending Provider at Admission: Alberto Avalos MD Attending Provider at Discharge: Alberto Avalos MD Consults: Orthopedic: Dr. Reyes ID: Dr. Roy Spine surgery: Dr. Ireland Primary Care Provider: Ashley Mac MD Diagnoses at Discharge Discharge Diagnosis (1) Failed spinal cord stimulator: Status: Acute (2) Infected prosthetic knee joint: Status: Acute Qualifiers: Encounter type: subsequent encounter Qualified Code(s): T84.59XD - Infection and inflammatory reaction due to other internal joint prosthesis, subsequent encounter; Z96.659 - Presence of unspecified artificial knee joint (3) History of revision of total replacement of left knee joint: Status: Acute Permanent problem details: Date of procedure: June 17, 2023 Pre-op Diagnosis: Infected left total knee arthroplasty following removal of original components, temporary total knee arthroplasty, and resolution of infection. 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 Procedure done: Revision total knee arthroplasty with removal of hardware and reimplantation with complete synovectomy Implants: [employer] total knee system with a size 5 left triathlon total stabilizer cemented the femoral component, a size 5 left central femoral cone augment, a size 50 femoral stem senior business intelligence analyst with a size 15 mm x 50 mm triathlon total knee cemented stem and distal augments size 5 x 10 mm both medial and lateral. Size 6 universal cemented tibial baseplate with a size B tibial symm etric cone augment, a 25 mm stem senior business intelligence analyst, and a 15 mm x 50 mm cemented total knee stem. A size 6 x 13 mm total stabilizer tibial insert, and an asymmetric patella size 40 x 11 mm. (4) History of MRSA infection: Status: Acute (5) Infection of total left knee replacement: Status: Acute Permanent problem details: Date of procedure: February 11, 2023 Diagnosis: Infected left total knee arthroplasty Procedure done: Removal total knee arthroplasty implants (CPT 93657) Assertion, nonbiodegradable drug delivery implant (CPT 66785-24,51) Complete synovectomy with irrigation Implants: The [employer] knee system with a size 7 cemented cruciate retaining femoral component and a size 7 x 8 mm all polyethylene tibial implant, cruciate retaining, cemented. 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 He was sent into the ER today by his home health nurse because he was unable to put any weight on his knee since yesterday morning along with decreased range of motion, subjective feeling of fever.? In the ER patient's knee was tapped by the ER physician on which bloody aspirate was drained.? ER physician had a conversation with patient's primary orthopedic surgeon/Dr. Ron who requested patient to be started on antibiotics and admitted.? Hospitalist service was consulted for further recommendations. Patient was admitted to the hospital further evaluation and management. He was started on broad-spectrum antibiotics. Orthopedics were consulted. He underwent revision of left total knee arthroplasty with irrigation, debridement and tibial polyethylene exchange on 06/30. His synovial fluid cultures and OR cultures came back positive for Staphylococcus capitis. Blood cultures remain negative. Antibiotics were changed as per culture sensitivities. Primary orthopedic team consulted neurosurgical team for possible removal of spinal stimulator which was eventually removed on 07/07. Patient's hospitalization was otherwise unremarkable. He has been discharged in hemodynamically stable condition on IV daptomycin and oral rifampin with advised to follow-up with orthopedics team on set appointment with directions for weightbearing as per primary orthopedic team and to follow- up with infectious disease in next 1 month. He is to have weekly labs which will be followed by his primary care provider. Physical Exam Narrative: General: No acute distress, AO x3 sick and uncomfortable appearing HEENT: PERRLA, pupils bilaterally equal and reactive Chest: Normal vesicular breath sounds, no added sounds, equal good air entry bilaterally CVS: S1-S2 regular, no murmurs, no tachycardia, no gallops, no rubs Abdomen: Soft, nontender, no organomegaly, bowel sounds present Neuro: No focal deficits, no facial deformity, AO x3, power 5/5 in all limbs Urinary Catheter Management: Moon: Cath Placed During This Visit: yes, but has since been removed by the nurse Reason for Continuing Indwelling Catheter: Decision to DC Catheter Urinary Catheter Date of Insertion: 06/30/23 Urinary Catheter Time of Insertion: 19:00 Date Urinary Catheter Removed: 07/01/23 Time Urinary Catheter Discontinued: 05:08 Discharge Data Studies Completed and Pending Completed Studies During Hospitalization Category Date Time Status CT knee LT wo con* 13582 Stat Cat Scan 06/27/23 16:59 Completed CXRP [XR chest 1V portable [id number]] Routine Exams 07/01/23 13:22 Completed XR knee LT 1-2V 54468 Urgent Exams 06/30/23 21:48 Completed XR knee LT 3V* 30312 Stat Exams 06/27/23 13:26 Completed XR lumbar spine 1 view portable [XR lumbar spine 1V Exams 07/01/23 08:35 Completed port 25523] Routine XR thoracic spine 1 view portable [XR thoracic spine Exams 07/01/23 08:35 Completed 1Vport 24222] Routine US renal BI* [id number] Routine Ultrasound 06/28/23 11:15 Completed Pending at discharge Category Date Time Status Anaerobic Culture Routine Lab 06/30/23 19:15 Results Anaerobic Culture Routine Lab 06/30/23 19:15 Results Anaerobic Culture Routine Lab 06/30/23 19:15 Results Anaerobic Culture Routine Lab 07/07/23 13:54 Results Anaerobic Culture Routine Lab 07/07/23 13:55 Results Complete Blood Count w/Auto AM LABS Lab 07/09/23 04:00 Ordered Wound Culture and Gram Stain Routine Lab 06/30/23 19:15 Results Wound Culture and Gram Stain Routine Lab 06/30/23 19:15 Results Wound Culture and Gram Stain Routine Lab 07/07/23 13:54 Results Wound Culture and Gram Stain Routine Lab 07/07/23 13:55 Results Radiology Impressions Knee CT 06/27/23 16:59 IMPRESSION: 1. Large hyperdense knee joint effusion and very large hyperdense prepatellar fluid collection. Hyperdensities are also noted to bricklayer dependently within the prepatellar collection most typical of blood products/hematoma. Both the knee joint effusion and prepatellar collections contain a few air bubbles but this is markedly decreased compared to the June 17 plain film and is compatible with postoperative changes. At this time, the appearance may simply reflect postoperative changes with interval development of hemarthrosis and prepatellar hematoma. Early infection or abscess cannot be excluded. Continued follow up or possibly aspiration may be helpful. 2. No bony fracture. No evidence of periosteal reaction or bony destruction of osteomyelitis. No intramuscular fluid collection or gas. Renal Ultrasound 06/28/23 11:15 IMPRESSION: No acute abnormality identified. ADDENDUM: 06/28/23 1207 The bladder appears partially decompressed. Knee X-Ray 06/30/23 21:48 IMPRESSION: 1. Status post semi constrained total left knee arthroplasty without immediate hardware complications. 2. Postsurgical changes noted along the anterior aspect of the left knee now with a surgical drain in place. Lumbar Spine X-Ray 07/01/23 08:35 IMPRESSION: No acute findings. Thoracic Spine X-Ray 07/01/23 08:35 IMPRESSION: No acute findings. Microbiology 07/07/23 13:55 Back Gram Stain - Final 07/07/23 13:55 Back Wound Culture - Preliminary 07/07/23 13:54 Back Gram Stain - Final 07/07/23 13:54 Back Wound Culture - Preliminary 06/30/23 19:15 Knee - #4 Anaerobic Culture - Preliminary 06/30/23 19:15 Knee - #1 Gram Stain - Final 06/30/23 19:15 Knee - #1 Anaerobic Culture - Preliminary 06/30/23 19:15 Knee - #1 Wound Culture - Preliminary 06/30/23 19:15 Knee - #2 Anaerobic Culture - Preliminary 06/30/23 19:15 Knee - #4 Gram Stain - Final 06/30/23 19:15 Knee - #4 Wound Culture - Final Staph capitis sub ureolyticus 06/30/23 19:15 Knee - #3 Gram Stain - Final 06/30/23 19:15 Knee - #3 Tissue Culture - Final Staph capitis sub ureolyticus 06/30/23 19:15 Knee - #2 Gram Stain - Final 06/30/23 19:15 Knee - #2 Wound Culture - Preliminary 06/27/23 13:49 Blood Blood Culture - Final NO GROWTH AFTER 5 DAYS 06/27/23 13:45 Blood Blood Culture - Final NO GROWTH AFTER 5 DAYS 06/27/23 16:44 Synovial Fluid Body Fluid Culture - Final Staph capitis sub ureolyticus 06/27/23 16:44 Synovial Fluid Gram Stain - Final Laboratory Results WBC 11.84 10^3/uL (3.29-11.43) H 07/08/23 05:10 RBC 3.34 10^6/uL (3.85-5.65) L 07/08/23 05:10 Hgb 9.60 g/dL (11.27-16.99) L 07/08/23 05:10 Hct 30.7 % (37-53) L 07/08/23 05:10 MCV 91.9 fl (82-101) 07/08/23 05:10 MCH 28.7 pg (27-33) 07/08/23 05:10 MCHC 31.3 g/dL (30-55) 07/08/23 05:10 RDW 13.1 % (12.1-15.1) 07/08/23 05:10 Plt Count 374 10^3/cmm (157-399) 07/08/23 05:10 MPV 9.2 fL (7.4-10.4) 07/08/23 05:10 Neut % (Auto) 80.8 % 07/08/23 05:10 Lymph % (Auto) 9.6 % 07/08/23 05:10 [place] % (Auto) 8.8 % 07/08/23 05:10 Eos % (Auto) 0.1 % 07/08/23 05:10 Baso % (Auto) 0.4 % 07/08/23 05:10 Neut # (Auto) 9.57 10^3/uL (1.8-7.7) H 07/08/23 05:10 Lymph # (Auto) 1.1 10^3/uL (0.8-4.8) 07/08/23 05:10 [place] # (Auto) 1.0 10^3/uL (0.2-0.9) H 07/08/23 05:10 Eos # (Auto) 0.0 10^3/uL (0.0-0.8) 07/08/23 05:10 Baso # (Auto) 0.1 10^3/uL (0.0-0.1) 07/08/23 05:10 Nucleated RBC % (auto) 0 % 07/08/23 05:10 Nucleated RBCs # 0.0 /100WBC 07/08/23 05:10 ESR 34 mm/hr (0-10) H 06/27/23 13:13 Sodium 137 mmol/L (136-145) 07/08/23 05:10 Potassium 4.4 mmol/L (3.5-5.1) 07/08/23 05:10 Chloride 102 mmol/L (98-107) 07/08/23 05:10 Carbon Dioxide 26 mmol/L (22-29) 07/08/23 05:10 Anion Gap 13.4 (5-19) 07/08/23 05:10 BUN 18 mg/dL (8-23) 07/08/23 05:10 Creatinine 1.4 mg/dL (0.7-1.2) H 07/08/23 05:10 GFR Calculation 50.5 mL/min (90-130) L 07/08/23 05:10 Glucose 115 mg/dL (65-115) 07/08/23 05:10 Estimat Average Glucose 97 06/28/23 04:14 Hemoglobin A1c 5.0 % (4.0-6.0) 06/28/23 04:14 Calculated Osmolality 287 mOsm/kg (285-295) 07/08/23 05:10 Lactic Acid 1.5 mmol/L (0.5-2.2) 06/27/23 13:13 Calcium 8.3 mg/dL (8.5-10.5) L 07/08/23 05:10 Phosphorus 3.0 mg/dL (2.5-4.5) 06/28/23 04:14 Magnesium 2.2 mg/dL (1.7-2.3) 06/28/23 04:14 Iron 16 ug/dL (59-158) L 06/27/23 13:13 TIBC 264 mcg/dl 06/27/23 13:13 % Saturation 6.0 % (20-50) L 06/27/23 13:13 Unsat Iron Binding 248 ug/dL (112-347) 06/27/23 13:13 Total Bilirubin 0.6 mg/dL (0.15-1.2) 07/08/23 05:10 AST 13 U/L (0-40) 07/08/23 05:10 ALT 9 U/L (0-41) 07/08/23 05:10 Alkaline Phosphatase 109 U/L (40-130) 07/08/23 05:10 Creatine Kinase 24 U/L (39-308) L 07/07/23 04:59 C-Reactive Protein 25.2 mg/L (0.0-4.9) H 07/08/23 05:10 Total Protein 6.4 g/dL (6.6-8.7) L 07/08/23 05:10 Albumin 3.4 g/dL (3.5-5.2) L 07/08/23 05:10 Globulin 3.0 g/dL (1.3-4.6) 07/08/23 05:10 Triglycerides 82 mg/dL (0-150) 06/28/23 04:14 Cholesterol 113 mg/dL (0-200) 06/28/23 04:14 LDL Cholesterol, Calc 72 mg/dL (50-129) 06/28/23 04:14 HDL Cholesterol 25 mg/dL (60-100) L 06/28/23 04:14 LDL/HDL Ratio 2.88 RATIO (0.00-3.22) 06/28/23 04:14 Cholesterol/HDL Ratio 4.52 mg/dL (1.0-5.00) 06/28/23 04:14 Vitamin B12 Cancelled 06/27/23 13:13 Vit B12 Status 560 pg/mL (200-1100) 06/27/23 13:13 Folate 18.1 ng/mL (4.5-32.2) 06/28/23 04:14 Procalcitonin 0.20 ng/mL (0-0.5) 06/28/23 04:14 TSH 2.21 uIU/mL (0.27-4.20) 06/27/23 13:13 Urine Color Yellow (Yellow) 06/27/23 19:03 Urine Appearance Clear (CLEAR) 06/27/23 19:03 Urine pH 5 (5-7) 06/27/23 19:03 Ur Specific [place] 1.020 (1.005-1.030) 06/27/23 19:03 Urine Protein Trace (Negative) 06/27/23 19:03 Urine Glucose (UA) Norm (Normal) 06/27/23 19:03 Urine Ketones Negative (Negative) 06/27/23 19:03 Urine Blood Neg (Negative) 06/27/23 19:03 Urine Nitrate Negative (Negative) 06/27/23 19:03 Urine Bilirubin Neg (Negative) 06/27/23 19:03 Urine Urobilinogen 1 mg/dL (Negative) H 06/27/23 19:03 Ur Leukocyte Esterase Negative (Negative) 06/27/23 19:03 Urine RBC 0-4 /hpf (0-2) H 06/27/23 19:03 Urine WBC None /hpf (0-5) 06/27/23 19:03 Ur Squamous Epith Cells Rare /hpf (0-5) 06/27/23 19:03 Amorphous Sediment 1+ /hpf 06/27/23 19:03 Urine Bacteria Trace /hpf (NONE) 06/27/23 19:03 Hyaline Casts 0-4 /lpf H 06/27/23 19:03 Urine Mucus 2+ /hpf 06/27/23 19:03 Ur Random Sodium 100 mmol/L 06/28/23 12:45 Ur Random Potassium 45 mmol/L 06/28/23 12:45 Ur Random Chloride 108 mmol/L 06/28/23 12:45 Urine Creatinine 222 mg/dL (39-259) 06/28/23 12:45 Fluid Crystals Sent to path 06/27/23 16:44 Synovial Color Red (PALE YELLOW) 06/27/23 16:44 Synovial Appearance Bloody (CLEAR) 06/27/23 16:44 Synovial WBC 58613 /uL (0-150) H 06/27/23 16:44 Synovial RBC 544 10^3/uL (0-0) H 06/27/23 16:44 Synovial Mononuclear 0.763 10^3/uL 06/27/23 16:44 Synov Polynuclear WBCs 31.290 10^3/uL 06/27/23 16:44 Synovial Other Cells Not Reportable 06/27/23 16:44 Synovial Polynuclear % 97.600 % 06/27/23 16:44 Synovial Mononuclear % 2.400 % 06/27/23 16:44 Path Cons w/Slide Yes 06/27/23 16:44 Vitals Last Vital Signs Temp 97.9 F 07/08/23 08:00 Pulse 55 L 07/08/23 08:00 Resp 17 07/08/23 08:00 BP 127/69 07/08/23 08:00 Pulse Ox 97 07/08/23 08:00 O2 Del Method Room Air 07/07/23 18:15 O2 Flow Rate 3 07/07/23 14:38 Discharge Plan Discharge Patient Disposition: Home Health Service Condition: Stable Prescriptions: New Ferrex 150 150 mg iron Capsule 150 mg PO BIDWM Qty: 60 0RF rifampin 300 mg Capsule 300 mg PO BID 90 Days Qty: 180 0RF Continued duloxetine [Cymbalta] 60 mg capsule,delayed release(DR/EC) 60 mg PO QAM lisinopril 20 mg tablet 10 mg PO QAM Hold Instructions: Resume on 12/03/20. Tumeric 1,000 mg PO QAM [id number]-wgfnfmepckqan-onda 50-325-40 mg capsule 1 cap PO Q6H PRN (Reason: Migraine Headache) lidocaine 5 % adhesive patch,medicated See Rx Instructions .ROUTE .COMPLEX PRN (Reason: Pain) Rx Instructions: 1 patch topically as needed ;leave on most painful area for up to 12 hrs salmon oil-omega-3 fatty acids 1,000-210 mg capsule 1 cap PO QAM magnesium 200 mg tablet 200 mg PO QAM cholecalciferol (vitamin D3) [Vitamin D3] 50 mcg (2,000 unit) Capsule 50 mcg PO QAM miconazole nitrate 2 % Cream 1 applic TOPICAL DAILY PRN (Reason: Rash) prazosin 1 mg Capsule 1 mg PO QPM ascorbic acid (vitamin C) [Vitamin C] 1,000 mg Tablet 500 mg PO QAM aspirin 81 mg Tablet,Delayed Release (Dr/Ec) 81 mg PO QAM Hold Instructions: Resume on 07/18/23. May resume after 30 days of full-strength aspirin daily oxycodone 5 mg tablet 5 mg PO Q4H PRN (Reason: Moderate Pain (Scale Score 5-6)) zinc acetate 50 mg (zinc) Capsule 50 mg PO QAM vitamin E acetate 134 mg (200 unit) Capsule 134 mg PO QAM acetaminophen 500 mg tablet 1,000 mg PO Q8H PRN (Reason: Pain) Discontinued naproxen sodium 220 mg tablet 220 mg PO BID PRN (Reason: Pain) Hold Instructions: Resume on 07/18/23. May resume after Celebrex. Continue Celebrex if it works better for you. celecoxib 200 mg capsule 200 mg PO QAM aspirin 325 mg tablet,delayed release (DR/EC) 325 mg PO QAM Discharge Orders: Discharge Order (Routine); Ordered 07/08/23 Ordered By: Alberto Avalos Referrals: [facility] [Other] [facility] [Provider Group] - 07/31/23 11:30 am [facility] [Outside] Blake Ireland DO [Physician] - 2 weeks Concepcion Ron MD [Physician] - 07/29/23 9:30 am Ashley Mac MD [Primary Care Provider] - 1 week (We have notified your physician's clinic of the need for a follow-up appointment to be scheduled. If you have not heard from them within the next 2 business days, please call them directly. You may also reach out to our manager of employee relations at [phone] and she can assist you.) Discharge Diet: Usual diet Discharge Activity: Increase activity as tolerated, Use walker/crutches as instructed and As per PT/OT instructions Patient Instructions: Acute Wound Care (GEN), Revision Total Joint Arthroplasty (GEN), Opioid Safety, PICC Activity Restrictions/Additional Instructions: Weight-bear as tolerated. Maintain dressing. Elevate your leg. Antibiotics as directed. Thank you for choosing [facility] for your care! The following is a list of instructions, from your provider, to follow upon your discharge to ensure you have the optimal recovery from your recent injury or surgery. Follow-up care is a sharma part of your treatment and safety. Be sure to make and go to all appointments, and call your doctor if you are having problems. If you do not already have a follow-up appointment made, call Dr. Ron office in the next 1-3 days to make follow up appointment for 2 weeks at [phone]. It is also a good idea to know your test results and keep a list of the medicines you take. Medications will be prescribed for you at your provider's discretion. These medications are to be used as instructed; if they are taken more often that prescribed they will not be refilled early and in most cases will not be refilled at all. > When a refill is needed,you should contact our office 2-3 business days before your prescription runs out. Medications will NOT be refilled by education sales consultant providers after hours! > Many pain medications contain Tylenol (Acetaminophen). Do not consume more than 3,000 mg of Tylenol per day in total with any combination of medications. > Pain medications can cause constipation. Please use an over the counter stool softener as directed, while taking pain medications. Consult your local pharmacist with questions or recommendations on stool softeners. If constipation persists, contact our office or your primary care provider. > While under our care,you are not to receive pain medications or other controlled substances from any other provider unless our office is notified and approves. Any attempts to do so will result in refusal to prescribe any further pain medications and possible dismissal from our practice. Your wound and/or dressing should remain clean and dry for 2 days after surgery. On postoperative day 2 (48 hours after your surgery) the dressing (if present) should be removed and it is okay to shower and get the incision wet. Pad dry afterwards. No further dressing should be required from that point on. Do not put any creams or ointments on the incision > It is normal for there to be a small amount of discharge (bloody or blood tinged) present from a surgical wound for the first 1-3days. > The wound should be examined twice a day for signs of infection. Mild redness or bruising is to be expected but indications that an infection maybe starting would include; An increase in redness, swelling, or discharge, a foul odor present around the incision, and/or a fever greater than 101 ?F ? Showering is permitted, however we ask that you do not take a bath, sit in a whirlpool / Jacuzzi, or go swimming for 1 month. For only the first 2 days after surgery, lt wilt be necessary for you to cover your wound/dressing with plastic and tape to keep it dry. ? Walking is essential for the healing process after surgery. We would like you to slowly advance your walking. This should be done on relatively flat clear ground (inside or out) or can be done on a treadmill. Remember this goal does not have to happen all at once, slowly increase your distance and duration. This can be broken into more more than one walk per day as tolerated. Patients who walk as directed after surgery rarely require Physical Therapy. In the unlikely event this issue arises your provider will direct hospital staff to make the appropriate arrangements. ? No lifting over 5 pounds {a gallon of milk) or bending/twisting until further notice. Each of these activities places an unnecessary amount of stress onto the body and can impede the delicate healing process. > Instead of bending at the waist, keep your back straight and bend at the knees. > Instead of twisting your torso, keep your back straight and turn your entire body with your feet. ? You may sleep in any position which makes you comfortable. Many patients find comfort sleeping in a reclining chair. It is not abnormal to have difficulty sleeping for the first several weeks following your surgery. We recommend trying Benadryl or Tylenol PM as directed to help with your sleeping difficulties. Both medications are over the counter and available without prescription. ? NO SMOKING!!! Smoking dramatically increases the probability of developing postoperative wound infections. ? Common complaints after lumbar and/or thoracic spine surgery include, but are not limited to: numbness and/or tingling in the legs, pain around the incision and surrounding tissues, muscle spasms, or stiffness of the middle to low back. Contact our office if these symptoms persist or if an acute change occurs. ? No driving for the first 3-5days, and not while taking narcotics until seen at your follow-up appointment and cleared. There are no restrictions for riding on short trips, however if you take a longer trip, arrangements should be made to make regular stops to get out of the vehicle and stretch . ? Swelling is an unfortunate event that will take place with any surgery and is the primary source of your postoperative discomfort. While walking and regular approved activities helps control inflammation, there are additional steps you can take to minimize swelling. > Place ice over the surgical site and surrounding tissue for twenty minutes, followed by applying a low/medium heat (heating pad) for an additional twenty minutes every 1-2 hours as needed for pain relief. You will be on 2 antibiotics including IV daptomycin 850 mg daily for the next 6 weeks. You will need to have CPK drawn weekly which will be followed by her primary care provider while being on antibiotics. Please follow-up with infectious disease, Dr. Reyes from orthopedic surgeon and Dr. Ireland from back surgery on set appointments. Discharge Attestations Time Spent in Discharge Care*: greater than 30 min Specific Discharge Activities: educating patient, educating and/or supporting family/caregiver, discussing with pcp/other providers, discussing with director case management/social workers/dc planners, documenting/other paperwork and evaluating patient/reviewing data Quality Metrics Clinical Quality Measures [ No reported AMI, CVA or VTE this stay] Coding Level of Care Code 36417 Total time (in minutes) for Discharge: 60 Diagnoses Failed spinal cord stimulator T85.192A Infected prosthetic knee joint T84.59XD; Z96.659 Encounter type: subsequent encounter History of revision of total replacement of left knee joint Z96.652 History of MRSA infection Z86.14 Infection of total left knee replacement T84.54XA
--- NOTE | 2023-07-08 12:22 | PC.NURSE ---
dc pending arrival for ride home
--- NOTE | 2023-07-08 12:28 | PM.DCS ---
Discharge Providers Date of Admission: 06/27/23 17:01 Date of Discharge: July 08, 2023 Attending Provider at Admission: Alberto Avalos MD Attending Provider at Discharge: Alberto Avalos MD Primary Care Provider: Ashley Mac MD Diagnoses at Discharge Discharge Diagnosis (1) Failed spinal cord stimulator: Status: Acute (2) Infected prosthetic knee joint: Status: Acute Qualifiers: Encounter type: subsequent encounter Qualified Code(s): T84.59XD - Infection and inflammatory reaction due to other internal joint prosthesis, subsequent encounter; Z96.659 - Presence of unspecified artificial knee joint (3) History of revision of total replacement of left knee joint: Status: Acute Permanent problem details: Date of procedure: June 17, 2023 Pre-op Diagnosis: Infected left total knee arthroplasty following removal of original components, temporary total knee arthroplasty, and resolution of infection. 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 Procedure done: Revision total knee arthroplasty with removal of hardware and reimplantation with complete synovectomy Implants: The [employer] total knee system with a size 5 left triathlon total stabilizer cemented the femoral component, a size 5 left central femoral cone augment, a size 50 femoral stem brick paving checker with a size 15 mm x 50 mm triathlon total knee cemented stem and distal augments size 5 x 10 mm both medial and lateral. Size 6 universal cemented tibial baseplate with a size B tibial symmetric cone augment, a 25 mm stem brick paving checker, and a 15 mm x 50 mm cemented total knee stem. A size 6 x 13 mm total stabilizer tibial insert, and an asymmetric patella size 40 x 11 mm. (4) History of MRSA infection: Status: Acute (5) Infection of total left knee replacement: Status: Acute Permanent problem details: Date of procedure: February 11, 2023 Diagnosis: Infected left total knee arthroplasty Procedure done: Removal total knee arthroplasty implants (CPT 94407) Assertion, nonbiodegradable drug delivery implant (CPT 80872-57,51) Complete synovectomy with irrigation Implants: The [employer] attune knee system with a size 7 cemented cruciate retaining femoral component and a size 7 x 8 mm all polyethylene tibial implant, cruciate retaining, cemented. Cement utilized was Simplex P with full dose tobramycin and additional tobramycin added for a total of 2.2 g per batch of cement Reason for Visit Reason for Visit: possible left knee infection Physical Exam Urinary Catheter Management: Moon: Cath Placed During This Visit: yes, but has since been removed by the nurse Reason for Continuing Indwelling Catheter: Decision to DC Catheter Urinary Catheter Date of Insertion: 06/30/23 Urinary Catheter Time of Insertion: 19:00 Date Urinary Catheter Removed: 07/01/23 Time Urinary Catheter Discontinued: 05:08 Discharge Data Studies Completed and Pending Completed Studies During Hospitalization Category Date Time Status CT knee LT wo con* [id number] Stat Cat Scan 06/27/23 16:59 Completed CXRP [XR chest 1V portable [id number]] Routine Exams 07/01/23 13:22 Completed XR knee LT 1-2V 73990 Urgent Exams 06/30/23 21:48 Completed XR knee LT 3V* [id number] Stat Exams 06/27/23 13:26 Completed XR lumbar spine 1 view portable [XR lumbar spine 1V Exams 07/01/23 08:35 Completed port [id number]] Routine XR thoracic spine 1 view portable [XR thoracic spine Exams 07/01/23 08:35 Completed 1Vport 25352] Routine US renal BI* [id number] Routine Ultrasound 06/28/23 11:15 Completed Pending at discharge Category Date Time Status Anaerobic Culture Routine Lab 06/30/23 19:15 Results Anaerobic Culture Routine Lab 06/30/23 19:15 Results Anaerobic Culture Routine Lab 06/30/23 19:15 Results Anaerobic Culture Routine Lab 07/07/23 13:54 Results Anaerobic Culture Routine Lab 07/07/23 13:55 Results Complete Blood Count w/Auto AM LABS Lab 07/09/23 04:00 Ordered Wound Culture and Gram Stain Routine Lab 06/30/23 19:15 Results Wound Culture and Gram Stain Routine Lab 07/07/23 13:54 Results Wound Culture and Gram Stain Routine Lab 07/07/23 13:55 Results Radiology Impressions Knee CT 06/27/23 16:59 IMPRESSION: 1. Large hyperdense knee joint effusion and very large hyperdense prepatellar fluid collection. Hyperdensities are also noted to crossband layer dependently within the prepatellar collection most typical of blood products/hematoma. Both the knee joint effusion and prepatellar collections contain a few air bubbles but this is markedly decreased compared to the June 17 plain film and is compatible with postoperative changes. At this time, the appearance may simply reflect postoperative changes with interval development of hemarthrosis and prepatellar hematoma. Early infection or abscess cannot be excluded. Continued follow up or possibly aspiration may be helpful. 2. No bony fracture. No evidence of periosteal reaction or bony destruction of osteomyelitis. No intramuscular fluid collection or gas. Renal Ultrasound 06/28/23 11:15 IMPRESSION: No acute abnormality identified. ADDENDUM: 06/28/23 1207 The bladder appears partially decompressed. Knee X-Ray 06/30/23 21:48 IMPRESSION: 1. Status post semi constrained total left knee arthroplasty without immediate hardware complications. 2. Postsurgical changes noted along the anterior aspect of the left knee now with a surgical drain in place. Lumbar Spine X-Ray 07/01/23 08:35 IMPRESSION: No acute findings. Thoracic Spine X-Ray 07/01/23 08:35 IMPRESSION: No acute findings. Laboratory Results WBC 11.84 10^3/uL (3.29-11.43) H 07/08/23 05:10 RBC 3.34 10^6/uL (3.85-5.65) L 07/08/23 05:10 Hgb 9.60 g/dL (11.27-16.99) L 07/08/23 05:10 Hct 30.7 % (37-53) L 07/08/23 05:10 MCV 91.9 fl (82-101) 07/08/23 05:10 MCH 28.7 pg (27-33) 07/08/23 05:10 MCHC 31.3 g/dL (30-55) 07/08/23 05:10 RDW 13.1 % (12.1-15.1) 07/08/23 05:10 Plt Count 374 10^3/cmm (157-399) 07/08/23 05:10 MPV 9.2 fL (7.4-10.4) 07/08/23 05:10 Neut % (Auto) 80.8 % 07/08/23 05:10 Lymph % (Auto) 9.6 % 07/08/23 05:10 [place] % (Auto) 8.8 % 07/08/23 05:10 Eos % (Auto) 0.1 % 07/08/23 05:10 Baso % (Auto) 0.4 % 07/08/23 05:10 Neut # (Auto) 9.57 10^3/uL (1.8-7.7) H 07/08/23 05:10 Lymph # (Auto) 1.1 10^3/uL (0.8-4.8) 07/08/23 05:10 [place] # (Auto) 1.0 10^3/uL (0.2-0.9) H 07/08/23 05:10 Eos # (Auto) 0.0 10^3/uL (0.0-0.8) 07/08/23 05:10 Baso # (Auto) 0.1 10^3/uL (0.0-0.1) 07/08/23 05:10 Nucleated RBC % (auto) 0 % 07/08/23 05:10 Nucleated RBCs # 0.0 /100WBC 07/08/23 05:10 ESR 34 mm/hr (0-10) H 06/27/23 13:13 Sodium 137 mmol/L (136-145) 07/08/23 05:10 Potassium 4.4 mmol/L (3.5-5.1) 07/08/23 05:10 Chloride 102 mmol/L (98-107) 07/08/23 05:10 Carbon Dioxide 26 mmol/L (22-29) 07/08/23 05:10 Anion Gap 13.4 (5-19) 07/08/23 05:10 BUN 18 mg/dL (8-23) 07/08/23 05:10 Creatinine 1.4 mg/dL (0.7-1.2) H 07/08/23 05:10 GFR Calculation 50.5 mL/min (90-130) L 07/08/23 05:10 Glucose 115 mg/dL (65-115) 07/08/23 05:10 Estimat Average Glucose 97 06/28/23 04:14 Hemoglobin A1c 5.0 % (4.0-6.0) 06/28/23 04:14 Calculated Osmolality 287 mOsm/kg (285-295) 07/08/23 05:10 Lactic Acid 1.5 mmol/L (0.5-2.2) 06/27/23 13:13 Calcium 8.3 mg/dL (8.5-10.5) L 07/08/23 05:10 Phosphorus 3.0 mg/dL (2.5-4.5) 06/28/23 04:14 Magnesium 2.2 mg/dL (1.7-2.3) 06/28/23 04:14 Iron 16 ug/dL (59-158) L 06/27/23 13:13 TIBC 264 mcg/dl 06/27/23 13:13 % Saturation 6.0 % (20-50) L 06/27/23 13:13 Unsat Iron Binding 248 ug/dL (112-347) 06/27/23 13:13 Total Bilirubin 0.6 mg/dL (0.15-1.2) 07/08/23 05:10 AST 13 U/L (0-40) 07/08/23 05:10 ALT 9 U/L (0-41) 07/08/23 05:10 Alkaline Phosphatase 109 U/L (40-130) 07/08/23 05:10 Creatine Kinase 24 U/L (39-308) L 07/07/23 04:59 C-Reactive Protein 25.2 mg/L (0.0-4.9) H 07/08/23 05:10 Total Protein 6.4 g/dL (6.6-8.7) L 07/08/23 05:10 Albumin 3.4 g/dL (3.5-5.2) L 07/08/23 05:10 Globulin 3.0 g/dL (1.3-4.6) 07/08/23 05:10 Triglycerides 82 mg/dL (0-150) 06/28/23 04:14 Cholesterol 113 mg/dL (0-200) 06/28/23 04:14 LDL Cholesterol, Calc 72 mg/dL (50-129) 06/28/23 04:14 HDL Cholesterol 25 mg/dL (60-100) L 06/28/23 04:14 LDL/HDL Ratio 2.88 RATIO (0.00-3.22) 06/28/23 04:14 Cholesterol/HDL Ratio 4.52 mg/dL (1.0-5.00) 06/28/23 04:14 Vitamin B12 Cancelled 06/27/23 13:13 Vit B12 Status 560 pg/mL (200-1100) 06/27/23 13:13 Folate 18.1 ng/mL (4.5-32.2) 06/28/23 04:14 Procalcitonin 0.20 ng/mL (0-0.5) 06/28/23 04:14 TSH 2.21 uIU/mL (0.27-4.20) 06/27/23 13:13 Urine Color Yellow (Yellow) 06/27/23 19:03 Urine Appearance Clear (CLEAR) 06/27/23 19:03 Urine pH 5 (5-7) 06/27/23 19:03 Ur Specific [place] 1.020 (1.005-1.030) 06/27/23 19:03 Urine Protein Trace (Negative) 06/27/23 19:03 Urine Glucose (UA) Norm (Normal) 06/27/23 19:03 Urine Ketones Negative (Negative) 06/27/23 19:03 Urine Blood Neg (Negative) 06/27/23 19:03 Urine Nitrate Negative (Negative) 06/27/23 19:03 Urine Bilirubin Neg (Negative) 06/27/23 19:03 Urine Urobilinogen 1 mg/dL (Negative) H 06/27/23 19:03 Ur Leukocyte Esterase Negative (Negative) 06/27/23 19:03 Urine RBC 0-4 /hpf (0-2) H 06/27/23 19:03 Urine WBC None /hpf (0-5) 06/27/23 19:03 Ur Squamous Epith Cells Rare /hpf (0-5) 06/27/23 19:03 Amorphous Sediment 1+ /hpf 06/27/23 19:03 Urine Bacteria Trace /hpf (NONE) 06/27/23 19:03 Hyaline Casts 0-4 /lpf H 06/27/23 19:03 Urine Mucus 2+ /hpf 06/27/23 19:03 Ur Random Sodium 100 mmol/L 06/28/23 12:45 Ur Random Potassium 45 mmol/L 06/28/23 12:45 Ur Random Chloride 108 mmol/L 06/28/23 12:45 Urine Creatinine 222 mg/dL (39-259) 06/28/23 12:45 Fluid Crystals Sent to path 06/27/23 16:44 Synovial Color Red (PALE YELLOW) 06/27/23 16:44 Synovial Appearance Bloody (CLEAR) 06/27/23 16:44 Synovial WBC 63769 /uL (0-150) H 06/27/23 16:44 Synovial RBC 544 10^3/uL (0-0) H 06/27/23 16:44 Synovial Mononuclear 0.763 10^3/uL 06/27/23 16:44 Synov Polynuclear WBCs 31.290 10^3/uL 06/27/23 16:44 Synovial Other Cells Not Reportable 06/27/23 16:44 Synovial Polynuclear % 97.600 % 06/27/23 16:44 Synovial Mononuclear % 2.400 % 06/27/23 16:44 Path Cons w/Slide Yes 06/27/23 16:44 Vitals Last Vital Signs Temp 97.7 F 07/08/23 11:27 Pulse 59 L 07/08/23 11:27 Resp 16 07/08/23 12:19 BP 119/59 07/08/23 11:27 Pulse Ox 98 07/08/23 11:27 O2 Del Method Room Air 07/07/23 18:15 O2 Flow Rate 3 07/07/23 14:38 Discharge Plan Discharge Patient Disposition: Home Health Service Condition: Stable Prescriptions: New Ferrex 150 150 mg iron Capsule 150 mg PO BIDWM Qty: 60 0RF rifampin 300 mg Capsule 300 mg PO BID 90 Days Qty: 180 0RF Continued duloxetine [Cymbalta] 60 mg capsule,delayed release(DR/EC) 60 mg PO QAM lisinopril 20 mg tablet 10 mg PO QAM Hold Instructions: Resume on 12/03/20. Tumeric 1,000 mg PO QAM nfazdygodi-vchcpderhsyye-whmj 50-325-40 mg capsule 1 cap PO Q6H PRN (Reason: Migraine Headache) lidocaine 5 % adhesive patch,medicated See Rx Instructions .ROUTE .COMPLEX PRN (Reason: Pain) Rx Instructions: 1 patch topically as needed ;leave on most painful area for up to 12 hrs salmon oil-omega-3 fatty acids 1,000-210 mg capsule 1 cap PO QAM magnesium 200 mg tablet 200 mg PO QAM cholecalciferol (vitamin D3) [Vitamin D3] 50 mcg (2,000 unit) Capsule 50 mcg PO QAM miconazole nitrate 2 % Cream 1 applic TOPICAL DAILY PRN (Reason: Rash) prazosin 1 mg Capsule 1 mg PO QPM ascorbic acid (vitamin C) [Vitamin C] 1,000 mg Tablet 500 mg PO QAM aspirin 81 mg Tablet,Delayed Release (Dr/Ec) 81 mg PO QAM Hold Instructions: Resume on 07/18/23. May resume after 30 days of full-strength aspirin daily oxycodone 5 mg tablet 5 mg PO Q4H PRN (Reason: Moderate Pain (Scale Score 5-6)) zinc acetate 50 mg (zinc) Capsule 50 mg PO QAM vitamin E acetate 134 mg (200 unit) Capsule 134 mg PO QAM acetaminophen 500 mg tablet 1,000 mg PO Q8H PRN (Reason: Pain) Discontinued naproxen sodium 220 mg tablet 220 mg PO BID PRN (Reason: Pain) Hold Instructions: Resume on 07/18/23. May resume after Celebrex. Continue Celebrex if it works better for you. celecoxib 200 mg capsule 200 mg PO QAM aspirin 325 mg tablet,delayed release (DR/EC) 325 mg PO QAM Discharge Orders: Discharge Order (Routine); Ordered 07/08/23 Ordered By: Alberto Avalos Referrals: [facility] [employer] [employer] [Other] Infectious Disease [facility] [Provider Group] - 07/31/23 11:30 am [facility] [Outside] Concepcion Ron MD [Physician] - 07/29/23 9:30 am Ashley Mac MD [Primary Care Provider] - (We have notified your physician's clinic of the need for a follow-up appointment to be scheduled. If you have not heard from them within the next 2 business days, please call them directly. You may also reach out to our visual presentation manager at [phone] and she can assist you.) Discharge Diet: Usual diet Discharge Activity: Increase activity as tolerated, Use walker/crutches as instructed and As per PT/OT instructions Patient Instructions: Opioid Safety Activity Restrictions/Additional Instructions: Weight-bear as tolerated. Maintain dressing. Elevate your leg. Antibiotics as directed. Thank you for choosing [facility] for your care! The following is a list of instructions, from your provider, to follow upon your discharge to ensure you have the optimal recovery from your recent injury or surgery. Follow-up care is a sharma part of your treatment and safety. Be sure to make and go to all appointments, and call your doctor if you are having problems. If you do not already have a follow-up appointment made, call Dr. Ron office in the next 1-3 days to make follow up appointment for 2 weeks at [phone]. It is also a good idea to know your test results and keep a list of the medicines you take. Medications will be prescribed for you at your provider's discretion. These medications are to be used as instructed; if they are taken more often that prescribed they will not be refilled early and in most cases will not be refilled at all. > When a refill is needed,you should contact our office 2-3 business days before your prescription runs out. Medications will NOT be refilled by fabrication engineer providers after hours! > Many pain medications contain Tylenol (Acetaminophen). Do not consume more than 3,000 mg of Tylenol per day in total with any combination of medications. > Pain medications can cause constipation. Please use an over the counter stool softener as directed, while taking pain medications. Consult your local pharmacist with questions or recommendations on stool softeners. If constipation persists, contact our office or your primary care provider. > While under our care,you are not to receive pain medications or other controlled substances from any other provider unless our office is notified and approves. Any attempts to do so will result in refusal to prescribe any further pain medications and possible dismissal from our practice. Your wound and/or dressing should remain clean and dry for 2 days after surgery. On postoperative day 2 (48 hours after your surgery) the dressing (if present) should be removed and it is okay to shower and get the incision wet. Pad dry afterwards. No further dressing should be required from that point on. Do not put any creams or ointments on the incision > It is normal for there to be a small amount of discharge (bloody or blood tinged) present from a surgical wound for the first 1-3days. > The wound should be examined twice a day for signs of infection. Mild redness or bruising is to be expected but indications that an infection maybe starting would include; An increase in redness, swelling, or discharge, a foul odor present around the incision, and/or a fever greater than 101 ?F ? Showering is permitted, however we ask that you do not take a bath, sit in a whirlpool / Jacuzzi, or go swimming for 1 month. For only the first 2 days after surgery, lt wilt be necessary for you to cover your wound/dressing with plastic and tape to keep it dry. ? Walking is essential for the healing process after surgery. We would like you to slowly advance your walking. This should be done on relatively flat clear ground (inside or out) or can be done on a treadmill. Remember this goal does not have to happen all at once, slowly increase your distance and duration. This can be broken into more more than one walk per day as tolerated. Patients who walk as directed after surgery rarely require Physical Therapy. In the unlikely event this issue arises your provider will direct hospital staff to make the appropriate arrangements. ? No lifting over 5 pounds {a gallon of milk) or bending/twisting until further notice. Each of these activities places an unnecessary amount of stress onto the body and can impede the delicate healing process. > Instead of bending at the waist, keep your back straight and bend at the knees. > Instead of twisting your torso, keep your back straight and turn your entire body with your feet. ? You may sleep in any position which makes you comfortable. Many patients find comfort sleeping in a reclining chair. It is not abnormal to have difficulty sleeping for the first several weeks following your surgery. We recommend trying Benadryl or Tylenol PM as directed to help with your sleeping difficulties. Both medications are over the counter and available without prescription. ? NO SMOKING!!! Smoking dramatically increases the probability of developing postoperative wound infections. ? Common complaints after lumbar and/or thoracic spine surgery include, but are not limited to: numbness and/or tingling in the legs, pain around the incision and surrounding tissues, muscle spasms, or stiffness of the middle to low back. Contact our office if these symptoms persist or if an acute change occurs. ? No driving for the first 3-5days, and not while taking narcotics until seen at your follow-up appointment and cleared. There are no restrictions for riding on short trips, however if you take a longer trip, arrangements should be made to make regular stops to get out of the vehicle and stretch . ? Swelling is an unfortunate event that will take place with any surgery and is the primary source of your postoperative discomfort. While walking and regular approved activities helps control inflammation, there are additional steps you can take to minimize swelling. > Place ice over the surgical site and surrounding tissue for twenty minutes, followed by applying a low/medium heat (heating pad) for an additional twenty minutes every 1-2 hours as needed for pain relief. Coding Level of Care Code Acute Code for Chg Fwd Diagnoses Failed spinal cord stimulator T85.192A Infected prosthetic knee joint T84.59XD; Z96.659 Encounter type: subsequent encounter History of revision of total replacement of left knee joint Z96.652 History of MRSA infection Z86.14 Infection of total left knee replacement T84.54XA
== END 2023-07-08 14:34 | disposition home health service (06) | DRG 486 ==
LOC: ER 18:26 → MEDSURG 18:46
PROVIDERS: Internal Medicine; Orthopaedic Surgery; Specialist; Student in an Organized Health Care Education/Training Program; Admitting Provider Student in an Organized Health Care Education/Training Program; Emergency Provider Family Medicine; PCP Family Medicine; Visit Provider Student in an Organized Health Care Education/Training Program
PROC: 0SPD09Z Removal of Liner from Left Knee Joint, Open Approach (ICD-10-PCS; principal; 2023-06-30 16:05)
PROC: 0WPL0YZ Removal of Other Device from Lower Back, Open Approach (ICD-10-PCS; principal; 2023-07-07 13:00)
DX: T84.54XA Infection and inflammatory reaction due to internal left knee prosthesis, initial encounter (principal); N17.9 Acute kidney failure, unspecified; T85.112A Breakdown (mechanical) of implanted electronic neurostimulator of spinal cord electrode (lead), initial encounter; Y79.8 Miscellaneous orthopedic devices associated with adverse incidents, not elsewhere classified; B95.7 Other staphylococcus as the cause of diseases classified elsewhere; Y79.1 Therapeutic (nonsurgical) and rehabilitative orthopedic devices associated with adverse incidents; Z86.14 Personal history of Methicillin resistant Staphylococcus aureus infection; I10 Essential (primary) hypertension; Z79.82 Long term (current) use of aspirin; Z79.891 Long term (current) use of opiate analgesic; M79.7 Fibromyalgia; E03.9 Hypothyroidism, unspecified; I25.10 Atherosclerotic heart disease of native coronary artery without angina pectoris; F32.A Depression, unspecified; G62.9 Polyneuropathy, unspecified
CPT/HCPCS: 12345; 36415; 36573; 51702; 71045; 72020; 73560; 73562; 73700; 76000; 76770; 80048; 80053; 80061; 80503; 81001; 82436; 82550; 82570; 82607; 82746; 83036; 83540; 83550; 83605; 83735; 84100; 84133; 84145; 84300; 84443; 85025; 85651; 86140; 87040; 87070; 87075; 87077; 87176; 87186; 87205; 89050; 94664; 96365; 96366; 96367; 96375; 97110; 97116; 97161; 97530; 99285; C1751; C1776; J0131; J0690; J0692; J0878; J1100; J1170; J1200; J2270; J2405; J2704; J2710; J3010; J3490; J7030; Q3014

== ENCOUNTER → 2023-07-07 13:00 | Day surgery (SDC) | payer OTHER, SELFPAY ==
--- NOTE | 2023-07-07 | XR_ITS ---
WS: [id number] INTRAOPERATIVE TECHNIQUE: 3 Spot fluoroscopic images for intraoperative purposes. FLUOROSCOPY TIME: 3.8 seconds CLINICAL INFORMATION: SCS removal COMPARISON: None. FINDINGS: Images obtained for intraoperative SCS removal IMPRESSION: Images obtained for intraoperative purposes.
== END ==
PROVIDERS: PCP Family Medicine; Visit Provider Orthopaedic Surgery
DX: Z01.818 Encounter for other preprocedural examination (principal)
CPT/HCPCS: 72020; J3490

== ENCOUNTER 2023-07-14 17:39 | Outpatient (CLI) | payer OTHER, SELFPAY ==
[2023-07-14 18:19] LABS: Basophils # 0.1 10^3/uL (0.0-0.1); Basophils % 1.2 %; Eosinophils # 0.6 10^3/uL (0.0-0.8); Eosinophils % 7.5 %; Hematocrit 32.5 % (37-53); Lymphocytes # 1.6 10^3/uL (0.8-4.8); Lymphocytes % 21.8 %; Mean Corpuscular Hemoglobin 29.4 pg (27-33); Mean Corpuscular Volume 91.8 fl (82-101); Mean Platelet Volume 10.5 fL (7.4-10.4); Monocytes # 0.9 10^3/uL (0.2-0.9); Neutrophils # 4.21 10^3/uL (1.8-7.7); Neutrophils % 57.4 %; Nucleated Red Blood Cells % 0 %; Platelet Count 351 10^3/cmm (157-399); Red Blood Count 3.54 10^6/uL (3.85-5.65); Red Cell Distribution Width 13.5 % (12.1-15.1); White Blood Count 7.34 10^3/uL (3.29-11.43)
[2023-07-14 18:38] LABS: Alanine Aminotransferase 10 U/L (0-41); Albumin Level 3.8 g/dL (3.5-5.2); Alkaline Phosphatase 135 U/L (40-130); Aspartate Amino Transferase 20 U/L (0-40); Blood Urea Nitrogen 19 mg/dL (8-23); Calcium 8.5 mg/dL (8.5-10.5); Carbon Dioxide 26 mmol/L (22-29); Chloride 104 mmol/L (98-107); Creatine Phosphokinase 39 U/L (39-308); Globulin 3.3 g/dL (1.3-4.6); Glomerular Filtration Rate 50.5 mL/min (90-130); Glucose 82 mg/dL (65-115); Osmolality Calculated 287 mOsm/kg (285-295); Sodium 138 mmol/L (136-145); Total Bilirubin 0.4 mg/dL (0.15-1.2); Total Protein 7.1 g/dL (6.6-8.7)
[2023-07-14 19:09] LABS: Anion Gap 12.3 (5-19); Potassium 4.3 mmol/L (3.5-5.1)
== END 2023-07-14 17:40 | disposition home or self-care (01) ==
PROVIDERS: PCP Family Medicine; Visit Provider Student in an Organized Health Care Education/Training Program
DX: T84.54XA Infection and inflammatory reaction due to internal left knee prosthesis, initial encounter (principal); Y79.2 Prosthetic and other implants, materials and accessory orthopedic devices associated with adverse incidents
CPT/HCPCS: 80053; 82550; 85025

== ENCOUNTER → 2023-07-17 08:25 | Outpatient (BNVA) | payer OTHER, SELFPAY | PROVIDERS: PCP Family Medicine; Visit Provider Physician Assistant | DX: T85.192A Other mechanical complication of implanted electronic neurostimulator of spinal cord electrode (lead), initial encounter (principal); Y75.8 Miscellaneous neurological devices associated with adverse incidents, not elsewhere classified | CPT/HCPCS: 99024 ==

== ENCOUNTER 2023-07-21 17:24 | Outpatient (CLI) | payer OTHER, SELFPAY ==
[2023-07-21 15:15] LABS: Basophils # 0.1 10^3/uL (0.0-0.1); Basophils % 1.2 %; Eosinophils # 0.6 10^3/uL (0.0-0.8); Lymphocytes # 1.6 10^3/uL (0.8-4.8); Lymphocytes % 31.2 %; Mean Corpuscular HGB Conc 31.7 g/dL (30-55); Mean Corpuscular Hemoglobin 29.3 pg (27-33); Mean Corpuscular Volume 92.5 fl (82-101); Mean Platelet Volume 10.4 fL (7.4-10.4); Monocytes # 0.5 10^3/uL (0.2-0.9); Monocytes % 9.6 %; Neutrophils # 2.38 10^3/uL (1.8-7.7); Neutrophils % 46.8 %; Nucleated Red Blood Cells % 0 %; Platelet Count 248 10^3/cmm (157-399); Red Blood Count 3.89 10^6/uL (3.85-5.65); Red Cell Distribution Width 13.4 % (12.1-15.1); White Blood Count 5.09 10^3/uL (3.29-11.43)
[2023-07-21 15:39] LABS: Alanine Aminotransferase 10 U/L (0-41); Albumin Level 3.8 g/dL (3.5-5.2); Alkaline Phosphatase 128 U/L (40-130); Aspartate Amino Transferase 16 U/L (0-40); Blood Urea Nitrogen 15 mg/dL (8-23); Calcium 8.4 mg/dL (8.5-10.5); Carbon Dioxide 28 mmol/L (22-29); Chloride 103 mmol/L (98-107); Creatine Phosphokinase 40 U/L (39-308); Globulin 3.2 g/dL (1.3-4.6); Glomerular Filtration Rate 66.8 mL/min (90-130); Glucose 92 mg/dL (65-115); Osmolality Calculated 286 mOsm/kg (285-295); Sodium 138 mmol/L (136-145); Total Bilirubin 0.4 mg/dL (0.15-1.2)
[2023-07-21 15:41] LABS: Anion Gap 11.9 (5-19); Potassium 4.9 mmol/L (3.5-5.1)
== END 2023-07-21 17:25 | disposition home or self-care (01) ==
LOC: LAB 07-25 17:26
PROVIDERS: PCP Family Medicine; Visit Provider Student in an Organized Health Care Education/Training Program
DX: Z01.89 Encounter for other specified special examinations (principal)
CPT/HCPCS: 80053; 82248; 82550; 85025

== ENCOUNTER → 2023-07-22 08:44 | Day surgery (SDC) | payer OTHER, SELFPAY ==
[2023-07-22 09:00] VITALS: BP 148/67; PULSE 56; RESP 18; TEMP 36.3; O2SAT 100
--- NOTE | 2023-07-22 09:05 | PC.NURSE ---
Pt referred to PICC nurse for evaluation of PICC line. Home health reported a white substance along with blood draw. PICC to left upper extremity evaluated. Dressing changed. Insertion site clear with no redness, drainage, or signs of infection. Good blood return noted with no white substance noted. Flushes without difficulty. At time of blood draw for home health, white substance more than likely lipids, which do not affect the patency of the PICC line. Insertion site covered with Biopatch and TSM. Report called to [facility], Danny.
== END ==
PROVIDERS: PCP Family Medicine; Visit Provider Student in an Organized Health Care Education/Training Program
DX: T84.59XA Infection and inflammatory reaction due to other internal joint prosthesis, initial encounter (principal)
CPT/HCPCS: 99212

== ENCOUNTER 2023-07-28 15:36 | Outpatient (CLI) | payer OTHER, SELFPAY ==
[2023-07-28 14:36] LABS: Basophils # 0.1 10^3/uL (0.0-0.1); Basophils % 1.2 %; Eosinophils # 0.4 10^3/uL (0.0-0.8); Hematocrit 36.3 % (37-53); Lymphocytes # 1.5 10^3/uL (0.8-4.8); Lymphocytes % 29.7 %; Mean Corpuscular HGB Conc 31.4 g/dL (30-55); Mean Corpuscular Hemoglobin 28.6 pg (27-33); Mean Corpuscular Volume 91.2 fl (82-101); Mean Platelet Volume 10.4 fL (7.4-10.4); Monocytes # 0.6 10^3/uL (0.2-0.9); Monocytes % 11.7 %; Neutrophils # 2.41 10^3/uL (1.8-7.7); Neutrophils % 49.2 %; Nucleated Red Blood Cells % 0 %; Platelet Count 284 10^3/cmm (157-399); Red Blood Count 3.98 10^6/uL (3.85-5.65); Red Cell Distribution Width 13.1 % (12.1-15.1); White Blood Count 4.89 10^3/uL (3.29-11.43)
[2023-07-28 15:03] LABS: Alanine Aminotransferase 12 U/L (0-41); Albumin Level 4.1 g/dL (3.5-5.2); Alkaline Phosphatase 123 U/L (40-130); Blood Urea Nitrogen 18 mg/dL (8-23); Calcium 8.7 mg/dL (8.5-10.5); Carbon Dioxide 25 mmol/L (22-29); Chloride 104 mmol/L (98-107); Creatine Phosphokinase 70 U/L (39-308); Globulin 3.2 g/dL (1.3-4.6); Glomerular Filtration Rate 60.4 mL/min (90-130); Glucose 124 mg/dL (65-115); Osmolality Calculated 293 mOsm/kg (285-295); Sodium 140 mmol/L (136-145); Total Bilirubin 0.4 mg/dL (0.15-1.2); Total Protein 7.3 g/dL (6.6-8.7)
[2023-07-28 16:12] LABS: Anion Gap 15.5 (5-19); Aspartate Amino Transferase 25 U/L (0-40); Potassium 4.5 mmol/L (3.5-5.1)
== END 2023-07-28 15:37 | disposition home or self-care (01) ==
LOC: LAB 15:36
PROVIDERS: PCP Family Medicine; Visit Provider Student in an Organized Health Care Education/Training Program
DX: T84.54XA Infection and inflammatory reaction due to internal left knee prosthesis, initial encounter (principal); Y79.2 Prosthetic and other implants, materials and accessory orthopedic devices associated with adverse incidents
CPT/HCPCS: 80053; 82248; 82550; 85025

== ENCOUNTER → 2023-07-29 09:41 | Outpatient (BNVA) | payer OTHER, SELFPAY | PROVIDERS: PCP Family Medicine; Visit Provider Nurse Practitioner | DX: Z96.652 Presence of left artificial knee joint (principal); T84.59XD Infection and inflammatory reaction due to other internal joint prosthesis, subsequent encounter; Y83.3 Surgical operation with formation of external stoma as the cause of abnormal reaction of the patient, or of later complication, without mention of misadventure at the time of the procedure | CPT/HCPCS: 73560; 73565; 99024 ==

== ENCOUNTER → 2023-07-31 11:41 | Outpatient (BNVA) | payer OTHER, SELFPAY | PROVIDERS: PCP Family Medicine; Visit Provider Student in an Organized Health Care Education/Training Program | DX: T84.59XD Infection and inflammatory reaction due to other internal joint prosthesis, subsequent encounter (principal); Z96.659 Presence of unspecified artificial knee joint; X58.XXXD Exposure to other specified factors, subsequent encounter | CPT/HCPCS: 99214 ==

== ENCOUNTER 2023-08-04 14:08 | Outpatient (CLI) | payer OTHER, SELFPAY ==
[2023-08-04 14:28] LABS: Basophils # 0.1 10^3/uL (0.0-0.1); Basophils % 1.6 %; Eosinophils # 0.3 10^3/uL (0.0-0.8); Eosinophils % 7.3 %; Hematocrit 37.8 % (37-53); Lymphocytes # 1.2 10^3/uL (0.8-4.8); Lymphocytes % 30.4 %; Mean Corpuscular HGB Conc 30.7 g/dL (30-55); Mean Corpuscular Hemoglobin 28.4 pg (27-33); Mean Corpuscular Volume 92.6 fl (82-101); Mean Platelet Volume 10.1 fL (7.4-10.4); Monocytes # 0.5 10^3/uL (0.2-0.9); Monocytes % 12.2 %; Neutrophils # 1.86 10^3/uL (1.8-7.7); Neutrophils % 48.2 %; Nucleated Red Blood Cells % 0 %; Platelet Count 275 10^3/cmm (157-399); Red Blood Count 4.08 10^6/uL (3.85-5.65); White Blood Count 3.85 10^3/uL (3.29-11.43)
[2023-08-04 14:45] LABS: Alanine Aminotransferase 10 U/L (0-41); Alkaline Phosphatase 117 U/L (40-130); Blood Urea Nitrogen 15 mg/dL (8-23); C Reactive Protein 4.5 mg/L (0.0-4.9); Calcium 8.6 mg/dL (8.5-10.5); Carbon Dioxide 28 mmol/L (22-29); Chloride 103 mmol/L (98-107); Creatine Phosphokinase 52 U/L (39-308); Globulin 3.2 g/dL (1.3-4.6); Glomerular Filtration Rate 66.8 mL/min (90-130); Glucose 121 mg/dL (65-115); Osmolality Calculated 290 mOsm/kg (285-295); Sodium 139 mmol/L (136-145); Total Bilirubin 0.4 mg/dL (0.15-1.2); Total Protein 7.2 g/dL (6.6-8.7)
[2023-08-04 14:55] LABS: Anion Gap 12.3 (5-19); Aspartate Amino Transferase 20 U/L (0-40); Potassium 4.3 mmol/L (3.5-5.1)
[2023-08-04 15:01] LABS: Erythrocyte Sedimentation Rate 17 mm/hr (0-10)
== END 2023-08-04 14:09 | disposition home or self-care (01) ==
LOC: LAB 14:09
PROVIDERS: PCP Family Medicine; Visit Provider Student in an Organized Health Care Education/Training Program
DX: T84.54XA Infection and inflammatory reaction due to internal left knee prosthesis, initial encounter (principal); Y79.2 Prosthetic and other implants, materials and accessory orthopedic devices associated with adverse incidents
CPT/HCPCS: 80053; 82550; 85025; 85651; 86140

== ENCOUNTER 2023-08-11 15:29 | Outpatient (CLI) | payer OTHER, SELFPAY ==
[2023-08-11 16:19] LABS: Basophils # 0.1 10^3/uL (0.0-0.1); Basophils % 1.4 %; Eosinophils # 0.3 10^3/uL (0.0-0.8); Eosinophils % 6.6 %; Hematocrit 35.1 % (37-53); Lymphocytes # 1.4 10^3/uL (0.8-4.8); Lymphocytes % 33.3 %; Mean Corpuscular HGB Conc 31.3 g/dL (30-55); Mean Corpuscular Hemoglobin 28.6 pg (27-33); Mean Corpuscular Volume 91.4 fl (82-101); Mean Platelet Volume 10.9 fL (7.4-10.4); Monocytes # 0.6 10^3/uL (0.2-0.9); Monocytes % 13.8 %; Neutrophils # 1.91 10^3/uL (1.8-7.7); Neutrophils % 44.7 %; Nucleated Red Blood Cells % 0 %; Platelet Count 256 10^3/cmm (157-399); Red Blood Count 3.84 10^6/uL (3.85-5.65); White Blood Count 4.27 10^3/uL (3.29-11.43)
[2023-08-11 16:25] LABS: Erythrocyte Sedimentation Rate 15 mm/hr (0-10)
[2023-08-11 16:44] LABS: Alanine Aminotransferase 11 U/L (0-41); Albumin Level 3.9 g/dL (3.5-5.2); Alkaline Phosphatase 117 U/L (40-130); Blood Urea Nitrogen 17 mg/dL (8-23); C Reactive Protein 6.2 mg/L (0.0-4.9); Calcium 8.6 mg/dL (8.5-10.5); Carbon Dioxide 26 mmol/L (22-29); Chloride 104 mmol/L (98-107); Creatine Phosphokinase 62 U/L (39-308); Globulin 3.1 g/dL (1.3-4.6); Glomerular Filtration Rate 74.5 mL/min (90-130); Glucose 120 mg/dL (65-115); Osmolality Calculated 287 mOsm/kg (285-295); Sodium 137 mmol/L (136-145); Total Bilirubin 0.2 mg/dL (0.15-1.2)
[2023-08-11 16:58] LABS: Anion Gap 11.7 (5-19); Aspartate Amino Transferase 21 U/L (0-40); Potassium 4.7 mmol/L (3.5-5.1)
== END 2023-08-11 15:30 | disposition home or self-care (01) ==
LOC: LAB 15:30
PROVIDERS: PCP Family Medicine; Visit Provider Student in an Organized Health Care Education/Training Program
DX: T84.54XA Infection and inflammatory reaction due to internal left knee prosthesis, initial encounter (principal); Y79.2 Prosthetic and other implants, materials and accessory orthopedic devices associated with adverse incidents
CPT/HCPCS: 80053; 82550; 85025; 85651; 86140

== ENCOUNTER 2023-08-18 08:30 | Outpatient (CLI) | payer OTHER, SELFPAY ==
[2023-08-18 13:57] LABS: Basophils # 0.1 10^3/uL (0.0-0.1); Basophils % 1.4 %; Eosinophils # 0.2 10^3/uL (0.0-0.8); Eosinophils % 4.5 %; Hematocrit 35.3 % (37-53); Lymphocytes # 1.4 10^3/uL (0.8-4.8); Lymphocytes % 31.8 %; Mean Corpuscular HGB Conc 31.2 g/dL (30-55); Mean Corpuscular Hemoglobin 28.2 pg (27-33); Mean Corpuscular Volume 90.5 fl (82-101); Mean Platelet Volume 10.6 fL (7.4-10.4); Monocytes # 0.7 10^3/uL (0.2-0.9); Monocytes % 15.3 %; Neutrophils # 2.08 10^3/uL (1.8-7.7); Neutrophils % 46.8 %; Nucleated Red Blood Cells % 0 %; Platelet Count 251 10^3/cmm (157-399); Red Cell Distribution Width 12.9 % (12.1-15.1); White Blood Count 4.44 10^3/uL (3.29-11.43)
[2023-08-18 14:08] LABS: Erythrocyte Sedimentation Rate 17 mm/hr (0-10)
[2023-08-18 14:16] LABS: Alanine Aminotransferase 10 U/L (0-41); Albumin Level 4.1 g/dL (3.5-5.2); Alkaline Phosphatase 107 U/L (40-130); Blood Urea Nitrogen 13 mg/dL (8-23); C Reactive Protein 3.9 mg/L (0.0-4.9); Calcium 8.4 mg/dL (8.5-10.5); Carbon Dioxide 25 mmol/L (22-29); Chloride 100 mmol/L (98-107); Creatine Phosphokinase 61 U/L (39-308); Globulin 3.1 g/dL (1.3-4.6); Glomerular Filtration Rate 66.8 mL/min (90-130); Glucose 96 mg/dL (65-115); Osmolality Calculated 280 mOsm/kg (285-295); Sodium 135 mmol/L (136-145); Total Bilirubin 0.3 mg/dL (0.15-1.2); Total Protein 7.2 g/dL (6.6-8.7)
[2023-08-18 14:22] LABS: Anion Gap 14.5 (5-19); Potassium 4.5 mmol/L (3.5-5.1)
[2023-08-18 14:23] LABS: Aspartate Amino Transferase 20 U/L (0-40)
== END 2023-08-18 08:31 | disposition home or self-care (01) ==
LOC: LAB 08:30
PROVIDERS: PCP Family Medicine; Visit Provider Student in an Organized Health Care Education/Training Program
DX: Z96.652 Presence of left artificial knee joint (principal); T84.59XD Infection and inflammatory reaction due to other internal joint prosthesis, subsequent encounter; Y79.2 Prosthetic and other implants, materials and accessory orthopedic devices associated with adverse incidents
CPT/HCPCS: 73560; 73565; 80053; 82550; 85025; 85651; 86140; 99024

== ENCOUNTER → 2023-09-08 09:57 | Outpatient (BNVA) | payer OTHER, SELFPAY | PROVIDERS: PCP Family Medicine; Visit Provider Nurse Practitioner | DX: Z96.652 Presence of left artificial knee joint (principal) | CPT/HCPCS: 73560; 73565; 99024 ==

== ENCOUNTER → 2023-09-23 12:33 | Outpatient (BNVA) | payer OTHER, SELFPAY | PROVIDERS: PCP Family Medicine; Visit Provider Student in an Organized Health Care Education/Training Program | DX: Z79.899 Other long term (current) drug therapy (principal); T84.54XA Infection and inflammatory reaction due to internal left knee prosthesis, initial encounter; X58.XXXA Exposure to other specified factors, initial encounter | CPT/HCPCS: 99214 ==

== ENCOUNTER 2023-10-03 09:46 | Outpatient (CLI) | payer OTHER, SELFPAY ==
[2023-10-03 10:43] LABS: Basophils # 0.1 10^3/uL (0.0-0.1); Basophils % 1.1 %; Eosinophils # 0.2 10^3/uL (0.0-0.8); Eosinophils % 3.4 %; Hematocrit 42.5 % (37-53); Lymphocytes # 1.5 10^3/uL (0.8-4.8); Lymphocytes % 32.5 %; Mean Corpuscular HGB Conc 31.8 g/dL (30-55); Mean Corpuscular Hemoglobin 27.7 pg (27-33); Mean Corpuscular Volume 87.3 fl (82-101); Mean Platelet Volume 9.9 fL (7.4-10.4); Monocytes # 0.7 10^3/uL (0.2-0.9); Monocytes % 15.2 %; Neutrophils # 2.12 10^3/uL (1.8-7.7); Neutrophils % 47.6 %; Nucleated Red Blood Cells % 0 %; Platelet Count 282 10^3/cmm (157-399); Red Blood Count 4.87 10^6/uL (3.85-5.65); Red Cell Distribution Width 13.6 % (12.1-15.1); White Blood Count 4.46 10^3/uL (3.29-11.43)
[2023-10-03 10:53] LABS: Alanine Aminotransferase 12 U/L (0-41); Albumin Level 4.1 g/dL (3.5-5.2); Alkaline Phosphatase 119 U/L (40-130); Anion Gap 15.6 (5-19); Aspartate Amino Transferase 18 U/L (0-40); Blood Urea Nitrogen 25 mg/dL (8-23); Carbon Dioxide 22 mmol/L (22-29); Chloride 103 mmol/L (98-107); Globulin 3.5 g/dL (1.3-4.6); Glomerular Filtration Rate 50.5 mL/min (90-130); Glucose 96 mg/dL (65-115); Osmolality Calculated 286 mOsm/kg (285-295); Potassium 4.6 mmol/L (3.5-5.1); Sodium 136 mmol/L (136-145); Total Bilirubin 0.2 mg/dL (0.15-1.2); Total Protein 7.6 g/dL (6.6-8.7)
== END 2023-10-03 09:47 | disposition home or self-care (01) ==
LOC: LAB 09:50
PROVIDERS: PCP Family Medicine; Visit Provider Student in an Organized Health Care Education/Training Program
DX: Z79.899 Other long term (current) drug therapy (principal)
CPT/HCPCS: 36415; 80053; 85025

== ENCOUNTER 2023-10-10 14:53 | Outpatient (CLI) | payer OTHER, SELFPAY ==
[2023-10-10 16:01] LABS: Alanine Aminotransferase 12 U/L (0-41); Albumin Level 4.1 g/dL (3.5-5.2); Alkaline Phosphatase 126 U/L (40-130); Anion Gap 11.5 (5-19); Aspartate Amino Transferase 18 U/L (0-40); Blood Urea Nitrogen 19 mg/dL (8-23); Carbon Dioxide 29 mmol/L (22-29); Chloride 100 mmol/L (98-107); Globulin 3.4 g/dL (1.3-4.6); Glomerular Filtration Rate 50.5 mL/min (90-130); Glucose 117 mg/dL (65-115); Osmolality Calculated 285 mOsm/kg (285-295); Potassium 4.5 mmol/L (3.5-5.1); Sodium 136 mmol/L (136-145); Total Bilirubin 0.2 mg/dL (0.15-1.2); Total Protein 7.5 g/dL (6.6-8.7)
== END 2023-10-10 14:54 | disposition home or self-care (01) ==
LOC: LAB 14:57
PROVIDERS: PCP Family Medicine; Visit Provider Student in an Organized Health Care Education/Training Program
DX: T84.54XA Infection and inflammatory reaction due to internal left knee prosthesis, initial encounter (principal); Z79.899 Other long term (current) drug therapy; X58.XXXA Exposure to other specified factors, initial encounter
CPT/HCPCS: 36415; 80053

== ENCOUNTER → 2023-12-08 09:55 | Outpatient (BNVA) | payer OTHER, SELFPAY | PROVIDERS: PCP Family Medicine; Visit Provider Nurse Practitioner | DX: Z96.652 Presence of left artificial knee joint (principal); M17.11 Unilateral primary osteoarthritis, right knee; T84.59XD Infection and inflammatory reaction due to other internal joint prosthesis, subsequent encounter; Y79.2 Prosthetic and other implants, materials and accessory orthopedic devices associated with adverse incidents | CPT/HCPCS: 73560; 73565 ==

== ENCOUNTER 2023-12-08 11:32 | Outpatient (CLI) | payer OTHER, SELFPAY | END 2023-12-08 11:33 | disposition home or self-care (01) | LOC: SPT 11:32 | PROVIDERS: PCP Family Medicine; Visit Provider Nurse Practitioner | DX: Z46.89 Encounter for fitting and adjustment of other specified devices (principal); M17.11 Unilateral primary osteoarthritis, right knee | CPT/HCPCS: 97760; 99214; L1851 ==

== ENCOUNTER 2024-02-11 09:51 | Outpatient (CLI) | payer OTHER, SELFPAY ==
[2024-02-11 10:51] LABS: Alanine Aminotransferase 12 U/L (0-41); Albumin Level 4.1 g/dL (3.5-5.2); Alkaline Phosphatase 100 U/L (40-130); Aspartate Amino Transferase 16 U/L (0-40); Globulin 3.2 g/dL (1.3-4.6); Total Bilirubin 0.5 mg/dL (0.15-1.2); Total Protein 7.3 g/dL (6.6-8.7)
== END 2024-02-11 09:52 | disposition home or self-care (01) ==
LOC: LAB 09:52
PROVIDERS: PCP Family Medicine; Visit Provider Student in an Organized Health Care Education/Training Program
DX: T84.59XD Infection and inflammatory reaction due to other internal joint prosthesis, subsequent encounter (principal); Z96.659 Presence of unspecified artificial knee joint; Y82.8 Other medical devices associated with adverse incidents
CPT/HCPCS: 36415; 80076